=== PATIENT | female | born 1990 | race Caucasian/White ===

== ENCOUNTER 2017-10-30 14:04 | Emergency (ER) | payer OTHER ==
--- OUTSIDE RECORDS SUMMARY | 2017-10-30 15:26 | XMS REPORT ---
:1990 External Reference #:[id number] Author Organization [employer] Address [address] [address] Phone [phone] Care Team Providers Name Role Phone Luh Bee MD Primary Care Physician Unavailable Payers Type Date Identification Numbers Payment Provider Subscriber Commercial Effective: Policy Number: [id number] [employer] Kindra Shaw 2017 Medicaid PayID: [id number] [place] [id number] Problems Description No Information Family History Date Family Member(s) Problem(s) Comments General Heart Disease Social History Type Date Description Comments Lives With Roommate Allergies, Adverse Reactions, Alerts Date Description Reaction Status Severity Comments 10/10/2017 Penicillins active Medications Medication Date Status Form Strength Qnty SIG Indications Ordering Provider No Active 10/10/2017 Active Unknown Medications Results Description No Information Procedures Date CPT Code Description Status 10/30/2008 26902 Holter Monitor Interpretation Completed Plan of Care Future Appointment(s):10/31/2017 2:00 pm - Walter Perez MD at [facility]10/10/2017 - Walter Perez, [id number] Strain of musc/tend the rotator cuff of left shoulder, initNew Therapy:Physical TherapyFollow up:Follow up: 3 weeks
--- OUTSIDE RECORDS SUMMARY | 2017-10-30 15:26 | XMS REPORT ---
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 0-6 Basophil % 1.2 % 0-2 Nucleated Red Blood Cells % 0.1 Urinalysis Profile 03/04/2017 Urine Color Straw Urine Appearance Cloudy Urine Specific Proctor 1.009 Low 1.010-1.030 Urine pH 6.0 5-9 Urine Urobilinogen Negative Negative Urine Ketones Negative Negative Urine Protein Negative Negative Urine Leukocytes Negative Negative Urine Blood Negative Negative Urine Nitrite Negative Negative Urine Bilirubin Negative Negative Urine Glucose Negative Negative Comp Metabolic Panel 03/04/2017 Sodium 138 mmol/L 133-145 Potassium 3.8 mmol/L 3.5-5.0 Chloride 104 mmol/L 101-111 Co2 Carbon Dioxide 29 mmol/L 22-32 Anion Gap 5 mmol/L 2-11 Glucose 97 mg/dL 70-100 Blood Urea Nitrogen 11 mg/dL 6-24 Creatinine 0.77 mg/dL 0.51-0.95 BUN/Creatinine Ratio 14.3 8-20 Calcium 9.5 mg/dL 8.6-10.3 Total Protein 7.3 g/dL 6.4-8.9 Albumin 4.5 g/dL 3.2-5.2 Globulin 2.8 g/dL 2-4 Albumin/Globulin Ratio 1.6 1-3 Total Bilirubin 0.30 mg/dL 0.2-1.0 Alkaline Phosphatase 48 U/L 34-104 Alt 24 U/L 7-52 Ast 16 U/L 13-39 Egfr Non- 91.3 >60 Egfr 117.5 >60 11 Laboratory test finding 03/04/2017 Magnesium 2.1 mg/dL 1.9-2.7 Creatine Kinase(CK) 40 U/L 10-223 Troponin I 0.00 ng/mL <0.04 TSH (Thyroid Stim Horm) 3.59 mcIU/mL 0.34-5.60 B-Type Natriuretic Peptide BNP 14 pg/mL 12 Lactic Acid 1.0 mmol/L 0.5-2.0 13 Inr/Protime 03/04/2017 Inr 0.92 0.89-1.11 Laboratory test finding 03/04/2017 Partial Thrombo Time 38.5 seconds High 26.0-36.3 PTT D Dimer Quantitative < 200 ng/mL Less Than 230 14 Urine Drug SCR ED 03/04/2017 Amphetamine Ur Screen None Detected None Detect & Pain [facility] Barbiturates Urine Screen None Detected None Detect Benzodiazepine Urine Screen None Detected None Detect Urine Cannabinoids Screen None Detected None Detect Urine Cocaine Screen None Detected None Detect Urine Opiates Screen None Detected None Detect Urine Phencyclidine Screen None Detected None Detect 15 CBC Auto Diff 03/04/2017 White Blood Count 9.0 10^3/uL 3.5-10.8 Red Blood Count 4.27 10^6/uL 4.0-5.4 Hemoglobin 13.0 g/dL 12.0-16.0 Hematocrit 38 % 35-47 Mean Corpuscular Volume 88 fL 80-97 Mean Corpuscular Hemoglobin 31 pg 27-31 Mean Corpuscular HGB Conc 35 g/dL 31-36 Red Cell Distribution Width 13 % 10.5-15 Platelet Count 325 10^3/uL 150-450 Mean Platelet Volume 8 um3 7.4-10.4 Abs Neutrophils 5.5 10^3/uL 1.5-7.7 Abs Lymphocytes 2.7 10^3/uL 1.0-4.8 Abs Monocytes 0.6 10^3/uL 0-0.8 Abs Eosinophils 0.1 10^3/uL 0-0.6 Abs Basophils 0.1 10^3/uL 0-0.2 Abs Nucleated RBC 0 10^3/uL Granulocyte % 61.5 % 38-83 Lymphocyte % 30.5 % 25-47 Monocyte % 6.2 % 1-9 Eosinophil % 0.9 % 0-6 Basophil % 0.9 % 0-2 Nucleated Red Blood Cells % 0 Laboratory test finding 02/26/2017 Troponin I 0.00 ng/mL <0.04 HCG < 0.60 mIU/mL 16 TSH (Thyroid Stim Horm) 0.83 mcIU/mL 0.34-5.60 Comp Metabolic Panel 02/26/2017 Sodium 138 mmol/L 133-145 Potassium 3.4 mmol/L Low 3.5-5.0 Chloride 104 mmol/L 101-111 Co2 Carbon Dioxide 24 mmol/L 22-32 Anion Gap 10 mmol/L 2-11 Glucose 95 mg/dL 70-100 Blood Urea Nitrogen 10 mg/dL 6-24 Creatinine 0.73 mg/dL 0.51-0.95 BUN/Creatinine Ratio 13.7 8-20 Calcium 9.8 mg/dL 8.6-10.3 Total Protein 8.0 g/dL 6.4-8.9 Albumin 4.6 g/dL 3.2-5.2 Globulin 3.4 g/dL 2-4 Albumin/Globulin Ratio 1.4 1-3 Total Bilirubin 0.40 mg/dL 0.2-1.0 Alkaline Phosphatase 51 U/L 34-104 Alt 24 U/L 7-52 Ast 16 U/L 13-39 Egfr Non- 97.1 >60 Egfr 124.9 >60 17 Laboratory test finding 02/26/2017 B-Type Natriuretic Peptide BNP 31 pg/mL 18 Urinalysis Profile 02/26/2017 Urine Color Yellow Urine Appearance Cloudy Urine Specific Proctor 1.015 1.010-1.030 Urine pH 5.0 5-9 Urine Urobilinogen Negative Negative Urine Ketones Negative Negative Urine Protein Negative Negative Urine Leukocytes Negative Negative Urine Blood Negative Negative Urine Nitrite Negative Negative Urine Bilirubin Negative Negative Urine Glucose Negative Negative CBC Auto Diff 02/26/2017 White Blood Count 9.3 10^3/uL 3.5-10.8 Red Blood Count 4.43 10^6/uL 4.0-5.4 Hemoglobin 13.5 g/dL 12.0-16.0 Hematocrit 39 % 35-47 Mean Corpuscular Volume 89 fL 80-97 Mean Corpuscular Hemoglobin 31 pg 27-31 Mean Corpuscular HGB Conc 34 g/dL 31-36 Red Cell Distribution Width 13 % 10.5-15 Platelet Count 345 10^3/uL 150-450 Mean Platelet Volume 8 um3 7.4-10.4 Abs Neutrophils 6.4 10^3/uL 1.5-7.7 Abs Lymphocytes 2.3 10^3/uL 1.0-4.8 Abs Monocytes 0.5 10^3/uL 0-0.8 Abs Eosinophils 0.1 10^3/uL 0-0.6 Abs Basophils 0 10^3/uL 0-0.2 Abs Nucleated RBC 0.01 10^3/uL Granulocyte % 69.0 % 38-83 Lymphocyte % 24.5 % Low 25-47 Monocyte % 5.4 % 1-9 Eosinophil % 0.6 % 0-6 Basophil % 0.5 % 0-2 Nucleated Red Blood Cells % 0.1 Laboratory test finding 02/26/2017 Partial Thrombo Time 38.8 seconds High 26.0-36.3 PTT D Dimer Quantitative < 200 ng/mL Less Than 230 19 Laboratory test finding 10/24/2016 Potassium Redraw 3.6 mmol/L 3.5-5.0 Ast Redraw 17 U/L 13-39 CBC Auto Diff 10/24/2016 White Blood Count 10.7 10^3/uL 3.5-10.8 Red Blood Count 4.07 10^6/uL 4.0-5.4 Hemoglobin 12.6 g/dL 12.0-16.0 Hematocrit 36 % 35-47 Mean Corpuscular Volume 89 fL 80-97 Mean Corpuscular Hemoglobin 31 pg 27-31 Mean Corpuscular HGB Conc 35 g/dL 31-36 Red Cell Distribution Width 12 % 10.5-15 Platelet Count 336 10^3/uL 150-450 Mean Platelet Volume 8 um3 7.4-10.4 Abs Neutrophils 6.4 10^3/uL 1.5-7.7 Abs Lymphocytes 3.3 10^3/uL 1.0-4.8 Abs Monocytes 0.8 10^3/uL 0-0.8 Abs Eosinophils 0.1 10^3/uL 0-0.6 Abs Basophils 0.1 10^3/uL 0-0.2 Abs Nucleated RBC 0.02 10^3/uL Granulocyte % 59.9 % 38-83 Lymphocyte % 30.5 % 25-47 Monocyte % 7.2 % 1-9 Eosinophil % 1.0 % 0-6 Basophil % 1.4 % 0-2 Nucleated Red Blood Cells % 0.1 Laboratory test 10/24/2016 D Dimer Quantitative < 200 ng/mL Less Than 230 20 finding Lactic Acid 1.4 mmol/L 0.5-2.0 21 B-Type Natriuretic Peptide BNP 91 pg/mL 22 Comp Metabolic Panel 10/24/2016 Sodium 140 mmol/L 133-145 Chloride 108 mmol/L 101-111 Co2 Carbon Dioxide 26 mmol/L 22-32 Glucose 79 mg/dL 70-100 Blood Urea Nitrogen 8 mg/dL 6-24 Creatinine 0.71 mg/dL 0.51-0.95 BUN/Creatinine Ratio 11.3 8-20 Calcium 8.4 mg/dL Low 8.6-10.3 23 Total Protein 6.6 g/dL 6.4-8.9 Albumin 3.6 g/dL 3.2-5.2 Globulin 3.0 g/dL 2-4 Albumin/Globulin Ratio 1.2 1-3 Total Bilirubin 0.20 mg/dL 0.2-1.0 Alkaline Phosphatase 50 U/L 34-104 Alt 24 U/L 7-52 Egfr Non- 100.3 >60 Egfr 129.0 >60 24 Potassium TNP mmol/L 3.5-5.0 Anion Gap TNP mmol/L 2-11 Ast TNP U/L 13-39 Laboratory test finding 10/24/2016 Troponin I 0.01 ng/mL <0.04 25 Rapid Influenza A & B 10/16/2016 Influenza A Molecular NEGATIVE Negative 26 Molecular Influenza B Molecular NEGATIVE Negative Laboratory test 10/16/2016 Rapid Influenza A SEE RESULT BELOW 27 finding & B Antigen CBC Auto Diff 10/16/2016 White Blood Count 15.7 10^3/uL High 3.5-10.8 Red Blood Count 5.01 10^6/uL 4.0-5.4 Hemoglobin 15.0 g/dL 12.0-16.0 Hematocrit 45 % 35-47 Mean Corpuscular Volume 89 fL 80-97 Mean Corpuscular Hemoglobin 30 pg 27-31 Mean Corpuscular HGB Conc 34 g/dL 31-36 Red Cell Distribution Width 13 % 10.5-15 Platelet Count 342 10^3/uL 150-450 Mean Platelet Volume 9 um3 7.4-10.4 Abs Neutrophils 14.8 10^3/uL High 1.5-7.7 Abs Lymphocytes 0.3 10^3/uL Low 1.0-4.8 Abs Monocytes 0.5 10^3/uL 0-0.8 Abs Eosinophils 0 10^3/uL 0-0.6 Abs Basophils 0 10^3/uL 0-0.2 Abs Nucleated RBC 0 10^3/uL Granulocyte % 94.5 % High 38-83 Lymphocyte % 1.9 % Low 25-47 Monocyte % 3.3 % 1-9 Eosinophil % 0.1 % 0-6 Basophil % 0.2 % 0-2 Nucleated Red Blood Cells % 0 Laboratory test finding 10/16/2016 Lactic Acid 1.8 mmol/L 0.5-2.0 28 Comp Metabolic Panel 10/16/2016 Sodium 134 mmol/L 133-145 Potassium 3.8 mmol/L 3.5-5.0 Chloride 99 mmol/L Low 101-111 Co2 Carbon Dioxide 26 mmol/L 22-32 Anion Gap 9 mmol/L 2-11 Glucose 131 mg/dL High 70-100 Blood Urea Nitrogen 17 mg/dL 6-24 Creatinine 0.77 mg/dL 0.51-0.95 BUN/Creatinine Ratio 22.1 High 8-20 Calcium 9.9 mg/dL 8.6-10.3 Total Protein 8.9 g/dL 6.4-8.9 Albumin 4.9 g/dL 3.2-5.2 Globulin 4.0 g/dL 2-4 Albumin/Globulin Ratio 1.2 1-3 Total Bilirubin 0.60 mg/dL 0.2-1.0 Alkaline Phosphatase 62 U/L 34-104 Alt 27 U/L 7-52 Ast 19 U/L 13-39 Egfr Non- 91.3 >60 Egfr 117.5 >60 29 Laboratory test finding 10/16/2016 Lipase 13 U/L 11.0-82.0 C Reactive Protein 19.28 mg/L High < 5.00 30 HCG 1.34 mIU/mL 31 Laboratory test finding 07/14/2016 Acetaminophen < 15 g/mL 32 Alcohol < 10 mg/dL <10 Salicylate < 2.50 mg/dL <30 Laboratory test 07/14/2016 Urine Culture And SEE RESULT BELOW 33 finding Sensitivities Comp Metabolic Panel 07/14/2016 Sodium 136 mmol/L 133-145 Potassium 4.0 mmol/L 3.5-5.0 Chloride 104 mmol/L 101-111 Co2 Carbon Dioxide 25 mmol/L 22-32 Anion Gap 7 mmol/L 2-11 Glucose 99 mg/dL 70-100 Blood Urea Nitrogen 11 mg/dL 6-24 Creatinine 0.85 mg/dL 0.51-0.95 BUN/Creatinine Ratio 12.9 8-20 Calcium 9.6 mg/dL 8.6-10.3 Total Protein 7.4 g/dL 6.4-8.9 Albumin 4.2 g/dL 3.2-5.2 Globulin 3.2 g/dL 2-4 Albumin/Globulin Ratio 1.3 1-3 Total Bilirubin 0.20 mg/dL 0.2-1.0 Alkaline Phosphatase 54 U/L 34-104 Alt 26 U/L 7-52 Ast 13 U/L 13-39 Egfr Non- 82.2 >60 Egfr 105.7 >60 34 Laboratory test finding 07/14/2016 HCG < 0.60 mIU/mL 35 TSH (Thyroid Stim Horm) 1.69 mcIU/mL 0.34-5.60 CBC Auto Diff 07/14/2016 White Blood Count 10.6 10^3/uL 3.5-10.8 Red Blood Count 4.63 10^6/uL 4.0-5.4 Hemoglobin 14.0 g/dL 12.0-16.0 Hematocrit 42 % 35-47 Mean Corpuscular Volume 90 fL 80-97 Mean Corpuscular Hemoglobin 30 pg 27-31 Mean Corpuscular HGB Conc 34 g/dL 31-36 Red Cell Distribution Width 13 % 10.5-15 Platelet Count 328 10^3/uL 150-450 Mean Platelet Volume 8 um3 7.4-10.4 Abs Neutrophils 7.4 10^3/uL 1.5-7.7 Abs Lymphocytes 2.3 10^3/uL 1.0-4.8 Abs Monocytes 0.7 10^3/uL 0-0.8 Abs Eosinophils 0.1 10^3/uL 0-0.6 Abs Basophils 0.1 10^3/uL 0-0.2 Abs Nucleated RBC 0.01 10^3/uL Granulocyte % 70.5 % 38-83 Lymphocyte % 21.5 % Low 25-47 Monocyte % 6.7 % 1-9 Eosinophil % 0.7 % 0-6 Basophil % 0.6 % 0-2 Nucleated Red Blood Cells % 0.1 Urinalysis Profile 07/14/2016 Urine Color Yellow Urine Appearance Cloudy Urine Specific Proctor 1.016 1.010-1.030 Urine pH 7.0 5-9 Urine Urobilinogen Negative Negative Urine Ketones Negative Negative Urine Protein Negative Negative Urine Leukocytes 2+ Negative Urine Blood Negative Negative * * Negative 36 Urine Nitrite Negative Negative Urine Bilirubin Negative Negative Urine Glucose Negative Negative Urine White Blood Cell 2+(11-20/hpf) Absent Urine Red Blood Cell Trace(0-2/hpf) Absent Urine Bacteria 1+ Absent Urine Squamous Epithelial Cell Present Absent Urine Drug SCR ED 07/14/2016 Amphetamine Ur Screen None Detected None Detect & Pain Clinic Barbiturates Urine Screen None Detected None Detect Benzodiazepine Urine Screen None Detected None Detect Urine Cannabinoids Screen None Detected None Detect Urine Cocaine Screen None Detected None Detect Urine Opiates Screen None Detected None Detect Urine Phencyclidine Screen None Detected None Detect 37 Laboratory test finding 06/28/2016 Potassium Redraw 3.9 mmol/L 3.5-5.0 Ast Redraw 14 U/L 13-39 CBC Auto Diff 06/28/2016 White Blood Count 8.4 10^3/uL 3.5-10.8 Red Blood Count 4.70 10^6/uL 4.0-5.4 Hemoglobin 14.3 g/dL 12.0-16.0 Hematocrit 42 % 35-47 Mean Corpuscular Volume 90 fL 80-97 Mean Corpuscular Hemoglobin 31 pg 27-31 Mean Corpuscular HGB Conc 34 g/dL 31-36 Red Cell Distribution Width 13 % 10.5-15 Platelet Count 340 10^3/uL 150-450 Mean Platelet Volume 9 um3 7.4-10.4 Abs Neutrophils 5.9 10^3/uL 1.5-7.7 Abs Lymphocytes 2.0 10^3/uL 1.0-4.8 Abs Monocytes 0.4 10^3/uL 0-0.8 Abs Eosinophils 0.1 10^3/uL 0-0.6 Abs Basophils 0.1 10^3/uL 0-0.2 Abs Nucleated RBC 0 10^3/uL Granulocyte % 70.4 % 38-83 Lymphocyte % 23.3 % Low 25-47 Monocyte % 4.9 % 1-9 Eosinophil % 0.8 % 0-6 Basophil % 0.6 % 0-2 Nucleated Red Blood Cells % 0 Urinalysis Profile 06/28/2016 Urine Color Straw Urine Appearance Clear Urine Specific Proctor 1.003 Low 1.010-1.030 Urine pH 6.0 5-9 Urine Urobilinogen Negative Negative Urine Ketones Negative Negative Urine Protein Negative Negative Urine Leukocytes 1+ Negative Urine Blood Negative Negative Urine Nitrite Negative Negative Urine Bilirubin Negative Negative Urine Glucose Negative Negative Urine White Blood Cell Trace(0-5/hpf) Absent Urine Red Blood Cell Absent Absent Urine Bacteria Absent Absent Urine Squamous Epithelial Cell Present Absent Laboratory test finding 06/28/2016 HCG < 0.60 mIU/mL 38 Comp Metabolic Panel 06/28/2016 Sodium 135 mmol/L 133-145 Chloride 102 mmol/L 101-111 Co2 Carbon Dioxide 26 mmol/L 22-32 Glucose 96 mg/dL 70-100 Blood Urea Nitrogen 9 mg/dL 6-24 Creatinine 0.80 mg/dL 0.51-0.95 BUN/Creatinine Ratio 11.3 8-20 Calcium 9.7 mg/dL 8.6-10.3 Total Protein 8.1 g/dL 6.4-8.9 Albumin 4.7 g/dL 3.2-5.2 Globulin 3.4 g/dL 2-4 Albumin/Globulin Ratio 1.4 1-3 Total Bilirubin 0.50 mg/dL 0.2-1.0 Alkaline Phosphatase 50 U/L 34-104 Alt 21 U/L 7-52 Egfr Non- 88.1 >60 Egfr 113.3 >60 39 Potassium TNP mmol/L 3.5-5.0 40 Anion Gap TNP mmol/L 2-11 Ast TNP U/L 13-39 41 Laboratory test finding 06/28/2016 Lipase 15 U/L 11.0-82.0 Urine Culture And Sensitivities SEE RESULT BELOW 42 Lipid Profile 04/21/2016 Cholesterol 214 mg/dL High 120-200 Triglycerides 211 mg/dL High 30-200 HDL Cholesterol 28 mg/dL Low 30-85 43 LDL (Calculated) 144 CALC High 0-129 VLDL Cholesterol 42 mg/dL 0-50 HDL Risk Factor 7.6 CALC High 0.0-4.4 CBC Electronic (Fma) 04/21/2016 WBC 7.1 3.6-9.6 RBC 4.56 3.90-5.70 Hemoglobin (Fma/CMC/CTX) 14.1 g/dL 12.1 - 17.2 Hematocrit (Fma/CMC/CTX) 41.0 % 36.1 - 50.3 Platelets 337 10^3/ul 150-400 Lymph% 30.3 % 17.0-48.0 Mixed% 3.2 Neutrophils % 66.5 Mean Corpuscular Vol 90 82.2-97.4 Mean Corpuscular Hemoglobin 31.0 27.6-33.3 Mean Corpuscular Hemo Concen 34.4 32.0-36.0 RDW 12.5 11.6-13.7 Mean Platelet Volume 7.5 5.5-11.0 Laboratory test finding 04/21/2016 Vitamin D25 21 Low 30-100 TSH 1.39 mIU/L 0.50-6.00 Comprehensive Metabolic Prof 04/21/2016 Sodium 137 mEq/L 134-149 Potassium 4.7 mEq/L 3.6-5.5 Chloride 100 mEq/L 94-112 Carbon Dioxide 26 mEq/L 21-32 Glucose 94 mg/dL 70-105 BUN 10 mg/dL 6-26 Creatinine 0.7 mg/dL 0.6-1.4 BUN/Creat Ratio 14.3 CALC 8.0-36.0 Calcium 9.3 mg/dL 8.6-10.2 Total Protein 7.5 g/dL 6.4-8.3 Albumin 4.4 g/dL 3.8-5.5 Globulin 3.1 g/dL 2.0-4.8 A/G Ratio 1.4 CALC 0.6-2.3 Alk. Phosphatase 53 U/L 30-110 Alt (SGPT) 38 U/L High 7-35 44 Ast (Sgot) 22 U/L 5-34 Total Bilirubin 0.4 mg/dL 0.2-1.3 GFR Non- >60 ml/min/1.73m^ >=60 GFR >60 ml/min/1.73m^ >=60 Laboratory test finding 04/07/2016 PDF [id number] SEE IMAGE Age 1004/07/2016 Age 21-25 Diagn See Comment: 45 Adeq See Comment: 46 [email or web address] See Comment: 47 Perfor See Comment: 48 Comm . Note See Comment: 49 Iglbp See Comment: 50 Reflex See Comment: 51 Chlamydia, Nuc. Acid Amp Negative Negative Gonococcus, Nuc. Acid Amp Negative Negative HCG Beta Subunit QN Serial 06/03/2013 HCG, Beta Chain, Quant, S <1 mIU/ mL 52 Urine (Fma) 06/03/2013 SP Grav 1.020 Urine, (Fma/CMC/CTX) NEG Laboratory test finding 04/02/2013 Prolactin 37.27 ng/mL High 1.0-25.0 Brigitte Panel--LD (Ctx) 03/26/2013 Antinuclear Abs, Ifa Negative 53 Rheumatoid Arth Factor 10.2 IU/mL 0.0-13.9 Anti Dsdna Antibodies <1 IU/mL 0-9 54 Hla B27 Disease Assoc. Negative 55 Antiextractable Nuclear Ag 03/26/2013 [employer] Antibodies <0.2 AI 0.0-0.9 Nunez Antibodies <0.2 AI 0.0-0.9 Sjogren's AB Anti Ssa/SSB 03/26/2013 Sjogren's Anti-SS-A <0.2 AI 0.0- 0.9 Sjogren's Anti-SS-B <0.2 AI 0.0-0.9 Laboratory test 03/26/2013 Sed Rate (Fma/CMC/Centrex) 14 mm finding Laboratory test 03/26/2013 TSH 1.43 mIU/L 0.50-6.00 56 finding CCP Antibodies 03/26/2013 CCP Antibodies IgG/IgA 10 units 0-19 57 Iga,Igg Basic Metabolic Panel 01/08/2013 Sodium 137 mmol/L 133-145 Potassium 4.2 mmol/L 3.5-5.0 Chloride 105 mmol/L 101-111 Co2 Carbon Dioxide 24.0 mmol/L 22-32 Anion Gap 8.0 mmol/L 2-11 Glucose 85 mg/dL 70-100 Blood Urea Nitrogen 7 mg/dL 6-24 Creatinine 0.60 mg/dL 0.50-1.40 BUN/Creatinine Ratio 11.7 8-20 Calcium 9.4 mg/dL 8.1-9.9 Egfr Non- 126.2 >60 Egfr 162.3 >60 58 Laboratory test finding 01/08/2013 Prolactin 86.99 ng/mL High 1.0-25.0 Progesterone 0.28 ng/mL 59 Laboratory test finding 10/30/2012 TSH 1.32 mIU/L 0.50-6.00 LDL (Direct) 102 mg/dL 0-130 CBC Electronic (Fma) 10/30/2012 WBC 9.2 3.6-9.6 RBC 4.46 3.90-5.70 Hemoglobin (Fma/CMC/CTX) 13.0 g/dL 12.1 - 17.2 Hematocrit (Fma/CMC/CTX) 39.5 % 36.1 - 50.3 Platelets 330 10^3/ul 150-400 Lymph% 28.0 20.5-51.1 Mixed% 3.7 Neutrophils % 68.3 Mean Corpuscular Vol 89 82.2-97.4 Mean Corpuscular Hemoglobin 29.2 27.6-33.3 Mean Corpuscular Hemo Concen 33.0 32.0-36.0 RDW 12.9 11.6-13.7 Mean Platelet Volume 7.9 6.5-11.0 Ua - Non Micro (a) 10/30/2012 Appearance clear Color yellow Glucose - Bilirubin - Ketones - SP Grav >=1.030 Blood - PH 5.5 Protein - Urobil 0.2 Nitrite - Leukocytes (Fma/CMC/Centrex) - Comprehensive Metabolic Prof 10/30/2012 Albumin 4.7 g/dL 3.8-5.5 Alk. Phos. 59 U/L 30-110 Alt (SGPT) 38 U/L High 7-35 60 Ast (Sgot) 25 U/L 5-34 BUN 11 mg/dL 6-26 Calcium 9.6 mg/dL 8.6-10.2 Chloride 104 mEq/L 94-112 Creatinine 0.8 mg/dL 0.6-1.4 Carbon Dioxide 26 mEq/L 21-32 Glucose 103 mg/dL 70-105 Sodium 143 mEq/L 134-149 Total Bilirubin 0.2 mg/dL 0.2-1.3 Total Protein 7.6 g/dL 6.3-8.1 Potassium 4.5 mEq/L 3.6-5.5 Globulin 2.9 g/dL 2.0-4.8 A/G Ratio 1.6 Calc 0.6-2.3 BUN/Creat Ratio 12.7 Calc 8.0-36.0 Lipid Profile 10/30/2012 Cholesterol 201 mg/dL High 120-200 HDL 27 mg/dL Low 30-85 61 Triglycerides 293 mg/dL High 30-200 HDL Risk Factor 7.6 CALC High 0.0-4.4 LDL (Calculated) 116 CALC 0-129 62 VLDL (Calculated) 59 mg/dL High 0-50 1 TOXASSURE SELECT 13 (MW) Test Result Flag Units Drug Absent but Declared for Prescription Verification Clonazepam Not Detected UNEXPECTED ng/mg creat Hydrocodone Not Detected UNEXPECTED ng/mg creat Test Result Flag Units Ref Range Creatinine 82 mg/dL >=20 Declared Medications: The flagging and interpretation on this report are based on the following declared medications. Unexpected results may arise from inaccuracies in the declared medications. Note: The testing scope of this panel includes these medications: Clonazepam (Klonopin) Hydrocodone (Hydrocodone-Acetaminophen) Note: The testing scope of this panel does not include following reported medications: Acetaminophen (Hydrocodone-Acetaminophen) Aripiprazole Atomoxetine (Strattera) Citalopram (Lexapro) Desogestrel (Mircette) Ethinyl Estradiol (Mircette) Fluticasone (Flovent) Folic acid Levalbuterol (Xopenex) Metformin Montelukast (Singulair) Zolpidem (Ambien) For clinical consultation, please call . 2 Test Performed by: [facility] [place] [address] 3 REFERENCE VALUE <=1.0 (Negative) 4 REFERENCE VALUE <20.0 (Negative) 5 Tests for antibodies to dsDNA and MARY antigens are not performed automatically unless the BRIGITTE result is > or= 3.0 U. Studies performed at [facility] indicate that positive BRIGITTE results <3.0 U are rarely accompanied by positive second order tests. Test Performed by: [place] [id number] 6 Because ethnic data is not always readily available, this report includes an eGFR for both -Americans and non- Americans. The National Kidney Disease Education Program (NKDEP) does not endorse the use of the MDRD equation for patients that are not between the ages of 18 and 70, are , have extremes of body size, muscle mass, or nutritional status, or are non- or non-. According to the National Kidney Foundation, irrespective of diagnosis, the stage of the disease is based on the level of kidney function: Stage Description GFR(mL/min/1.73 m(2)) 1 Kidney damage with normal or decreased GFR 90 2 Kidney damage with mild decrease in GFR 60-89 3 Moderate decrease in GFR 30-59 4 Severe decrease in GFR 15-29 5 Kidney failure <15 (or dialysis) 7 <5.0 Negative 5.0 - 25.0 Indeterminate (Repeat testing recommended after 72 hours) >25.0 Positive Perimenopausal women can display HCG levels of up to 20 mIU/mL 8 The urine specimen was tested at the listed cutoffs: Drug class test level (ng/mL) Amphetamines 500 Barbiturates 200 Benzodiazepine metabolites 200 Cocaine metabolites 150 Cannabinoids 50 Opiates 300 Pcp 25 Specimen was received without chain of custody. Results should be used for medical purposes only. 9 Because ethnic data is not always readily available, this report includes an eGFR for both -Americans and non- Americans. The National Kidney Disease Education Program (NKDEP) does not endorse the use of the MDRD equation for patients that are not between the ages of 18 and 70, are , have extremes of body size, muscle mass, or nutritional status, or are non- or non-. According to the National Kidney Foundation, irrespective of diagnosis, the stage of the disease is based on the level of kidney function: Stage Description GFR(mL/min/1.73 m(2)) 1 Kidney damage with normal or decreased GFR 90 2 Kidney damage with mild decrease in GFR 60-89 3 Moderate decrease in GFR 30-59 4 Severe decrease in GFR 15-29 5 Kidney failure <15 (or dialysis) 10 Therapeutic concentration: <50 ug/mL Toxic concentration: >120 ug/mL 11 Because ethnic data is not always readily available, this report includes an eGFR for both -Americans and non- Americans. The National Kidney Disease Education Program (NKDEP) does not endorse the use of the MDRD equation for patients that are not between the ages of 18 and 70, are , have extremes of body size, muscle mass, or nutritional status, or are non- or non-. According to the National Kidney Foundation, irrespective of diagnosis, the stage of the disease is based on the level of kidney function: Stage Description GFR(mL/min/1.73 m(2)) 1 Kidney damage with normal or decreased GFR 90 2 Kidney damage with mild decrease in GFR 60-89 3 Moderate decrease in GFR 30-59 4 Severe decrease in GFR 15-29 5 Kidney failure <15 (or dialysis) 12 >100 to <200 pg/mL: likely compensated congestive heart failure (CHF) 200 to 400 pg/mL: likely moderate CHF >400 pg/mL: likely moderate to severe CHF 13 [facility] Severe Sepsis and Septic Shock Management Bundle Measure requires all lactic acids initially measuring >2.0 mmol/L be repeated. 14 Please note: The following may produce a false positive D Dimer test: - Rheumatoid factor greater than 60 IU/ml - Plasma hemoglobin greater than 0.05 gm/dl - Bilirubin greater than 50 mg/dl - Lipids greater than 1000 mg/dl - FDP greater than 20 ug/ml 15 The urine specimen was tested at the listed cutoffs: Drug class test level (ng/mL) Amphetamines 500 Barbiturates 200 Benzodiazepine metabolites 200 Cocaine metabolites 150 Cannabinoids 50 Opiates 300 Pcp 25 Specimen was received without chain of custody. Results should be used for medical purposes only. 16 <5.0 Negative 5.0 - 25.0 Indeterminate (Repeat testing recommended after 72 hours) >25.0 Positive Perimenopausal women can display HCG levels of up to 20 mIU/mL 17 Because ethnic data is not always readily available, this report includes an eGFR for both -Americans and non- Americans. The National Kidney Disease Education Program (NKDEP) does not endorse the use of the MDRD equation for patients that are not between the ages of 18 and 70, are , have extremes of body size, muscle mass, or nutritional status, or are non- or non-. According to the National Kidney Foundation, irrespective of diagnosis, the stage of the disease is based on the level of kidney function: Stage Description GFR(mL/min/1.73 m(2)) 1 Kidney damage with normal or decreased GFR 90 2 Kidney damage with mild decrease in GFR 60-89 3 Moderate decrease in GFR 30-59 4 Severe decrease in GFR 15-29 5 Kidney failure <15 (or dialysis) 18 >100 to <200 pg/mL: likely compensated congestive heart failure (CHF) 200 to 400 pg/mL: likely moderate CHF >400 pg/mL: likely moderate to severe CHF 19 Please note: The following may produce a false positive D Dimer test: - Rheumatoid factor greater than 60 IU/ml - Plasma hemoglobin greater than 0.05 gm/dl - Bilirubin greater than 50 mg/dl - Lipids greater than 1000 mg/dl - FDP greater than 20 ug/ml 20 Please note: The following may produce a false positive D Dimer test: - Rheumatoid factor greater than 60 IU/ml - Plasma hemoglobin greater than 0.05 gm/dl - Bilirubin greater than 50 mg/dl - Lipids greater than 1000 mg/dl - FDP greater than 20 ug/ml 21 [facility] Severe Sepsis and Septic Shock Management Bundle Measure requires all lactic acids initially measuring >2.0 mmol/L be repeated. 22 >100 to <200 pg/mL: likely compensated congestive heart failure (CHF) 200 to 400 pg/mL: likely moderate CHF >400 pg/mL: likely moderate to severe CHF 23 Specimen Lipemic. Result may not be valid. 24 Because ethnic data is not always readily available, this report includes an eGFR for both -Americans and non- Americans. The National Kidney Disease Education Program (NKDEP) does not endorse the use of the MDRD equation for patients that are not between the ages of 18 and 70, are , have extremes of body size, muscle mass, or nutritional status, or are non- or non-. According to the National Kidney Foundation, irrespective of diagnosis, the stage of the disease is based on the level of kidney function: Stage Description GFR(mL/min/1.73 m(2)) 1 Kidney damage with normal or decreased GFR 90 2 Kidney damage with mild decrease in GFR 60-89 3 Moderate decrease in GFR 30-59 4 Severe decrease in GFR 15-29 5 Kidney failure <15 (or dialysis) 25 99th percentile=0.04 ng/mL Troponin results at [facility] and [facility] are not interchangeable. 26 Shoe Cutter: [id number] 27 SEE RESULT BELOW Name: KINDRA MEDRANO : [address]: Tonny Romero MD Acct: [id number] Unit: [id number] AGE: 26 Location: ED Re10/16/16 SEX: F Status: REG ER SPEC: [id number] VANCE: 10/16/16-[address] [facility] [address]: Tonny Romero MD REQ: [id number] RECD: 10/16/161743 STATUS: LINETTE GAMINO DR: Luh Bee MD _ SOURCE: [facility]: ORDERED: Flu A B Request Procedure Result Reported Site Rapid Influenza A B Request Final 10/16/16- 1411 ML Specimen received for Influenza A/B Molecular testing * ML - MAIN LAB ([facility]) . END OF REPORT * ML=Testing performed at Main Lab DEPARTMENT OF PATHOLOGY, [address] [place] [address] Dylan Laurent M.D. Director [facility] # [id number] 28 [facility] Severe Sepsis and Septic Shock Management Bundle Measure requires all lactic acids initially measuring >2.0 mmol/L be repeated. 29 Because ethnic data is not always readily available, this report includes an eGFR for both -Americans and non- Americans. The National Kidney Disease Education Program (NKDEP) does not endorse the use of the MDRD equation for patients that are not between the ages of 18 and 70, are , have extremes of body size, muscle mass, or nutritional status, or are non- or non-. According to the National Kidney Foundation, irrespective of diagnosis, the stage of the disease is based on the level of kidney function: Stage Description GFR(mL/min/1.73 m(2)) 1 Kidney damage with normal or decreased GFR 90 2 Kidney damage with mild decrease in GFR 60-89 3 Moderate decrease in GFR 30-59 4 Severe decrease in GFR 15-29 5 Kidney failure <15 (or dialysis) 30 Acute inflammation: >10.00 31 <5.0 Negative 5.0 - 25.0 Indeterminate (Repeat testing recommended after 72 hours) >25.0 Positive Perimenopausal women can display HCG levels of up to 20 mIU/mL 32 Therapeutic concentration: <50 ug/mL Toxic concentration: >120 ug/mL 33 SEE RESULT BELOW Name: KINDRA MEDRANO : [address]: Denys Caba MD Acct: [id number] Unit: [id number] AGE: 25 Location: ED Re07/14/16 SEX: F Status: DEP ER SPEC: [id number] VANCE: 07/14/[address] [facility] [address]: Denys Caba MD REQ: [id number] RECD: 07/14/16 STATUS: LINETTE GAMINO DR: [facility] Luh Bee MD _ SOURCE: URINE SPDESC: ORDERED: Urine Culture Procedure Result Reported Site Urine Culture Final 07/15/16- 1528 ML Organism 1 STREP GROUP B [place] Count 75-100,000 (Many) CFU/ML Susceptibility testing of penicillins and other B-lactams approved by FDA for treatment of Streptococcus pyogenes (Group A Strep) and Streptococcus agalactiae (Group B Strep) is not necessary for clinical purposes and need not be done routinely, since as with vancomycin, resistant strains have not been recognized. (CLSI C551-H60;p.66) Positive isolates will be saved for one week. Please call the Microbiology Laboratory if further susceptibility testing is needed. * ML - MAIN LAB ([facility]) . END OF REPORT * ML=Testing performed at Main Lab DEPARTMENT OF PATHOLOGY, [address] [place] [address] Dylan Laurent M.D. Director [facility] # [id number] 34 Because ethnic data is not always readily available, this report includes an eGFR for both -Americans and non- Americans. The National Kidney Disease Education Program (NKDEP) does not endorse the use of the MDRD equation for patients that are not between the ages of 18 and 70, are , have extremes of body size, muscle mass, or nutritional status, or are non- or non-. According to the National Kidney Foundation, irrespective of diagnosis, the stage of the disease is based on the level of kidney function: Stage Description GFR(mL/min/1.73 m(2)) 1 Kidney damage with normal or decreased GFR 90 2 Kidney damage with mild decrease in GFR 60-89 3 Moderate decrease in GFR 30-59 4 Severe decrease in GFR 15-29 5 Kidney failure <15 (or dialysis) 35 <5.0 Negative 5.0 - 25.0 Indeterminate (Repeat testing recommended after 72 hours) >25.0 Positive Perimenopausal women can display HCG levels of up to 20 mIU/mL 36 *Ascorbic acid is present which may interfere with detection of blood. 37 The urine specimen was tested at the listed cutoffs: Drug class test level (ng/mL) Amphetamines 500 Barbiturates 200 Benzodiazepine metabolites 200 Cocaine metabolites 150 Cannabinoids 50 Opiates 300 Pcp 25 Specimen was received without chain of custody. Results should be used for medical purposes only. 38 <5.0 Negative 5.0 - 25.0 Indeterminate (Repeat testing recommended after 72 hours) >25.0 Positive Perimenopausal women can display HCG levels of up to 20 mIU/mL 39 Because ethnic data is not always readily available, this report includes an eGFR for both -Americans and non- Americans. The National Kidney Disease Education Program (NKDEP) does not endorse the use of the MDRD equation for patients that are not between the ages of 18 and 70, are , have extremes of body size, muscle mass, or nutritional status, or are non- or non-. According to the National Kidney Foundation, irrespective of diagnosis, the stage of the disease is based on the level of kidney function: Stage Description GFR(mL/min/1.73 m(2)) 1 Kidney damage with normal or decreased GFR 90 2 Kidney damage with mild decrease in GFR 60-89 3 Moderate decrease in GFR 30-59 4 Severe decrease in GFR 15-29 5 Kidney failure <15 (or dialysis) 40 Unable to report test result due to hemolysis. 41 Unable to report test result due to hemolysis. 42 SEE RESULT BELOW Name: KINDRA MEDRANO : [address]: Babak Molina MD Acct: [id number] Unit: [id number] AGE: 25 Location: ED Re06/28/16 SEX: F Status: DEP ER SPEC: [id number] VANCE: 06/28/16-[address] [facility] [address]: Babak Molina MD REQ: [id number] RECD: 06/28/16 STATUS: LINETTE GAMINO DR: Luh Bee MD _ SOURCE: URINE SPDESC: ORDERED: Urine Culture Procedure Result Reported Site Urine Culture Final 06/29/16- 1612 ML Organism 1 STREP GROUP B [place] Count 75-100,000 (Many) CFU/ML Organism 2 NORMAL MIL [place] Count 10-25,000 (Moderate) CFU/ML Susceptibility testing of penicillins and other B-lactams approved by FDA for treatment of Streptococcus pyogenes (Group A Strep) and Streptococcus agalactiae (Group B Strep) is not necessary for clinical purposes and need not be done routinely, since as with vancomycin, resistant strains have not been recognized. (CLSI B333-M24;p.66) Positive isolates will be saved for one week. Please call the Microbiology Laboratory if further susceptibility testing is needed. * ML - MAIN LAB ([facility]) . END OF REPORT * ML=Testing performed at Main Lab DEPARTMENT OF PATHOLOGY, [address] [place] [address] Dylan Laurent M.D. Director [facility] # [id number] 43 consistent w/ previous results 44 consistent w/ previous results 45 NEGATIVE FOR INTRAEPITHELIAL LESION AND MALIGNANCY. 46 Satisfactory for evaluation. Endocervical and/or squamous metaplastic cells (endocervical component) are present. Areas of partially obscuring inflammatory exudate are present. 47 Z12.4 48 Triston Velasco, Senior Mobile Solutions Architect (ASCP) 49 The Pap smear is a screening test designed to aid in the detection of premalignant and malignant conditions of the uterine cervix. It is not a diagnostic procedure and should not be used as the sole means of detecting cervical cancer. Both false-positive and false-negative reports do occur. 50 This liquid based ThinPrep(R) pap test was screened with the use of an image guided system. 51 The HPV DNA reflex criteria were not met with this specimen result therefore, no HPV testing was performed. 52 Female (Non-) 0 - 5 (Postmenopausal) 0 - 8 Female () Weeks of Gestation 3 6 - 71 4 10 - 750 5 252 - 5692 6 105 - 26584 7 1563 -108549 8 47818 -538709 9 24422 -020734 10 07664 -624188 12 38675 -005969 14 13813 - 22881 15 24275 - 76531 16 0722 - 31709 17 8877 - 43759 18 3334 - 84874 Kris ECLIA methodology 53 Negative <1:80 Borderline 1:80 Positive >1:80 54 Negative <5 Equivocal 5 - 9 Positive >9 55 HLA-B*27 Negative This test was performed using PCR (Polymerase Chain Reaction)/SSOP (Sequence Specific Oligonucleotide Probes) technique. SBT (Sequence Based Typing) and/or SSP (Sequence Specific Primers) may be used as supplemental methods when necessary. Please contact [facility] Customer Service at if you have any questions. Director of [facility] Dr Mark Ray, PhD 56 I need the citric citrillunated peptide. not sure if i ordered it scott ectly or not. thanks. w 57 Negative <20 Weak positive 20 - 39 Moderate positive 40 - 59 Strong positive >59 58 Because ethnic data is not always readily available, this report includes an eGFR for both -Americans and non- Americans. The National Kidney Disease Education Program (NKDEP) does not endorse the use of the MDRD equation for patients that are not between the ages of 18 and 70, are , have extremes of body size, muscle mass, or nutritional status, or are non- or non-. According to the National Kidney Foundation, irrespective of diagnosis, the stage of the disease is based on the level of kidney function: Stage Description GFR(mL/min/1.73 m(2)) 1 Kidney damage with normal or decreased GFR 90 2 Kidney damage with mild decrease in GFR 60-89 3 Moderate decrease in GFR 30-59 4 Severe decrease in GFR 15-29 5 Kidney failure <15 (or dialysis) 59 R Female reference ranges for Progesterone: Follicular phase.......0.3 - 1.5 ng/ml Mid-luteal phase.......5.2 - 18.5 ng/ml Postmenopausal.........< 0.8 ng/ml 1st trimester.........4.7 - 50.0 ng/ml 2nd trimester.........19.4 - 45.3 ng/ml 60 RESULT JASON'D 61 RESULT JASON'D 62 INVALID Procedures Date CPT Code Description Status 07/12/2017 65446 Finger Or Heel Stick Completed 02/09/2017 81110 Electrocardiogram Complete Completed Encounters Type Date Location Provider CPT E/M Dx Office Visit 09/20/2017 9:40a Main Office Luh Bee M.D. 77851 G43.109 M16.2 Office Visit 09/06/2017 10:40a Main Office Luh Bee M.D. 00921 M24.851 M24.852 M16.2 R41.840 F31.89 Office Visit 08/22/2017 4:15p Main Office Marilu Caraballobhart, [facility] 30480 M54.5 M25.551 M25.552 Office Visit 08/18/2017 3:45p Main Office Rain Walker, [facility] 46810 R41.840 Office Visit 08/02/2017 11:00a Main Office Rain Walker, [facility] 21505 J30.89 J45.998 M25.559 Office Visit 07/19/2017 9:00a Main Office Rain Walker, [facility] 24918 M25.559 Office Visit 07/12/2017 11:15a Main Office Rain Walker [facility] 72064 R73.01 M25.559 Office Visit 06/30/2017 10:30a Main Office Rain Walker, [facility] 41663 M25.559 Office Visit 06/14/2017 2:30p Main Office Rain Sidhur, [facility] 49055 M25.551 M25.552 Office Visit 05/29/2017 4:00p Main Office Rain Walker, [facility] 51462 M25.551 M25.552 Office Visit 05/17/2017 2:45p Main Office Rain Walker, [facility] 26647 M25.551 M25.559 M25.552 Office Visit 05/10/2017 2:15p Main Office Rain Walker [facility] 76486 M25.559 Office Visit 05/03/2017 9:30a Main Office Rain Walker, [facility] 65818 M25.559 Office Visit 04/11/2017 2:00p Main Office Marilu White, [facility] 49442 R55 E28.2 F31.89 J45.998 E66.3 Z00.01 Office Visit 03/28/2017 10:20a Main Office Garth Gomez M.D. 39541 R55 Office Visit 03/22/2017 10:00a Main Office Larissa Baires, DASIA 22496 R55 E28.2 Office Visit 03/09/2017 10:20a Main Office Garth Gomez M.D. 91553 Z23 R55 Office Visit 02/09/2017 10:30a Main Office Larissa Baires, DASIA 61578 F31.89 F41.1 E28.2 J45.998 R07.9 Office Visit 01/05/2017 10:00a Main Office Marilu White, [facility] 53835 K08.89 R68.84 Office Visit 12/01/2016 2:00p Main Office Marilu White, [facility] 30733 M54.89 E66.3 Office Visit 11/10/2016 10:30a Main Office Marilu White, [facility] 13657 J45.998 F31.89 F41.1 L68.0 E28.2 Office Visit 10/01/2016 9:00a Main Office Casie Lashonda Decker 26346 F41.1 F31.89 Office Visit 04/16/2016 10:40a Main Office Luh Bee M.D. 13332 F41.1 E28.2 F31.89 J45.998 E55.9 Office Visit 04/07/2016 10:15a Main Office Marilu White, [facility] 45506 F32.9 F41.1 E28.2 L68.0 E66.3 F17.210 Z01.419 Office Visit 06/03/2013 5:45p [place] [address] 626.4 Office Visit 05/27/2013 7:40p Main Office Luh Bee M.D. 93157 305.1 493.90 Office Visit 05/03/2013 3:20p Northeast Office Luh Bee M.D. 33664 726.5 V04.81 Office Visit 01/14/2013 2:15p Main Office Nesha DASIA Lutz 11229 305.1 780.52 493.90 Office Visit 12/10/2012 1:30p Main Office Nesha DASIA Lutz 39056 493.90 780.52 305.1 Office Visit 12/03/2012 7:00p Main Office Luh Bee M.D. 26678 300.09 785.2 719.46 305.1 Office Visit 10/30/2012 10:00a Main Office Luh Bee M.D. 13062 V70.0 296.80 300.09 628.8 719.46 785.2 780.52 272.1 Plan of Care Future Appointment(s):10/26/2017 2:00 pm - Wiley Alvarado M.D. at Main [facility]3810/19/2017 - Larissa Baires, NPR11.2 Nausea with vomiting, unspecifiedNew Medication:Ondansetron HCL 4 mgNew Labs:Urine (Fma)Ua - Non Micro (Fma)Beta HCG QuantitativeComments:Eat a bland diet, lots of liquids.R53.83 Other fatigueComments:Keep some notes on your symptoms for the upcoming week to discuss with Dr. Alvarado. If you become unconscious or have any prolonged problems, please go to the emergency department.
--- OUTSIDE RECORDS SUMMARY | 2017-10-30 15:28 | XMS REPORT ---
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 25 Location: ED Re06/28/16 SEX: F Status: DEP ER SPEC: [id number] VANCE: 06/28/[address]: Babak Molina MD REQ: [id number] RECD: 06/28/16 STATUS: LINETTE GAMINO DR: Luh Bee MD _ SOURCE: URINE [facility]: ORDERED: Urine Culture Procedure Result Reported Site Urine Culture Final 06/29/16- 1612 ML Organism 1 STREP GROUP B [place] Count 75-100,000 (Many) CFU/ML Organism 2 NORMAL MIL [place] Count 10-25,000 (Moderate) CFU/ML Susceptibility testing of penicillins and other B-lactams approved by FDA for treatment of Streptococcus pyogenes (Group A Strep) and Streptococcus agalactiae (Group B Strep) is not necessary for clinical purposes and need not be done routinely, since as with vancomycin, resistant strains have not been recognized. (CLSI R543-M88;p.66) Positive isolates will be saved for one week. Please call the Microbiology Laboratory if further susceptibility testing is needed. * ML - MAIN LAB ([facility]) . END OF REPORT * ML=Testing performed at Main Lab DEPARTMENT OF PATHOLOGY, [address] [place] [address] Dylan Laurent M.D. Director [facility] # [id number] 43 consistent w/ previous results 44 consistent w/ previous results 45 NEGATIVE FOR INTRAEPITHELIAL LESION AND MALIGNANCY. 46 Satisfactory for evaluation. Endocervical and/or squamous metaplastic cells (endocervical component) are present. Areas of partially obscuring inflammatory exudate are present. 47 Z12.4 48 Triston Velasco, Sql Report Analyst (ASCP) 49 The Pap smear is a [...] - 71 4 10 - 750 5 019 - 4834 6 653 - 64704 7 5596 -554764 8 54964 -194177 9 13128 -238082 10 73944 -402190 12 13014 -663363 14 25525 - 93759 15 21722 - 90403 16 4034 - 79067 17 7616 - 20393 18 4837 - 06222 Kris ECLIA methodology 53 I need the citric citrillunated peptide. not sure if i ordered it scott ectly or not. thanks. w 54 Negative <20 Weak positive 20 - 39 Moderate positive 40 - 59 Strong positive >59 55 Negative <1:80 Borderline 1:80 Positive >1:80 56 Negative <5 Equivocal 5 - 9 Positive >9 57 HLA-B*27 Negative This test was performed using PCR (Polymerase Chain Reaction)/SSOP (Sequence Specific Oligonucleotide Probes) technique. SBT (Sequence Based Typing) and/or SSP (Sequence Specific Primers) may be used as supplemental methods when necessary. Please contact [facility] Customer Service at if you have any questions. Director of [facility] Dr Mark Ray, PhD 58 Because ethnic data is not always [...] Procedures Date CPT Code Description Status 07/12/2017 97277 Finger Or Heel Stick Completed 02/09/2017 32690 Electrocardiogram Complete Completed Encounters Type Date Location Provider CPT E/M Dx Office Visit 09/20/2017 9:40a Main Office Luh Bee M.D. 11174 G43.109 M16.2 Office Visit 09/06/2017 10:40a Main Office Luh Bee M.D. 56273 M24.851 M24.852 M16.2 R41.840 F31.89 Office Visit 08/22/2017 4:15p Main Office Marilu White, [facility] [address]26[address] M54.5 M25.551 M25.552 Office Visit 08/18/2017 3:45p Main Office Rainalek MijaresDenise, [facility] [address] R41.840 Office Visit 08/02/2017 11:00a Main Office Rainalek MijaresDenise, [facility] 42848 J30.89 J45.998 M25.559 Office Visit 07/19/2017 9:00a Main Office Rain Denise, [facility] 28433 M25.559 Office Visit 07/12/2017 11:15a Main Office Rain Denise, [facility] 33859 R73.01 M25.559 Office Visit 06/30/2017 10:30a Main Office Rain Denise, [facility] 07892 M25.559 Office Visit 06/14/2017 2:30p Main Office Rain Denise, [facility] 46901 M25.551 M25.552 Office Visit 05/29/2017 4:00p Main Office Rain Denise, [facility] 62103 M25.551 M25.552 Office Visit 05/17/2017 2:45p Main Office Rain Denise, [facility] 41551 M25.551 M25.559 M25.552 Office Visit 05/10/2017 2:15p Main Office Rain Denise, [facility] 53595 M25.559 Office Visit 05/03/2017 9:30a Main Office Rain Denise, [facility] [address]381 M25.559 Office Visit 04/11/2017 2:00p Main Office Marilu White, [facility] 24[address] R55 E28.2 F31.89 J45.998 E66.3 Z00.01 Office Visit 03/28/2017 10:20a Main Office Garth Gomez M.D. 56586 R55 Office Visit 03/22/2017 10:00a Main Office Larissa Puentes Dequan, [place] [address]671 R55 E28.2 Office Visit 03/09/2017 10:20a Main Office Garth Gomez M.D. 33980 Z23 R55 Office Visit 02/09/2017 10:30a Main Office Larissa Baires, [employer] 632[address] F31.89 F41.1 E28.2 J45.998 R07.9 Office Visit 01/05/2017 10:00a Main Office Marilu White, [facility] 30935 K08.89 R68.84 Office Visit 12/01/2016 2:00p Main Office Marilu White, [facility] 32825 M54.89 E66.3 Office Visit 11/10/2016 10:30a Main Office Marilu White, [facility] 14191 J45.998 F31.89 F41.1 L68.0 E28.2 Office Visit 10/01/2016 9:00a Main Office Casie DeckerLashondaAmy 91084 F41.1 F31.89 Office Visit 04/16/2016 10:40a Main Office Luh Bee M.D. 60179 F41.1 E28.2 F31.89 J45.998 E55.9 Office Visit 04/07/2016 10:15a Main Office Marilu White, [facility] 54790 F32.9 F41.1 E28.2 L68.0 E66.3 F17.210 Z01.419 Office Visit 06/03/2013 5:45p [place] [address] 626.4 Office Visit 05/27/2013 7:40p Main Office Luh Bee M.D. 72004 305.1 493.90 Office Visit 05/03/2013 3:20p Northeast Office Luh Bee M.D. 89450 726.5 V04.81 Office Visit 01/14/2013 2:15p [place] [address] 305.1 780.52 493.90 Office Visit 12/10/2012 1:30p [place] [address] 493.90 780.52 305.1 Office Visit 12/03/2012 7:00p Main Office Luh Bee M.D. 56788 300.09 785.2 719.46 305.1 Office Visit 10/30/2012 10:00a Main Office Luh Bee M.D. 31539 V70.0 296.80 300.09 628.8 719.46 785.2 780.52 272.1 Plan of Care Future Appointment(s):10/18/2017 10:40 am - Luh Bee M.D. at Main [facility]1110/04/2017 - Luh Bee M.D.S46.012A Strain of musc/tend the rotator cuff of left shoulder, initNew Medication:Work RestrictionComments: light duty at work for 1 week. If no light duty available, will take you off work for 2 more days.AllComments:~B_~U_Medication Management~b_~u_ Patient Understands medications she's taking? Yes No Are there Barriers to Adherence? Yes No Has the patient been asked about herbal supplements and therapies, and OTC meds? Yes No
[2017-10-30] MEDS ORDERED: HYDROcodone/ACETAMIN 5-325 MG* 1 TAB PO ONE (15:50)
--- NOTE | 2017-10-30 16:08 | ED ---
Lower Extremity - HPI Summary HPI Summary: Pt. is a 27y.o female who presents to the ER for exacerbation of chronic hip pain, left. Pt. states she has a hx of hip dysplasia. She states she use to be on hydrocodone rx by PCP but pt. states she missed one apt. and she was d/c from their practice. Pt. states she has been off lortab for about one month. Pt. denies any recent injuries or falls. Pain is the same as her typical pain. Symptoms are mild in severity. Walking makes symptoms worse. Rest makes symptoms better. Denies associated sxs of fever, back pain, numbness, tingling or weakness, and abd. pain. - History of Current Complaint Chief Complaint: EDExtremityLower Stated Complaint: HIP PAIN Time Seen by Provider: 10/30/17 15:36 Hx Obtained From: Patient Pain Intensity: 8 - Allergies/Home Medications Allergies/Adverse Reactions: Allergies Allergy/AdvReac Type Severity Reaction Status Date / Time Penicillins Allergy Itching Verified 10/01/17 17:05 PMH/Surg Hx/FS Hx/Imm Hx Previously Healthy: Yes Endocrine/Hematology History: Denies: Hx Anticoagulant Therapy Cardiovascular History: Denies: Hx Myocardial Infarction Infectious Disease History: No Infectious Disease History: Denies: Traveled Outside the [place] in Last 30 Days - Family History Known Family History: Positive: Hypertension - Social History Occupation: Unemployed Lives: With Family Alcohol Use: Rare Substance Use Type: Reports: None Smoking Status (MU): Never Smoked Tobacco Review of Systems Constitutional: Negative Negative: Fever, Chills Negative: Abdominal Pain Genitourinary: Negative Positive: Other - Left hip pain Negative: Weakness, Paresthesia, Numbness All Other Systems Reviewed And Are Negative: Yes Physical Exam Triage Information Reviewed: Yes Vital Signs On Initial Exam: Initial Vitals Temp Pulse Resp BP Pulse Ox 98.3 F 78 16 125/77 99 10/30/17 14:05 10/30/17 14:05 10/30/17 14:05 10/30/17 14:05 10/30/17 14:05 Vital Signs Reviewed: Yes Appearance: Positive: Well-Appearing - Pt. lying on bed in NAD. Skin: Positive: Warm, Dry Head/Face: Positive: Normal Head/Face Inspection Eyes: Positive: Normal, DONTRELL Neck: Positive: Supple Abdomen Description: Positive: Nontender, Soft Musculoskeletal: Positive: Other - 5/5 strength in bilateral LEs. Pain with rotation of left hip. Neurological: Positive: Normal, CN Intact II-III Psychiatric: Positive: Normal Diagnostics - Vital Signs Vital Signs Temp Pulse Resp BP Pulse Ox 10/30/17 14:05 98.3 F 78 16 125/77 99 - Laboratory Lab Statement: Any lab studies that have been ordered have been reviewed, and results considered in the medical decision making process. Lower Extremity Course/Dx - Course Course Of Treatment: Pt. presenting for pain control secondary to chronic hip pain. She is afebrile. Will give pt. a dose of lortab. Explained to her we do not refill chronic narcotics in the ER. She does have an apt. with a new PCP next month. Tylenol or Motrin for pain as directed. To f.u with her ortho. doctor if pain persist. - Diagnoses Differential Diagnosis/HQI/PQRI: Positive: Arthritis, Sprain, Strain, Tendonitis Provider Diagnoses: Hip pain Discharge - Sign-Out/Discharge Documenting (check all that apply): Discharge/Admit/Transfer - Discharge Plan Condition: Good Disposition: HOME Patient Education Materials: Hip Pain (ED) Referrals: No Primary Care Phys,NOPCP [Primary Care Provider] - Additional Instructions: Follow up with your new PCP as scheduled Follow up with your orthopedic doctor if hip pain continues Tylenol or Motrin for pain as directed Return to ER if symptoms change or worsen - Billing Disposition and Condition Condition: GOOD Disposition: HOME
[2017-10-30 21:13] VITALS: BP 135/77
== END 2017-10-30 16:55 | disposition home or self-care (01) ==
LOC: ED 14:04
DX: M25.552 Pain in left hip (principal); G89.29 Other chronic pain
CPT/HCPCS: 99282

== ENCOUNTER → 2017-11-07 19:29 | Emergency (ER) | payer OTHER ==
[~2017-11-07 19:29] MED LIST: hydrOXYzine HCL TAB* 50 MG PO ONE
[2017-11-07 20:08] LABS: ABS Basophils 0 10^3/ul (0-0.2); ABS Eosinophils 0.1 10^3/ul (0-0.6); ABS Lymphocytes 2.5 10^3/ul (1.0-4.8); ABS Monocytes 0.4 10^3/ul (0-0.8); ABS Neutrophils 3.6 10^3/ul (1.5-7.7); ABS Nucleated RBC 0 10^3/ul; Eosinophil % 0.9 % (0-6); Hematocrit 37 % (35-47); Hemoglobin 12.7 g/dl (12.0-16.0); Lymphocyte % 37.8 % (25-47); Mean Corpuscular HGB Conc 34 g/dl (31-36); Mean Corpuscular Hemoglobin 30 pg (27-31); Mean Corpuscular Volume 88 fL (80-97); Mean Platelet Volume 7.6 um3 (7.4-10.4); Nucleated Red Blood Cells % 0; Platelet Count 317 10^3/ul (150-450); Red Cell Distribution Width 13 % (10.5-15); White Blood Count 6.6 10^3/ul (3.5-10.8)
[2017-11-07 20:26] LABS: EGFR Non-African American 130.9 (>60)
--- NOTE | 2017-11-07 21:47 | ED ---
Mark Carrion Natalie, scribed for Tonny Romero MD on 11/07/17 at 1937 . Psychiatric Complaint - HPI Summary HPI Summary: The patient is a 27 y/o F presenting to the ED by [employer] c/o possibly cutting herself and hurting others because she ran out of bipolar medication today because her ed case manager cannot refill her prescription due to an insurance issue. Per police, the pt called 911 on herself and asked to be put in handcuffs because she was afraid of hurting people. Pt denies alcohol and drug use, but has smoked cigarettes today. - History Of Current Complaint Chief Complaint: EDMentalHealth Time Seen by Provider: 11/07/17 19:30 Hx Obtained From: Patient Onset/Duration: Sudden Onset, Lasting Hours, Still Present Timing: Constant Severity Initially: Moderate Severity Currently: Moderate Character: Fearful Aggravating Factor(s): Other - doesn't have medications Related History: Positive For: Prior Psychiatric Issues Has Suicidal: Reports: Thoughts - Allergies/Home Medications Allergies/Adverse Reactions: Allergies Allergy/AdvReac Type Severity Reaction Status Date / Time Penicillins Allergy Itching Verified 10/01/17 17:05 Home Medications: Home Medications ARIPiprazole TAB* [Abilify 15 MG TAB*] 10 mg PO QPM 11/07/17 [History Confirmed 11/07/17] Cyclobenzaprine TAB* [Flexeril 10 MG TAB*] 10 mg PO QID PRN 11/07/17 [History Confirmed 11/07/17] Escitalopram (NF) [Lexapro 10 mg (NF)] 10 mg PO QAM 11/07/17 [History Confirmed 11/07/17] Folic Acid TAB* [Folvite TAB*] 1 mg PO DAILY 11/07/17 [History Confirmed ] Montelukast Sodium TAB* [Singulair TAB*] 10 mg PO DAILY 11/07/17 [History Confirmed 11/07/17] metFORMIN* [Glucophage 500 MG TAB *] 500 mg PO BID 11/07/17 [History Confirmed 11/07/17] PMH/Surg Hx/FS Hx/Imm Hx Endocrine/Hematology History: Denies: Hx Anticoagulant Therapy Cardiovascular History: Denies: Hx Myocardial Infarction Psychiatric History: Reports: Hx Bipolar Disorder - Family History Known Family History: Positive: Hypertension - Social History Alcohol Use: Rare Substance Use Type: Reports: None Smoking Status (MU): Never Smoked Tobacco Review of Systems Negative: Fever Positive: Other - no drug or alcohol use Positive: Other - thoughts of cutting herself and hurting others All Other Systems Reviewed And Are Negative: Yes Physical Exam - Summary Physical Exam Summary: General: well-appearing, no pain distress Skin: warm, color reflects adequate perfusion, dry Head: normal Eyes: EOMI, DONTRELL ENT: normal Neck: supple, nontender Respiratory: CTA, breath sounds present Cardiovascular: RRR Abdomen: soft, nontender Bowel: present Musculoskeletal: normal, strength/ROM intact Neurological: normal, sensory/motor intact, A&O x3 Psychological: affect/mood appropriate Triage Information Reviewed: Yes Vital Signs On Initial Exam: Initial Vitals Temp Pulse Resp BP Pulse Ox 98 F 73 16 123/77 100 11/07/17 19:40 11/07/17 19:40 11/07/17 19:40 11/07/17 19:40 11/07/17 19:40 Vital Signs Reviewed: Yes Diagnostics - Vital Signs Vital Signs Temp Pulse Resp BP Pulse Ox 11/07/17 19:40 98 F 73 16 123/77 100 - Laboratory Lab Results: Lab Results 11/07/17 11/07/17 Range/Units 20:01 20:01 WBC 6.6 (3.5-10.8) 10^3/ul RBC 4.20 (4.0-5.4) 10^6/ul Hgb 12.7 (12.0-16.0) g/dl Hct 37 (35-47) % MCV 88 (80-97) fL MCH 30 (27-31) pg MCHC 34 (31-36) g/dl RDW 13 (10.5-15) % Plt Count 317 (150-450) 10^3/ul MPV 7.6 (7.4-10.4) um3 Neut % (Auto) 54.2 (38-83) % Lymph % (Auto) 37.8 (25-47) % Catron % (Auto) 6.6 (0-7) % Eos % (Auto) 0.9 (0-6) % Baso % (Auto) 0.5 (0-2) % Absolute Neuts (auto) 3.6 (1.5-7.7) 10^3/ul Absolute Lymphs (auto) 2.5 (1.0-4.8) 10^3/ul Absolute Monos (auto) 0.4 (0-0.8) 10^3/ul Absolute Eos (auto) 0.1 (0-0.6) 10^3/ul Absolute Basos (auto) 0 (0-0.2) 10^3/ul Absolute Nucleated RBC 0 10^3/ul Nucleated RBC % 0 Sodium 142 (139-145) mmol/L Potassium 3.9 (3.5-5.0) mmol/L Chloride 107 (101-111) mmol/L Carbon Dioxide 28 (22-32) mmol/L Anion Gap 7 (2-11) mmol/L BUN 11 (6-24) mg/dL Creatinine 0.56 (0.51-0.95) mg/dL Est GFR ( Amer) 168.3 (>60) Est GFR (Non-Af Amer) 130.9 (>60) BUN/Creatinine Ratio 19.6 (8-20) Glucose 106 H (70-100) mg/dL Calcium 8.8 (8.6-10.3) mg/dL Total Bilirubin 0.20 (0.2-1.0) mg/dL AST 19 (13-39) U/L ALT 34 (7-52) U/L Alkaline Phosphatase 53 (34-104) U/L Total Protein 7.0 (6.4-8.9) g/dL Albumin 4.0 (3.2-5.2) g/dL Globulin 3.0 (2-4) g/dL Albumin/Globulin Ratio 1.3 (1-3) TSH 1.61 (0.34-5.60) mcIU/mL Beta HCG, Quant < 0.60 mIU/mL Salicylates < 2.50 (<30) mg/dL Acetaminophen < 15 mcg/mL Serum Alcohol < 10 (<10) mg/dL Result Diagrams: 11/07/17 20:01 11/07/17 20:01 Lab Statement: Any lab studies that have been ordered have been reviewed, and results considered in the medical decision making process. Course/Dx - Course Course Of Treatment: Pts medications reviewed this visit. Allergies noted. MHE AND DISPOSITION PENDING AT SHIFT CHANGE. - Differential Dx/Clinical Impression Provider Diagnosis: Mental health problem Discharge - Sign-Out/Discharge Documenting (check all that apply): Sign-Out Patient Signing out patient TO: Jared Palomino - The pt will be a sign-out from Dr. Romero to Dr. Palomino at shift change awaiting MHE. - Discharge Plan Referrals: No Primary Care Phys,NOPCP [Primary Care Provider] - The documentation as recorded by the Mark duong Natalie accurately reflects the service I personally performed and the decisions made by me, Tonny Romero MD.
[2017-11-07 23:02] LABS: Urine Appearance Clear; Urine Blood Negative (Negative); Urine Color Yellow; Urine Ketones Negative (Negative); Urine Protein Negative (Negative); Urine Specific Gravity 1.024 (1.010-1.030); Urine Urobilinogen Negative (Negative)
--- NOTE | 2017-11-08 02:53 | ED ---
Pete Carrion Sixian, scribed for Jared Palomino MD on 11/07/17 at 2230 . Progress - Progress Note Progress Note: This patient was signed out from Dr. Romero, pending disposition, awaiting MHE. Course/Dx - Course Course Of Treatment: Pts medications reviewed this visit. Allergies noted. MHE AND DISPOSITION PENDING AT SHIFT CHANGE. - Diagnoses Provider Diagnoses: Mental health problem Discharge - Sign-Out/Discharge Documenting (check all that apply): Receiving Sign-Out Receiving patient FROM: Tonny Romero - Discharge Plan Referrals: No Primary Care Phys,NOPCP [Primary Care Provider] - The documentation as recorded by the Pete duong Sixian accurately reflects the service I personally performed and the decisions made by , Jared Palomino MD.
[2017-11-08 06:33] VITALS: BP 128/60
--- NOTE | 2017-11-08 08:51 | PN ---
ED Flex Patient Progress Note Subjective: This is a 27 year-old F who is pending discharge to home once outpt services are coordinated through . Was observed secondary to reported self-harm, threats of HI and out of meds w/ bipolar dx . Pt offers no complaints at this time other than she would like to step out briefly to smoke a cigarette - explained she may have nicotine replacement in the form of an inhaler, a patch were a piece of gum however she is not permitted to leave the premises especially not to smoke. Objective: Vitals: Most recent vital signs documented below. General NAD, Alert and oriented x3. Heart: rrr S1-S2 Lungs: CTA breathing easily Abdomen: Soft, nontender, positive bowel sounds ANURAG: Ambulates well Laboratory: Current laboratory results documented below. Assessment: Self-harm, threats of HI, out of meds Plan: Pending discharge . Will follow up daily while in ED . Vital Signs Temp Pulse Resp BP Pulse Ox 98 F 68 15 128/60 100 11/08/17 06:33 11/08/17 06:33 11/08/17 06:33 11/08/17 06:33 11/08/17 06:33 Lab Results - Entire Visit 11/07/17 11/07/17 11/07/17 22:51 22:51 20:01 WBC RBC Hgb Hct MCV MCH MCHC RDW Plt Count MPV Neut % (Auto) Lymph % (Auto) Hanson % (Auto) Eos % (Auto) Baso % (Auto) Absolute Neuts (auto) Absolute Lymphs (auto) Absolute Monos (auto) Absolute Eos (auto) Absolute Basos (auto) Absolute Nucleated RBC Nucleated RBC % Sodium 142 Potassium 3.9 Chloride 107 Carbon Dioxide 28 Anion Gap 7 BUN 11 Creatinine 0.56 Est GFR ( Amer) 168.3 Est GFR (Non-Af Amer) 130.9 BUN/Creatinine Ratio 19.6 Glucose 106 H Calcium 8.8 Total Bilirubin 0.20 AST 19 ALT 34 Alkaline Phosphatase 53 Total Protein 7.0 Albumin 4.0 Globulin 3.0 Albumin/Globulin Ratio 1.3 TSH 1.61 Beta HCG, Quant < 0.60 Urine Color Yellow Urine Appearance Clear Urine pH 6.0 Ur Specific Otis 1.024 Urine Protein Negative Urine Ketones Negative Urine Blood Negative Urine Nitrate Negative Urine Bilirubin Negative Urine Urobilinogen Negative Ur Leukocyte Esterase Negative Urine Glucose Negative Salicylates < 2.50 Urine Opiates Screen None detected Acetaminophen < 15 Ur Barbiturates Screen None detected Ur Phencyclidine Scrn None detected Ur Amphetamines Screen None detected U Benzodiazepines Scrn None detected Urine Cocaine Screen None detected U Cannabinoids Screen None detected Serum Alcohol < 10 11/07/17 20:01 WBC 6.6 RBC 4.20 Hgb 12.7 Hct 37 MCV 88 MCH 30 MCHC 34 RDW 13 Plt Count 317 MPV 7.6 Neut % (Auto) 54.2 Lymph % (Auto) 37.8 Hanson % (Auto) 6.6 Eos % (Auto) 0.9 Baso % (Auto) 0.5 Absolute Neuts (auto) 3.6 Absolute Lymphs (auto) 2.5 Absolute Monos (auto) 0.4 Absolute Eos (auto) 0.1 Absolute Basos (auto) 0 Absolute Nucleated RBC 0 Nucleated RBC % 0 Sodium Potassium Chloride Carbon Dioxide Anion Gap BUN Creatinine Est GFR ( Amer) Est GFR (Non-Af Amer) BUN/Creatinine Ratio Glucose Calcium Total Bilirubin AST ALT Alkaline Phosphatase Total Protein Albumin Globulin Albumin/Globulin Ratio TSH Beta HCG, Quant Urine Color Urine Appearance Urine pH Ur Specific Otis Urine Protein Urine Ketones Urine Blood Urine Nitrate Urine Bilirubin Urine Urobilinogen Ur Leukocyte Esterase Urine Glucose Salicylates Urine Opiates Screen Acetaminophen Ur Barbiturates Screen Ur Phencyclidine Scrn Ur Amphetamines Screen U Benzodiazepines Scrn Urine Cocaine Screen U Cannabinoids Screen Serum Alcohol
== END | disposition home or self-care (01) ==
LOC: ED 19:29
DX: F31.9 Bipolar disorder, unspecified (principal); R45.850 Homicidal ideations; Z91.5 Personal history of self-harm; F17.200 Nicotine dependence, unspecified, uncomplicated; Z88.0 Allergy status to penicillin
CPT/HCPCS: 36415; 80053; 80307; 80320; 80329; 81003; 84443; 84702; 85025; 99284; A9270-GY; G0480

== ENCOUNTER 2017-11-08 22:44 | Inpatient (IN) | payer OTHER ==
[2017-11-08] MEDS ORDERED: LORazepam INJ* 2 MG/ML 1 ML VIAL IM ONE (23:21)
[2017-11-08 23:46] LABS: ABS Basophils 0 10^3/ul (0-0.2); ABS Eosinophils 0 10^3/ul (0-0.6); ABS Monocytes 0.4 10^3/ul (0-0.8); ABS Nucleated RBC 0 10^3/ul; Eosinophil % 0.5 % (0-6); Hematocrit 38 % (35-47); Hemoglobin 12.8 g/dl (12.0-16.0); Lymphocyte % 26.9 % (25-47); Mean Corpuscular HGB Conc 34 g/dl (31-36); Mean Corpuscular Hemoglobin 30 pg (27-31); Mean Corpuscular Volume 88 fL (80-97); Mean Platelet Volume 7.8 um3 (7.4-10.4); Nucleated Red Blood Cells % 0; Platelet Count 310 10^3/ul (150-450); Red Blood Count 4.31 10^6/ul (4.0-5.4); Red Cell Distribution Width 12 % (10.5-15); White Blood Count 7.5 10^3/ul (3.5-10.8)
[2017-11-09 00:10] LABS: EGFR Non-African American 102.8 (>60)
[2017-11-09 01:03] LABS: Urine Appearance Clear; Urine Blood Negative (Negative); Urine Color Straw; Urine Ketones Negative (Negative); Urine Protein Negative (Negative); Urine Specific Gravity 1.005 (1.010-1.030); Urine Urobilinogen Negative (Negative)
--- NOTE | 2017-11-09 01:44 | ED ---
Raji Carrion Nilda, scribed for Slim Palmer MD on 11/08/17 at 2334 . Psychiatric Complaint - HPI Summary HPI Summary: This patient is a 27 year old F brought in by police with a chief complaint of constant anxiety, SI with plan to overdose, and feeling violent towards others. The patient rates the pain 8/10 in severity. Symptoms aggravated by recent stress with boyfriend. Symptoms alleviated by nothing including prescribed medications. PMHx includes bipolar and self-cutting on right arm (none today). Pt states she was here yesterday for similar symptoms but that they pumped me with Hydroxizine and sent me home. Pt states previous hospitalizations for mental health with last admission 2.5 years ago. Medications include Lexapro, Abilify, Klonopin. Pt states she normally follows up with [facility]. - History Of Current Complaint Chief Complaint: EDMentalHealth Time Seen by Provider: 11/08/17 23:02 Hx Obtained From: Patient Onset/Duration: Sudden Onset, Still Present Timing: Constant Severity Currently: Severe Character: Anxious, Frustrated Aggravating Factor(s): Recent Stress Alleviating Factor(s): Nothing Associated Signs And Symptoms: Positive: Hostile Related History: Positive For: Prior Psychiatric Issues Has Suicidal: Reports: With A Plan Recent Stressor(s): boyfriend - Allergies/Home Medications Allergies/Adverse Reactions: Allergies Allergy/AdvReac Type Severity Reaction Status Date / Time Penicillins Allergy Itching Verified 10/01/17 17:05 PMH/Surg Hx/FS Hx/Imm Hx Endocrine/Hematology History: Denies: Hx Anticoagulant Therapy Cardiovascular History: Denies: Hx Myocardial Infarction Psychiatric History: Reports: Hx Bipolar Disorder Infectious Disease History: No Infectious Disease History: Denies: Traveled Outside the [place] in Last 30 Days - Family History Known Family History: Positive: Hypertension - Social History Alcohol Use: Rare Substance Use Type: Reports: None Smoking Status (MU): Heavy Every Day Tobacco Smoker Review of Systems Negative: Shortness Of Breath Positive: Anxious - SI with plan to overdose, and feeling violent towards others , Other All Other Systems Reviewed And Are Negative: Yes Physical Exam - Summary Physical Exam Summary: Appearance: Well appearing, no pain distress Skin: warm, dry, reflects adequate perfusion, Multiple horizontal abrasions to right forearm. Nothing on left arm. Head/face: normal Eyes: EOMI, DONTRELL ENT: normal Neck: supple, non-tender Respiratory: CTA, breath sounds present Cardiovascular: RRR, pulses symmetrical Abdomen: non-tender, soft Bowel Sounds: present Musculoskeletal: normal, strength/ROM intact Neuro: normal, sensory motor intact, A&Ox3 Triage Information Reviewed: Yes Vital Signs On Initial Exam: Initial Vitals Temp Pulse Resp BP Pulse Ox 98.1 F 96 20 126/78 99 11/08/17 22:50 11/08/17 22:50 11/08/17 22:50 11/08/17 22:50 11/08/17 22:50 Vital Signs Reviewed: Yes Diagnostics - Vital Signs Vital Signs Temp Pulse Resp BP Pulse Ox 11/08/17 22:50 98.1 F 96 20 126/78 99 - Laboratory Lab Results: Lab Results 11/08/17 11/08/17 11/09/17 Range/Units 23:33 23:33 00:35 WBC 7.5 (3.5-10.8) 10^3/ul RBC 4.31 (4.0-5.4) 10^6/ul Hgb 12.8 (12.0-16.0) g/dl Hct 38 (35-47) % MCV 88 (80-97) fL MCH 30 (27-31) pg MCHC 34 (31-36) g/dl RDW 12 (10.5-15) % Plt Count 310 (150-450) 10^3/ul MPV 7.8 (7.4-10.4) um3 Neut % (Auto) 66.4 (38-83) % Lymph % (Auto) 26.9 (25-47) % [place] % (Auto) 5.6 (0-7) % Eos % (Auto) 0.5 (0-6) % Baso % (Auto) 0.6 (0-2) % Absolute Neuts (auto) 5.0 (1.5-7.7) 10^3/ul Absolute Lymphs (auto) 2.0 (1.0-4.8) 10^3/ul Absolute Monos (auto) 0.4 (0-0.8) 10^3/ul Absolute Eos (auto) 0 (0-0.6) 10^3/ul Absolute Basos (auto) 0 (0-0.2) 10^3/ul Absolute Nucleated RBC 0 10^3/ul Nucleated RBC % 0 Sodium 139 (139-145) mmol/L Potassium 3.7 (3.5-5.0) mmol/L Chloride 103 (101-111) mmol/L Carbon Dioxide 26 (22-32) mmol/L Anion Gap 10 (2-11) mmol/L BUN 9 (6-24) mg/dL Creatinine 0.69 (0.51-0.95) mg/dL Est GFR ( Amer) 132.3 (>60) Est GFR (Non-Af Amer) 102.8 (>60) BUN/Creatinine Ratio 13.0 (8-20) Glucose 131 H (70-100) mg/dL Calcium 9.1 (8.6-10.3) mg/dL Total Bilirubin 0.20 (0.2-1.0) mg/dL AST 18 (13-39) U/L ALT 32 (7-52) U/L Alkaline Phosphatase 48 (34-104) U/L Total Protein 7.3 (6.4-8.9) g/dL Albumin 4.1 (3.2-5.2) g/dL Globulin 3.2 (2-4) g/dL Albumin/Globulin Ratio 1.3 (1-3) TSH 1.70 (0.34-5.60) mcIU/mL Beta HCG, Quant < 0.60 mIU/mL Urine Color Straw Urine Appearance Clear Urine pH 6.0 (5-9) Ur Specific [place] 1.005 L (1.010-1.030) Urine Protein Negative (Negative) Urine Ketones Negative (Negative) Urine Blood Negative (Negative) Urine Nitrate Negative (Negative) Urine Bilirubin Negative (Negative) Urine Urobilinogen Negative (Negative) Ur Leukocyte Esterase Negative (Negative) Urine Glucose Negative (Negative) Salicylates < 2.50 (<30) mg/dL Urine Opiates Screen (None Detect) Acetaminophen < 15 mcg/mL Ur Barbiturates Screen (None Detect) Ur Phencyclidine Scrn (None Detect) Ur Amphetamines Screen (None Detect) U Benzodiazepines Scrn (None Detect) Urine Cocaine Screen (None Detect) U Cannabinoids Screen (None Detect) Serum Alcohol < 10 (<10) mg/dL 11/09/17 Range/Units 00:35 WBC (3.5-10.8) 10^3/ul RBC (4.0-5.4) 10^6/ul Hgb (12.0-16.0) g/dl Hct (35-47) % MCV (80-97) fL MCH (27-31) pg MCHC (31-36) g/dl RDW (10.5-15) % Plt Count (150-450) 10^3/ul MPV (7.4-10.4) um3 Neut % (Auto) (38-83) % Lymph % (Auto) (25-47) % [place] % (Auto) (0-7) % Eos % (Auto) (0-6) % Baso % (Auto) (0-2) % Absolute Neuts (auto) (1.5-7.7) 10^3/ul Absolute Lymphs (auto) (1.0-4.8) 10^3/ul Absolute Monos (auto) (0-0.8) 10^3/ul Absolute Eos (auto) (0-0.6) 10^3/ul Absolute Basos (auto) (0-0.2) 10^3/ul Absolute Nucleated RBC 10^3/ul Nucleated RBC % Sodium (139-145) mmol/L Potassium (3.5-5.0) mmol/L Chloride (101-111) mmol/L Carbon Dioxide (22-32) mmol/L Anion Gap (2-11) mmol/L BUN (6-24) mg/dL Creatinine (0.51-0.95) mg/dL Est GFR ( Amer) (>60) Est GFR (Non-Af Amer) (>60) BUN/Creatinine Ratio (8-20) Glucose (70-100) mg/dL Calcium (8.6-10.3) mg/dL Total Bilirubin (0.2-1.0) mg/dL AST (13-39) U/L ALT (7-52) U/L Alkaline Phosphatase (34-104) U/L Total Protein (6.4-8.9) g/dL Albumin (3.2-5.2) g/dL Globulin (2-4) g/dL Albumin/Globulin Ratio (1-3) TSH (0.34-5.60) mcIU/mL Beta HCG, Quant mIU/mL Urine Color Urine Appearance Urine pH (5-9) Ur Specific [place] (1.010-1.030) Urine Protein (Negative) Urine Ketones (Negative) Urine Blood (Negative) Urine Nitrate (Negative) Urine Bilirubin (Negative) Urine Urobilinogen (Negative) Ur Leukocyte Esterase (Negative) Urine Glucose (Negative) Salicylates (<30) mg/dL Urine Opiates Screen None detected (None Detect) Acetaminophen mcg/mL Ur Barbiturates Screen None detected (None Detect) Ur Phencyclidine Scrn None detected (None Detect) Ur Amphetamines Screen None detected (None Detect) U Benzodiazepines Scrn None detected (None Detect) Urine Cocaine Screen None detected (None Detect) U Cannabinoids Screen None detected (None Detect) Serum Alcohol (<10) mg/dL Result Diagrams: 11/08/17 23:33 11/08/17 23:33 Lab Statement: Any lab studies that have been ordered have been reviewed, and results considered in the medical decision making process. Course/Dx - Course Course Of Treatment: Pt is medically cleared for MHE at 00:35 with all laboratories within normal limits. Stable through the night. Held in mental [facility] for observation. - Differential Dx/Clinical Impression Differential Diagnosis/HQI/PQRI: Positive: Bipolar Disorder, Suicidal Ideation Provider Diagnosis: Bipolar disorder, Suicidal thoughts Discharge - Sign-Out/Discharge Documenting (check all that apply): Sign-Out Patient Signing out patient TO: Babak Molian - pending dispo, awaiting MHE. - Discharge Plan Condition: Stable Discharge Disposition Comment: signed out at 7am Referrals: No Primary Care Phys,NOPCP [Primary Care Provider] - - Billing Disposition and Condition Condition: STABLE The documentation as recorded by the Raji duong Nilda accurately reflects the service I personally performed and the decisions made by me, Slim Palmer MD.
--- NOTE | 2017-11-09 08:06 | PN ---
ED Flex Patient Progress Note Date of Service: 11/07/17 Subjective: This is a 27 year-old F who is pending admission to [facility] / transfer to another psychiatric facility / discharge to home / or being observed secondary to threats of self arm. Pt. examined at 0755. She is resting comfortably. Her only complaint is increased anxiety. Waiting for MHE. Objective: Vitals: Most recent vital signs documented below. General NAD, Alert and oriented x3. Laboratory: Current laboratory results documented below. Assessment: Waiting for MHE. Plan: Pending psychiatric or medical consultation to observe / transfer / admit / discharge will follow up daily . Vital Signs Temp Pulse Resp BP Pulse Ox 98.2 F 83 16 111/70 98 11/09/17 01:04 11/09/17 01:04 11/09/17 01:04 11/09/17 01:04 11/09/17 01:04 Lab Results - Entire Visit 11/09/17 11/09/17 11/08/17 00:35 00:35 23:33 WBC RBC Hgb Hct MCV MCH MCHC RDW Plt Count MPV Neut % (Auto) Lymph % (Auto) [place] % (Auto) Eos % (Auto) Baso % (Auto) Absolute Neuts (auto) Absolute Lymphs (auto) Absolute Monos (auto) Absolute Eos (auto) Absolute Basos (auto) Absolute Nucleated RBC Nucleated RBC % Sodium 139 Potassium 3.7 Chloride 103 Carbon Dioxide 26 Anion Gap 10 BUN 9 Creatinine 0.69 Est GFR ( Amer) 132.3 Est GFR (Non-Af Amer) 102.8 BUN/Creatinine Ratio 13.0 Glucose 131 H Calcium 9.1 Total Bilirubin 0.20 AST 18 ALT 32 Alkaline Phosphatase 48 Total Protein 7.3 Albumin 4.1 Globulin 3.2 Albumin/Globulin Ratio 1.3 TSH 1.70 Beta HCG, Quant < 0.60 Urine Color Straw Urine Appearance Clear Urine pH 6.0 Ur Specific [place] 1.005 L Urine Protein Negative Urine Ketones Negative Urine Blood Negative Urine Nitrate Negative Urine Bilirubin Negative Urine Urobilinogen Negative Ur Leukocyte Esterase Negative Urine Glucose Negative Salicylates < 2.50 Urine Opiates Screen None detected Acetaminophen < 15 Ur Barbiturates Screen None detected Ur Phencyclidine Scrn None detected Ur Amphetamines Screen None detected U Benzodiazepines Scrn None detected Urine Cocaine Screen None detected U Cannabinoids Screen None detected Serum Alcohol < 10 11/08/17 23:33 WBC 7.5 RBC 4.31 Hgb 12.8 Hct 38 MCV 88 MCH 30 MCHC 34 RDW 12 Plt Count 310 MPV 7.8 Neut % (Auto) 66.4 Lymph % (Auto) 26.9 [place] % (Auto) 5.6 Eos % (Auto) 0.5 Baso % (Auto) 0.6 Absolute Neuts (auto) 5.0 Absolute Lymphs (auto) 2.0 Absolute Monos (auto) 0.4 Absolute Eos (auto) 0 Absolute Basos (auto) 0 Absolute Nucleated RBC 0 Nucleated RBC % 0 Sodium Potassium Chloride Carbon Dioxide Anion Gap BUN Creatinine Est GFR ( Amer) Est GFR (Non-Af Amer) BUN/Creatinine Ratio Glucose Calcium Total Bilirubin AST ALT Alkaline Phosphatase Total Protein Albumin Globulin Albumin/Globulin Ratio TSH Beta HCG, Quant Urine Color Urine Appearance Urine pH Ur Specific [place] Urine Protein Urine Ketones Urine Blood Urine Nitrate Urine Bilirubin Urine Urobilinogen Ur Leukocyte Esterase Urine Glucose Salicylates Urine Opiates Screen Acetaminophen Ur Barbiturates Screen Ur Phencyclidine Scrn Ur Amphetamines Screen U Benzodiazepines Scrn Urine Cocaine Screen U Cannabinoids Screen Serum Alcohol
[2017-11-09] MEDS ORDERED: Acetaminophen TAB* 325 MG PO PRN (12:43)
[2017-11-09] MEDS ORDERED: Al Hydrox/Mg Hydrox/Simet LIQ* 30 ML UDC PO PRN (12:43)
[2017-11-09] MEDS ORDERED: Cyclobenzaprine TAB* 10 MG PO PRN (12:44)
[2017-11-09 13:09] VITALS: BP 121/67
[2017-11-09] MEDS ORDERED: ARIPiprazole TAB* 5 MG PO SCH (18:00)
[2017-11-09] MEDS ORDERED: metFORMIN* 500 MG TAB PO SCH (21:00)
--- NOTE | 2017-11-10 05:29 | DS ---
HISTORY AND PHYSICAL/DISCHARGE SUMMARY: DATE OF ADMISSION: 11/09/17 DATE OF DISCHARGE: 11/09/17 DISCHARGE DIAGNOSES: Hunter I: Unspecified mood disorder. Hunter II: Borderline intellectual functioning. CONDITION AT THE TIME OF DISCHARGE: Stable. The patient is denying suicidal ideations and she is agreeable with following up tomorrow [facility]. Initially she was admitted for suicidal ideations; however, it has become clear to the treatment team that she is here to see her boyfriend who is currently also admitted to the unit. Shortly after arriving on our unit, she retracted her suicidality. She has been notified that this is not a reasonable utilization of inpatient psychiatric services and she has been notified that we will be discharging her today for followup treatment in the outpatient setting. MENTAL STATUS EXAM AT THE TIME OF DISCHARGE: The patient is a young white female with dark skin, dark brown hair. She is overweight. Somewhat limited grooming, wearing paper scrubs. She is calm, cooperative, makes good eye contact. Speech is simplistic but otherwise fluent. Mood appears to be euthymic with a full affect. Thought process is linear, goal directed. Thought content is significant for her desire to be with her boyfriend here on the unit. She denies suicidal or homicidal ideation. She denies auditory or visual hallucinations. Insight and judgement is poor given her attempt to misuse inpatient psychiatric hospitalization. Cognitively she is awake and alert with what is clearly a limited intellect. DISCHARGE INSTRUCTIONS TO THE PATIENT: A. Medications: She is takin. Glucophage 500 mg p.o. b.i.d. 2. Singulair 10 mg daily. 3. Folic acid 1 mg daily. 4. Lexapro 10 mg daily. 5. Flexeril 10 mg as needed for back pain. 6. Abilify 10 mg p.o. q.p.m. B. Diet: Regular. C. Activities: As tolerated. The patient is a nonsmoker. There are no laboratory or diagnostic studies pending. D. Followup care: The patient will be seen tomorrow, 11/10/17 at the [facility]. E. Substance abuse followup: Not applicable. HOSPITAL COURSE: A. Reason for admission: The patient arrives on a voluntary status requesting hospitalization for putative bipolar disorder stating "that she is angry, anxious, and depressed." She is requesting medication changes. She was complaining of thoughts of jumping off a bridge. She had been in the emergency room 1 day prior and had been referred to see Dr. Womack and Mila Castellon at the [facility] whom she is already enrolled with; however, she arrived back here on the date of admission complaining of further suicidal ideations. B. Psychiatric treatment rendered: The patient entered the unit and then asked where she could find her boyfriend. We were not aware that she dates a young male with the initials TT, who is currently admitted here. She then retracted her suicidality making it clear that she was just here to visit him and be with him on the unit while he is undergoing treatment. The patient demonstrates clear cognitive deficits and appears to be quite simplistic. It is explained to her that that is not an appropriate justification for being admitted to the unit. We immediately made the determination that discharged outpatient treatment was in her best interest. The patient did not complain about this, wondering only if she could return the next day during visiting hours to again attempt to see her boyfriend. Under the circumstances, we do not feel comfortable allowing this. The patient is continuing to deny suicidal ideations at this time and she is referred to the [facility] where she already has followups with Dr. Womack and Mila Castellon. [id number]/[facility] #: [id number] [facility]IT[facility]aylor
[2017-11-10] MEDS ORDERED: Folic Acid TAB* 1 MG PO SCH (09:00)
[2017-11-10] MEDS ORDERED: Citalopram TAB* 20 MG PO SCH (09:00)
[2017-11-10] MEDS ORDERED: Montelukast Sodium TAB* 10 MG PO SCH (09:00)
--- NOTE | 2017-11-28 07:59 | ED ---
Seth Carrion Gabriel, scribed for Babak Molina MD on 11/09/17 at 0920 . Progress - Progress Note Progress Note: This patient was signed out from Dr. Palmer, pending disposition, awaiting MHE. After a MHE was performed by Dr. Stewart he decided the patient should be admitted. The patient will be an voluntary admit. The patients condition is stable and will be admitted to [facility] with Dx of unspecified anxiety disorder. - Consult/PCP Time Called: 22:45 Course/Dx - Course Course Of Treatment: This patient was signed out from Dr. Palmer, pending disposition, awaiting MHE. After a MHE was performed by Dr. Stewart he decided the patient should be admitted. The patient will be an voluntary admit. The patients condition is stable and will be admitted to [facility] with Dx of unspecified anxiety disorder. - Diagnoses Provider Diagnoses: Anxiety disorder, unspecified Discharge - Sign-Out/Discharge Documenting (check all that apply): Discharge/Admit/Transfer - admitted , Receiving Sign-Out Receiving patient FROM: Slim Palmer - Discharge Plan Condition: Stable Disposition: [facility]CHIATRIC FAC[facility] [place] Referrals: No Primary Care Phys,NOPCP [Primary Care Provider] - The documentation as recorded by the Seth duong Gabriel accurately reflects the service I personally performed and the decisions made by Tracy huffman Jerry, MD.
== END 2017-11-09 15:45 | disposition home or self-care (01) | DRG 753 ==
LOC: ED 22:44 → BSU 11-09 12:43
PROVIDERS: ADMIT Psychiatry & Neurology Psychiatry; ATTEND Psychiatry & Neurology Psychiatry
DX: F31.9 Bipolar disorder, unspecified (principal); R45.851 Suicidal ideations; R41.83 Borderline intellectual functioning; E66.3 Overweight; F41.9 Anxiety disorder, unspecified; F17.200 Nicotine dependence, unspecified, uncomplicated; S50.811A Abrasion of right forearm, initial encounter; Z88.0 Allergy status to penicillin; Z82.49 Family history of ischemic heart disease and other diseases of the circulatory system; Z72.89 Other problems related to lifestyle; X83.8XXA Intentional self-harm by other specified means, initial encounter; Z91.5 Personal history of self-harm; Y92.9 Unspecified place or not applicable; Z68.36 Body mass index [BMI] 36.0-36.9, adult
CPT/HCPCS: 36415; 80053; 80307; 80320; 80329; 81003; 84443; 84702; 85025; 99284; G0480; J2060

== ENCOUNTER 2017-11-10 18:39 | Emergency (ER) | payer OTHER ==
[2017-11-10 23:20] VITALS: BP 124/75
--- NOTE | 2017-11-12 19:42 | ED ---
Pari Carrion Emily, scribed for Jared Paloimno MD on 11/10/17 at 2001 . Psychiatric Complaint - HPI Summary HPI Summary: This patient is a 27 year old F BIBA to [facility] with a chief complaint of SI with plan that is chronic. The patient rates the pain 0/10 in severity. Symptoms aggravated by nothing. Symptoms alleviated by nothing. Patient reports HI. Pt reports being admitted to the hospital for a psychiatric complaint, but was being made to leave because her boyfriend is in the mental health unit. Pt reports a history of bipolar disorder. - History Of Current Complaint Chief Complaint: EDSeizure Time Seen by Provider: 11/10/17 19:45 Hx Obtained From: Patient Hx Last Menstrual Period: 11/03/2017 ?: No - Allergies/Home Medications Allergies/Adverse Reactions: Allergies Allergy/AdvReac Type Severity Reaction Status Date / Time Penicillins Allergy Itching Verified 11/12/17 19:25 oxycodone AdvReac Intermediate Itching Verified 11/12/17 19:25 tramadol AdvReac Intermediate Nausea Verified 11/12/17 19:25 PMH/Surg Hx/FS Hx/Imm Hx Previously Healthy: No Endocrine/Hematology History: Denies: Hx Anticoagulant Therapy, Hx Diabetes Cardiovascular History: Reports: Hx Angina, Hx Syncope, Hx Valvular Heart Disease - [place], Other Cardiovascular Problems/Disorders - aortic regurgitation Denies: Hx Hypertension, Hx Myocardial Infarction, Hx Pacemaker/ICD Respiratory History: Reports: Hx Asthma, Hx Seasonal Allergies History: Denies: Hx Renal Disease Musculoskeletal History: Reports: Hx Back Problems - lower back pain, Other Musculoskeletal History - labrum tears b/l hips Sensory History: Reports: Hx Contacts or Glasses Denies: Hx Hearing Aid Opthamlomology History: Reports: Hx Contacts or Glasses Neurological History: Reports: Hx Migraine Psychiatric History: Reports: Hx Anxiety, Hx Eating Disorder - BULEMIA, Hx Bipolar Disorder Denies: Hx Panic Disorder, Hx of Violent Episodes Against Others - Surgical History Surgery Procedure, Year, and Place: None - Immunization History Date of Tetanus Vaccine: up to date Date of Influenza Vaccine: up to date. - Family History Known Family History: Positive: Hypertension, Diabetes, Other - seizures (mother ); no history of SI from family members - Social History Occupation: Employed Full-time Lives: Alone Alcohol Use: None Hx Substance Use: No Substance Use Type: Reports: None Hx Tobacco Use: Yes Smoking Status (MU): Current Every Day Smoker Type: Cigarettes Amount Used/How Often: 1 ppd Length of Time of Smoking/Using Tobacco: since age 18 Have You Smoked in the Last Year: Yes Review of Systems Negative: Chest Pain Psychological: Other - Positive HI and SI All Other Systems Reviewed And Are Negative: Yes Physical Exam - Summary Physical Exam Summary: Appearance: Well-appearing, Well-nourished, lying in bed comfortably Skin: Warm, dry, no obvious rash Eyes: sclera anicteric, no conjunctiva pallor ENT: mucous membranes moist, pharynx appears normal Neck: Supple, nontender Respiratory: Clear to auscultation, no signs of respiratory distress Cardiovascular: Normal S1, S2. No murmurs. Normal distal pulses in tibial and radial bilaterally. Abdomen: Soft, nontender, normal active bowel sounds present Musculoskeletal: Normal, Strength/ROM Intact Neurological: A&Ox3, awake and alert, mentation is normal, speech is fluent and appropriate Psychiatric: affect is normal, does not appear anxious or depressed Triage Information Reviewed: Yes Vital Signs On Initial Exam: Initial Vitals Temp Pulse Resp BP Pulse Ox 36.4 C 87 20 117/52 98 11/10/17 21:04 11/10/17 21:04 11/10/17 21:04 11/10/17 21:04 11/10/17 21:04 Vital Signs Reviewed: Yes Diagnostics - Vital Signs Vital Signs Temp Pulse Resp BP Pulse Ox 11/10/17 21:04 36.4 C 87 20 117/52 98 - Laboratory Lab Statement: Any lab studies that have been ordered have been reviewed, and results considered in the medical decision making process. Re-Evaluation - Re-Evaluation First Eval Re-Evaluation Time: 21:53 Course/Dx - Differential Dx/Clinical Impression Differential Diagnosis/HQI/PQRI: Positive: Anxiety Provider Diagnosis: Anxiety Discharge - Sign-Out/Discharge Documenting (check all that apply): Discharge/Admit/Transfer - Discharge Plan Condition: Good Disposition: HOME Patient Education Materials: Mood Disorders (ED) Referrals: Luh Bee MD [Primary Care Provider] - - Billing Disposition and Condition Condition: GOOD Disposition: HOME The documentation as recorded by the Pari duong Emily accurately reflects the service I personally performed and the decisions made by , Jared Palomino MD.
== END 2017-11-10 23:25 | disposition home or self-care (01) ==
LOC: ED 18:39
DX: F41.9 Anxiety disorder, unspecified (principal); F31.9 Bipolar disorder, unspecified; F50.2 Bulimia nervosa
CPT/HCPCS: 99285

== ENCOUNTER 2017-11-12 19:20 | Emergency (ER) | payer OTHER ==
--- NOTE | 2017-11-12 20:36 | ED ---
Skin Complaint - HPI Summary HPI Summary: Complains of 2 episodes of numbness and tingling in bilateral hands and bilateral feet over the past 2 days. First episode was yesterday lasting 2 hours. Second episode today, already resolving here in the ED. Patient started lithium and Seroquel on Monday, and has taken those medications up through and including today. Denies shortness of breath, rash, hives, itching, altered mental status, N/V, abdominal pain, any other symptoms. Medical history is OA, hip dysplasia, depression. Patient also c/o of chronic hip and back pain, has asked for food, soda and pain medication. - History of Current Complaint Chief Complaint: EDRashSkinAbscess Time Seen by Provider: 11/12/17 19:42 Stated Complaint: ITCHING Hx Obtained From: Patient Hx Last Menstrual Period: Starts today Onset/Duration: Started Days Ago Timing: Intermittent, Lasting Hours Onset Severity: Mild Current Severity: None Pain Intensity: 5 Pain Scale Used: 0-10 Numeric - Additional Pertinent History Primary Care Physician: OWEN - Allergy/Home Medications Allergies/Adverse Reactions: Allergies Allergy/AdvReac Type Severity Reaction Status Date / Time Penicillins Allergy Itching Verified 11/12/17 19:25 oxycodone AdvReac Intermediate Itching Verified 11/12/17 19:25 tramadol AdvReac Intermediate Nausea Verified 11/12/17 19:25 Home Medications: Home Medications Hydrocodone/Acetaminophen [Hydrocodone Bitartrate/AC] 2 tab PO BID 11/12/17 [ History Confirmed 11/12/17] [place] Carbonate TAB* 600 mg PO BEDTIME 11/12/17 [History Confirmed 11/12/17] QUEtiapine TAB* [Seroquel 100 MG *] 200 mg PO BEDTIME 11/12/17 [History Confirmed 11/12/17] PMH/Surg Hx/FS Hx/Imm Hx Endocrine/Hematology History: Denies: Hx Anticoagulant Therapy, Hx Diabetes Cardiovascular History: Reports: Hx Angina, Hx Syncope, Hx Valvular Heart Disease - AR, Other Cardiovascular Problems/Disorders - aortic regurgitation Denies: Hx Hypertension, Hx Myocardial Infarction, Hx Pacemaker/ICD Respiratory History: Reports: Hx Asthma, Hx Seasonal Allergies History: Denies: Hx Renal Disease Musculoskeletal History: Reports: Hx Back Problems - lower back pain, Other Musculoskeletal History - labrum tears b/l hips Sensory History: Reports: Hx Contacts or Glasses Denies: Hx Hearing Aid Opthamlomology History: Reports: Hx Contacts or Glasses Neurological History: Reports: Hx Migraine Psychiatric History: Reports: Hx Anxiety, Hx Bipolar Disorder Denies: Hx Eating Disorder, Hx Panic Disorder, Hx of Violent Episodes Against Others - Surgical History Surgery Procedure, Year, and Place: None - Immunization History Date of Tetanus Vaccine: up to date Date of Influenza Vaccine: up to date. Infectious Disease History: No Infectious Disease History: Denies: Traveled Outside the [place] in Last 30 Days - Family History Known Family History: Positive: Hypertension, Diabetes, Other - seizures (mother ); no history of SI from family members - Social History Alcohol Use: None Hx Substance Use: No Substance Use Type: Reports: Marijuana Substance Use Comment - Amount & Last Used: occassional Hx Tobacco Use: No - FORMER- QUIT TODAY 10/24/2016 Smoking Status (MU): Heavy Every Day Tobacco Smoker Type: Cigarettes Amount Used/How Often: 1 ppd Length of Time of Smoking/Using Tobacco: since age 18 Have You Smoked in the Last Year: Yes Review of Systems Constitutional: Negative Eyes: Negative ENT: Negative Cardiovascular: Negative Respiratory: Negative Gastrointestinal: Negative Genitourinary: Negative Skin: Other Neurological: Negative Psychological: Normal All Other Systems Reviewed And Are Negative: Yes Physical Exam - Summary Physical Exam Summary: No facial, perioral swelling. Lung sounds clear to auscultation bilaterally. No evidence of rash on bilateral upper extremities or bilateral lower extremities, face, neck, back, chest or abdomen. Several healing lacerations on the inside of right forearm. Abdomen soft nontender. Triage Information Reviewed: Yes Vital Signs On Initial Exam: Initial Vitals Temp Pulse Resp BP Pulse Ox 98.7 F 99 16 110/80 96 11/12/17 19:22 11/12/17 19:22 11/12/17 19:22 11/12/17 19:22 11/12/17 19:22 Vital Signs Reviewed: Yes Appearance: Positive: Well-Appearing Skin: Positive: Warm Head/Face: Positive: Normal Head/Face Inspection Eyes: Positive: Normal ENT: Positive: Normal ENT inspection Neck: Positive: Supple Respiratory/Lung Sounds: Positive: Clear to Auscultation Cardiovascular: Positive: Normal Abdomen Description: Positive: Nontender Musculoskeletal: Positive: Normal Neurological: Positive: Normal Psychiatric: Positive: Normal AVPU Assessment: Alert - [place] Coma Scale Best Eye Response: 4 - Spontaneous Best Motor Response: 6 - Obeys Commands Best Verbal Response: 5 - Oriented Coma Scale Total: 15 Diagnostics - Vital Signs Vital Signs Temp Pulse Resp BP Pulse Ox 11/12/17 19:22 98.7 F 99 16 110/80 96 - Laboratory Lab Statement: Any lab studies that have been ordered have been reviewed, and results considered in the medical decision making process. Course/Dx - Course Course Of Treatment: Complains of 2 episodes of numbness and tingling in bilateral hands and bilateral feet. First episode was yesterday lasting 2 hours. Second episode today, already resolving here in the ED. Patient started lithium and Seroquel on Monday, and has taken those medications up through and including today. Denies shortness of breath, rash, hives, itching, altered mental status, any other symptoms. [place] level within normal limits - Diagnoses Provider Diagnoses: Numbness and tingling in both hands, Numbness and tingling of both feet Discharge - Sign-Out/Discharge Documenting (check all that apply): Discharge/Admit/Transfer - Discharge Plan Condition: Stable Disposition: HOME Patient Education Materials: Paresthesia (ED) Referrals: Luh Bee MD [Primary Care Provider] - Additional Instructions: Follow-up tomorrow morning with the provider who is prescribing your lithium and Seroquel. Return to the ED for any new or worsening symptoms - Billing Disposition and Condition Condition: STABLE Disposition: HOME
[2017-11-12 21:43] VITALS: BP 124/78
== END 2017-11-12 21:42 | disposition home or self-care (01) ==
LOC: ED 19:20
DX: R20.0 Anesthesia of skin (principal); R20.2 Paresthesia of skin; F17.210 Nicotine dependence, cigarettes, uncomplicated; Z88.0 Allergy status to penicillin; Z88.5 Allergy status to narcotic agent
CPT/HCPCS: 36415; 80178; 99282

== ENCOUNTER 2017-11-19 13:31 | Emergency (ER) | payer OTHER ==
[2017-11-19] MEDS ORDERED: Ketorolac INJ* 60 MG/2 ML VIAL IM ONE (14:03)
--- NOTE | 2017-11-19 14:21 | RAD ---
INDICATION: Bilateral hip pain COMPARISON: None TECHNIQUE: An AP view of the pelvis and AP views of the hip in neutral and abducted position were obtained FINDINGS: Bones: There are no acute bony findings. Joint spaces: The hips articulate normally. The joint spaces are preserved. SI joints/symphysis: The SI joints and symphysis are intact. Other: None IMPRESSION: NEGATIVE EXAMINATION.
--- NOTE | 2017-11-19 14:33 | ED ---
Hugh Carrion Stephanie, scribed for Alex Vaughan MD on 11/19/17 at 1400 . Lower Extremity - HPI Summary HPI Summary: The pt is a 27 y/o F BIBA to the ED with c/o bilateral hip pain that began on at 13:00. Symptoms include nausea and vomiting 2x yesterday. She denies diarrhea. She denies recent trauma or recent heavy lifting. Her pain is rated as a 10 in severity. LK 11/12/17. - History of Current Complaint Chief Complaint: EDHipPelvisInjury Stated Complaint: HIP PAIN Time Seen by Provider: 11/19/17 13:39 Hx Obtained From: Patient Mechanism Of Injury: Unknown Onset of Pain: Days - 1 Onset/Duration: Days - 1 Severity Currently: Severe Pain Intensity: 10 Pain Scale Used: 0-10 Numeric Timing: Constant Location: Is Discrete @ - bilateral hips Associated Signs And Symptoms: Positive: Other - N/V Aggravating Factor(s): Nothing Alleviating Factor(s): Nothing Able to Bear Weight: Yes - Allergies/Home Medications Allergies/Adverse Reactions: Allergies Allergy/AdvReac Type Severity Reaction Status Date / Time Penicillins Allergy Itching Verified 11/19/17 14:15 oxycodone AdvReac Intermediate Itching Verified 11/19/17 14:15 tramadol AdvReac Intermediate Nausea Verified 11/19/17 14:15 Home Medications: Home Medications Hydrocodone/Acetaminophen [[place] 7.5-325 Tablet] 1 tab PO QID PRN 11/19/17 [ History Confirmed 11/19/17] PMH/Surg Hx/FS Hx/Imm Hx Endocrine/Hematology History: Denies: Hx Anticoagulant Therapy, Hx Diabetes Cardiovascular History: Reports: Hx Angina, Hx Syncope, Hx Valvular Heart Disease - AR, Other Cardiovascular Problems/Disorders - aortic regurgitation Denies: Hx Hypertension, Hx Myocardial Infarction, Hx Pacemaker/ICD Respiratory History: Reports: Hx Asthma, Hx Seasonal Allergies History: Denies: Hx Renal Disease Musculoskeletal History: Reports: Hx Back Problems - lower back pain, Other Musculoskeletal History - labrum tears b/l hips Sensory History: Reports: Hx Contacts or Glasses Denies: Hx Hearing Aid Opthamlomology History: Reports: Hx Contacts or Glasses Neurological History: Reports: Hx Migraine Psychiatric History: Reports: Hx Anxiety, Hx Bipolar Disorder Denies: Hx Eating Disorder, Hx Panic Disorder, Hx of Violent Episodes Against Others - Surgical History Surgery Procedure, Year, and Place: None - Immunization History Date of Tetanus Vaccine: up to date Date of Influenza Vaccine: up to date. Infectious Disease History: No Infectious Disease History: Denies: Traveled Outside the [place] in Last 30 Days - Family History Known Family History: Positive: Hypertension, Diabetes, Other - seizures (mother ); no history of SI from family members - Social History Occupation: Employed Full-time Lives: Alone Alcohol Use: None Hx Substance Use: Yes Substance Use Type: Reports: Marijuana Substance Use Comment - Amount & Last Used: occassional Hx Tobacco Use: Yes - FORMER- QUIT TODAY 10/24/2016 Smoking Status (MU): Heavy Every Day Tobacco Smoker Type: Cigarettes Amount Used/How Often: 1 ppd Length of Time of Smoking/Using Tobacco: since age 18 Have You Smoked in the Last Year: Yes Review of Systems Negative: Fever Positive: Vomiting, Nausea. Negative: Diarrhea Positive: Other - bilateral hip pain Negative: Slurred Speech All Other Systems Reviewed And Are Negative: Yes Physical Exam - Summary Physical Exam Summary: VITAL SIGNS: Reviewed. GENERAL: Patient is a well-developed and nourished FEMALE who is lying comfortable in the stretcher. Patient is not in any acute respiratory distress. HEAD AND FACE: No signs of trauma. No ecchymosis, hematomas or skull depressions. No sinus tenderness. EYES: PERRLA, EOMI x 2, No injected conjunctiva, no nystagmus. EARS: Hearing grossly intact. Ear canals and tympanic membranes are within normal limits. MOUTH: Oropharynx within normal limits. NECK: Supple, trachea is midline, no adenopathy, no JVD, no carotid bruit, no c- spine tenderness, neck with full ROM. CHEST: Symmetric, no tenderness at palpation LUNGS: Clear to auscultation bilaterally. No wheezing or crackles. CVS: Regular rate and rhythm, S1 and S2 present, no murmurs or gallops appreciated. ABDOMEN: Soft, non-tender. No signs of distention. No rebound no guarding, and no masses palpated. Bowel sounds are normal. EXTREMITIES: FROM in all major joints, no edema, no cyanosis or clubbing. NEURO: Alert and oriented x 3. No acute neurological deficits. Speech is normal and follows commands. SKIN: Dry and warm Triage Information Reviewed: Yes Vital Signs On Initial Exam: Initial Vitals Temp Pulse Resp BP Pulse Ox 99.2 F 81 18 134/91 100 11/19/17 13:40 11/19/17 13:40 11/19/17 13:40 11/19/17 13:40 11/19/17 13:40 Vital Signs Reviewed: Yes Diagnostics - Vital Signs Vital Signs Temp Pulse Resp BP Pulse Ox 11/19/17 13:40 99.2 F 81 18 134/91 100 - Laboratory Lab Statement: Any lab studies that have been ordered have been reviewed, and results considered in the medical decision making process. - Radiology Hip XRay Xray Interpretation: No Acute Changes Radiology Interpretation Completed By: Radiologist - NEGATIVE EXAM. ED physician has reviewed this report. Re-Evaluation - Re-Evaluation First Eval Re-Evaluation Time: 14:27 Change: Unchanged - ED physician discussed normal results of hip xray with the pt. ED physician discussed plan of discharge with the pt and the pt understands and agrees. Lower Extremity Course/Dx - Course Assessment/Plan: This patient is a 27-year-old female who presents to the emergency department via ambulance with a chief complaint of left hip pain. She reports that there is no history of trauma or heavy lifting. She also reports that she has chronic hip pain and pelvic pain. She is unable to give her pain medications from the family medicine doctor since she was discharged from the practice due to multiple missing appointments. X-ray of bilateral hips and pelvis impression: Negative examination. In the ED course the patient was given Toradol for pain and then she will be discharged home with follow-up with PCP. I discussed all the findings and test results with the patient. Patient was instructed to return to the emergency room immediately if any of the symptoms return or worsens. Plan of care was discussed with the patient and understands and agrees. All questions were answered at patient satisfaction. There were no further complaints or concerns. Lung exam before discharge: CTA B /L. Good air exchange. No wheezing or crackles heard. CVS: S1 and S2 present. No murmurs appreciated. Patient is alert and oriented x 3. Patient is hemodynamically stable. Patient will be discharged home with follow up PCP in the next 2-3 days - Diagnoses Differential Diagnosis/HQI/PQRI: Positive: Bursitis, Fracture (Closed), Sprain, Strain Provider Diagnoses: Hip pain, chronic Discharge - Sign-Out/Discharge Documenting (check all that apply): Discharge/Admit/Transfer - Discharge - Discharge Plan Condition: Stable Disposition: HOME Patient Education Materials: Hip Pain (ED) Referrals: Luh Bee MD [Medical Doctor] - 3 Days Additional Instructions: Return to the ED with new or worsening symptoms. The documentation as recorded by the Hugh duong Stephanie accurately reflects the service I personally performed and the decisions made by Clement huffman Walter, MD.
[2017-11-19 14:43] VITALS: BP 129/69
== END 2017-11-19 14:42 | disposition home or self-care (01) ==
LOC: ED 13:31
DX: M25.552 Pain in left hip (principal); M25.551 Pain in right hip; G89.29 Other chronic pain; J45.909 Unspecified asthma, uncomplicated; F31.9 Bipolar disorder, unspecified; F41.9 Anxiety disorder, unspecified; F17.210 Nicotine dependence, cigarettes, uncomplicated
CPT/HCPCS: 73523; 96372; 99282; J1885

== ENCOUNTER 2017-12-13 15:09 | Inpatient (IN) | payer OTHER ==
[2017-12-13] MEDS ORDERED: LORazepam TAB(*) 1 MG PO ONE (16:13)
--- NOTE | 2017-12-13 16:26 | ED ---
Bossman Carrion Simon, scribed for Paty Feliciano MD on 12/13/17 at 1617 . Psychiatric Complaint - HPI Summary HPI Summary: This patient is a 27 year old F presenting to [facility] with a chief complaint of SI since awakening this AM. Pt states she woke this morning feeling overwhelmed. Patient states her thoughts of hurting herself. Patient denies taking any action of self-harm to me. At triage, patient reported plan to cut herself (triage). Patient states she has a history of borderline PD, bipolar II , and had a psychiatric admission 1 month ago. Patient denies plan to injure others. Patient without any other complaints other than feeling anxious. Patient denies chest pain shortness of breath. No abdominal pain. No recent illness. Patient does smoke cigarettes. Pt denies drug and alcohol use. Pt LMP started a few days ago. Patients medication reviewed this visit.Pt on paperwork. Pts medications reviewed this visit - History Of Current Complaint Chief Complaint: EDMentalHealth Time Seen by Provider: 12/13/17 15:58 Hx Obtained From: Patient Hx Last Menstrual Period: Starts today ?: No - menses yesterday Onset/Duration: Sudden Onset - upon waking today, Lasting Hours Timing: Constant Severity Initially: Severe Severity Currently: Moderate Character: Depressed Aggravating Factor(s): Nothing Alleviating Factor(s): Nothing Related History: Positive For: Prior Psychiatric Issues - admit last month Has Suicidal: Reports: With A Plan - Cutting Has Homicidal: Denies: Thoughts - Allergies/Home Medications Allergies/Adverse Reactions: Allergies Allergy/AdvReac Type Severity Reaction Status Date / Time Penicillins Allergy Itching Verified 11/19/17 14:15 tramadol AdvReac Intermediate Nausea Verified 11/19/17 14:15 PMH/Surg Hx/FS Hx/Imm Hx Previously Healthy: No Endocrine/Hematology History: Denies: Hx Anticoagulant Therapy, Hx Diabetes Cardiovascular History: Reports: Hx Angina, Hx Syncope, Hx Valvular Heart Disease - [place], Other Cardiovascular Problems/Disorders - aortic regurgitation Denies: Hx Hypertension, Hx Myocardial Infarction, Hx Pacemaker/ICD Respiratory History: Reports: Hx Asthma, Hx Seasonal Allergies History: Denies: Hx Renal Disease Musculoskeletal History: Reports: Hx Back Problems - lower back pain, Other Musculoskeletal History - labrum tears b/l hips Sensory History: Reports: Hx Contacts or Glasses Denies: Hx Hearing Aid Opthamlomology History: Reports: Hx Contacts or Glasses Neurological History: Reports: Hx Migraine Psychiatric History: Reports: Hx Anxiety, Hx Inpatient Treatment - 10/2017, Hx Bipolar Disorder Denies: Hx Eating Disorder, Hx Panic Disorder, Hx of Violent Episodes Against Others - Surgical History Surgery Procedure, Year, and Place: None - Immunization History Date of Tetanus Vaccine: up to date Date of Influenza Vaccine: up to date. Infectious Disease History: No Infectious Disease History: Denies: Traveled Outside the [place] in Last 30 Days - Family History Known Family History: Positive: Hypertension, Diabetes, Other - seizures (mother ); no history of SI from family members - Social History Occupation: Unemployed Lives: With Family Alcohol Use: None Hx Substance Use: Yes Substance Use Type: Reports: Marijuana Substance Use Comment - Amount & Last Used: occassional Hx Tobacco Use: Yes - FORMER- QUIT TODAY 10/24/2016 Smoking Status (MU): Heavy Every Day Tobacco Smoker Type: Cigarettes Amount Used/How Often: 1 ppd Length of Time of Smoking/Using Tobacco: since age 18 Have You Smoked in the Last Year: Yes Review of Systems Negative: Fever Positive: Depressed, Other - SI All Other Systems Reviewed And Are Negative: Yes Physical Exam - Summary Physical Exam Summary: Vital Signs Reviewed: Yes A+Ox3, no distress Eyes: Conjunctiva Clear, no injected ENT: Hearing grossly normal, MMM neck: supple Respiratory: Positive: No respiratory distress, No accessory muscle use Cardiovascular: skin color reflect adequate perfusion Musculoskeletal Exam: M[place] x 4 without difficulty . Neurological: Positive: Alert, ambulatory without difficulty Psychological: Positive: Normal Response To Family Skin: Positive: no rash, no ecchymosis pt with healed scars to b/l forearms from previous cutting Triage Information Reviewed: Yes Vital Signs On Initial Exam: Initial Vitals Temp Pulse Resp BP Pulse Ox 97.7 F 79 18 118/72 100 12/13/17 15:15 12/13/17 15:15 12/13/17 15:15 12/13/17 15:15 12/13/17 15:15 Vital Signs Reviewed: Yes Diagnostics - Vital Signs Vital Signs Temp Pulse Resp BP Pulse Ox 12/13/17 15:15 97.7 F 79 18 118/72 100 - Laboratory Result Diagrams: 12/13/17 16:30 12/13/17 16:30 Lab Statement: Any lab studies that have been ordered have been reviewed, and results considered in the medical decision making process. Course/Dx - Course Course Of Treatment: Patient presents on 941 paperwork for evaluation of increased depression and thoughts of self-harm. Patient states she woke this morning feeling overwhelmed. Patient denies doing anything discrete self-harm. Patient's vital signs are stable. Patient appropriate. We will check lab work including a lithium level. Will check a urine and urine drug screen. Patient whether may be a prolonged wait to be evaluated answers a few evaluations pending ahead of her. Patient requesting something for her anxiety. Will give a dose of Ativan while waiting. Patient comfortable and agreeable with plan. Patient declines nicotine patch at this time. We'll continue to monitor. Flex contacted with consultation request. - Differential Dx/Clinical Impression Provider Diagnosis: Depression Discharge - Sign-Out/Discharge Documenting (check all that apply): Sign-Out Patient Signing out patient TO: Jared Palomino - Discharge Plan Condition: Guarded Disposition: [place]IATRIC FAC[place] [place] - Billing Disposition and Condition Condition: GUARDED Disposition: Psychiatric Facility [facility] [place] The documentation as recorded by the Bossman duong Simon accurately reflects the service I personally performed and the decisions made by , Paty Feliciano MD.
[2017-12-13 16:37] LABS: ABS Basophils 0.1 10^3/ul (0-0.2); ABS Eosinophils 0.2 10^3/ul (0-0.6); ABS Lymphocytes 2.5 10^3/ul (1.0-4.8); ABS Monocytes 0.5 10^3/ul (0-0.8); ABS Neutrophils 7.5 10^3/ul (1.5-7.7); ABS Nucleated RBC 0 10^3/ul; Eosinophil % 1.6 % (0-6); Hematocrit 38 % (35-47); Hemoglobin 12.8 g/dl (12.0-16.0); Lymphocyte % 23.6 % (25-47); Mean Corpuscular HGB Conc 34 g/dl (31-36); Mean Corpuscular Hemoglobin 30 pg (27-31); Mean Corpuscular Volume 88 fL (80-97); Mean Platelet Volume 7.8 um3 (7.4-10.4); Nucleated Red Blood Cells % 0; Platelet Count 354 10^3/ul (150-450); Red Blood Count 4.28 10^6/ul (4.00-5.40); Red Cell Distribution Width 13 % (10.5-15); White Blood Count 10.8 10^3/ul (3.5-10.8)
--- OUTSIDE RECORDS SUMMARY | 2017-12-13 16:56 | XMS REPORT ---
:1990 External Reference #:[id number] Author Organization [employer] Address [address] [place] [address] [place] [address] Phone [phone] Care Team Providers Name Role Phone Mando Benítez MD Primary Care Physician Unavailable Payers Type Date Identification Numbers Payment Provider Subscriber Commercial Effective: Policy Number: [id number] [employer] Kindra Shaw 2017 Medicaid PayID: [id number] [address] [address] [place] [address] Problems Date Description Provider Status Onset: 03/03/2017 Syncope and collapse Shona Heredia M.D. Active Onset: 04/06/2017 Transient altered mental status Lisa Fitzgerald MD Active Onset: 04/26/2017 Dissociative convulsions Lisa Fitzgerald MD Active Onset: 05/24/2017 Localized, secondary osteoarthritis Loly Ashley M.D. Active of the pelvic region and thigh Onset: 07/04/2017 Oth specific joint derangements of Camryn Jolley MD Active right hip, NEC Onset: 07/04/2017 Oth specific joint derangements of Camryn Jolley MD Active left hip, NEC Onset: 11/28/2017 Polycystic ovaries Mando Benítez M.D. Active Onset: 11/28/2017 Bipolar disorder Mando Benítez M.D. Active Onset: 11/28/2017 Asthma without status asthmaticus Mando Benítez M.D. Active Onset: 11/28/2017 Allergic rhinitis Mando Benítez M.D. 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 No Do you have problems with snoring, day time fatigue? Snoring-No. Daytime fatigue-yes Allergies, Adverse Reactions, Alerts Date Description Reaction Status Severity Comments 03/03/2017 Tramadol Nausea and Vomiting active Moderate 10/10/2017 Penicillins active 04/06/2017 Penicillin ichiness active Medications Medication Date Status Form Strength Qnty SIG Indications Ordering Provider Oxycodone HCL 11/28 Active Tablets 5mg 30tab 1 by mouth M16.2 s every 12 [place] hours Debi rezaDLuna needed Ibuprofen 07/04 Active Tablets 600mg 60tab take 1 by s mouth every [place] 8 hours Mercedez reza needed for pain Singulair Active Tablets 10mg 30tab 1 by mouth s every day Mercedez Benítez Folic Acid Active Tablets 400mcg take one tablet by mouth every day (supplement) Metformin HCL Active Tablets 500mg 60tab 1 by mouth s twice a day Mercedez Benítez Flovent HFA Active Aerosol 220mcg/Ac 12gm inhale two t puffs by [place] mouth twice , M.D. a day Ondansetron HCL Active Tablets 4mg 14tab one by mouth s every 6 [place] hours Mercedez reza needed for nausea Levalbuterol HCL Active Nebulizer 0.63mg/3M 72ml 1 amp 8h as Mando L needed Mercedez Benítez Day Time/Nite Active Misc (Liquid) as needed Unknown Time Cold /0000 & Flu Relief Cyclobenzaprine Active Tablets 10mg 45tab 1 tab 8h as [place] s needed Mercedez Benítez Latuda 00/ Active Tablets 20mg 1 by mouth Unknown /0000 every day [place] 0000 Active Capsules 600mg 1 by mouth Unknown Carbonate /0000 at bedtime No Active 10/10 Hx Unknown Medications /2017 - 10/10 Percocet 00/ Hx Tablets 5-325mg 1-2 by mouth Unknown /0000 every 4-6 - hours as 03/02 needed pain /2016 Xopenex / Hx Nebulizer 0.63mg/3M 8hourly as Unknown /0000 L needed - 04/05 Tizanidine HCL Hx Capsules 4mg 3 times a Unknown /0000 day as - needed 11/28 Lexapro Hx Tablets 5mg 1 by mouth Unknown /0000 every day - 03/03 Strattera Hx Capsules 80mg 1 by mouth Unknown /0000 every day - 11/28 Spironolactone Hx Tablets 25mg 1 by mouth Unknown /0000 every day - 04/05 Lorazepam Hx Tablets 0.5mg 1 by mouth Unknown /0000 three times - per day as 04/05 needed for /2017 anxiety Aripiprazole Hx Tablets 10mg take 1 Unknown /0000 tablet by - mouth at 11/28 bedtime /2017 Lexapro 00 Hx Tablets 10mg 1 by mouth Unknown /0000 every day - 11/27 Naproxen Hx Tablets 250mg 1 tablet by Unknown /0000 mouth prn - 03/28 Clindamycin HCL 00 Hx Capsules 150mg one capsule Unknown /0000 by mouth - three times 03/28 /2016 Klonopin Hx Tablets 1mg take one Unknown /0000 tablettwice - a day 11/28 Desogestrel-Ethi Hx Tablets 0.15-0.02 daily Unknown nyl Estradiol- /0000 /0.01 mg Control - (13/11) 11/28 Vital Signs Date Vital Result Comment 11/28/2017 Weight 204.00 lb Heart Rate 66 /min BP Systolic Sitting 116 mmHg BP Diastolic Sitting 76 mmHg Respiratory Rate 16 /min Body Temperature 98.9 F Pain Level 8 10/10/2017 Weight 200.00 lb Heart Rate 72 /min BP Systolic 136 mmHg BP Diastolic 80 mmHg Respiratory Rate 14 /min Body Temperature 98.5 F Pain Level 8 09/05/2017 Height 62 inches 5'2" Weight 202.00 lb BP Systolic 120 mmHg BP Diastolic 64 mmHg Respiratory Rate 18 /min Pain Level 0 BMI (Body Mass Index) 36.9 kg/m2 07/18/2017 Height 62 inches 5'2" Weight 193.00 lb per pt Heart Rate 82 /min reg BP Systolic Sitting 126 mmHg Rue BP Diastolic Sitting 84 mmHg Rue Respiratory Rate 16 /min Pain Level 4 B/L hips BMI (Body Mass Index) 35.3 kg/m2 07/04/2017 Height 62 inches 5'2" Weight 193.00 lb per pt Heart Rate 90 /min reg BP Systolic Sitting 116 mmHg Rue, lg cuff BP Diastolic Sitting 66 mmHg Rue, lg cuff Respiratory Rate 16 /min Pain Level 9 b/ hips BMI (Body Mass Index) 35.3 kg/m2 06/16/2017 Height 62 inches 5'2" Weight 190.00 lb BP Systolic 90 mmHg BP Diastolic 50 mmHg Body Temperature 98.3 F BMI (Body Mass Index) 34.7 kg/m2 05/24/2017 Height 62 inches 5'2" Weight 189.00 lb BP Systolic 116 mmHg BP Diastolic 80 mmHg Body Temperature 97.9 F BMI (Body Mass Index) 34.6 kg/m2 04/26/2017 Height 62.5 inches 5'2.50" Weight 189.38 lb Heart Rate 64 /min BP Systolic 122 mmHg BP Diastolic 68 mmHg BMI (Body Mass Index) 34.1 kg/m2 04/20/2017 Height 62.5 inches 5'2.50" Weight 190.00 lb Heart Rate 68 /min BP Systolic Sitting 126 mmHg Lue reg cuff BP Diastolic Sitting 84 mmHg Lue reg cuff BP Systolic Standing 122 mmHg Lue BP Diastolic Standing 82 mmHg Lue Respiratory Rate 16 /min BMI (Body Mass Index) 34.2 kg/m2 Ejection Fraction 60-65% 03/05/17 04/06/2017 Height 62.25 inches 5'2.25" Weight 189.38 lb Heart Rate 70 /min BP Systolic 126 mmHg BP Diastolic 80 mmHg BMI (Body Mass Index) 34.4 kg/m2 03/03/2017 Height 62.25 inches 5'2.25" Weight 189.00 lb Heart Rate 86 /min BP Systolic 126 mmHg Rue sit BP Diastolic 72 mmHg Rue sit BP Systolic Sitting 120 mmHg Lue BP Diastolic Sitting 70 mmHg Lue BP Systolic Standing 118 mmHg Lue BP Diastolic Standing 70 mmHg Lue Respiratory Rate 17 /min BMI (Body Mass Index) 34.3 kg/m2 Results Test Date Test Result H/L Range Note CBC Auto Diff 05/25/2017 White Blood Count [...] High 0-14 Rheumatoid Factor <15 IU/mL <15 1 Anti-Nuclear Antibody 0.2 U 2 Cyclic Citrullinated Peptide <15.6 U 3 Interpretation See Comment 4 1 Test Performed by: [facility] - [address] [address] 2 REFERENCE VALUE <=1.0 (Negative) 3 REFERENCE VALUE <20.0 (Negative) 4 Tests for antibodies to dsDNA and MARY antigens are not performed automatically unless the BRIGITTE result is > or= 3.0 U. Studies performed at [facility] indicate that positive BRIGITTE results <3.0 U are rarely accompanied by positive second order tests. Test Performed by: [facility] - [address] [address] Procedures Date CPT Code Description Status 04/20/2017 98366 EKG Tracing & Interpretation Completed 04/13/2017 85120 EEG Monitoring Computer Completed 03/21/2017 84538 ECHO Stress Test Incl Perf Contiuous ekg Monitoring Completed W/Phys Superv 03/16/2017 73550 EEG Recording Awake & Drowsy Completed 03/05/2017 96551 ECHO Transthorasic Realtime 2D W Doppler & Color Completed [facility] 03/03/2017 00547 EKG Tracing & Interpretation Completed 11/06/2012 46648 Color Flow Doppler/Interp & Reprt Completed 11/06/2012 14050 Pulse Wave/Continuous-Interp.RPT Completed 11/06/2012 93746 ECHO Transthorasic Realtime 2D W Doppler & Color Completed Flow [facility]osp 10/30/2008 76170 Holter Monitor Interpretation Completed Encounters Type Date Location Provider CPT E/M Dx Office Visit 11/28/2017 3:20p [facility] Mando Jeyson, [address] M16.2 - [place] Newsome E28.2 F31.9 J45.909 Office Visit 10/10/2017 10:15a [facility] Walter Hector [address] S46.012A Of [facility] Perez MD Office Visit 09/05/2017 10:15a [place] [address] M24.851 Of Mana M24.852 Office Visit 07/18/2017 10:15a [facility] [place] [address] M24.851 Mana M24.852 Office Visit 07/04/2017 10:30a [facility] [place] [address] M24.851 C.M.A. M24.852 M16.2 Office Visit 06/16/2017 1:00p [facility] Of Loly Ashley M.D. 31107 M25.552 C.M.A. M25.551 M16.2 Office Visit 05/24/2017 9:15a [facility] Of Loly Ashley M.D. 28513 M25.552 C.M.A. M25.551 M16.2 Office Visit 04/26/2017 9:00a [facility] [address] F44.5 Office Visit 04/20/2017 2:45p [facility] Shona Heredia [address] R55 [place] R07.9 R42 Office Visit 04/06/2017 9:30a [facility] [address] R40.4 Office Visit 03/05/2017 1:24p [facility], Liam Millan [address] R55 Tessy CUTLER M.D. F41.9 F31.9 E28.2 Office Visit 03/03/2017 9:40a [facility] Shona Heredia M.D. 86883 R07.9 [facility] R42 R55 E28.2 Plan of Care Future Appointment(s):12/28/2017 1:00 pm - Mando Benítez M.D. at [facility] - [address]/28/2017 - Mando Benítez M.D.M16.2 Bilateral osteoarthritis resulting from hip dysplasiaNew Medication:Oxycodone HCL 5 mgNew Labs:Drug Abuse 20 UrineComments:Start oxycodone PRN Side effects are sedation and addiction potential. Not to drive after taking the pain medication All medications prescribed are adequate and appropriate for your complaints .Goalof treatment is to increase and maintain your quality of life and functionality while maintaining less side effect .Follow up:1 egiyuS59.2 Polycystic ovarian syndromeComments:Continue wipvipssfD57.9 Bipolar disorder, unspecifiedComments: Follow wit Dr WomackJ45.909 Unspecified asthma, uncomplicatedComments:Your asthma symptoms are stable. Continue both the Flovent twice a day and ventolin as needed.
[2017-12-13 16:57] LABS: EGFR Non-African American 85.5 (>60)
[2017-12-13 16:59] LABS: Urine Appearance Cloudy; Urine Blood Negative (Negative); Urine Color Yellow; Urine Ketones Negative (Negative); Urine Protein Negative (Negative); Urine Specific Gravity 1.013 (1.010-1.030); Urine Urobilinogen Negative (Negative)
--- NOTE | 2017-12-13 23:46 | ED ---
Chu Carrion Rebecca, scribed for Jared Palomino MD on 12/13/17 at 2332 . Progress - Progress Note Progress Note: Pt was signed out by Dr. Feliciano, pending dispo, awaiting MHE. Course/Dx - Course Course Of Treatment: Pt was signed out by Dr. Feliciano, pending dispo, awaiting MHE. Upon completion of MHE and consultation with Dr. Saini, it has been determined that the pt will be voluntarily admitted with Dx of unspecified depression. - Diagnoses Provider Diagnoses: Depression Discharge - Sign-Out/Discharge Documenting (check all that apply): Discharge/Admit/Transfer - Admit, Receiving Sign-Out Receiving patient FROM: Paty Feliciano - Discharge Plan Condition: Guarded [place] [place] [place] Mando Benítez MD [Primary Care Provider] - - Billing Disposition and Condition Condition: GUARDED Disposition: Psychiatric Facility [facility] [place] The documentation as recorded by the Chu duong Rebecca accurately reflects the service I personally performed and the decisions made by Candelario huffman Richard, MD.
[2017-12-14] MEDS ORDERED: Mouth Piece, Nicotine* 1 EACH CARTRIDGE INH ONE (02:00)
[2017-12-14] MEDS ORDERED: Nicotine GUM* 2 MG PO PRN (02:04)
[2017-12-14] MEDS ORDERED: Al Hydrox/Mg Hydrox/Simet LIQ* 30 ML UDC PO PRN (02:04)
[2017-12-14] MEDS ORDERED: Nicotine Inhaler* 10 MG AMP INH PRN ×2 (02:04→11:03)
[2017-12-14] MEDS: metFORMIN* 500 MG TAB PO SCH ×2 (09:48→21:03)
[2017-12-14] MEDS: Vitamin THERAPEUTIC TAB PO SCH (09:48)
[2017-12-14] MEDS: Montelukast Sodium TAB* 10 MG PO SCH (09:48)
[2017-12-14] MEDS: Gabapentin CAP(*) 100 MG PO PRN ×2 (11:43→15:32)
[2017-12-14] MEDS: Cyclobenzaprine TAB* 10 MG PO PRN ×3 (12:00→21:03)
[2017-12-14] MEDS ORDERED: Lurasidone(*) 20 MG TAB PO SCH (17:00)
[2017-12-14] MEDS: Acetaminophen TAB* 325 MG PO PRN (17:39)
[2017-12-14] MEDS ORDERED: Lithium Carbonate TAB* 300 MG PO SCH (21:00)
[2017-12-14] MEDS: Nicotine Patch Removal NOTE PATCH OFF SCH (21:06)
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
[2017-12-15] MEDS: Montelukast Sodium TAB* 10 MG PO SCH (08:17)
[2017-12-15] MEDS: Nicotine PATCH 14 MG/24 HR* PATCH TRANSDERM SCH ×2 (08:17→10:50)
[2017-12-15] MEDS: metFORMIN* 500 MG TAB PO SCH ×2 (08:17→20:28)
[2017-12-15] MEDS: Vitamin THERAPEUTIC TAB PO SCH (08:17)
[2017-12-15] MEDS: Acetaminophen TAB* 325 MG PO PRN (08:18)
[2017-12-15] MEDS: Gabapentin CAP(*) 100 MG PO PRN ×2 (08:59→13:31)
[2017-12-15] MEDS: Cyclobenzaprine TAB* 10 MG PO PRN (08:59)
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
[2017-12-15] MEDS: oxyCODONE TAB* 5 MG TAB PO PRN (15:19)
[2017-12-15] MEDS: Gabapentin CAP(*) 300 MG PO PRN (17:38)
[2017-12-15] MEDS: Lurasidone(*) 40 MG TAB PO SCH (17:43)
[2017-12-15] MEDS: Lithium Carbonate ER* 450 MG TAB.ER PO SCH (20:28)
[2017-12-15] MEDS: Nicotine Patch Removal NOTE PATCH OFF SCH (21:48)
[2017-12-16] MEDS: Nicotine PATCH 14 MG/24 HR* PATCH TRANSDERM SCH ×2 (08:37→09:32)
[2017-12-16] MEDS: oxyCODONE TAB* 5 MG TAB PO PRN ×2 (08:40→20:43)
[2017-12-16] MEDS: Vitamin THERAPEUTIC TAB PO SCH (08:40)
[2017-12-16] MEDS: Cyclobenzaprine TAB* 10 MG PO PRN ×3 (08:40→20:45)
[2017-12-16] MEDS: Montelukast Sodium TAB* 10 MG PO SCH (08:41)
[2017-12-16] MEDS: metFORMIN* 500 MG TAB PO SCH ×2 (08:41→20:12)
[2017-12-16] MEDS: Gabapentin CAP(*) 300 MG PO PRN ×2 (09:31→13:15)
[2017-12-16] MEDS: Nicotine Patch Removal NOTE PATCH OFF SCH ×2 (10:24→20:12)
--- NOTE | 2017-12-16 14:23 | PN ---
Subjective - Subjective Date of Service: 12/16/17 Service Type: 51760 Hosp care 15 min low complexity Subjective: Kindra is seen in weekend coverage for NPP, Zohreh Feliz. The patient is attention seeking and somewhat dramatic, complaining of continued SI without plan and insisting that she is not safe for discharge. Kindra is reminded that only her attending provider can determine her discharge date. Kindra complains about her medications, wanting to be placed on an antidepressant and to have the dose and frequency increased on her gabapentin. "Just make sure they don't discharge me." she states as I leave her room. Objective - Appearance Appearance: Obese Dysmorphic Features: No Hygiene: Normal Grooming: Well Kept - Behavior Psychomotor Activities: Normal Exhibits Abnormal Movement: No - Attitude and Relatedness Attitude and Relatedness: Cooperative Eye Contact: Good - Speech Quality: Unpressured Latencies: Normal Quantity: Appropriate - Mood Patient's Decription of Mood: "Sad" - Affect Observed Affect: Constricted Affect Consistent with: Dysphoria - Thought Process Patient's Thought Process: Coherent Thought Content: Yes Passive Wish, No Suicidal Planning, No Homicidal Ideation, No Paranoid Ideation - Sensorium Experiencing Hallucinations: No, Sensorium is Clear Type of Hallucinations: Visual: No, Auditory: No, Command: No - Level of Consciousness Level of Consciousness: Alert Orientation: Yes Intact, Yes Orientated to Time, Yes Orientated to Place, Yes Orientated to Person - Impulse Control Impulse Control: Poor - Insight and Judgement Insight and Judgement: Impaired - Group Participation Particating in Group Activities: Yes - Medication Management Medication Management Adherence: Yes Assessment - Assessment Merits Inpatient Hospitalization: For Immediate Safety, For Stabilization Inpatient DSM-V Dx: F31.81 Clinical Impression: 27 y.o. single, white, intellectually impaired, disabled female with a history of episodic mood instability admitted on a voluntary status due to depressed mood, interpersonal/relational problems and suicidal ideation. Plan - Plan Treatment Plan: Name: KINDRA LEÓN Birthdate: 1990 [id number] The patient is on a regimen of lurasidone, lithium and gabapentin. Per her insistence, I will increase the gabapentin dose to 400mg PO TID. She is referred to her attending provider for any further scheduled med changes. The patient requires continued inpatient care on a locked and securely supervised unit for her safety. Continued Medication Management: Different Medication Medications: Current Medications Acetaminophen (Tylenol Tab*) 650 mg PO Q4H PRN PRN Reason: PAIN or TEMP > 101 F Last Admin: 12/15/17 08:18 Dose: 650 mg Al Hydrox/Mg Hydrox/Simethicone (Maalox Plus*) 30 ml PO Q4H PRN PRN Reason: INDIGESTION Cyclobenzaprine HCl (Flexeril Tab*) 10 mg PO QID PRN PRN Reason: SPASMS Last Admin: 12/16/17 08:40 Dose: 10 mg Gabapentin (Neurontin Cap(*)) 300 mg PO TID PRN PRN Reason: ANXIETY Last Admin: 12/16/17 13:15 Dose: 300 mg Jet Carbonate (Jet Carbonate Er Tab*) 900 mg PO BEDTIME [facility] Last Admin: 12/15/17 20:28 Dose: 900 mg Lurasidone HCl (Latuda) 40 mg PO 1700 [facility] Last Admin: 12/15/17 17:43 Dose: 40 mg Metformin HCl (Glucophage*) 500 mg PO BID [facility] Last Admin: 12/16/17 08:41 Dose: 500 mg Montelukast Sodium (Singulair Tab*) 10 mg PO DAILY [facility] Last Admin: 12/16/17 08:41 Dose: 10 mg Multivitamins (Theragran Tab*) 1 tab PO DAILY [facility] Last Admin: 12/16/17 08:40 Dose: 1 tab Nicotine (Nicotine Inhaler*) 10 mg INH Q2H PRN PRN Reason: CRAVING Last Admin: 12/15/17 12:11 Dose: 10 mg Nicotine (Nicotine Patch 14 Mg/24 Hr*) 1 patch TRANSDERM DAILY@0800 [facility] Last Admin: 12/16/17 09:32 Dose: 1 patch Nicotine Polacrilex (Nicotine Gum*) 2 mg PO Q2H PRN PRN Reason: CRAVING Oxycodone HCl (Roxycodone Tab*) 5 mg PO Q12HR PRN PRN Reason: PAIN Last Admin: 12/16/17 08:40 Dose: 5 mg Pharmacy Profile Note (Nicotine Patch Removal Note*) 1 note PATCH OFF 2100 [facility] Last Admin: 12/16/17 10:24 Dose: Not Given - Discharge Plan Discharge Plan: Inpatient Hospitalization Lab Results - Lab Results Lab Results: 12/13/17 12/13/17 12/13/17 16:25 16:25 16:27 WBC RBC Hgb Hct MCV MCH MCHC RDW Plt Count MPV Neut % (Auto) Lymph % (Auto) Crisp % (Auto) Eos % (Auto) Baso % (Auto) Absolute Neuts (auto) Absolute Lymphs (auto) Absolute Monos (auto) Absolute Eos (auto) Absolute Basos (auto) Absolute Nucleated RBC Nucleated RBC % Sodium Potassium Chloride Carbon Dioxide Anion Gap BUN Creatinine Est GFR ( Amer) Est GFR (Non-Af Amer) BUN/Creatinine Ratio Glucose Hemoglobin A1c 5.9 H Calcium Total Bilirubin AST ALT Alkaline Phosphatase Total Protein Albumin Globulin Albumin/Globulin Ratio Triglycerides Cholesterol LDL Cholesterol HDL Cholesterol TSH Urine Color Yellow Urine Appearance Cloudy Urine pH 5.0 Ur Specific [place] 1.013 Urine Protein Negative Urine Ketones Negative Urine Blood Negative Urine Nitrate Negative Urine Bilirubin Negative Urine Urobilinogen Negative Ur Leukocyte Esterase 1+ A Urine WBC (Auto) 1+(6-10/hpf) A Urine RBC (Auto) 1+(3-5/hpf) A Ur Squamous Epith Cells Present A Urine Bacteria 2+ A Urine Glucose Negative Salicylates Urine Opiates Screen None detected Acetaminophen Ur Barbiturates Screen None detected Ur Phencyclidine Scrn None detected Ur Amphetamines Screen None detected U Benzodiazepines Scrn None detected Jet Urine Cocaine Screen None detected U Cannabinoids Screen None detected Serum Alcohol 12/13/17 12/13/17 16:30 16:30 WBC 10.8 RBC 4.28 Hgb 12.8 Hct 38 MCV 88 MCH 30 MCHC 34 RDW 13 Plt Count 354 MPV 7.8 Neut % (Auto) 69.5 Lymph % (Auto) 23.6 L Crisp % (Auto) 4.6 Eos % (Auto) 1.6 Baso % (Auto) 0.7 Absolute Neuts (auto) 7.5 Absolute Lymphs (auto) 2.5 Absolute Monos (auto) 0.5 Absolute Eos (auto) 0.2 Absolute Basos (auto) 0.1 Absolute Nucleated RBC 0 Nucleated RBC % 0 Sodium 138 Potassium 4.1 Chloride 102 Carbon Dioxide 26 Anion Gap 10 BUN 10 Creatinine 0.81 Est GFR ( Amer) 103.4 Est GFR (Non-Af Amer) 85.5 BUN/Creatinine Ratio 12.3 Glucose 130 H Hemoglobin A1c Calcium 10.1 Total Bilirubin 0.30 AST 19 ALT 30 Alkaline Phosphatase 53 Total Protein 7.8 Albumin 4.3 Globulin 3.5 Albumin/Globulin Ratio 1.2 Triglycerides 331 Cholesterol 251 LDL Cholesterol 153 HDL Cholesterol 31.9 TSH 1.88 Urine Color Urine Appearance Urine pH Ur Specific [place] Urine Protein Urine Ketones Urine Blood Urine Nitrate Urine Bilirubin Urine Urobilinogen Ur Leukocyte Esterase Urine WBC (Auto) Urine RBC (Auto) Ur Squamous Epith Cells Urine Bacteria Urine Glucose Salicylates < 2.50 Urine Opiates Screen Acetaminophen < 15 Ur Barbiturates Screen Ur Phencyclidine Scrn Ur Amphetamines Screen U Benzodiazepines Scrn Jet 0.48 L Urine Cocaine Screen U Cannabinoids Screen Serum Alcohol < 10
[2017-12-16] MEDS: Gabapentin CAP(*) 400 MG PO PRN ×2 (15:24→20:14)
[2017-12-16] MEDS: Lurasidone(*) 40 MG TAB PO SCH (17:16)
[2017-12-16] MEDS: Lithium Carbonate ER* 450 MG TAB.ER PO SCH (20:12)
[2017-12-17] MEDS: Nicotine PATCH 14 MG/24 HR* PATCH TRANSDERM SCH (08:27)
[2017-12-17] MEDS: metFORMIN* 500 MG TAB PO SCH ×2 (08:27→20:35)
[2017-12-17] MEDS: Montelukast Sodium TAB* 10 MG PO SCH (08:27)
[2017-12-17] MEDS: Vitamin THERAPEUTIC TAB PO SCH (08:27)
[2017-12-17] MEDS: Gabapentin CAP(*) 400 MG PO PRN ×2 (08:31→15:49)
[2017-12-17] MEDS: oxyCODONE TAB* 5 MG TAB PO PRN ×2 (08:31→20:35)
[2017-12-17] MEDS ORDERED: chlorproMAZINE TAB* 100 MG PO ONE (16:00)
[2017-12-17] MEDS: Cyclobenzaprine TAB* 10 MG PO PRN (16:14)
[2017-12-17] MEDS: Acetaminophen TAB* 325 MG PO PRN (16:15)
[2017-12-17] MEDS: Lurasidone(*) 40 MG TAB PO SCH (17:10)
[2017-12-17] MEDS ORDERED: LORazepam TAB(*) 1 MG PO ONE (20:00)
[2017-12-17] MEDS: Lithium Carbonate ER* 450 MG TAB.ER PO SCH (20:34)
[2017-12-17] MEDS: Nicotine Patch Removal NOTE PATCH OFF SCH (21:34)
[2017-12-18] MEDS: Cyclobenzaprine TAB* 10 MG PO PRN (07:44)
[2017-12-18] MEDS: Montelukast Sodium TAB* 10 MG PO SCH (08:54)
[2017-12-18] MEDS: Vitamin THERAPEUTIC TAB PO SCH (08:54)
[2017-12-18] MEDS: oxyCODONE TAB* 5 MG TAB PO PRN (08:54)
[2017-12-18] MEDS: metFORMIN* 500 MG TAB PO SCH (08:55)
[2017-12-18] MEDS: Nicotine PATCH 14 MG/24 HR* PATCH TRANSDERM SCH (08:58)
[2017-12-18 09:01] VITALS: BP 122/73
[2017-12-18] MEDS: Gabapentin CAP(*) 400 MG PO PRN (09:25)
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
== END 2017-12-18 12:50 | disposition home or self-care (01) | DRG 753 ==
LOC: ED 15:09 → BSU 23:10
PROVIDERS: ADMIT Psychiatry & Neurology Psychiatry; ATTEND Psychiatry & Neurology Psychiatry
DX: F31.81 Bipolar II disorder (principal); R45.851 Suicidal ideations; F60.3 Borderline personality disorder; J45.909 Unspecified asthma, uncomplicated; I35.1 Nonrheumatic aortic (valve) insufficiency; G43.909 Migraine, unspecified, not intractable, without status migrainosus; F17.210 Nicotine dependence, cigarettes, uncomplicated; M25.559 Pain in unspecified hip; F79 Unspecified intellectual disabilities; F41.9 Anxiety disorder, unspecified; Z82.49 Family history of ischemic heart disease and other diseases of the circulatory system; Z88.6 Allergy status to analgesic agent; Z88.0 Allergy status to penicillin; Z83.3 Family history of diabetes mellitus; Z56.0 Unemployment, unspecified
CPT/HCPCS: 36415; 80053; 80061; 80178; 80307; 80320; 80329; 81003; 81015; 83036; 84443; 85025; 87086; 99222; 99231; 99232; 99238; 99284; A9270-GY; G0480

== ENCOUNTER → 2017-12-18 20:53 | Emergency (ER) | payer OTHER ==
[~2017-12-18 20:53] MED LIST changes: +Acetaminophen TAB* 325 MG PO ONE; +LORazepam TAB(*) 1 MG PO ONE; +Ondansetron ODT TAB* 4 MG SL ONE
[2017-12-18 21:33] LABS: ABS Basophils 0.1 10^3/ul (0-0.2); ABS Eosinophils 0.1 10^3/ul (0-0.6); ABS Lymphocytes 2.6 10^3/ul (1.0-4.8); ABS Monocytes 0.8 10^3/ul (0-0.8); ABS Neutrophils 9.6 10^3/ul (1.5-7.7); ABS Nucleated RBC 0 10^3/ul; Eosinophil % 0.9 % (0-6); Hematocrit 37 % (35-47); Hemoglobin 12.7 g/dl (12.0-16.0); Lymphocyte % 19.7 % (25-47); Mean Corpuscular HGB Conc 35 g/dl (31-36); Mean Corpuscular Hemoglobin 30 pg (27-31); Mean Corpuscular Volume 87 fL (80-97); Mean Platelet Volume 7.9 um3 (7.4-10.4); Nucleated Red Blood Cells % 0; Platelet Count 410 10^3/ul (150-450); Red Blood Count 4.22 10^6/ul (4.00-5.40); Red Cell Distribution Width 13 % (10.5-15); White Blood Count 13.2 10^3/ul (3.5-10.8)
--- NOTE | 2017-12-18 21:46 | ED ---
Edith Carrion Jade, scribed for Lorri Reynolds MD on 12/18/17 at 2131 . Psychiatric Complaint - HPI Summary HPI Summary: Pt is a 27 y/o female BIBA who c/o SI. She states that she was recently admitted to [facility] for psych and was here for 1 week and given medications. Once she left, she started to have visual and auditory hallucinations and suicidal ideation. She states today she saw Ramana and her brother and mother. Pt also complains of nausea and headache. She denies any homicidal ideation. PMHx suicide attempt via overdosing on pills, HLD, high blood glucose, asthma , right hemisphere disorder, bipolar disorder, anxiety, ADHD, depression, and oxycodone abuse. She denies PMHx DM or HTN. - History Of Current Complaint Chief Complaint: [facility] Time Seen by Provider: 12/18/17 21:05 Hx Obtained From: Patient Hx Last Menstrual Period: Starts today Onset/Duration: Gradual Onset, Still Present Timing: Constant Character: Depressed, Anxious Aggravating Factor(s): Nothing Alleviating Factor(s): Nothing Associated Signs And Symptoms: Positive: Hallucinating - Auditory/Visual Related History: Positive For: Prior Psychiatric Issues Has Suicidal: Reports: Thoughts, Has Prior Attempt(s) Has Homicidal: Denies: Thoughts - Allergies/Home Medications Allergies/Adverse Reactions: Allergies Allergy/AdvReac Type Severity Reaction Status Date / Time Penicillins Allergy Itching Verified 11/19/17 14:15 tramadol AdvReac Intermediate Nausea Verified 11/19/17 14:15 PMH/Surg Hx/FS Hx/Imm Hx Endocrine/Hematology History: Denies: Hx Anticoagulant Therapy, Hx Diabetes Cardiovascular History: Reports: Hx Angina, Hx Hypercholesterolemia - HLD, Hx Syncope, Hx Valvular Heart Disease - AR, Other Cardiovascular Problems/ Disorders - aortic regurgitation Denies: Hx Hypertension, Hx Myocardial Infarction, Hx Pacemaker/ICD Respiratory History: Reports: Hx Asthma, Hx Seasonal Allergies History: Denies: Hx Renal Disease Musculoskeletal History: Reports: Hx Back Problems - lower back pain, Other Musculoskeletal History - labrum tears b/l hips Sensory History: Reports: Hx Contacts or Glasses Denies: Hx Hearing Aid Opthamlomology History: Reports: Hx Contacts or Glasses Neurological History: Reports: Hx Migraine, Other Neuro Impairments/Disorders - Right hemisphere disorder Psychiatric History: Reports: Hx Anxiety, Hx Attention Deficit Hyperactivity Disorder, Hx Depression, Hx Inpatient Treatment - 10/2017, Hx Community Mental Health Tx, Hx Bipolar Disorder, Hx Suicide Attempt, Hx Substance Abuse - oxycodone Denies: Hx Eating Disorder, Hx Panic Disorder, Hx Post Traumatic Stress Disorder, Hx Schizophrenia, Hx of Violent Episodes Against Others - Surgical History Surgery Procedure, Year, and Place: None - Immunization History Date of Tetanus Vaccine: up to date Date of Influenza Vaccine: up to date. Infectious Disease History: No Infectious Disease History: Reports: History Other Infectious Disease - varicella Denies: Traveled Outside the [place] in Last 30 Days - Family History Known Family History: Positive: Hypertension, Diabetes, Other - seizures (mother ); no history of SI from family members - Social History Alcohol Use: None Hx Substance Use: Yes Substance Use Type: Reports: Marijuana Substance Use Comment - Amount & Last Used: occassional Hx Tobacco Use: Yes - FORMER- QUIT TODAY 10/24/2016 Smoking Status (MU): Heavy Every Day Tobacco Smoker Type: Cigarettes Amount Used/How Often: 1 ppd Length of Time of Smoking/Using Tobacco: since age 18 Have You Smoked in the Last Year: Yes Review of Systems Negative: Fever Positive: Nausea Positive: Headache Psychological: Other - NEGATIVE: HI Positive: Other - Suidical ideation, auditory/visual hallucinations All Other Systems Reviewed And Are Negative: Yes Physical Exam - Summary Physical Exam Summary: GENERAL: Patient is a well-developed and nourished F who is lying comfortable in the stretcher. Patient is not in any acute respiratory distress. HEAD AND FACE: Normocephalic. EYES: PERRLA, EOMI x 2. EARS: Hearing grossly intact. MOUTH: Oropharynx within normal limits. NECK: Supple, trachea is midline, no adenopathy, no JVD, no carotid bruit. CHEST: Symmetric, no tenderness at palpation LUNGS: Clear to auscultation bilaterally. No wheezing or crackles. CVS: Regular rate and rhythm, S1 and S2 present, no murmurs or gallops appreciated. ABDOMEN: Soft, non-tender. Bowel sounds are normal. No abdominal abnormal pulsations. EXTREMITIES: Full ROM in all major joints, no edema, no cyanosis or clubbing. NEURO: Alert and oriented x 3. No acute neurological deficits. Speech is normal and follows commands. SKIN: Dry and warm. PSYCH: SI, visible/auditory hallucination, no HI. Triage Information Reviewed: Yes Vital Signs On Initial Exam: Initial Vitals Temp Pulse Resp BP Pulse Ox 98.2 F 96 20 126/79 97 12/18/17 20:57 12/18/17 20:57 12/18/17 20:57 12/18/17 20:57 12/18/17 20:57 Vital Signs Reviewed: Yes Diagnostics - Vital Signs Vital Signs Temp Pulse Resp BP Pulse Ox 12/18/17 20:57 98.2 F 96 20 126/79 97 - Laboratory Lab Results: Lab Results 12/18/17 Range/Units 21:24 WBC 13.2 H (3.5-10.8) 10^3/ul RBC 4.22 (4.00-5.40) 10^6/ul Hgb 12.7 (12.0-16.0) g/dl Hct 37 (35-47) % MCV 87 (80-97) fL MCH 30 (27-31) pg MCHC 35 (31-36) g/dl RDW 13 (10.5-15) % Plt Count 410 (150-450) 10^3/ul MPV 7.9 (7.4-10.4) um3 Neut % (Auto) 72.4 (38-83) % Lymph % (Auto) 19.7 L (25-47) % [place] % (Auto) 6.3 (0-7) % Eos % (Auto) 0.9 (0-6) % Baso % (Auto) 0.7 (0-2) % Absolute Neuts (auto) 9.6 H (1.5-7.7) 10^3/ul Absolute Lymphs (auto) 2.6 (1.0-4.8) 10^3/ul Absolute Monos (auto) 0.8 (0-0.8) 10^3/ul Absolute Eos (auto) 0.1 (0-0.6) 10^3/ul Absolute Basos (auto) 0.1 (0-0.2) 10^3/ul Absolute Nucleated RBC 0 10^3/ul Nucleated RBC % 0 Result Diagrams: 12/18/17 21:24 Lab Statement: Any lab studies that have been ordered have been reviewed, and results considered in the medical decision making process. Course/Dx - Course Course Of Treatment: Pt is a 27 y/o female BIBA who c/o SI. She states that she was recently admitted to [facility] for psych and was here for 1 week and given medications. Once she left, she started to have visual and auditory hallucinations and suicidal ideation. She states today she saw Ramana and her brother and mother. Pt also complains of nausea and headache. She denies any homicidal ideation. PMHx suicide attempt via overdosing on pills, HLD, high blood glucose, asthma, right hemisphere disorder, bipolar disorder, anxiety, ADHD, depression, and oxycodone abuse. She denies PMHx DM or HTN. Pt is moved to [facility] for a MHE. - Differential Dx/Clinical Impression Provider Diagnosis: Suicidal ideation Discharge - Sign-Out/Discharge Documenting (check all that apply): Sign-Out Patient Signing out patient TO: Laureen Sharma - Discharge Plan Condition: Stable Referrals: Mando Benítez MD [Primary Care Provider] - - Billing Disposition and Condition Condition: STABLE The documentation as recorded by the Edith duong Jade accurately reflects the service I personally performed and the decisions made by me, Lorri Reynolds MD.
[2017-12-18 21:48] LABS: Urine Appearance Clear; Urine Blood Negative (Negative); Urine Color Yellow; Urine Ketones Negative (Negative); Urine Protein Negative (Negative); Urine Specific Gravity 1.013 (1.010-1.030); Urine Urobilinogen Negative (Negative)
[2017-12-18 21:52] LABS: EGFR Non-African American 106.4 (>60)
--- NOTE | 2017-12-19 07:01 | ED ---
Pari Carrion Emily, shardaibed for Laureen Sharma MD on 12/18/17 at 2224 . Progress - Progress Note Progress Note: Pt was signed out from Dr. Reynolds upon shift change pending MHE. The pt was put on a mental health unit hold during MHE. - Consult/PCP Time Called: 20:57 Course/Dx - Course Course Of Treatment: Pt is a 27 y/o female BIBA who c/o SI. She states that she was recently admitted to [facility] for psych and was here for 1 week and given medications. Once she left, she started to have visual and auditory hallucinations and suicidal ideation. She states today she saw Ramana and her brother and mother. Pt also complains of nausea and headache. She denies any homicidal ideation. PMHx suicide attempt via overdosing on pills, HLD, high blood glucose, asthma, right hemisphere disorder, bipolar disorder, anxiety, ADHD, depression, and oxycodone abuse. She denies PMHx DM or HTN. Pt is moved to [facility] for a MHE. Pt will be signed out to Dr. Molina upon shift change pending disposition and re-evaluation. - Diagnoses Provider Diagnoses: Suicidal ideation Discharge - Sign-Out/Discharge Documenting (check all that apply): Sign-Out Patient, Receiving Sign-Out Signing out patient TO: Babak Molina - Upon shift change pending disposition Receiving patient FROM: Lorri Reynolds - Upon shift change pending MHE - Discharge Plan Condition: Stable Discharge Disposition Comment: sign out to Dr. Molina upon shift change pending disposition Referrals: Mando Benítez MD [Primary Care Provider] - The documentation as recorded by the Pari duong Emily accurately reflects the service I personally performed and the decisions made by , Laureen Sharma MD.
[2017-12-19 10:24] VITALS: BP 127/90
== END | disposition home or self-care (01) ==
LOC: ED 20:53
DX: R45.851 Suicidal ideations (principal); F17.210 Nicotine dependence, cigarettes, uncomplicated; Z86.79 Personal history of other diseases of the circulatory system; E11.9 Type 2 diabetes mellitus without complications; I10 Essential (primary) hypertension; R44.0 Auditory hallucinations; R44.1 Visual hallucinations
CPT/HCPCS: 36415; 80053; 80307; 80320; 80329; 81003; 84443; 84702; 85025; 99284; A9270-GY; G0480

== ENCOUNTER 2017-12-19 15:19 | Emergency (ER) | payer OTHER ==
[2017-12-19] MEDS ORDERED: Charcoal ACTIVATED* 25 GM/120 ML BTL PO ONE (15:26)
[2017-12-19 16:52] LABS: ABS Basophils 0.1 10^3/ul (0-0.2); ABS Eosinophils 0.1 10^3/ul (0-0.6); ABS Monocytes 0.5 10^3/ul (0-0.8); ABS Neutrophils 8.2 10^3/ul (1.5-7.7); ABS Nucleated RBC 0 10^3/ul; Eosinophil % 1.3 % (0-6); Hematocrit 37 % (35-47); Hemoglobin 12.6 g/dl (12.0-16.0); Lymphocyte % 18.8 % (25-47); Mean Corpuscular HGB Conc 34 g/dl (31-36); Mean Corpuscular Hemoglobin 30 pg (27-31); Mean Corpuscular Volume 88 fL (80-97); Mean Platelet Volume 8.2 um3 (7.4-10.4); Nucleated Red Blood Cells % 0; Platelet Count 405 10^3/ul (150-450); Red Blood Count 4.17 10^6/ul (4.00-5.40); Red Cell Distribution Width 13 % (10.5-15); White Blood Count 10.9 10^3/ul (3.5-10.8)
[2017-12-19 17:12] LABS: EGFR Non-African American 97.9 (>60)
[2017-12-19] MEDS ORDERED: NS 0.9% 1000 ML* 2,000 ML IV ONE (17:32)
[2017-12-19 20:49] LABS: Urine Appearance Cloudy; Urine Blood Negative (Negative); Urine Color Yellow; Urine Ketones Negative (Negative); Urine Protein Negative (Negative); Urine Urobilinogen Negative (Negative)
[2017-12-19] MEDS ORDERED: Cyclobenzaprine TAB* 10 MG PO PRN (22:53)
[2017-12-19] MEDS ORDERED: Gabapentin CAP(*) 400 MG PO PRN (22:54)
[2017-12-19] MEDS ORDERED: oxyCODONE TAB* 5 MG TAB PO PRN (22:55)
--- NOTE | 2017-12-20 07:06 | ED ---
Chu Carrion Rebecca, scribed for Laureen Sharma MD on 12/19/17 at 2111 . Progress - Progress Note Progress Note: Pt was signed out by Dr. Molina, pending dispo, awaiting medical clearance and MHE. Re-Evaluation - Re-Evaluation First Eval Re-Evaluation Time: 21:08 Comment: Pt is medically cleared for MHE. Course/Dx - Course Course Of Treatment: Pt was signed out by Dr. Molina, pending dispo, awaiting medical clearance and MHE. At 2107 pt is medically cleared for MHE. Upon completion of MHE and consultation with Dr. Tripathi, it has been determined that the pt will be transferred with Dx of depression and suicide attempt. Pt will be signed out to Dr. Abreu, awaiting transfer. - Diagnoses Provider Diagnoses: Gabapentin overdose, Suicide attempt, Depression Discharge - Sign-Out/Discharge Documenting (check all that apply): Discharge/Admit/Transfer - Transfer, Sign- Out Patient, Receiving Sign-Out Signing out patient TO: Peter Abreu Receiving patient FROM: Babak Molina - Discharge Plan Condition: Stable Disposition: PSYCHIATRIC FACILITY-OTHER Referrals: Mando Benítez MD [Primary Care Provider] - The documentation as recorded by the Chu duong Rebecca accurately reflects the service I personally performed and the decisions made by , Laureen Sharma MD.
[2017-12-20] MEDS ORDERED: metFORMIN* 500 MG TAB PO SCH (08:00)
[2017-12-20] MEDS ORDERED: Nicotine PATCH 14 MG/24 HR* PATCH TRANSDERM SCH (08:00)
--- NOTE | 2017-12-20 08:01 | PN ---
ED Flex Patient Progress Note Date of Service: 12/20/17 Subjective: This is a 27 year-old F who is pending transfer to another psychiatric facility secondary to suicide attempt. Pt offers no complaints at this time expect that wants to leave this place. no uti symptoms. Objective: Vitals: Most recent vital signs documented below. General NAD, Alert and oriented x3. Heart: rrr at 70 bpm Lungs: CTA or with rales, rhonchi, wheezing abd: soft nontender Laboratory: Current laboratory results documented below. Assessment: suicide attempt gabapentin overdose Plan: Pending psychiatric to transfer will follow up daily until accepted at facility condition:stable disposition: transfer Vital Signs Temp Pulse Resp BP Pulse Ox 99.4 F 116 24 115/68 96 12/19/17 15:38 12/19/17 21:08 12/19/17 21:08 12/19/17 21:08 12/19/17 21:08 Lab Results - Entire Visit 12/19/17 12/19/17 12/19/17 20:33 20:33 19:25 WBC RBC Hgb Hct MCV MCH MCHC RDW Plt Count MPV Neut % (Auto) Lymph % (Auto) Butts % (Auto) Eos % (Auto) Baso % (Auto) Absolute Neuts (auto) Absolute Lymphs (auto) Absolute Monos (auto) Absolute Eos (auto) Absolute Basos (auto) Absolute Nucleated RBC Nucleated RBC % Sodium Potassium Chloride Carbon Dioxide Anion Gap BUN Creatinine Est GFR ( Amer) Est GFR (Non-Af Amer) BUN/Creatinine Ratio Glucose Lactic Acid 2.3 H* Calcium Total Bilirubin AST ALT Alkaline Phosphatase Total Protein Albumin Globulin Albumin/Globulin Ratio TSH Urine Color Yellow Urine Appearance Cloudy Urine pH 5.0 Ur Specific [place] 1.020 Urine Protein Negative Urine Ketones Negative Urine Blood Negative Urine Nitrate Negative Urine Bilirubin Negative Urine Urobilinogen Negative Ur Leukocyte Esterase Trace A Urine WBC (Auto) 1+(6-10/hpf) A Urine RBC (Auto) 1+(3-5/hpf) A Ur Squamous Epith Cells Present A Urine Bacteria 2+ A Urine Glucose 2+(150 mg/dl) A Urine Ascorbic Acid * A Salicylates Urine Opiates Screen None detected Acetaminophen Ur Barbiturates Screen None detected Ur Phencyclidine Scrn None detected Ur Amphetamines Screen None detected U Benzodiazepines Scrn None detected [place] Urine Cocaine Screen None detected U Cannabinoids Screen None detected Serum Alcohol 06/26/18 06/26/18 06/26/18 16:38 16:38 16:38 WBC 10.9 H RBC 4.17 Hgb 12.6 Hct 37 MCV 88 MCH 30 MCHC 34 RDW 13 Plt Count 405 MPV 8.2 Neut % (Auto) 75.0 Lymph % (Auto) 18.8 L Butts % (Auto) 4.2 Eos % (Auto) 1.3 Baso % (Auto) 0.7 Absolute Neuts (auto) 8.2 H Absolute Lymphs (auto) 2.0 Absolute Monos (auto) 0.5 Absolute Eos (auto) 0.1 Absolute Basos (auto) 0.1 Absolute Nucleated RBC 0 Nucleated RBC % 0 Sodium 138 Potassium 3.8 Chloride 102 Carbon Dioxide 24 Anion Gap 12 H BUN 13 Creatinine 0.72 Est GFR ( Amer) 118.5 Est GFR (Non-Af Amer) 97.9 BUN/Creatinine Ratio 18.1 Glucose 166 H Lactic Acid 5.2 H* Calcium 9.6 Total Bilirubin 0.30 AST 18 ALT 32 Alkaline Phosphatase 47 Total Protein 7.6 Albumin 4.1 Globulin 3.5 Albumin/Globulin Ratio 1.2 TSH 1.33 Urine Color Urine Appearance Urine pH Ur Specific [place] Urine Protein Urine Ketones Urine Blood Urine Nitrate Urine Bilirubin Urine Urobilinogen Ur Leukocyte Esterase Urine WBC (Auto) Urine RBC (Auto) Ur Squamous Epith Cells Urine Bacteria Urine Glucose Urine Ascorbic Acid Salicylates < 2.50 Urine Opiates Screen Acetaminophen < 15 Ur Barbiturates Screen Ur Phencyclidine Scrn Ur Amphetamines Screen U Benzodiazepines Scrn [place] 0.18 L Urine Cocaine Screen U Cannabinoids Screen Serum Alcohol < 10
[2017-12-20] MEDS ORDERED: Montelukast Sodium TAB* 10 MG PO SCH (09:00)
[2017-12-20 11:00] VITALS: BP 109/73
--- NOTE | 2017-12-20 11:04 | ED ---
Luis Carrion Tiffany, scribed for Peter Abreu on 12/20/17 at 1047 . Progress - Progress Note Progress Note: Pateint signed out from Dr. Sharma, pending dispo. Course/Dx - Course Course Of Treatment: 27 y/o F BIBA to [facility] complains of suicide attempt s/p intentional overdose. Patient signed out from Dr. Sharma, pending transfer. Originial disposition plan was to transfer patient. Dr. Ibanez's nurse practitioner came to see patient in the AM. Pt will be discharged home instead. - Diagnoses Provider Diagnoses: Suicide attempt, Depression, Gabapentin overdose Discharge - Sign-Out/Discharge Documenting (check all that apply): Discharge/Admit/Transfer - Discharge, Receiving Sign-Out Receiving patient FROM: Laureen Sharma - Discharge Plan Condition: Stable Disposition: HOME Referrals: Mando Benítez MD [Primary Care Provider] - The documentation as recorded by the Luis duong Tiffany accurately reflects the service I personally performed and the decisions made by , Peter Abreu.
--- NOTE | 2017-12-20 11:09 | PN ---
Subjective - Subjective Date of Service: 12/20/17 Service Type: 60717 Hosp care 25 min moderate complexity Subjective: Patient reports she returned to hospital in order to have "my meds adjusted." She states she does not want to be at [facility] because she wants her boyfriend to be able to visit. She blames magnetic tape typewriter operator for not listening to her in regards to desire for more anxiety medication. Special Agent reiterates risk in utilizing benzodiazepines due to potential for addiction, as well as danger with use of opiate pain medication. Special Agent left message with her mother for collateral and safety planning. Patient states she is in [place] and does not have cell service. When asked how B would contact her, she states she has a [employer] phone but her number is on B' s phone. B's boyfriend has her phone as he does not have one. Special Agent phoned patient's boyfriend Sammy and spoke with him. Conversation continued in presence of patient. He states "Nurse practitioners aren't helping her." Special Agent instructed Sammy and Kindra on recommendations for patient to discuss rental agreement with her landlord, to utilize outpatient providers and [facility] clinic for potential day treatment options and to utilize medications as prescribed. Patient did not have scheduled medications last evening and potentially evening prior. Special Agent instructed patient that she will benefit from taking lithium and lurasidone regularly. Patient states "I just want to go home and be with my boyfriend." She denies SI , or /VH. Plan - Plan Treatment Plan: Name: KINDRA LEÓN Birthdate: 1990 [id number] discharge from [facility]. follow up with case management and outpatient providers at [facility] as already scheduled. Medications: Current Medications Cyclobenzaprine HCl (Flexeril Tab*) 10 mg PO QID PRN PRN Reason: SPASMS Gabapentin (Neurontin Cap(*)) 400 mg PO TID PRN PRN Reason: ANXIETY [place] Carbonate ([place] Carbonate Er Tab*) 900 mg PO BEDTIME JOSE MIGUEL Lurasidone HCl (Latuda) 40 mg PO 1700 JOSE MIGUEL Metformin HCl (Glucophage*) 500 mg PO 0800,1700 [facility] Last Admin: 12/20/17 08:43 Dose: 500 mg Montelukast Sodium (Singulair Tab*) 10 mg PO DAILY JOSE MIGUEL Last Admin: 12/20/17 08:43 Dose: 10 mg Nicotine (Nicotine Patch 14 Mg/24 Hr*) 1 patch TRANSDERM 0800 [facility] Last Admin: 12/20/17 08:40 Dose: Not Given Oxycodone HCl (Roxycodone Tab*) 5 mg PO Q12H PRN PRN Reason: PAIN Pharmacy Profile Note (Nicotine Patch Removal Note*) 1 note PATCH OFF 2100 JOSE MIGUEL - Discharge Plan Discharge Plan: Outpatient Follow Up Outpatient Program: [facility]
--- NOTE | 2017-12-20 12:09 | ED ---
Romeo Carrion Angela, scribed for Babak Molina MD on 12/19/17 at 1547 . Substance Abuse/Use - HPI Summary HPI Summary: This pt is a 27 y/o female presenting to [facility] via EMS for suicide attempt s/p intentional overdose today. 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 She states "they said I took 17 of them, but I don't know how many I took." Pt notes "I should have not done this, I just wanted the voices in my head to stop." She reports the voices were telling her to kill herself and other voices were telling her not to do it. When asked why she tried to commit suicide, she states "because I just want to be with my mom, my brother, and my aunt." Pt notes her brother after getting hit by a drunk transit driver 1.5 years ago and her mother had a fatal heart attack at age 52. Additionally she states the only time she spoke with her mother she had to tell her mom she was a friend of her sister's, pt's mother had Alzheimer's. She was recently admitted to [facility] and was discharged home. She states prior to discharge her Latuda dose was increased. Pt has had prior suicide attempts. - History Of Current Complaint Stated Complaint: 941 Time Seen by Provider: 12/19/17 15:24 Hx Obtained From: Patient Hx Last Menstrual Period: Starts today Onset/Duration of Drug/ETOH Abuse: Hours Ingestion History: Type/Name Of Drug - Gabapentin, Amount Ingested - 17 pills of 400 mg, Approximate Time Of Ingestion - at approx 14:00 Overdose Characteristics: Oral Timing Of Abuse: Binge Use Severity Currently: Severe Character: Depressed Aggravating Factor(s): Nothing Alleviating Factor(s): Nothing Associated Signs And Symptoms: Intentional Ingestion Related Hx: Suicidal, Suicidal: Prior Attempt(s) - Allergies/Home Medications Allergies/Adverse Reactions: Allergies Allergy/AdvReac Type Severity Reaction Status Date / Time Penicillins Allergy Itching Verified 12/19/17 15:40 tramadol AdvReac Intermediate Nausea Verified 12/19/17 15:40 PMH/Surg Hx/FS Hx/Imm Hx Endocrine/Hematology History: Denies: Hx Anticoagulant Therapy, Hx Diabetes Cardiovascular History: Reports: Hx Angina, Hx Hypercholesterolemia - HLD, Hx Syncope, Hx Valvular Heart Disease - AR, Other Cardiovascular Problems/ Disorders - aortic regurgitation Denies: Hx Hypertension, Hx Myocardial Infarction, Hx Pacemaker/ICD Respiratory History: Reports: Hx Asthma, Hx Seasonal Allergies History: Denies: Hx Renal Disease Musculoskeletal History: Reports: Hx Back Problems - lower back pain, Other Musculoskeletal History - labrum tears b/l hips Sensory History: Reports: Hx Contacts or Glasses Denies: Hx Hearing Aid Opthamlomology History: Reports: Hx Contacts or Glasses Neurological History: Reports: Hx Migraine, Other Neuro Impairments/Disorders - Right hemisphere disorder Psychiatric History: Reports: Hx Anxiety, Hx Attention Deficit Hyperactivity Disorder, Hx Depression, Hx Inpatient Treatment - 10/2017, Hx Community Mental Health Tx, Hx Bipolar Disorder, Hx Suicide Attempt, Hx Substance Abuse - oxycodone Denies: Hx Eating Disorder, Hx Panic Disorder, Hx Post Traumatic Stress Disorder, Hx Schizophrenia, Hx of Violent Episodes Against Others - Surgical History Surgery Procedure, Year, and Place: None - Immunization History Date of Tetanus Vaccine: up to date Date of Influenza Vaccine: up to date. Infectious Disease History: No Infectious Disease History: Reports: History Other Infectious Disease - varicella Denies: Traveled Outside the [place] in Last 30 Days - Family History Known Family History: Positive: Cardiac Disease - Mother: fatal DC at age 52, Hypertension, Diabetes, Other - seizures (mother); no history of SI from family members - Social History Alcohol Use: None Hx Substance Use: Yes Substance Use Type: Reports: Marijuana Substance Use Comment - Amount & Last Used: occassional Hx Tobacco Use: Yes - FORMER- QUIT TODAY 10/24/2016 Smoking Status (MU): Heavy Every Day Tobacco Smoker Type: Cigarettes Amount Used/How Often: 1 ppd Length of Time of Smoking/Using Tobacco: since age 18 Have You Smoked in the Last Year: Yes Review of Systems Negative: Fever, Chills Negative: Erythema Negative: Sore Throat Negative: Chest Pain Negative: Shortness Of Breath, Cough Negative: Abdominal Pain, Vomiting, Nausea Negative: dysuria, hematuria Negative: Myalgia, Edema Negative: Rash Neurological: Other - NEG: dizziness Psychological: Other - SI, auditory hallucinations Positive: Depressed All Other Systems Reviewed And Are Negative: Yes Physical Exam - Summary Physical Exam Summary: Constitutional: Well-developed, Well-nourished, Alert. (-) Distressed Skin: Warm, Dry HENT: Normocephalic; Atraumatic Eyes: Conjunctiva normal Neck: Musculoskeletal ROM normal neck. (-) JVD, (-) Stridor, (-) Tracheal deviation Cardio: Rhythm regular, rate normal, Heart sounds normal; Intact distal pulses; The pedal pulses are 2+ and symmetric. Radial pulses are 2+ and symmetric. (-) Murmur Pulmonary/Chest wall: Effort normal. (-) Respiratory distress, (-) Wheezes, (-) Rales Abd: Soft, (-) Tenderness, (-) Distension, (-) Guarding, (-) Rebound Musculoskeletal: (-) Edema Lymph: (-) Cervical adenopathy Neuro: Alert, Oriented x3 Psych: Mood and affect Normal Triage Information Reviewed: Yes Vital Signs On Initial Exam: Initial Vitals Temp Pulse Resp BP Pulse Ox 99.4 F 102 21 125/84 98 12/19/17 15:38 12/19/17 15:38 12/19/17 15:38 12/19/17 15:38 12/19/17 15:38 Vital Signs Reviewed: Yes Diagnostics - Vital Signs Vital Signs Temp Pulse Resp BP Pulse Ox 12/19/17 15:38 99.4 F 102 21 125/84 98 - Laboratory Result Diagrams: 12/19/17 16:38 12/19/17 16:38 Lab Statement: Any lab studies that have been ordered have been reviewed, and results considered in the medical decision making process. - EKG 15:30 Cardiac Rate: NL - at 96 bpm EKG Rhythm: Sinus Rhythm EKG Interpretation: QTc of 450. Course/Dx - Course Assessment/Plan: Pt is a 27 y/o female who presents with suicide attempt s/p intentional overdose today. 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 She states "they said I took 17 of them, but I don't know how many I took." Pt notes "I should have not done this, I just wanted the voices in my head to stop." Pt took about 17p pills of 400 mg Gabapentin. Lab results show lactic acid of 5.1, lithium level of 0.18. In the ED course the pt was given charcoal. Poision control was contacted and advice 6 hours of monitoring. Pt will be signed out to Dr. Sharma, pending disposition, awaiting medical clearance and a mental health evaluation. - Diagnoses Provider Diagnoses: Gabapentin overdose, Suicidal ideation Discharge - Sign-Out/Discharge Documenting (check all that apply): Sign-Out Patient Signing out patient TO: Laureen Sharma - pending dipo, awaiting medical clearance and MHE. - Discharge Plan Condition: Stable Referrals: Mando Benítez MD [Primary Care Provider] - The documentation as recorded by the Romeo duong Angela accurately reflects the service I personally performed and the decisions made by , Babak Molina MD.
[2017-12-20] MEDS ORDERED: Lurasidone(*) 40 MG TAB PO SCH (17:00)
[2017-12-20] MEDS ORDERED: Nicotine Patch Removal NOTE PATCH OFF SCH (21:00)
[2017-12-20] MEDS ORDERED: Lithium Carbonate ER* 450 MG TAB.ER PO SCH (21:00)
--- NOTE | 2017-12-21 06:36 | PN ---
Progress Note - Progress Note Date of Service: 12/21/17 Note: patient urine culture grew E coli 75-100,000. discussed with patient yesterday that was not having any uti symptoms so will not treat at this time.
== END 2017-12-20 11:26 | disposition home or self-care (01) ==
LOC: ED 15:19
DX: T42.6X2A Poisoning by other antiepileptic and sedative-hypnotic drugs, intentional self-harm, initial encounter (principal); Y92.9 Unspecified place or not applicable; R45.851 Suicidal ideations; F31.9 Bipolar disorder, unspecified; F41.9 Anxiety disorder, unspecified; F17.210 Nicotine dependence, cigarettes, uncomplicated; Z88.0 Allergy status to penicillin; Z88.5 Allergy status to narcotic agent
CPT/HCPCS: 36415; 80053; 80178; 80307; 80320; 80329; 81003; 81015; 83605; 84443; 85025; 87077; 87086; 87186; 93005; 96360; 99285; A9270-GY; G0480

== ENCOUNTER 2017-12-22 15:19 | Emergency (ER) | payer OTHER ==
[2017-12-22 15:46] LABS: ABS Basophils 0.1 10^3/ul (0-0.2); ABS Eosinophils 0.2 10^3/ul (0-0.6); ABS Lymphocytes 2.6 10^3/ul (1.0-4.8); ABS Monocytes 0.7 10^3/ul (0-0.8); ABS Neutrophils 9.6 10^3/ul (1.5-7.7); ABS Nucleated RBC 0 10^3/ul; Eosinophil % 1.6 % (0-6); Hematocrit 36 % (35-47); Hemoglobin 12.3 g/dl (12.0-16.0); Lymphocyte % 19.9 % (25-47); Mean Corpuscular HGB Conc 34 g/dl (31-36); Mean Corpuscular Hemoglobin 30 pg (27-31); Mean Corpuscular Volume 88 fL (80-97); Mean Platelet Volume 7.8 um3 (7.4-10.4); Nucleated Red Blood Cells % 0; Platelet Count 411 10^3/ul (150-450); Red Blood Count 4.14 10^6/ul (4.00-5.40); Red Cell Distribution Width 13 % (10.5-15); White Blood Count 13.2 10^3/ul (3.5-10.8)
[2017-12-22 15:56] LABS: Urine Appearance Cloudy; Urine Blood Negative (Negative); Urine Color Yellow; Urine Ketones Negative (Negative); Urine Protein Negative (Negative); Urine Urobilinogen Negative (Negative)
[2017-12-22 16:03] LABS: EGFR Non-African American 101.1 (>60)
[2017-12-22] MEDS ORDERED: Ibuprofen TAB* 600 MG PO ONE (20:31)
[2017-12-22] MEDS ORDERED: metFORMIN* 500 MG TAB PO ONE (21:40)
[2017-12-22] MEDS ORDERED: Lithium Carbonate CAP 150 MG ** CAPSULE PO ONE (21:40)
[2017-12-22] MEDS ORDERED: Gabapentin CAP(*) 400 MG PO ONE (21:41)
[2017-12-22] MEDS ORDERED: Cyclobenzaprine TAB* 10 MG PO ONE (21:41)
--- NOTE | 2017-12-22 22:54 | ED ---
Edith Carrion Jade, scribed for Peter Abreu on 12/22/17 at 2252 . Progress - Progress Note Progress Note: Pt had a MHE and will be admitted to [facility] with a dx of borderline personality disorder. - Consult/PCP Time Called: 17:00 Course/Dx - Course Course Of Treatment: Pt will be admitted to [facility]. - Diagnoses Provider Diagnoses: Borderline personality disorder Discharge - Sign-Out/Discharge Documenting (check all that apply): Discharge/Admit/Transfer - Admit, Receiving Sign-Out Receiving patient FROM: Babak Molina - Discharge Plan Condition: Stable Disposition: ADMITTED TO [facility] Referrals: Mando Benítez MD [Primary Care Provider] - The documentation as recorded by the Edith duong Jade accurately reflects the service I personally performed and the decisions made by Lois huffman Emmanuel.
[2017-12-22] MEDS ORDERED: Lithium Carbonate ER* 450 MG TAB.ER PO ONE (23:00)
[2017-12-22] MEDS ORDERED: Lurasidone(*) 40 MG TAB PO SCH (23:00)
[2017-12-23] MEDS ORDERED: LORazepam TAB(*) 1 MG PO ONE (12:17)
[2017-12-23] MEDS ORDERED: LORazepam TAB(*) 1 MG ONE (12:20)
[2017-12-23 17:38] VITALS: BP 124/70
--- NOTE | 2017-12-23 18:58 | ED ---
Anderson Carrion Tariq, scribed for Tonny Romero MD on 12/23/17 at 1858 . Progress - Progress Note Progress Note: Consult at 1702 with physician at [facility]. Accepts for transfer. - Consult/PCP Time Called: 17:00 Course/Dx - Provider Notifications Time Discussed With Above Provider: 17:02 Discharge - Sign-Out/Discharge Documenting (check all that apply): Discharge/Admit/Transfer - Transfer - Discharge Plan Condition: Stable Disposition: TRANS HIGHER LVL OF CARE FAC Referrals: Mando Benítez MD [Primary Care Provider] - - Billing Disposition and Condition Condition: STABLE Disposition: Trans Higher Lvl of Care Fac The documentation as recorded by the Anderson duong Tariq accurately reflects the service I personally performed and the decisions made by , Tonny Romero MD.
--- NOTE | 2017-12-26 14:51 | ED ---
Yuniel Carrion Jacob, scribed for Babak Molina MD on 12/22/17 at 1907 . Psychiatric Complaint - HPI Summary HPI Summary: Pt is a 27 y/o F whose therapist sent to the ED due to concerns of pt self- harm. She claims that her therapist did not want to treat her and that her therapist said she was being manipulative. Pt attempted to overdose on medication. - History Of Current Complaint Chief Complaint: EDMentalHealth Time Seen by Provider: 12/22/17 15:23 Hx Obtained From: Patient Hx Last Menstrual Period: Starts today Aggravating Factor(s): Nothing Alleviating Factor(s): Nothing Has Suicidal: Reports: With A Plan - Allergies/Home Medications Allergies/Adverse Reactions: Allergies Allergy/AdvReac Type Severity Reaction Status Date / Time Penicillins Allergy Itching Verified 12/22/17 15:50 tramadol AdvReac Intermediate Nausea Verified 12/22/17 15:50 PMH/Surg Hx/FS Hx/Imm Hx Endocrine/Hematology History: Denies: Hx Anticoagulant Therapy, Hx Diabetes Cardiovascular History: Reports: Hx Angina, Hx Hypercholesterolemia - HLD, Hx Syncope, Hx Valvular Heart Disease - AR, Other Cardiovascular Problems/ Disorders - aortic regurgitation Denies: Hx Hypertension, Hx Myocardial Infarction, Hx Pacemaker/ICD Respiratory History: Reports: Hx Asthma, Hx Seasonal Allergies History: Denies: Hx Renal Disease Musculoskeletal History: Reports: Hx Back Problems - lower back pain, Other Musculoskeletal History - labrum tears b/l hips Sensory History: Reports: Hx Contacts or Glasses Denies: Hx Hearing Aid Opthamlomology History: Reports: Hx Contacts or Glasses Neurological History: Reports: Hx Migraine, Other Neuro Impairments/Disorders - Right hemisphere disorder Psychiatric History: Reports: Hx Anxiety, Hx Attention Deficit Hyperactivity Disorder, Hx Depression, Hx Inpatient Treatment - 10/2017, Hx Community Mental Health Tx, Hx Bipolar Disorder, Hx Suicide Attempt, Hx Substance Abuse - oxycodone Denies: Hx Eating Disorder, Hx Panic Disorder, Hx Post Traumatic Stress Disorder, Hx Schizophrenia, Hx of Violent Episodes Against Others - Surgical History Surgery Procedure, Year, and Place: None - Immunization History Date of Tetanus Vaccine: up to date Date of Influenza Vaccine: up to date. Infectious Disease History: No Infectious Disease History: Reports: History Other Infectious Disease - varicella Denies: Traveled Outside the [place] in Last 30 Days - Family History Known Family History: Positive: Cardiac Disease - Mother: fatal [place] at age 52, Hypertension, Diabetes, Other - seizures (mother); no history of SI from family members - Social History Alcohol Use: None Hx Substance Use: Yes Substance Use Type: Reports: Marijuana Substance Use Comment - Amount & Last Used: occassional Hx Tobacco Use: Yes - FORMER- QUIT TODAY 10/24/2016 Smoking Status (MU): Heavy Every Day Tobacco Smoker Type: Cigarettes Amount Used/How Often: 1 ppd Length of Time of Smoking/Using Tobacco: since age 18 Have You Smoked in the Last Year: Yes Review of Systems Negative: Fever, Chills Negative: Erythema Negative: Sore Throat Negative: Chest Pain Negative: Shortness Of Breath, Cough Negative: Abdominal Pain, Vomiting, Nausea Negative: dysuria, hematuria Negative: Myalgia, Edema Negative: Rash Neurological: Other - NEGATIVE: dizziness Physical Exam - Summary Physical Exam Summary: Constitutional: Well-developed, Well-nourished, Alert. (-) Distressed Skin: Warm, Dry HENT: Normocephalic; Atraumatic Eyes: Conjunctiva normal Neck: Musculoskeletal ROM normal neck. (-) JVD, (-) Stridor, (-) Tracheal deviation Cardio: Rhythm regular, rate normal, Heart sounds normal; Intact distal pulses; The pedal pulses are 2+ and symmetric. Radial pulses are 2+ and symmetric. (-) Murmur Pulmonary/Chest wall: Effort normal. (-) Respiratory distress, (-) Wheezes, (-) Rales Abd: Soft, (-), epigastric tenderness, (-) Distension, (-) Guarding, (-) Rebound Musculoskeletal: (-) Edema Lymph: (-) Cervical adenopathy Neuro: Alert, Oriented x3 Psych: Mood and affect Normal Triage Information Reviewed: Yes Vital Signs On Initial Exam: Initial Vitals Temp Pulse Resp BP Pulse Ox 99.2 F 93 18 131/79 98 12/22/17 15:20 12/22/17 15:20 12/22/17 15:20 12/22/17 15:20 12/22/17 15:20 Vital Signs Reviewed: Yes Diagnostics - Vital Signs Vital Signs Temp Pulse Resp BP Pulse Ox 12/22/17 15:20 99.2 F 93 18 131/79 98 - Laboratory Lab Results: Lab Results 12/22/17 12/22/17 12/22/17 Range/Units 15:36 15:37 15:37 WBC 13.2 H (3.5-10.8) 10^3/ul RBC 4.14 (4.00-5.40) 10^6/ul Hgb 12.3 (12.0-16.0) g/dl Hct 36 (35-47) % MCV 88 (80-97) fL MCH 30 (27-31) pg MCHC 34 (31-36) g/dl RDW 13 (10.5-15) % Plt Count 411 (150-450) 10^3/ul MPV 7.8 (7.4-10.4) um3 Neut % (Auto) 72.4 (38-83) % Lymph % (Auto) 19.9 L (25-47) % [place] % (Auto) 5.3 (0-7) % Eos % (Auto) 1.6 (0-6) % Baso % (Auto) 0.8 (0-2) % Absolute Neuts (auto) 9.6 H (1.5-7.7) 10^3/ul Absolute Lymphs (auto) 2.6 (1.0-4.8) 10^3/ul Absolute Monos (auto) 0.7 (0-0.8) 10^3/ul Absolute Eos (auto) 0.2 (0-0.6) 10^3/ul Absolute Basos (auto) 0.1 (0-0.2) 10^3/ul Absolute Nucleated RBC 0 10^3/ul Nucleated RBC % 0 Sodium 137 (135-145) mmol/L Potassium 4.0 (3.5-5.0) mmol/L Chloride 102 (101-111) mmol/L Carbon Dioxide 26 (22-32) mmol/L Anion Gap 9 (2-11) mmol/L BUN 9 (6-24) mg/dL Creatinine 0.70 (0.51-0.95) mg/dL Est GFR ( Amer) 122.4 (>60) Est GFR (Non-Af Amer) 101.1 (>60) BUN/Creatinine Ratio 12.9 (8-20) Glucose 89 (70-100) mg/dL Calcium 9.8 (8.6-10.3) mg/dL Total Bilirubin 0.30 (0.2-1.0) mg/dL AST 33 (13-39) U/L ALT 50 (7-52) U/L Alkaline Phosphatase 51 (34-104) U/L Total Protein 7.6 (6.4-8.9) g/dL Albumin 4.2 (3.2-5.2) g/dL Globulin 3.4 (2-4) g/dL Albumin/Globulin Ratio 1.2 (1-3) TSH 3.84 (0.34-5.60) mcIU/mL Urine Color Yellow Urine Appearance Cloudy Urine pH 6.0 (5-9) Ur Specific [place] 1.010 (1.010-1.030) Urine Protein Negative (Negative) Urine Ketones Negative (Negative) Urine Blood Negative (Negative) Urine Nitrate Negative (Negative) Urine Bilirubin Negative (Negative) Urine Urobilinogen Negative (Negative) Ur Leukocyte Esterase Negative (Negative) Urine Glucose Negative (Negative) Salicylates < 2.50 (<30) mg/dL Urine Opiates Screen (None Detect) Acetaminophen < 15 mcg/mL Ur Barbiturates Screen (None Detect) Ur Phencyclidine Scrn (None Detect) Ur Amphetamines Screen (None Detect) U Benzodiazepines Scrn (None Detect) [place] Pending Urine Cocaine Screen (None Detect) U Cannabinoids Screen (None Detect) Serum Alcohol < 10 (<10) mg/dL 12/22/17 Range/Units 15:37 WBC (3.5-10.8) 10^3/ul RBC (4.00-5.40) 10^6/ul Hgb (12.0-16.0) g/dl Hct (35-47) % MCV (80-97) fL MCH (27-31) pg MCHC (31-36) g/dl RDW (10.5-15) % Plt Count (150-450) 10^3/ul MPV (7.4-10.4) um3 Neut % (Auto) (38-83) % Lymph % (Auto) (25-47) % [place] % (Auto) (0-7) % Eos % (Auto) (0-6) % Baso % (Auto) (0-2) % Absolute Neuts (auto) (1.5-7.7) 10^3/ul Absolute Lymphs (auto) (1.0-4.8) 10^3/ul Absolute Monos (auto) (0-0.8) 10^3/ul Absolute Eos (auto) (0-0.6) 10^3/ul Absolute Basos (auto) (0-0.2) 10^3/ul Absolute Nucleated RBC 10^3/ul Nucleated RBC % Sodium (135-145) mmol/L Potassium (3.5-5.0) mmol/L Chloride (101-111) mmol/L Carbon Dioxide (22-32) mmol/L Anion Gap (2-11) mmol/L BUN (6-24) mg/dL Creatinine (0.51-0.95) mg/dL Est GFR ( Amer) (>60) Est GFR (Non-Af Amer) (>60) BUN/Creatinine Ratio (8-20) Glucose (70-100) mg/dL Calcium (8.6-10.3) mg/dL Total Bilirubin (0.2-1.0) mg/dL AST (13-39) U/L ALT (7-52) U/L Alkaline Phosphatase (34-104) U/L Total Protein (6.4-8.9) g/dL Albumin (3.2-5.2) g/dL Globulin (2-4) g/dL Albumin/Globulin Ratio (1-3) TSH (0.34-5.60) mcIU/mL Urine Color Urine Appearance Urine pH (5-9) Ur Specific [place] (1.010-1.030) Urine Protein (Negative) Urine Ketones (Negative) Urine Blood (Negative) Urine Nitrate (Negative) Urine Bilirubin (Negative) Urine Urobilinogen (Negative) Ur Leukocyte Esterase (Negative) Urine Glucose (Negative) Salicylates (<30) mg/dL Urine Opiates Screen None detected (None Detect) Acetaminophen mcg/mL Ur Barbiturates Screen None detected (None Detect) Ur Phencyclidine Scrn None detected (None Detect) Ur Amphetamines Screen None detected (None Detect) U Benzodiazepines Scrn None detected (None Detect) [place] Urine Cocaine Screen None detected (None Detect) U Cannabinoids Screen None detected (None Detect) Serum Alcohol (<10) mg/dL Result Diagrams: 12/22/17 15:37 12/22/17 15:37 Lab Statement: Any lab studies that have been ordered have been reviewed, and results considered in the medical decision making process. Discharge - Sign-Out/Discharge Documenting (check all that apply): Sign-Out Patient Signing out patient TO: Peter Abreu - Discharge Plan Referrals: Mando Benítez MD [Primary Care Provider] - The documentation as recorded by the Yuniel duong Jacob accurately reflects the service I personally performed and the decisions made by me, Babak Molina MD.
== END 2017-12-23 19:20 | disposition short-term general hospital (02) ==
LOC: ED 15:19
DX: F60.3 Borderline personality disorder (principal)
CPT/HCPCS: 36415; 80053; 80178; 80307; 80320; 80329; 81003; 84443; 84702; 85025; 93005; 99285; A9270-GY; G0480

== ENCOUNTER 2018-01-05 19:07 | Emergency (ER) | payer OTHER ==
[2018-01-05] MEDS ORDERED: Prochlorperazine TAB* 10 MG PO ONE (23:51)
[2018-01-05] MEDS ORDERED: diPHENhydraMINE PO* 50 MG PO ONE (23:52)
--- NOTE | 2018-01-05 23:53 | ED ---
Headache - HPI Summary HPI Summary: This patient is a 27 year old F presenting to [facility] with a chief complaint of occipital migraine that began at 1200 today. The patient rates the pain 8/10 in severity. Symptoms aggravated by light. Symptoms alleviated by nothing. Patient reports nausea and dizziness. Patient denies vomiting. Pt reports a history of migraines, and has recently run out of her medication. - History Of Current Complaint Chief Complaint: EDHeadache Stated Complaint: MIGRAINE Time Seen by Provider: 01/05/18 23:44 Hx Obtained From: Patient Hx Last Menstrual Period: Starts today Onset/Duration: Sudden Onset, Started hours ago, Still Present Initially Headache Was: Moderate Currently Pain Is: Moderate Timing: Constant Character: Migraine Aggravating Factor: Bright Lights Allevating Factors: Nothing Associated Signs And Symptoms: Dizziness, Nausea - Allergies/Home Medications Allergies/Adverse Reactions: Allergies Allergy/AdvReac Type Severity Reaction Status Date / Time Penicillins Allergy Itching Verified 12/22/17 15:50 tramadol AdvReac Intermediate Nausea Verified 12/22/17 15:50 PMH/Surg Hx/FS Hx/Imm Hx Previously Healthy: No Endocrine/Hematology History: Denies: Hx Anticoagulant Therapy, Hx Diabetes Cardiovascular History: Reports: Hx Angina, Hx Hypercholesterolemia - HLD, Hx Syncope, Hx Valvular Heart Disease - [place], Other Cardiovascular Problems/ Disorders - aortic regurgitation Denies: Hx Hypertension, Hx Myocardial Infarction, Hx Pacemaker/ICD Respiratory History: Reports: Hx Asthma, Hx Seasonal Allergies History: Denies: Hx Renal Disease Musculoskeletal History: Reports: Hx Back Problems - lower back pain, Other Musculoskeletal History - labrum tears b/l hips Sensory History: Reports: Hx Contacts or Glasses Denies: Hx Hearing Aid Opthamlomology History: Reports: Hx Contacts or Glasses Neurological History: Reports: Hx Migraine, Other Neuro Impairments/Disorders - Right hemisphere disorder Psychiatric History: Reports: Hx Anxiety, Hx Attention Deficit Hyperactivity Disorder, Hx Depression, Hx Inpatient Treatment - 10/2017, Hx Community Mental Health Tx, Hx Bipolar Disorder, Hx Suicide Attempt, Hx Substance Abuse - oxycodone Denies: Hx Eating Disorder, Hx Panic Disorder, Hx Post Traumatic Stress Disorder, Hx Schizophrenia, Hx of Violent Episodes Against Others - Surgical History Surgery Procedure, Year, and Place: None - Immunization History Date of Tetanus Vaccine: up to date Date of Influenza Vaccine: up to date. Infectious Disease History: No Infectious Disease History: Reports: History Other Infectious Disease - varicella Denies: Traveled Outside the [place] in Last 30 Days - Family History Known Family History: Positive: Cardiac Disease - Mother: fatal [place] at age 52, Hypertension, Diabetes, Other - seizures (mother); no history of SI from family members - Social History Occupation: Employed Full-time Lives: With Family Alcohol Use: None Hx Substance Use: Yes Substance Use Type: Reports: Marijuana Substance Use Comment - Amount & Last Used: occassional Hx Tobacco Use: Yes - FORMER- QUIT TODAY 10/24/2016 Smoking Status (MU): Heavy Every Day Tobacco Smoker Type: Cigarettes Amount Used/How Often: 1 ppd Length of Time of Smoking/Using Tobacco: since age 18 Have You Smoked in the Last Year: Yes Review of Systems Positive: Nausea. Negative: Vomiting Neurological: Other - Positive dizziness Positive: Headache All Other Systems Reviewed And Are Negative: Yes Physical Exam - Summary Physical Exam Summary: Appearance: Well-appearing, Well-nourished, lying in bed comfortably Skin: Warm, dry, no obvious rash Eyes: sclera anicteric, no conjunctival pallor ENT: mucous membranes moist, pharynx appears normal Neck: Supple, nontender Respiratory: Clear to auscultation, no signs of respiratory distress Cardiovascular: Normal S1, S2. No murmurs. Normal distal pulses in tibial and radial bilaterally. Abdomen: Soft, nontender, normal active bowel sounds present Musculoskeletal: Normal, Strength/ROM Intact Neurological: A&Ox3, awake and alert, mentation is normal, speech is fluent and appropriate Psychiatric: affect is normal, does not appear anxious or depressed Triage Information Reviewed: Yes Vital Signs On Initial Exam: Initial Vitals Temp Pulse Resp BP Pulse Ox 98.9 F 72 16 136/78 98 01/05/18 19:10 01/05/18 19:10 01/05/18 19:10 01/05/18 19:10 01/05/18 19:10 Vital Signs Reviewed: Yes Diagnostics - Vital Signs Vital Signs Temp Pulse Resp BP Pulse Ox 01/05/18 21:16 97.9 F 62 16 124/84 100 01/05/18 19:10 98.9 F 72 16 136/78 98 - Laboratory Lab Statement: Any lab studies that have been ordered have been reviewed, and results considered in the medical decision making process. Headache Course/Dx - Diagnoses Provider Diagnoses: Migraine Discharge - Sign-Out/Discharge Documenting (check all that apply): Patient Departure - Discharge Plan Condition: Good Disposition: HOME Prescriptions: Prochlorperazine TAB* [Compazine Tab*] 10 mg PO Q6H PRN #12 tab PRN Reason: Nausea SUMAtriptan TAB* [Imitrex TAB*] 50 mg PO SEE INSTRUCTIONS PRN #12 tab PRN Reason: Headache Patient Education Materials: Sumatriptan (By mouth), Migraine Headache (ED) Referrals: Mando Benítez MD [Primary Care Provider] - - Billing Disposition and Condition Condition: GOOD Disposition: Home
[2018-01-06 00:15] VITALS: BP 133/79
== END 2018-01-06 00:13 | disposition home or self-care (01) ==
LOC: ED 19:07
DX: G43.909 Migraine, unspecified, not intractable, without status migrainosus (principal); E78.00 Pure hypercholesterolemia, unspecified; E78.5 Hyperlipidemia, unspecified; I35.1 Nonrheumatic aortic (valve) insufficiency; F31.9 Bipolar disorder, unspecified; F17.210 Nicotine dependence, cigarettes, uncomplicated
CPT/HCPCS: 99282; A9270-GY; Q0164

== ENCOUNTER 2018-03-14 15:04 | Emergency (ER) | payer OTHER ==
--- OUTSIDE RECORDS SUMMARY | 2018-03-14 15:10 | XMS REPORT ---
:1990 External Reference #:[id number] Author Organization [employer] Address [address] [facility] [place] [address] [place] [address] Phone [phone] Care Team Providers Name Role Phone Mando Benítez MD Primary Care Physician Unavailable Payers Type Date Identification Numbers Payment Provider Subscriber Commercial Effective: Policy Number: [id number] [employer] Kindra León 2017 Medicaid PayID: [id number] [address] [address] [place] [address] Problems Date Description Provider Status Onset: 03/03/2017 [...] 11/28/2017 Allergic rhinitis Mando Benítez M.D. Active Onset: 01/10/2018 Arthralgia of the pelvic region and Mando Benítez M.D. Active thigh Family History Date Family Member(s) Problem(s) Comments General Heart Disease Mother MS bilogical mother Mother Epilepsy Social History Type [...] Qnty SIG Indications Ordering Provider Oxycodone HCL 02/14 Active Tablets 5mg 14tab 1 by mouth M16.2 s every 12 Pachikara hours Mercedez reza needed Acetaminophen 02/14 Active Tablets 500mg 180ta 2 tab 3 M16.2 bs times daily Pachikara as needed [facility] with M25.559 s seat, use Pachikara for , M.D. ambulation. dx code M25.559 Qvar 12/12 Active Aerosol 80mcg/Act 8.700 2 puffs gm inhalation Jeyson twice a day Mercedez Singulair Active Tablets 10mg 30tab 1 by mouth s every day Mercedez Benítez Folic Acid Active Tablets 400mcg take one tablet by mouth every day (supplement) Metformin HCL Active Tablets 500mg 60tab 1 by mouth s twice a day Mercedez Benítez Ondansetron HCL Active Tablets 4mg 14tab one by mouth s every 6 Pachikara hours Mercedez reza needed for nausea Levalbuterol HCL Active Nebulizer 0.63mg/3M 72ml 1 amp 8h as L needed Mercedez Benítez Day Time/Nite Active Misc (Liquid) as needed Unknown Time Cold & /0000 Flu Relief Latuda Active Tablets 20mg 1 by mouth Unknown / every day Sparkill Active Capsules 600mg 1 by mouth Unknown Carbonate at bedtime Cyclobenzaprine Active Tablets 10mg 45tab 1 tab 8h as [place]es s needed Mercedez Benítez Naproxen 02/14 Hx Tablets 375mg 30tab twice a day M16.2 Mando s with food Jeyson Orourke M.D. 02/14 Oxycodone HCL 11/28 Hx Tablets 5mg 30tab 1 by mouth M16.2 s every 12 Pachikara - hours Mercedez reza 01/11 needed No Active 10/10 Hx Unknown Medications - 10/10 Ibuprofen 07/04 Hx Tablets 600mg 60tab take 1 by s mouth every Pachikara - 8 hours Mercedez reza 01/10 needed for pain Percocet Hx Tablets 5-325mg 1-2 by mouth Unknown / every 4-6 - hours as 03/02 needed pain /2016 Xopenex Hx Nebulizer 0.63mg/3M 8hourly as Unknown L needed - 04/05 Tizanidine HCL Hx Capsules 4mg 3 times a Unknown / day as - needed 11/28 Lexapro Hx Tablets 5mg 1 by mouth Unknown / every day - 03/03 Strattera Hx Capsules 80mg 1 by mouth Unknown / every day - 11/28 Spironolactone Hx Tablets 25mg 1 by mouth Unknown /0000 every day - 04/05 Lorazepam Hx Tablets 0.5mg 1 by mouth Unknown / three times - per day as 04/05 needed for anxiety Aripiprazole Hx Tablets 10mg take 1 Unknown / tablet by - mouth at 11/28 bedtime Flovent HFA Hx Aerosol 220mcg/Ac 12gm inhale two J45.909 t puffs by Pachikara - mouth twice , M.D. 12/12 Lexapro Hx Tablets 10mg 1 by mouth Unknown every day - 11/27 Naproxen Hx Tablets 250mg 1 tablet by Unknown /0000 mouth prn - 03/28 Clindamycin HCL Hx Capsules 150mg one capsule Unknown by mouth - three times 03/28 Klonopin Hx Tablets 1mg take one tablettwice - a day 11/28 Desogestrel-Ethi Hx Tablets 0.15-0.02 daily Unknown nyl Estradiol- / /0.01 mg Control - (13/11) 11/28 Vital Signs Date Vital Result Comment 02/14/2018 Height 62 inches 5'2" Weight 207.00 lb Heart Rate 73 /min BP Systolic Sitting 103 mmHg BP Diastolic Sitting 69 mmHg O2 % BldC Oximetry 99 % BMI (Body Mass Index) 37.9 kg/m2 01/10/2018 Height 62 inches 5'2" Weight 204.00 lb Heart Rate 60 /min BP Systolic Sitting 105 mmHg BP Diastolic Sitting 73 mmHg O2 % BldC Oximetry 99 % BMI (Body Mass Index) 37.3 kg/m2 11/28/2017 Weight 204.00 lb Heart Rate 66 [...] Result H/L Range Note CBC Auto Diff 12/22/2017 White Blood Count 13.2 10^3/uL High 3.5-10.8 Red Blood Count 4.14 10^6/uL 4.00-5.40 Hemoglobin 12.3 g/dL 12.0-16.0 Hematocrit 36 % 35-47 Mean Corpuscular Volume 88 fL 80-97 Mean Corpuscular Hemoglobin 30 pg 27-31 Mean Corpuscular HGB Conc 34 g/dL 31-36 Red Cell Distribution Width 13 % 10.5-15 Platelet Count 411 10^3/uL 150-450 Mean Platelet Volume 7.8 um3 7.4-10.4 Abs Neutrophils 9.6 10^3/uL High 1.5-7.7 Abs Lymphocytes 2.6 10^3/uL 1.0-4.8 Abs Monocytes 0.7 10^3/uL 0-0.8 Abs Eosinophils 0.2 10^3/uL 0-0.6 Abs Basophils 0.1 10^3/uL 0-0.2 Abs Nucleated RBC 0 10^3/uL Granulocyte % 72.4 % 38-83 Lymphocyte % 19.9 % Low 25-47 Monocyte % 5.3 % 0-7 Eosinophil % 1.6 % 0-6 Basophil % 0.8 % 0-2 Nucleated Red Blood Cells % 0 Urine Drug SCR ED & 12/22/2017 Amphetamine Ur Screen None Detected None Detect Pain Clinic Barbiturates Urine Screen None Detected None Detect Benzodiazepine Urine Screen None Detected None Detect Urine Cannabinoids Screen None Detected None Detect Urine Cocaine Screen None Detected None Detect Urine Opiates Screen None Detected None Detect Urine Phencyclidine Screen None Detected None Detect 1 Urinalysis Profile 12/22/2017 Urine Color Yellow Urine Appearance Cloudy Urine Specific Buckner 1.010 1.010-1.030 Urine pH 6.0 5-9 Urine Urobilinogen Negative Negative Urine Ketones Negative Negative Urine Protein Negative Negative Urine Leukocytes Negative Negative Urine Blood Negative Negative Urine Nitrite Negative Negative Urine Bilirubin Negative Negative Urine Glucose Negative Negative Comp Metabolic Panel 12/22/2017 Sodium 137 mmol/L 135-145 Potassium 4.0 mmol/L 3.5-5.0 Chloride 102 mmol/L 101-111 Co2 Carbon Dioxide 26 mmol/L 22-32 Anion Gap 9 mmol/L 2-11 Glucose 89 mg/dL 70-100 Blood Urea Nitrogen 9 mg/dL 6-24 Creatinine 0.70 mg/dL 0.51-0.95 BUN/Creatinine Ratio 12.9 8-20 Calcium 9.8 mg/dL 8.6-10.3 Total Protein 7.6 g/dL 6.4-8.9 Albumin 4.2 g/dL 3.2-5.2 Globulin 3.4 g/dL 2-4 Albumin/Globulin Ratio 1.2 1-3 Total Bilirubin 0.30 mg/dL 0.2-1.0 Alkaline Phosphatase 51 U/L 34-104 Alt 50 U/L 7-52 Ast 33 U/L 13-39 Egfr Non- 101.1 >60 Egfr 122.4 >60 2 Laboratory test finding 12/22/2017 Acetaminophen < 15 g/mL 3 Alcohol < 10 mg/dL <10 Salicylate < 2.50 mg/dL <30 TSH (Thyroid Stim Horm) 3.84 mcIU/mL 0.34-5.60 Sparkill 0.51 mmol/L Low 0.6-1.2 HCG < 0.60 mIU/mL 4 Laboratory test finding 12/19/2017 Lactic Acid 2.3 mmol/L High 0.5-2.0 5 CBC Auto Diff 12/19/2017 White Blood Count 10.9 10^3/uL High 3.5-10.8 Red Blood Count 4.17 10^6/uL 4.00-5.40 Hemoglobin 12.6 g/dL 12.0-16.0 Hematocrit 37 % 35-47 Mean Corpuscular Volume 88 fL 80-97 Mean Corpuscular Hemoglobin 30 pg 27-31 Mean Corpuscular HGB Conc 34 g/dL 31-36 Red Cell Distribution Width 13 % 10.5-15 Platelet Count 405 10^3/uL 150-450 Mean Platelet Volume 8.2 um3 7.4-10.4 Abs Neutrophils 8.2 10^3/uL High 1.5-7.7 Abs Lymphocytes 2.0 10^3/uL 1.0-4.8 Abs Monocytes 0.5 10^3/uL 0-0.8 Abs Eosinophils 0.1 10^3/uL 0-0.6 Abs Basophils 0.1 10^3/uL 0-0.2 Abs Nucleated RBC 0 10^3/uL Granulocyte % 75.0 % 38-83 Lymphocyte % 18.8 % Low 25-47 Monocyte % 4.2 % 0-7 Eosinophil % 1.3 % 0-6 Basophil % 0.7 % 0-2 Nucleated Red Blood Cells % 0 Comp Metabolic Panel 12/19/2017 Sodium 138 mmol/L 135-145 Potassium 3.8 mmol/L 3.5-5.0 Chloride 102 mmol/L 101-111 Co2 Carbon Dioxide 24 mmol/L 22-32 Anion Gap 12 mmol/L High 2-11 Glucose 166 mg/dL High 70-100 Blood Urea Nitrogen 13 mg/dL 6-24 Creatinine 0.72 mg/dL 0.51-0.95 BUN/Creatinine Ratio 18.1 8-20 Calcium 9.6 mg/dL 8.6-10.3 Total Protein 7.6 g/dL 6.4-8.9 Albumin 4.1 g/dL 3.2-5.2 Globulin 3.5 g/dL 2-4 Albumin/Globulin Ratio 1.2 1-3 Total Bilirubin 0.30 mg/dL 0.2-1.0 Alkaline Phosphatase 47 U/L 34-104 Alt 32 U/L 7-52 Ast 18 U/L 13-39 Egfr Non- 97.9 >60 Egfr 118.5 >60 6 Laboratory test finding 12/19/2017 Sparkill 0.18 mmol/L Low 0.6-1.2 Acetaminophen < 15 g/mL 7 Alcohol < 10 mg/dL <10 Salicylate < 2.50 mg/dL <30 TSH (Thyroid Stim Horm) 1.33 mcIU/mL 0.34-5.60 Lactic Acid 5.2 mmol/L High 0.5-2.0 8 Urinalysis Profile 12/19/2017 Urine Color Yellow Urine Appearance Cloudy Urine Specific Buckner 1.020 1.010-1.030 Urine pH 5.0 5-9 Urine Urobilinogen Negative Negative Urine Ketones Negative Negative Urine Protein Negative Negative Urine Leukocytes Trace Negative Urine Blood Negative Negative * * Negative 9 Urine Nitrite Negative Negative Urine Bilirubin Negative Negative Urine Glucose 2+(150 mg/dL) Negative Urine White Blood Cell 1+(6-10/hpf) Absent Urine Red Blood Cell 1+(3-5/hpf) Absent Urine Bacteria 2+ Absent Urine Squamous Epithelial Cell Present Absent Urine Drug SCR ED & 12/19/2017 Amphetamine Ur Screen None Detected None Detect Pain Clinic Barbiturates Urine Screen None Detected None Detect Benzodiazepine Urine Screen None Detected None Detect Urine Cannabinoids Screen None Detected None Detect Urine Cocaine Screen None Detected None Detect Urine Opiates Screen None Detected None Detect Urine Phencyclidine Screen None Detected None Detect 10 Urine Culture And Sensitivities 12/19/2017 Urine Culture SEE RESULT BELOW 11 Laboratory test finding 12/18/2017 HCG < 0.60 mIU/mL 12 Acetaminophen < 15 g/mL 13 Alcohol < 10 mg/dL <10 Salicylate < 2.50 mg/dL <30 TSH (Thyroid Stim Horm) 4.07 mcIU/mL 0.34-5.60 Comp Metabolic Panel 12/18/2017 Sodium 136 mmol/L 135-145 Potassium 3.9 mmol/L 3.5-5.0 Chloride 100 mmol/L Low 101-111 Co2 Carbon Dioxide 27 mmol/L 22-32 Anion Gap 9 mmol/L 2-11 Glucose 89 mg/dL 70-100 Blood Urea Nitrogen 12 mg/dL 6-24 Creatinine 0.67 mg/dL 0.51-0.95 BUN/Creatinine Ratio 17.9 8-20 Calcium 10.0 mg/dL 8.6-10.3 Total Protein 8.0 g/dL 6.4-8.9 Albumin 4.3 g/dL 3.2-5.2 Globulin 3.7 g/dL 2-4 Albumin/Globulin Ratio 1.2 1-3 Total Bilirubin 0.20 mg/dL 0.2-1.0 Alkaline Phosphatase 50 U/L 34-104 Alt 33 U/L 7-52 Ast 21 U/L 13-39 Egfr Non- 106.4 >60 Egfr 128.7 >60 14 Urine Drug SCR ED & 12/18/2017 Amphetamine Ur Screen None Detected None Detect Pain Clinic Barbiturates Urine Screen None Detected None Detect Benzodiazepine Urine Screen None Detected None Detect Urine Cannabinoids Screen None Detected None Detect Urine Cocaine Screen None Detected None Detect Urine Opiates Screen None Detected None Detect Urine Phencyclidine Screen None Detected None Detect 15 Urinalysis Profile 12/18/2017 Urine Color Yellow Urine Appearance Clear Urine Specific Buckner 1.013 1.010-1.030 Urine pH 7.0 5-9 Urine Urobilinogen Negative Negative Urine Ketones Negative Negative Urine Protein Negative Negative Urine Leukocytes Negative Negative Urine Blood Negative Negative Urine Nitrite Negative Negative Urine Bilirubin Negative Negative Urine Glucose Negative Negative CBC Auto Diff 12/18/2017 White Blood Count 13.2 10^3/uL High 3.5-10.8 Red Blood Count 4.22 10^6/uL 4.00-5.40 Hemoglobin 12.7 g/dL 12.0-16.0 Hematocrit 37 % 35-47 Mean Corpuscular Volume 87 fL 80-97 Mean Corpuscular Hemoglobin 30 pg 27-31 Mean Corpuscular HGB Conc 35 g/dL 31-36 Red Cell Distribution Width 13 % 10.5-15 Platelet Count 410 10^3/uL 150-450 Mean Platelet Volume 7.9 um3 7.4-10.4 Abs Neutrophils 9.6 10^3/uL High 1.5-7.7 Abs Lymphocytes 2.6 10^3/uL 1.0-4.8 Abs Monocytes 0.8 10^3/uL 0-0.8 Abs Eosinophils 0.1 10^3/uL 0-0.6 Abs Basophils 0.1 10^3/uL 0-0.2 Abs Nucleated RBC 0 10^3/uL Granulocyte % 72.4 % 38-83 Lymphocyte % 19.7 % Low 25-47 Monocyte % 6.3 % 0-7 Eosinophil % 0.9 % 0-6 Basophil % 0.7 % 0-2 Nucleated Red Blood Cells % 0 Drug Abuse 20 Urine 11/28/2017 Urine Amphetamine Negative ng/mL 16, 17 Urine Barbiturates Negative ng/mL 16, 18 Urine Benzodiazepines Negative ng/mL 16, 19 Urine Cocaine Negative ng/mL 16, 20 Urine Phencyclidine Negative ng/mL Cutoff: 25 16 Urine Tetrahydrocannabinol Negative ng/mL Cutoff: 50 16, 21 Creatinine, Urine 32.5 mg/dL 16 Specific Buckner 1.005 16 pH 6.8 16 Oxidants Negative 16, 22 Adulterants Comment Normal 16 Codeine, Ur Not Detected ng/mL Cutoff: 25 16, 23 Ftsbamd-2-apqp-glucuronide, Ur Not Detected ng/mL 16, 24 Morphine, Ur Not Detected ng/mL Cutoff: 25 16, 25 Wjtsxkil-8-dxwv-glucuronide, U Not Detected ng/mL 16, 26 6-monoacetylmorphine, Ur Not Detected ng/mL Cutoff: 25 16, 27 Hydrocodone, Ur Not Detected ng/mL Cutoff: 25 16, 28 Norhydrocodone, Ur Not Detected ng/mL Cutoff: 25 16, 29 Dihydrocodeine, Ur Not Detected ng/mL Cutoff: 25 16, 30 Hydromorphone, Ur Not Detected ng/mL Cutoff: 25 16, 31 Bhoaruzuhkxbi3xrrufgbxmcreviy Not Detected ng/mL 16, 32 Oxycodone, Ur Not Detected ng/mL Cutoff: 25 16, 33 Noroxycodone, Ur Not Detected ng/mL Cutoff: 25 16, 34 Oxymorphone, Ur Not Detected ng/mL Cutoff: 25 16, 35 Saykofvgdwp-8-ivkk-glucuronide Not Detected ng/mL 16, 36 Noroxymorphone, Ur Not Detected ng/mL Cutoff: 25 16, 37 Fentanyl, Ur Not Detected ng/mL Cutoff: 2 16, 38 Norfentanyl, Ur Not Detected ng/mL Cutoff: 2 16, 39 Meperidine, Ur Not Detected ng/mL Cutoff: 25 16, 40 Normeperidine, Ur Not Detected ng/mL Cutoff: 25 16, 41 Naloxone, Ur Not Detected ng/mL Cutoff: 25 16, 42 Glohqiyj-9-ydzv-glucuronide, U Not Detected ng/mL 16, 43 Methadone, Ur Not Detected ng/mL Cutoff: 25 16, 44 Eddp, Ur Not Detected ng/mL Cutoff: 25 16, 45 Propoxyphene, Ur Not Detected ng/mL Cutoff: 25 16, 46 Norpropoxyphene, Ur Not Detected ng/mL Cutoff: 25 16, 47 Tramadol, Ur Not Detected ng/mL Cutoff: 25 16, 48 O-desmethyltramadol, Ur Not Detected ng/mL Cutoff: 25 16, 49 Tapentadol, Ur Not Detected ng/mL Cutoff: 25 16, 50 N-desmethyltapentadol, Ur Not Detected ng/mL Cutoff: 50 16, 51 Vneltuuunx-wcwp-vhiwncvqigr, U Not Detected ng/mL 16, 52 Buprenorphine, Ur Not Detected ng/mL Cutoff: 5 16, 53 Norbuprenorphine, Ur Not Detected ng/mL Cutoff: 5 16, 54 Norbuprenorphine glucuronide Not Detected ng/mL Cutoff: 20 16, 55 Opioid Interpretation See Comment 16, 56 CBC Auto Diff 05/25/2017 White Blood Count [...] High 0-14 Rheumatoid Factor <15 IU/mL <15 57 Anti-Nuclear Antibody 0.2 U 58 Cyclic Citrullinated Peptide <15.6 U 59 Interpretation See Comment 60 1 The urine specimen was tested at the listed cutoffs: Drug class test level (ng/mL) Amphetamines 500 Barbiturates 200 Benzodiazepine metabolites 200 Cocaine metabolites 150 Cannabinoids 50 Opiates 300 Pcp 25 Specimen was received without chain of custody. Results should be used for medical purposes only. 2 Because ethnic data is not always readily [...] 15-29 5 Kidney failure <15 (or dialysis) 3 Therapeutic concentration: <50 ug/mL Toxic concentration: >120 ug/mL 4 <5.0 Negative 5.0 - 25.0 Indeterminate (Repeat testing recommended after 72 hours) >25.0 Positive Perimenopausal women can display HCG levels of up to 20 mIU/mL 5 Critical Result LACT:2.3 Called to [id number] at: 19:54:15 by:[id number] Read back by:[id number] [facility] Severe Sepsis and Septic Shock Management Bundle Measure requires all lactic acids initially measuring >2.0 mmol/L be repeated. 6 Because ethnic data is not always [...] 5 Kidney failure <15 (or dialysis) 7 Therapeutic concentration: <50 ug/mL Toxic concentration: >120 ug/mL 8 [facility] Severe Sepsis and Septic Shock Management Bundle Measure requires all lactic acids initially measuring >2.0 mmol/L be repeated. 9 *Ascorbic acid is present which may interfere with detection of blood. 10 The urine specimen was tested at the listed cutoffs: Drug class test level (ng/mL) Amphetamines 500 Barbiturates 200 Benzodiazepine metabolites 200 Cocaine metabolites 150 Cannabinoids 50 Opiates 300 Pcp 25 Specimen was received without chain of custody. Results should be used for medical purposes only. 11 SEE RESULT BELOW Name: KINDRA LEÓN : [address]: Babak Molina MD Acct: [id number] Unit: [id number] AGE: 27 Location: ED Re12/19/17 SEX: F Status: DEP ER SPEC: [id number] VANCE: 12/19/[address]: Babak Molina MD REQ: [id number] RECD: 12/19/17 STATUS: LINETTE GAMINO DR: Mando Benítez MD _ SOURCE: URINE [facility]: ORDERED: Urine Culture Procedure Result Reported Site Urine Culture Final 12/21/17- 826 ML Organism 1 ESCHERICHIA COLI [place] Count 75-100,000 (Many) CFU/ML Organism 2 NORMAL MIL [place] Count 75-100,000 (Many) CFU/ML 1. ESCHERICHIA COLI [facility].I.C. RX --------- ------ Ampicillin 16 S Cefazolin <=4 S Cefepime <=1 S Ceftriaxone <=1 S Ciprofloxacin <=0.25 S Gentamicin <=1 S Levofloxacin <=0.12 S Meropenem <=0.25 S Nitrofurantoin <=16 S Tetracycline <=1 S Pipercillin/Tazobactam <=4 S Trimethoprim/Sulfamethoxazole <=20 S Amoxicillin/Clavulanic Acid <=2 S Aztreonam <=1 S Contact the Microbiology Department for any additional antibiotic reporting. * [facility] - Main Lab . END OF REPORT DEPARTMENT OF PATHOLOGY, [address] [place] [address] Dylan Laurent M.D. Director [facility] # [id number] 12 <5.0 Negative 5.0 - 25.0 Indeterminate (Repeat testing recommended after 72 hours) >25.0 Positive Perimenopausal women can display HCG levels of up to 20 mIU/mL 13 Therapeutic concentration: <50 ug/mL Toxic concentration: >120 ug/mL 14 Because ethnic data is not always readily [...] 15-29 5 Kidney failure <15 (or dialysis) 15 The urine specimen was tested at the listed cutoffs: Drug class test level (ng/mL) Amphetamines 500 Barbiturates 200 Benzodiazepine metabolites 200 Cocaine metabolites 150 Cannabinoids 50 Opiates 300 Pcp 25 Specimen was received without chain of custody. Results should be used for medical purposes only. 16 [id number] 17 REFERENCE VALUE Cutoff: 500 18 REFERENCE VALUE Cutoff: 200 19 REFERENCE VALUE Cutoff: 100 20 REFERENCE VALUE Cutoff: 150 21 ADDITIONAL INFORMATION This report is intended for use in clinical monitoring or management of patients. It is not intended for use in employment-related testing. 22 REFERENCE VALUE Cutoff: 200 mg/L 23 Tylenol 3 24 Metabolite of codeine REFERENCE VALUE Cutoff: 100 25 Echo Levy, MS Contin; Also a minor metabolite (10%) of codeine and can be seen in low concentrations (<2,000 ng/mL) with poppy seed ingestion. 26 Metabolite of morphine REFERENCE VALUE Cutoff: 100 27 Metabolite of heroin 28 Lortab, [place], Vicodin; Also a very minor metabolite of codeine and impurity (<1%) of oxycodone. 29 Metabolite of hydrocodone 30 Metabolite of hydrocodone 31 Dilaudid, Exalgo; Also a metabolite of hydrocodone and a minor (<5%) metabolite of morphine. 32 Metabolite of hydromorphone REFERENCE VALUE Cutoff: 100 33 Endocet, Percocet, Oxycontin 34 Metabolite of oxycodone 35 Numorphan, Opana; Also a metabolite of oxycodone. 36 Metabolite of oxymorphone REFERENCE VALUE Cutoff: 100 37 Metabolite of oxymorphone 38 Actiq, Duragesic, Fentora 39 Metabolite of fentanyl 40 Demerol 41 Metabolite of meperidine 42 Narcan 43 Metabolite of naloxone REFERENCE VALUE Cutoff: 100 44 Dolophine 45 Metabolite of methadone 46 Darvon, Darvocet 47 Metabolite of propoxyphene 48 Tradol, Ultram, Ultracet 49 Metabolite of tramadol 50 Nucynta 51 Metabolite of tapentadol 52 Metabolite of tapentadol REFERENCE VALUE Cutoff: 100 53 Buprenex, Suboxone 54 Metabolite of buprenorphine 55 Metabolite of buprenorphine 56 No opioids were detected. The absence of expected drug(s) and/or drug metabolite(s) may indicate non-compliance, altered pharmacokinetics, inappropriate timing of specimen collection relative to drug administration, diluted/adulterated urine, or limitations of testing. ADDITIONAL INFORMATION This test was developed and its performance characteristics determined by [facility] in a manner consistent with CLIA requirements. This test has not been cleared or approved by the U.S. Food and Drug Administration. Test Performed by: [facility] - [facility] [address] [place] [address] 57 Test Performed by: [facility] - [address] [address] 58 REFERENCE VALUE <=1.0 (Negative) 59 REFERENCE VALUE <20.0 (Negative) 60 Tests for antibodies to dsDNA and MARY antigens are not performed automatically unless the BRIGITTE result is > or= 3.0 U. Studies performed at [facility] indicate that positive BRIGITTE results <3.0 U are rarely accompanied by positive second order tests. Test Performed by: [facility] - [address] [address] Procedures Date CPT Code Description Status 04/20/2017 26414 EKG Tracing & Interpretation Completed 04/13/2017 78114 EEG Monitoring Computer Completed 03/21/2017 88707 ECHO Stress Test Incl Perf Contiuous ekg Monitoring Completed W/Phys Superv 03/16/2017 12731 EEG Recording Awake & Drowsy Completed 03/05/2017 16330 ECHO Transthorasic Realtime 2D W Doppler & Color Flow Completed Hosp 03/03/2017 43614 EKG Tracing & Interpretation Completed 11/06/2012 74715 Color Flow Doppler/Interp & Reprt Completed 11/06/2012 94825 Pulse Wave/Continuous-Interp.RPT Completed 11/06/2012 77235 ECHO Transthorasic Realtime 2D W Doppler & Color Flow Completed Hosp 10/30/2008 70859 Holter Monitor Interpretation Completed Encounters Type Date Location Provider CPT E/M Dx Office Visit 01/10/2018 4:00p [facility] Internal Medicine Mando Benítez, [address] F31.9 - Joe Newsome M25.559 E66.01 Office Visit 11/28/2017 3:20p [facility] Internal Mando Benítez M.D. 70553 M16.2 Medicine - [address] E28.2 F31.9 J45.909 Office Visit 10/10/2017 10:15a [facility] Walter Hector [address] S46.012A Of Mana Perez MD Office Visit 09/05/2017 10:15a [place] [address] M24.851 Of C.MLunaALuna M24.852 Office Visit 07/18/2017 10:15a [facility] [place] [address] M24.851 C.M.A. M24.852 Office Visit 07/04/2017 10:30a [facility] [place] [address] M24.851 C.M.A. M24.852 M16.2 Office Visit 06/16/2017 1:00p [facility] Of Loly Ashley M.D. 25794 M25.552 C.M.A. M25.551 M16.2 Office Visit 05/24/2017 9:15a [facility] L[facility] Ashley M.D. 28692 M25.552 C.M.A. M25.551 M16.2 Office Visit 04/26/2017 9:00a [facility] [address] F44.5 Office Visit 04/20/2017 2:45p [facility] Shona Heredia [address] Jeff Newsome R07.9 R42 Office Visit 04/06/2017 9:30a [facility] [place] [address] R40.4 Office Visit 03/05/2017 1:24p [facility], Liam Millan [address] R5Evan Still II, M.D. F41.9 F31.9 E28.2 Office Visit 03/03/2017 9:40a [facility] Shona Heredia M.D. 48126 R07.9 [facility] R42 R55 E28.2 Plan of Care Future Appointment(s):05/16/2018 11:20 am - Mando Benítez M.D. at [facility] Internal [facility] [place]02/14/2018 - Mando Benítez M.D.M16.2 Bilateral osteoarthritis resulting from hip dysplasiaNew Medication:Oxycodone HCL 5 mgAcetaminophen 500 mgNaproxen 375 mgComments:Call pain clinic and orto for F/u
--- NOTE | 2018-03-14 15:15 | UC ---
Complaint Female HPI - History Of Current Complaint Stated Complaint: TEST Time Seen by Provider: 03/14/18 15:15 Hx Last Menstrual Period: Starts today - Allergies/Home Medications Allergies/Adverse Reactions: Allergies Allergy/AdvReac Type Severity Reaction Status Date / Time Penicillins Allergy Itching Verified 12/22/17 15:50 tramadol AdvReac Intermediate Nausea Verified 12/22/17 15:50 PMH/Surg Hx/FS Hx/Imm Hx Other History Of: Negative For: Anticoagulant Therapy - Surgical History Surgical History: None Surgery Procedure, Year, and Place: None - Family History Known Family History: Positive: Cardiac Disease - Mother: fatal [place] at age 52, Hypertension, Diabetes, Other - seizures (mother); no history of SI from family members - Social History Alcohol Use: None Substance Use Type: Marijuana Substance Use Comment - Amount & Last Used: occassional Smoking Status (MU): Heavy Every Day Tobacco Smoker Type: Cigarettes Amount Used/How Often: 1 ppd Length of Time of Smoking/Using Tobacco: since age 18 Have You Smoked in the Last Year: Yes Household Exposure Type: Cigarettes - Immunization History Most Recent Influenza Vaccination: this season Most Recent Tetanus Shot: UTD Most Recent Pneumonia Vaccination: never Discharge - Discharge Plan Referrals: Mando Benítez MD [Primary Care Provider] -
[2018-03-14 15:22] VITALS: BP 131/77
--- NOTE | 2018-03-14 16:12 | UC ---
Complaint Female HPI - HPI Summary HPI Summary: The patient is a 27 year old female presenting to the for a test. She has been tired and her last menstrual period was supposed to be about a week ago. The patient has a hx of PCOS, she smokes, rarely drinks and rarely uses drugs. The patient does not know her family hx because she is adopted. The pt has been once before which resulted in a miscarriage. - History Of Current Complaint Chief Complaint: UCGeneralIllness Stated Complaint: TEST Time Seen by Provider: 03/14/18 15:15 Hx Obtained From: Patient Hx Last Menstrual Period: 02/05/18 Onset/Duration: Gradual Onset, Lasting Days Timing: Constant Severity Initially: Mild Severity Currently: Mild Pain Intensity: 6 Pain Scale Used: 0-10 Numeric - Allergies/Home Medications Allergies/Adverse Reactions: Allergies Allergy/AdvReac Type Severity Reaction Status Date / Time Penicillins Allergy Itching Verified 03/14/18 15:21 tramadol AdvReac Intermediate Nausea Verified 03/14/18 15:21 Home Medications: Home Medications clonazePAM TAB(*) [Klonopin TAB(*)] 0.33 mg PO TID 03/14/18 [History Confirmed 03/14/18] PMH/Surg Hx/FS Hx/Imm Hx Previously Healthy: Yes Endocrine History: Diabetes - negative Other History Of: Negative For: Anticoagulant Therapy - Surgical History Surgical History: None Surgery Procedure, Year, and Place: None - Family History Known Family History: Positive: Cardiac Disease - Mother: fatal [place] at age 52, Hypertension, Diabetes, Other - seizures (mother); no history of SI from family members - Social History Alcohol Use: Rare Substance Use Type: Marijuana Substance Use Comment - Amount & Last Used: rarely Smoking Status (MU): Heavy Every Day Tobacco Smoker Type: Cigarettes Amount Used/How Often: 1 ppd Length of Time of Smoking/Using Tobacco: since age 18 Have You Smoked in the Last Year: Yes Household Exposure Type: Cigarettes - Immunization History Most Recent Influenza Vaccination: this season Most Recent Tetanus Shot: UTD Most Recent Pneumonia Vaccination: never Review of Systems Constitutional: Negative - fever Neurological: Other - fatigued All Other Systems Reviewed And Are Negative: Yes Physical Exam - Summary Physical Exam Summary: VITAL SIGNS: Reviewed. GENERAL: Patient is a well-developed and nourished (MALE OR FEMALE) who is lying comfortable in the stretcher. Patient is not in any acute respiratory distress. HEAD AND FACE: Normocephalic EYES: PERRLA, EOMI x 2. EARS: Hearing grossly intact. MOUTH: Oropharynx within normal limits. NECK: Supple, trachea is midline, no adenopathy, no JVD, no carotid bruit. CHEST: Symmetric, no tenderness at palpation LUNGS: Clear to auscultation bilaterally. No wheezing or crackles. CVS: Regular rate and rhythm, S1 and S2 present, no murmurs or gallops appreciated. ABDOMEN: Soft, non-tender. Bowel sounds are normal. No abdominal abnormal pulsations. EXTREMITIES: Full ROM in all major joints, no edema, no cyanosis or clubbing. NEURO: Alert and oriented x 3. No acute neurological deficits. Speech is normal and follows commands. SKIN: Dry and warm Triage Information Reviewed: Yes Vital Signs: Initial Vital Signs Temp 98.5 F 03/14/18 15:14 Pulse 90 03/14/18 15:14 Resp 16 03/14/18 15:14 BP 131/77 03/14/18 15:14 Pulse Ox 100 03/14/18 15:14 Vital Signs Reviewed: Yes Complaint Female Dx - Course Course Of Treatment: Patient is a 27-year-old female who presents to the urgent care requesting a test. test is negative. Patient doesn't remember what was clasped cycle patient and she is late. Patient was discharged home with follow-up with PCP. He denies any vaginal discharge or bleeding. - Differential Dx/Diagnosis Provider Diagnoses: Amenorrhagia Discharge - Sign-Out/Discharge Documenting (check all that apply): Patient Departure All imaging exams completed and their final reports reviewed: No Studies - Discharge Plan Condition: Stable Disposition: HOME Patient Education Materials: Dysmenorrhea (ED) Referrals: Mando Benítez MD [Primary Care Provider] - Additional Instructions: If symptoms persist placed return to the urgent care or follow with the primary care physician. - Billing Disposition and Condition Condition: STABLE Disposition: Home - Attestation Statements Document Initiated by Scribe: Yes Documenting Scribe: Libby Parson Provider For Whom Babs is Documenting (Include Credential): Alex Vaughan MD. Scribe Attestation: Libby Carrion scribed for Alex Vaughan MD. on 03/14/18 at 2117. Scribe Documentation Reviewed: Yes Provider Attestation: The documentation as recorded by the scribe, Libby Parson accurately reflects the service I personally performed and the decisions made by me, Alex Vaughan MD.
== END 2018-03-14 16:40 | disposition home or self-care (01) ==
LOC: UCEAST 15:04
DX: N91.2 Amenorrhea, unspecified (principal); R53.83 Other fatigue; Z32.02 Encounter for pregnancy test, result negative; Z88.5 Allergy status to narcotic agent; Z88.0 Allergy status to penicillin; F17.210 Nicotine dependence, cigarettes, uncomplicated
CPT/HCPCS: 84702; 99211; G0463

== ENCOUNTER 2018-03-18 12:24 | Emergency (ER) | payer OTHER ==
[2018-03-18] MEDS ORDERED: Ketorolac INJ* 60 MG/2 ML VIAL IM ONE (12:40)
--- NOTE | 2018-03-18 12:41 | ED ---
HPI Chest Pain - HPI Summary HPI Summary: A 27 y/o female RAFFI presents to ED s/p fall and hurting her ribs. As per triage , "pt states fell in room at hotel, landing on left side ribs on the floor. chronic hip issues as well per pt. denies other injuries". According to the patient, she has a history with her hips as sometimes they get so painful that they actually "go numb". She stated that when she was getting out of bed, she was on her feet for no more than 1 second in which she landed straight down on her left side. Upon hitting the floor, she hurt her left ribs. Initially in EMS her pain was a 3-4/10, but now as gradually increased to 5-6/10. She denies any nausea, vomiting, SOB or head/neck injury/pain. - History of Current Complaint Time Seen by Provider: 03/18/18 12:27 Hx Obtained From: Patient Hx Last Menstrual Period: 02/05/18 Onset/Duration: Started Hours Ago, Still Present, Worse Since Timing: Constant Initial Severity: Moderate Current Severity: Moderate Pain Intensity: 5 Pain Scale Used: 0-10 Numeric Chest Pain Location: Discrete at: - LEFT RIBS Chest Pain Radiates: No Character: Other: - PAIN Aggravating Factor(s): Nothing Alleviating Factor(s): Nothing Associated Signs and Symptoms: Positive: Chest Pain - LEFT RIB PAIN. Negative: Shortness of Breath, Nausea, Vomiting - Additional Pertinent History Primary Care Physician: [id number] - Allergy/Home Medications Allergies/Adverse Reactions: Allergies Allergy/AdvReac Type Severity Reaction Status Date / Time Penicillins Allergy Itching Verified 03/18/18 12:34 tramadol AdvReac Intermediate Nausea Verified 03/18/18 12:34 PMH/Surg Hx/FS Hx/Imm Hx Endocrine/Hematology History: Denies: Hx Anticoagulant Therapy, Hx Diabetes Cardiovascular History: Reports: Hx Angina, Hx Hypercholesterolemia - HLD, Hx Syncope, Hx Valvular Heart Disease - AR, Other Cardiovascular Problems/ Disorders - aortic regurgitation Denies: Hx Hypertension, Hx Myocardial Infarction, Hx Pacemaker/ICD Respiratory History: Reports: Hx Asthma, Hx Seasonal Allergies History: Denies: Hx Renal Disease Musculoskeletal History: Reports: Hx Back Problems - lower back pain, Other Musculoskeletal History - labrum tears b/l hips Sensory History: Reports: Hx Contacts or Glasses Denies: Hx Hearing Aid Opthamlomology History: Reports: Hx Contacts or Glasses Neurological History: Reports: Hx Migraine, Other Neuro Impairments/Disorders - Right hemisphere disorder Psychiatric History: Reports: Hx Anxiety, Hx Attention Deficit Hyperactivity Disorder, Hx Depression, Hx Inpatient Treatment - 10/2017, Hx Community Mental Health Tx, Hx Bipolar Disorder, Hx Suicide Attempt, Hx Substance Abuse - oxycodone Denies: Hx Eating Disorder, Hx Panic Disorder, Hx Post Traumatic Stress Disorder, Hx Schizophrenia, Hx of Violent Episodes Against Others - Surgical History Surgery Procedure, Year, and Place: NO PRIOR SURGERIES - Immunization History Date of Tetanus Vaccine: up to date Date of Influenza Vaccine: up to date. Infectious Disease History: No Infectious Disease History: Reports: History Other Infectious Disease - varicella Denies: Traveled Outside the [place] in Last 30 Days - Family History Known Family History: Positive: Cardiac Disease - Mother: fatal [place] at age 52, Hypertension, Diabetes, Other - seizures (mother); no history of SI from family members - Social History Alcohol Use: Rare Hx Substance Use: Yes Substance Use Type: Reports: Marijuana Substance Use Comment - Amount & Last Used: rarely Hx Tobacco Use: Yes - FORMER- QUIT TODAY 10/24/2016 Smoking Status (MU): Heavy Every Day Tobacco Smoker Type: Cigarettes Amount Used/How Often: 1 ppd Length of Time of Smoking/Using Tobacco: since age 18 Have You Smoked in the Last Year: Yes Review of Systems Negative: Fever Positive: Chest Pain - LEFT RIB PAIN Negative: Shortness Of Breath Negative: Vomiting, Nausea All Other Systems Reviewed And Are Negative: Yes Physical Exam - Summary Physical Exam Summary: VITAL SIGNS: Reviewed. GENERAL: Patient is a well-developed and nourished female who is lying comfortable in the stretcher. Patient is not in any acute respiratory distress. HEAD AND FACE: No signs of trauma. No ecchymosis, hematomas or skull depressions. No sinus tenderness. EYES: PERRLA, EOMI x 2, No injected conjunctiva, no nystagmus. EARS: Hearing grossly intact. Ear canals and tympanic membranes are within normal limits. MOUTH: Oropharynx within normal limits. NECK: Supple, trachea is midline, no adenopathy, no JVD, no carotid bruit, no c- spine tenderness, neck with full ROM. CHEST: Symmetric, left rib cage and axillary line tenderness LUNGS: Clear to auscultation bilaterally. No wheezing or crackles. CVS: Regular rate and rhythm, S1 and S2 present, no murmurs or gallops appreciated. ABDOMEN: Soft, non-tender. No signs of distention. No rebound no guarding, and no masses palpated. Bowel sounds are normal. EXTREMITIES: FROM in all major joints, no edema, no cyanosis or clubbing. NEURO: Alert and oriented x 3. No acute neurological deficits. Speech is normal and follows commands. SKIN: Dry and warm Triage Information Reviewed: Yes Vital Signs On Initial Exam: Initial Vitals Temp Pulse Resp BP Pulse Ox 97.3 F 86 19 116/66 99 03/18/18 12:28 03/18/18 12:28 03/18/18 12:28 03/18/18 12:28 03/18/18 12:28 Vital Signs Reviewed: Yes Diagnostics - Vital Signs Vital Signs Temp Pulse Resp BP Pulse Ox 03/18/18 12:28 97.3 F 86 19 116/66 99 - Laboratory Lab Statement: Any lab studies that have been ordered have been reviewed, and results considered in the medical decision making process. - Radiology RIBS WITH CHEST XR Radiology Interpretation Completed By: Radiologist - No radiographically apparent displaced rib fracture or pneumothorax. If the patient's symptoms persist, follow-up imaging is recommended. ED PHYSICIAN REVIEWED THIS RADIOLOGY REPORT. Re-Evaluation - Re-Evaluation First Eval Re-Evaluation Time: 14:31 Comment: DISCUSSED PLAN AND DISCHARGE WITH PATIENT. Chest Pain Course/Dx - Course Assessment/Plan: This patient is a 27-year-old female who presents to the emergency department with a chief complaint of left rib cage pain. The patient had an accidental fall today and since then the patient is having pain. Pain is 5 out of 10. She denies any headache or neck pain. X-ray of the ribs impression: No fracture dislocation. Patient was offered Toradol and Decadron and the patient declined. I gave the patient Tylenol. Since there is no fracture dislocation the patient will be discharged home with follow-up with primary care physician. Patient is hemodynamically stable alert and oriented 3. - Diagnoses Provider Diagnoses: Rib contusion Discharge - Sign-Out/Discharge Documenting (check all that apply): Patient Departure - DISCHARGE - Discharge Plan Condition: Stable Disposition: HOME Patient Education Materials: Rib Contusion (ED) Referrals: Mando Benítez MD [Primary Care Provider] - 3 Days Additional Instructions: FOLLOW UP WITH PRIMARY CARE PHYSICIAN IN 2-3 DAYS. RETURN TO ED FOR ANY NEW FOR ANY NEW OR WORSENING SYMPTOMS. - Billing Disposition and Condition Condition: STABLE Disposition: Home - Attestation Statements Document Initiated by Patriciae: Yes Documenting Scribe: Shayan Barron Provider For Whom Patriziaibe is Documenting (Include Credential): Alex Vaughan MD Scribe Attestation: Shayan Carrion, scribed for Alex Vaughan MD on 03/19/18 at 1134. Scribe Documentation Reviewed: Yes Provider Attestation: The documentation as recorded by the Shayan duong accurately reflects the service I personally performed and the decisions made by , Alex Vaughan MD
[2018-03-18] MEDS ORDERED: Dexamethasone IV* 4 MG/ML 1 ML (4 MG) IM ONE (12:44)
[2018-03-18] MEDS ORDERED: Acetaminophen TAB* 325 MG PO ONE (14:28)
--- NOTE | 2018-03-18 14:28 | RAD ---
INDICATION: Left lateral rib pain after a fall COMPARISON: None. TECHNIQUE: 6 views of the left ribs were obtained. FINDINGS: No fracture or significant focal osseous abnormality is seen. No pneumothorax is apparent. Limited views demonstrate grossly clear lungs. IMPRESSION: No radiographically apparent displaced rib fracture or pneumothorax. If the patient's symptoms persist, follow-up imaging is recommended.
[2018-03-18 14:50] VITALS: BP 111/75
== END 2018-03-18 14:48 | disposition home or self-care (01) ==
LOC: ED 12:24
DX: R07.9 Chest pain, unspecified (principal); R07.81 Pleurodynia; F17.210 Nicotine dependence, cigarettes, uncomplicated; S20.212A Contusion of left front wall of thorax, initial encounter; W19.XXXA Unspecified fall, initial encounter; Y92.59 Other trade areas as the place of occurrence of the external cause
CPT/HCPCS: 96372; 99282; J1885

== ENCOUNTER 2018-05-14 16:42 | Emergency (ER) | payer OTHER ==
--- OUTSIDE RECORDS SUMMARY | 2018-05-14 17:00 | XMS REPORT ---
:1990 External Reference #:[id number] Author Organization [employer] Address [address] [place] [address] Phone [phone] Care Team Providers Name Role Phone Patient's Choice Primary Care Physician Unavailable Payers Type Date Identification Numbers Payment Provider Subscriber Commercial Effective: Policy Number: [id number] [employer] Kindra León 2017 Medicaid PayID: [id number] [place] [id number] Problems Date Description Provider Status Onset: 03/03/2017 [...] Member(s) Problem(s) Comments General Heart Disease Mother VA bilogical mother Mother Epilepsy Social History Type [...] Provider Oxycodone HCL 02/14 Active Tablets 5mg 30tab 1 by mouth M16.2 s every 12 Pachikara hours Mercedez reza needed Acetaminophen 02/14 Active Tablets 500mg 180ta 2 tab 3 M16.2 bs times daily Pachikara as needed [facility] M25.559 s seat, use [...] Active Tablets 20mg 1 by mouth Unknown every day [place] Active Capsules 600mg 1 by mouth Unknown at bedtime Cyclobenzaprine Active Tablets 10mg 14tab 1 tab 8h as s needed Mercedez Benítez Naproxen 02/14 Hx Tablets 375mg 30tab twice a day M16.2 Mando s with food Jeyson - Mercedez 02/14 Oxycodone HCL 11/28 Hx Tablets 5mg [...] / tablet by - mouth at 11/28 bed Flovent HFA Hx Aerosol 220mcg/Ac 12gm inhale two J45.909 Mando /0000 t puffs by Pachikara - mouth twice , M.D. 12/12 Lexapro Hx Tablets 10mg 1 by mouth Unknown /0000 every day - 11/27 Naproxen Hx Tablets 250mg 1 tablet by Unknown /0000 mouth prn - 03/28 Clindamycin HCL Hx Capsules 150mg one capsule Unknown /0000 by mouth - three times 03/28 Klonopin Hx Tablets 1mg take one Unknown /0000 tablettwice - a day 11/28 Desogestrel-Ethi Hx Tablets 0.15-0.02 daily Unknown nyl Estradiol- /0000 /0.01 mg Control - (13/11) 11/28 Vital Signs Date Vital Result Comment 05/03/2018 Height 62 inches 5'2" Heart Rate 96 /min BP Systolic 126 mmHg BP Diastolic 78 mmHg Respiratory Rate 18 /min Pain Level 9 02/14/2018 Height 62 inches 5'2" Weight 207.00 [...] Result H/L Range Note Laboratory test finding 03/14/2018 Poc , Negative Negative 1 Urine CBC Auto Diff 12/22/2017 White Blood Count [...] Urine Phencyclidine Screen None Detected None Detect 2 Urinalysis Profile 12/22/2017 Urine Color Yellow Urine Appearance Cloudy Urine Specific [place] 1.010 1.010-1.030 Urine pH 6.0 5-9 Urine [...] Egfr Non- 101.1 >60 Egfr 122.4 >60 3 Laboratory test finding 12/22/2017 Acetaminophen < 15 g/mL 4 Alcohol < 10 mg/dL <10 Salicylate < 2.50 mg/dL <30 TSH (Thyroid Stim Horm) 3.84 mcIU/mL 0.34-5.60 [place] 0.51 mmol/L Low 0.6-1.2 HCG < 0.60 mIU/mL 5 Laboratory test finding 12/19/2017 Lactic Acid 2.3 mmol/L High 0.5-2.0 6 CBC Auto Diff 12/19/2017 White Blood Count [...] Egfr Non- 97.9 >60 Egfr 118.5 >60 7 Laboratory test finding 12/19/2017 [place] 0.18 mmol/L Low 0.6-1.2 Acetaminophen < 15 g/mL 8 Alcohol < 10 mg/dL <10 Salicylate < 2.50 mg/dL <30 TSH (Thyroid Stim Horm) 1.33 mcIU/mL 0.34-5.60 Lactic Acid 5.2 mmol/L High 0.5-2.0 9 Urinalysis Profile 12/19/2017 Urine Color Yellow Urine Appearance Cloudy Urine Specific [place] 1.020 1.010-1.030 Urine pH 5.0 5-9 Urine Urobilinogen Negative Negative Urine Ketones Negative Negative Urine Protein Negative Negative Urine Leukocytes Trace Negative Urine Blood Negative Negative * * Negative 10 Urine Nitrite Negative Negative Urine Bilirubin Negative [...] Urine Phencyclidine Screen None Detected None Detect 11 Urine Culture And Sensitivities 12/19/2017 Urine Culture SEE RESULT BELOW 12 Laboratory test finding 12/18/2017 HCG < 0.60 mIU/mL 13 Acetaminophen < 15 g/mL 14 Alcohol < 10 mg/dL <10 Salicylate < [...] Egfr Non- 106.4 >60 Egfr 128.7 >60 15 Urine Drug SCR ED & 12/18/2017 Amphetamine Ur Screen None Detected None Detect Pain Clinic Barbiturates Urine Screen None Detected None Detect Benzodiazepine Urine Screen None Detected None Detect Urine Cannabinoids Screen None Detected None Detect Urine Cocaine Screen None Detected None Detect Urine Opiates Screen None Detected None Detect Urine Phencyclidine Screen None Detected None Detect 16 Urinalysis Profile 12/18/2017 Urine Color Yellow Urine Appearance Clear Urine Specific [place] 1.013 1.010-1.030 Urine pH 7.0 5-9 Urine [...] 20 Urine 11/28/2017 Urine Amphetamine Negative ng/mL 17, 18 Urine Barbiturates Negative ng/mL 17, 19 Urine Benzodiazepines Negative ng/mL 17, 20 Urine Cocaine Negative ng/mL 17, 21 Urine Phencyclidine Negative ng/mL Cutoff: 25 17 Urine Tetrahydrocannabinol Negative ng/mL Cutoff: 50 17, 22 Creatinine, Urine 32.5 mg/dL [address] 1.005 17 pH 6.8 17 Oxidants Negative 17, 23 Adulterants Comment Normal 17 Codeine, Ur Not Detected ng/mL Cutoff: 25 17, 24 Jqkqfow-6-tjcw-glucuronide, Ur Not Detected ng/mL 17, 25 Morphine, Ur Not Detected ng/mL Cutoff: 25 17, 26 Flcrtodo-9-qsuf-glucuronide, U Not Detected ng/mL 17, 27 6-monoacetylmorphine, Ur Not Detected ng/mL Cutoff: 25 17, 28 Hydrocodone, Ur Not Detected ng/mL Cutoff: 25 17, 29 Norhydrocodone, Ur Not Detected ng/mL Cutoff: 25 17, 30 Dihydrocodeine, Ur Not Detected ng/mL Cutoff: 25 17, 31 Hydromorphone, Ur Not Detected ng/mL Cutoff: 25 17, 32 Ifmdksncopnoj4fzxspyhkrppclue Not Detected ng/mL 17, 33 Oxycodone, Ur Not Detected ng/mL Cutoff: 25 17, 34 Noroxycodone, Ur Not Detected ng/mL Cutoff: 25 17, 35 Oxymorphone, Ur Not Detected ng/mL Cutoff: 25 17, 36 Uejlqydcsqp-5-ylhq-glucuronide Not Detected ng/mL 17, 37 Noroxymorphone, Ur Not Detected ng/mL Cutoff: 25 17, 38 Fentanyl, Ur Not Detected ng/mL Cutoff: 2 17, 39 Norfentanyl, Ur Not Detected ng/mL Cutoff: 2 17, 40 Meperidine, Ur Not Detected ng/mL Cutoff: 25 17, 41 Normeperidine, Ur Not Detected ng/mL Cutoff: 25 17, 42 Naloxone, Ur Not Detected ng/mL Cutoff: 25 17, 43 Lvbwpkwi-8-rike-glucuronide, U Not Detected ng/mL 17, 44 Methadone, Ur Not Detected ng/mL Cutoff: 25 17, 45 Eddp, Ur Not Detected ng/mL Cutoff: 25 17, 46 Propoxyphene, Ur Not Detected ng/mL Cutoff: 25 17, 47 Norpropoxyphene, Ur Not Detected ng/mL Cutoff: 25 17, 48 Tramadol, Ur Not Detected ng/mL Cutoff: 25 17, 49 O-desmethyltramadol, Ur Not Detected ng/mL Cutoff: 25 17, 50 Tapentadol, Ur Not Detected ng/mL Cutoff: 25 17, 51 N-desmethyltapentadol, Ur Not Detected ng/mL Cutoff: 50 17, 52 Ypfydqymcm-zzgt-zmpslgyykqw, U Not Detected ng/mL 17, 53 Buprenorphine, Ur Not Detected ng/mL Cutoff: 5 17, 54 Norbuprenorphine, Ur Not Detected ng/mL Cutoff: 5 17, 55 Norbuprenorphine glucuronide Not Detected ng/mL Cutoff: 20 17, 56 Opioid Interpretation See Comment 17, 57 CBC Auto Diff 05/25/2017 White Blood Count [...] High 0-14 Rheumatoid Factor <15 IU/mL <15 58 Anti-Nuclear Antibody 0.2 U 59 Cyclic Citrullinated Peptide <15.6 U 60 Interpretation See Comment 61 1 Wine Fermenter: [id number] If is still suspected, please repeat test after 48 to 72 hours. 2 The urine specimen was tested at the listed cutoffs: Drug class test level (ng/mL) Amphetamines 500 Barbiturates 200 Benzodiazepine metabolites 200 Cocaine metabolites 150 Cannabinoids 50 Opiates 300 Pcp 25 Specimen was received without chain of custody. Results should be used for medical purposes only. 3 Because ethnic data is not always readily [...] 15-29 5 Kidney failure <15 (or dialysis) 4 Therapeutic concentration: <50 ug/mL Toxic concentration: >120 ug/mL 5 <5.0 Negative 5.0 - 25.0 Indeterminate (Repeat testing recommended after 72 hours) >25.0 Positive Perimenopausal women can display HCG levels of up to 20 mIU/mL 6 Critical Result LACT:2.3 Called to [id number] at: 19:54:15 by:[id number] Read back by:[id number] [facility] Severe Sepsis and Septic Shock Management Bundle Measure requires all lactic acids initially measuring >2.0 mmol/L be repeated. 7 Because ethnic data is not always readily [...] 15-29 5 Kidney failure <15 (or dialysis) 8 Therapeutic concentration: <50 ug/mL Toxic concentration: >120 ug/mL 9 [facility] Severe Sepsis and Septic Shock Management Bundle Measure requires all lactic acids initially measuring >2.0 mmol/L be repeated. 10 *Ascorbic acid is present which may interfere with detection of blood. 11 The urine specimen was tested at the listed cutoffs: Drug class test level (ng/mL) Amphetamines 500 Barbiturates 200 Benzodiazepine metabolites 200 Cocaine metabolites 150 Cannabinoids 50 Opiates 300 Pcp 25 Specimen was received without chain of custody. Results should be used for medical purposes only. 12 SEE RESULT BELOW Name: KINDRA LEÓN : [address]: Babak Molina MD Acct: [id number] Unit: [id number] AGE: 27 Location: ED Re12/19/17 SEX: F Status: DEP ER SPEC: [id number] VANCE: 12/19/[address]: Babak Molina MD REQ: [id number] RECD: 12/19/17 STATUS: LINETTE GAMINO DR: Mando Benítez MD _ SOURCE: URINE SPDESC: ORDERED: Urine Culture Procedure Result Reported Site Urine Culture Final 12/21/17- 826 ML Organism 1 ESCHERICHIA COLI [place] Count 75-100,000 (Many) CFU/ML Organism 2 NORMAL MIL [place] Count 75-100,000 (Many) CFU/ML 1. ESCHERICHIA COLI [...] . END OF REPORT DEPARTMENT OF PATHOLOGY, [address] [place] [address] Dylan Laurent M.D. Director [facility] # [id number] 13 <5.0 Negative 5.0 - 25.0 Indeterminate (Repeat testing recommended after 72 hours) >25.0 Positive Perimenopausal women can display HCG levels of up to 20 mIU/mL 14 Therapeutic concentration: <50 ug/mL Toxic concentration: >120 ug/mL 15 Because ethnic data is not always readily [...] 15-29 5 Kidney failure <15 (or dialysis) 16 The urine specimen was tested at the listed cutoffs: Drug class test level (ng/mL) Amphetamines 500 Barbiturates 200 Benzodiazepine metabolites 200 Cocaine metabolites 150 Cannabinoids 50 Opiates 300 Pcp 25 Specimen was received without chain of custody. Results should be used for medical purposes only. 17 [id number] 18 REFERENCE VALUE Cutoff: 500 19 REFERENCE VALUE Cutoff: 200 20 REFERENCE VALUE Cutoff: 100 21 REFERENCE VALUE Cutoff: 150 22 ADDITIONAL INFORMATION This report is intended for use in clinical monitoring or management of patients. It is not intended for use in employment-related testing. 23 REFERENCE VALUE Cutoff: 200 mg/L 24 Tylenol 3 25 Metabolite of codeine REFERENCE VALUE Cutoff: 100 26 Echo Levy, MS Contin; Also a minor metabolite (10%) of codeine and can be seen in low concentrations (<2,000 ng/mL) with poppy seed ingestion. 27 Metabolite of morphine REFERENCE VALUE Cutoff: 100 28 Metabolite of heroin 29 Lortab, [place], Vicodin; Also a very minor metabolite of codeine and impurity (<1%) of oxycodone. 30 Metabolite of hydrocodone 31 Metabolite of hydrocodone 32 Dilaudid, Exalgo; Also a metabolite of hydrocodone and a minor (<5%) metabolite of morphine. 33 Metabolite of hydromorphone REFERENCE VALUE Cutoff: 100 34 Endocet, Percocet, Oxycontin 35 Metabolite of oxycodone 36 Numorphan, Opana; Also a metabolite of oxycodone. 37 Metabolite of oxymorphone REFERENCE VALUE Cutoff: 100 38 Metabolite of oxymorphone 39 Actiq, Duragesic, Fentora 40 Metabolite of fentanyl 41 Demerol 42 Metabolite of meperidine 43 Narcan 44 Metabolite of naloxone REFERENCE VALUE Cutoff: 100 45 Dolophine 46 Metabolite of methadone 47 Darvon, Darvocet 48 Metabolite of propoxyphene 49 Tradol, Ultram, Ultracet 50 Metabolite of tramadol 51 Nucynta 52 Metabolite of tapentadol 53 Metabolite of tapentadol REFERENCE VALUE Cutoff: 100 54 Buprenex, Suboxone 55 Metabolite of buprenorphine 56 Metabolite of buprenorphine 57 No opioids were detected. The absence of expected drug(s) and/or drug metabolite(s) may indicate non-compliance, altered pharmacokinetics, inappropriate timing of specimen collection relative to drug administration, diluted/adulterated urine, or limitations of testing. ADDITIONAL INFORMATION This test was developed and its performance characteristics determined by [facility] in a manner consistent with CLIA requirements. This test has not been cleared or approved by the U.S. Food and Drug Administration. Test Performed by: [facility] [address] [place] [address] 58 Test Performed by: [facility] [address] [place] [address] 59 REFERENCE VALUE <=1.0 (Negative) 60 REFERENCE VALUE <20.0 (Negative) 61 Tests for antibodies to dsDNA and MARY antigens are not performed automatically unless the BRIGITTE result is > or= 3.0 U. Studies performed at [facility] indicate that positive BRIGITTE results <3.0 U are rarely accompanied by positive second order tests. Test Performed by: [facility] [address] [place] [address] Procedures Date CPT Code Description Status 04/20/2017 47239 EKG Tracing & Interpretation Completed 04/13/2017 57082 EEG Monitoring Computer Completed 03/21/2017 23722 ECHO Stress Test Incl Perf Contiuous ekg Monitoring Completed W/Phys Superv 03/16/2017 73791 EEG Recording Awake & Drowsy Completed 03/05/2017 19126 ECHO Transthorasic Realtime 2D W Doppler & Color Flow Completed Hosp 03/03/2017 64080 EKG Tracing & Interpretation Completed 11/06/2012 38167 Color Flow Doppler/Interp & Reprt Completed 11/06/2012 62689 Pulse Wave/Continuous-Interp.RPT Completed 11/06/2012 75583 ECHO Transthorasic Realtime 2D W Doppler & Color Flow Completed Hosp 10/30/2008 78991 Holter Monitor Interpretation Completed Encounters Type Date Location Provider CPT E/M Dx Office Visit 02/14/2018 1:40p [facility] Internal Medicine Mando Benítez, [address] M16.2 - Joe Newsome Office Visit 01/10/2018 4:00p [facility] Internal Medicine Mando Benítez, [address] F31.9 - Joe Newsome M25.559 E66.01 Office Visit 11/28/2017 3:20p [facility] Internal Mando Benítez M.D. 00552 M16.2 Medicine - [address] E28.2 F31.9 J45.909 Office Visit 10/10/2017 10:15a [facility] [place] F [address] S46.012A Of Mana Perez MD Office Visit 09/05/2017 10:15a [place] [address] M24.851 Of Mana M24.852 Office Visit 07/18/2017 10:15a [facility] [place] [address] M24.851 C.MMihir M24.852 Office Visit 07/04/2017 10:30a [facility] [address] M24.851 C.MMihir M24.852 M16.2 Office Visit 06/16/2017 1:00p [facility] Of Loly Ashley M.D. 37084 M25.552 Mana M25.551 M16.2 Office Visit 05/24/2017 9:15a [facility] Of L[facility] Ashley M.D. 05828 M25.552 C.MMihir M25.551 M16.2 Office Visit 04/26/2017 9:00a [facility] [address] F44.5 Office Visit 04/20/2017 2:45p [facility] Shona Heredia [address] R5Evan Newsome R07.9 R42 Office Visit 04/06/2017 9:30a [facility] [address] R40.4 Office Visit 03/05/2017 1:24p [facility] Liam Millan [address] R55 Tessy CUTLER M.D. F41.9 F31.9 E28.2 Office Visit 03/03/2017 9:40a [facility] Shona Heredia M.D. 70873 R07.9 [facility] R42 R55 E28.2 Plan of Care Future Appointment(s):05/16/2018 11:20 am - Mando Benítez M.D. at [facility] Internal Medicine [facility]05/03/2018 - Camryn Jolley, MDM16.2 Bilateral osteoarthritis resulting from hip dysplasiaReferral:Gigi Dinh DO, Interventional Pain MedicFollow up:Follow up: As wbekdgB75.852 Oth specific joint derangements of left hip, NECReferral:Michelet Padilla MD, Studnt In [facility] TRNGM24.851 Oth specific joint derangements of right hip, NEC
[2018-05-14] MEDS ORDERED: HYDROcodone/ACETAMIN 5-325 MG* 1 TAB PO ONE (17:32)
[2018-05-14 17:54] VITALS: BP 128/86
--- NOTE | 2018-05-14 18:30 | ED ---
Lower Extremity - HPI Summary HPI Summary: Patient is a 27-year-old female who presents emergency department for exacerbation of chronic hip pain. Patient's seizures a history of hip dysplasia and referred to an orthopedic surgeon in [place] from [facility]. Denies any recent injuries or falls. Patient is in the ER numerous times for pain related complaints and she is currently taking Tylenol which she states is not helping. Patient states that her doctors prescribe her any pain medication. Patient denies numbness, tingling or weakness. She denies abdominal pain, urinary symptoms, fever, vomiting. Symptoms are mild in severity. Walking makes symptoms worse. Rest makes symptoms better. - History of Current Complaint Chief Complaint: EDHipPelvisInjury Stated Complaint: HIP PAIN Time Seen by Provider: 05/14/18 17:18 Hx Obtained From: Patient Hx Last Menstrual Period: 02/05/18 Pain Intensity: 10 Pain Scale Used: 0-10 Numeric - Allergies/Home Medications Allergies/Adverse Reactions: Allergies Allergy/AdvReac Type Severity Reaction Status Date / Time Penicillins Allergy Itching Verified 03/18/18 12:34 tramadol AdvReac Intermediate Nausea Verified 03/18/18 12:34 PMH/Surg Hx/FS Hx/Imm Hx Previously Healthy: Yes Endocrine/Hematology History: Denies: Hx Anticoagulant Therapy, Hx Diabetes Cardiovascular History: Reports: Hx Angina, Hx Hypercholesterolemia - HLD, Hx Syncope, Hx Valvular Heart Disease - AR, Other Cardiovascular Problems/ Disorders - aortic regurgitation Denies: Hx Hypertension, Hx Myocardial Infarction, Hx Pacemaker/ICD Respiratory History: Reports: Hx Asthma, Hx Seasonal Allergies History: Denies: Hx Renal Disease Musculoskeletal History: Reports: Hx Back Problems - lower back pain, Other Musculoskeletal History - labrum tears b/l hips Sensory History: Reports: Hx Contacts or Glasses Denies: Hx Hearing Aid Opthamlomology History: Reports: Hx Contacts or Glasses Neurological History: Reports: Hx Migraine, Other Neuro Impairments/Disorders - Right hemisphere disorder Psychiatric History: Reports: Hx Anxiety, Hx Attention Deficit Hyperactivity Disorder, Hx Depression, Hx Inpatient Treatment - 10/2017, Hx Community Mental Health Tx, Hx Bipolar Disorder, Hx Suicide Attempt, Hx Substance Abuse - oxycodone Denies: Hx Eating Disorder, Hx Panic Disorder, Hx Post Traumatic Stress Disorder, Hx Schizophrenia, Hx of Violent Episodes Against Others - Surgical History Surgery Procedure, Year, and Place: NO PRIOR SURGERIES - Immunization History Date of Tetanus Vaccine: up to date Date of Influenza Vaccine: up to date. Infectious Disease History: No Infectious Disease History: Reports: History Other Infectious Disease - varicella Denies: Traveled Outside the [place] in Last 30 Days - Family History Known Family History: Positive: Cardiac Disease - Mother: fatal [place] at age 52, Hypertension, Diabetes, Other - seizures (mother); no history of SI from family members - Social History Occupation: Unemployed Lives: Dormitory/Roommates Alcohol Use: Rare Hx Substance Use: Yes Substance Use Type: Reports: Marijuana Substance Use Comment - Amount & Last Used: rarely Hx Tobacco Use: Yes - FORMER- QUIT TODAY 10/24/2016 Smoking Status (MU): Heavy Every Day Tobacco Smoker Type: Cigarettes Amount Used/How Often: 1 ppd Length of Time of Smoking/Using Tobacco: since age 18 Have You Smoked in the Last Year: Yes Review of Systems Constitutional: Negative Negative: Fever, Chills Gastrointestinal: Negative Genitourinary: Negative Positive: Other - Hip pain. L>R Negative: Weakness, Paresthesia, Numbness All Other Systems Reviewed And Are Negative: Yes Physical Exam Triage Information Reviewed: Yes Vital Signs On Initial Exam: Initial Vitals Temp Pulse Resp BP Pulse Ox 98.4 F 85 16 125/82 100 05/14/18 16:49 05/14/18 16:49 05/14/18 16:49 05/14/18 16:49 05/14/18 16:49 Vital Signs Reviewed: Yes Appearance: Positive: Well-Appearing - Pt. sitting up in bed in NAD. Talkative. Skin: Positive: Warm, Dry Head/Face: Positive: Normal Head/Face Inspection Eyes: Positive: Normal, EOMI Neck: Positive: Supple Abdomen Description: Positive: Nontender, Soft Musculoskeletal: Positive: Normal, Strength/ROM Intact, Other - 5/5 stregth in bilateral LEs. Good pedal pulses bilaterally. Pain with palpation of left hip. No calf pain or edema. Neurological: Positive: Normal, CN Intact II-III Psychiatric: Positive: Affect/Mood Appropriate Diagnostics - Vital Signs Vital Signs Temp Pulse Resp BP Pulse Ox 05/14/18 17:52 98.7 F 81 17 128/86 99 05/14/18 16:49 98.4 F 85 16 125/82 100 - Laboratory Lab Statement: Any lab studies that have been ordered have been reviewed, and results considered in the medical decision making process. Lower Extremity Course/Dx - Course Course Of Treatment: Pt. presenting for chronic hip pain. No recent injury of falls. Pt. given a dose of lortab and dc home. To call PCP tomorrow for a close f.u apt. To f.u with orthopedics as scheduled. Return to ER if sxs change or worsen. - Diagnoses Differential Diagnosis/HQI/PQRI: Positive: Arthritis, Sprain, Strain Provider Diagnoses: Chronic pain Discharge - Sign-Out/Discharge Documenting (check all that apply): Patient Departure - Discharge Plan Condition: Good Disposition: HOME Patient Education Materials: Chronic Pain (ED) Referrals: Mando Benítez MD [Primary Care Provider] - Additional Instructions: Schedule a follow up appointment with your PCP Follow up with orthopedics as scheduled Continue tylenol as directed for pain Return to ER if symptoms change or worsen - Billing Disposition and Condition Condition: GOOD Disposition: Home
== END 2018-05-14 17:52 | disposition home or self-care (01) ==
LOC: ED 16:42
DX: M25.552 Pain in left hip (principal); G89.29 Other chronic pain
CPT/HCPCS: 99281

== ENCOUNTER 2018-05-22 16:04 | Emergency (ER) | payer OTHER ==
--- OUTSIDE RECORDS SUMMARY | 2018-05-22 16:23 | XMS REPORT | Continuity of Care Document ---
:1990 External Reference #:[id number] Author Name Christiane Dudley Care Team Providers Name Role Phone Mando Benítez MD Primary Care Physician Unavailable Payers Type Date Identification Numbers Payment Provider Subscriber Effective: Policy Number: [id number] [employer] Kindra León 2017 Medicaid PayID: [id number] [place] [id number] Advance Directives Description No Information Available Problems Date Description Provider Status Onset: 03/03/2017 Syncope and collapse Shona Heredia M.D. Active Onset: 04/06/2017 Transient altered mental status Lisa Fitzgerald MD Active Onset: 04/26/2017 Dissociative convulsions Lisa Fitzgerald MD Active Onset: 05/24/2017 Localized, secondary osteoarthritis Loly Ashley M.D. Active of the pelvic region and thigh Onset: 07/04/2017 Other specific joint derangements of Camryn Jolley MD Active right hip, not elsewhere classified Onset: 07/04/2017 Other specific joint derangements of Camryn Jolley MD Active left hip, not elsewhere classified Onset: 11/28/2017 Polycystic ovaries Mando Benítez M.D. Active Onset: 11/28/2017 Bipolar disorder Mando Benítez M.D. Active Onset: 11/28/2017 Asthma without status asthmaticus Mando Benítez M.D. Active Onset: 11/28/2017 Allergic rhinitis Mando Benítez M.D. Active Onset: 01/10/2018 Arthralgia of the pelvic region and Mando Benítez M.D. 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 ETOH Use Denies alcohol use ETOH Use Denies alcohol use Recreational Drug Use Sporadically uses Marijuana Tobacco Use Start: Unknown Heavy tobacco smoker (more than 10 cigarettes/day) Smoking Status Reviewed: 05/16/18 Heavy tobacco smoker (more than 10 cigarettes/day) Exercise Type/Frequency Exercises sporadically Exercise Type/Frequency Exercises sporadically Allergies, Adverse Reactions, Alerts Date Description Reaction Status Severity Comments 03/03/2017 Tramadol Nausea and Vomiting Active Moderate 10/10/2017 Penicillins Active 04/06/2017 Penicillin ichiness Active Medications Medication Date Status Form Strength Qnty SIG Indications Ordering Provider Clindamycin HCL 05/16 Hx Capsules 300mg 14cap one po bid x R68.84 s 7 days Varn, - N.P. 05/23 Tramadol HCL 05/16 Active Tablets 50mg 30tab 1 tablet M25.559 s three to Varn, four times N.P. daily as needed Lidoderm 05/15 Active Patches 5% 30uni 1 patch on ts for 12 hrs Pachikara and then off , M.D. 12 hrs Acetaminophen 02/14 Active Tablets 500mg 180ta 2 tab 3 M16.2 bs times daily Pachikara as needed , [place] Walker 01/10 Active Misc 1unit walker with M25.559 s seat, use Pachikara for , M.D. ambulation. dx code M25.559 Qvar 12/12 Active Aerosol 80mcg/Act 8.700 2 puffs gm inhalation Pachikara twice a day , MLunaDLuna Singulair Active Tablets 10mg 30tab 1 by mouth s every day [place] Benítez Folic Acid Active Tablets 400mcg take one tablet by mouth every day (supplement) Metformin HCL Active Tablets 500mg 60tab 1 by mouth s twice a day Merced[place] Benítez Ondansetron HCL Active Tablets 4mg 14tab one by mouth s every 6 Pachikara hours as , M.D. needed for nausea Levalbuterol HCL Active Nebulizer 0.63mg/3M 72ml 1 amp 8h as Mando L needed [place] Benítez Day Time/Nite Active Misc (Liquid) as needed Unknown Time Cold & /0000 Flu Relief Latuda Active Tablets 20mg 1 by mouth Unknown / every day [place] Active Capsules 600mg 1 by mouth Unknown Carbonate at bedtime Cyclobenzaprine Active Tablets 10mg 14tab 1 tab 8h as [place] s needed Mercedez Benítez Oxycodone HCL 02/14 Hx Tablets 5mg 30tab 1 by mouth M16.2 s every 12 Pachikara - hours [place] reza 05/15 needed Naproxen 02/14 Hx Tablets 375mg 30tab twice a day Geronimo6.2 s with food Jeyson - [place] 02/14 [...] /0000 tablet by - mouth at 11/28 bed [...] /0000 /0.01 mg Control - (13/11) 11/28 Immunizations Description No Information Available Vital Signs Date Vital Result Comment 05/16/2018 2:50pm Height 62 inches 5'2" Weight 213.00 lb Heart Rate 89 /min BP Systolic 121 mmHg BP Diastolic 73 mmHg Body Temperature 97.4 F O2 % BldC Oximetry 99 % BMI (Body Mass Index) 39.0 kg/m2 05/03/2018 1:28pm Height 62 inches 5'2" Heart Rate 96 /min BP Systolic 126 mmHg BP Diastolic 78 mmHg Respiratory Rate 18 /min Pain Level 9 02/14/2018 1:24pm Height 62 inches 5'2" Weight 207.00 lb Heart Rate 73 /min BP Systolic Sitting 103 mmHg BP Diastolic Sitting 69 mmHg O2 % BldC Oximetry 99 % BMI (Body Mass Index) 37.9 kg/m2 01/10/2018 3:42pm Height 62 inches 5'2" Weight 204.00 lb Heart Rate 60 /min BP Systolic Sitting 105 mmHg BP Diastolic Sitting 73 mmHg O2 % BldC Oximetry 99 % BMI (Body Mass Index) 37.3 kg/m2 11/28/2017 3:21pm Weight 204.00 lb Heart Rate 66 /min BP Systolic Sitting 116 mmHg BP Diastolic Sitting 76 mmHg Respiratory Rate 16 /min Body Temperature 98.9 F Pain Level 8 10/10/2017 10:56am Weight 200.00 lb Heart Rate 72 /min BP Systolic 136 mmHg BP Diastolic 80 mmHg Respiratory Rate 14 /min Body Temperature 98.5 F Pain Level 8 09/05/2017 10:10am Height 62 inches 5'2" Weight 202.00 lb BP Systolic 120 mmHg BP Diastolic 64 mmHg Respiratory Rate 18 /min Pain Level 0 BMI (Body Mass Index) 36.9 kg/m2 07/18/2017 10:12am Height 62 inches 5'2" Weight 193.00 lb per pt Heart Rate 82 /min reg BP Systolic Sitting 126 mmHg Rue BP Diastolic Sitting 84 mmHg Rue Respiratory Rate 16 /min Pain Level 4 B/L hips BMI (Body Mass Index) 35.3 kg/m2 07/04/2017 10:30am Height 62 inches 5'2" Weight 193.00 lb per pt Heart Rate 90 /min reg BP Systolic Sitting 116 mmHg Rue, lg cuff BP Diastolic Sitting 66 mmHg Rue, lg cuff Respiratory Rate 16 /min Pain Level 9 b/ hips BMI (Body Mass Index) 35.3 kg/m2 06/16/2017 1:02pm Height 62 inches 5'2" Weight 190.00 lb BP Systolic 90 mmHg BP Diastolic 50 mmHg Body Temperature 98.3 F BMI (Body Mass Index) 34.7 kg/m2 05/24/2017 9:23am Height 62 inches 5'2" Weight 189.00 lb BP Systolic 116 mmHg BP Diastolic 80 mmHg Body Temperature 97.9 F BMI (Body Mass Index) 34.6 kg/m2 04/26/2017 8:47am Height 62.5 inches 5'2.50" Weight 189.38 lb Heart Rate 64 /min BP Systolic 122 mmHg BP Diastolic 68 mmHg BMI (Body Mass Index) 34.1 kg/m2 04/20/2017 2:49pm Height 62.5 inches 5'2.50" Weight 190.00 lb Heart Rate 68 /min BP Systolic Sitting 126 mmHg Lue reg cuff BP Diastolic Sitting 84 mmHg Lue reg cuff BP Systolic Standing 122 mmHg Lue BP Diastolic Standing 82 mmHg Lue Respiratory Rate 16 /min BMI (Body Mass Index) 34.2 kg/m2 Ejection Fraction 60-65% 03/05/17 04/06/2017 9:40am Height 62.25 inches 5'2.25" Weight 189.38 lb Heart Rate 70 /min BP Systolic 126 mmHg BP Diastolic 80 mmHg BMI (Body Mass Index) 34.4 kg/m2 03/03/2017 9:40am Height 62.25 inches 5'2.25" Weight 189.00 lb Heart Rate 86 /min BP Systolic 126 mmHg Rue sit BP Diastolic 72 mmHg Rue sit BP Systolic Sitting 120 mmHg Lue BP Diastolic Sitting 70 mmHg Lue BP Systolic Standing 118 mmHg Lue BP Diastolic Standing 70 mmHg Lue Respiratory Rate 17 /min BMI (Body Mass Index) 34.3 kg/m2 Results Test Date Facility Test Result H/L Range Note Laboratory test 03/14/2018 [facility] Poc Negative Negative [address] , [place] [address] Urine [phone] CBC Auto Diff 12/22/2017 [facility] White Blood 13.2 10^3/uL High 3.5-10.[address] [place] [address] [phone] Red Blood Count 4.14 10^6/uL N 4.00-5.40 Hemoglobin 12.3 g/dL N 12.0-16.0 Hematocrit 36 % N 35-47 Mean Corpuscular Volume 88 fL N 80-97 Mean Corpuscular Hemoglobin 30 pg N 27-31 Mean Corpuscular HGB Conc 34 g/dL N 31-36 Red Cell Distribution Width 13 % N 10.5-15 Platelet Count 411 10^3/uL N 150-450 Mean Platelet Volume 7.8 um3 N 7.4-10.4 Abs Neutrophils 9.6 10^3/uL High 1.5-7.7 Abs Lymphocytes 2.6 10^3/uL N 1.0-4.8 Abs Monocytes 0.7 10^3/uL N 0-0.8 Abs Eosinophils 0.2 10^3/uL N 0-0.6 Abs Basophils 0.1 10^3/uL N 0-0.2 Abs Nucleated RBC 0 10^3/uL Granulocyte % 72.4 % N 38-83 Lymphocyte % 19.9 % Low 25-47 Monocyte % 5.3 % N 0-7 Eosinophil % 1.6 % N 0-6 Basophil % 0.8 % N 0-2 Nucleated Red Blood Cells % 0 Urine Drug 12/22/2017 [facility] Amphetamine Ur None Detected None Detect SCR ED & [address] [place] [address] [phone] Barbiturates Urine Screen None Detected None Detect Benzodiazepine Urine Screen None Detected None Detect Urine Cannabinoids Screen None Detected None Detect Urine Cocaine Screen None Detected None Detect Urine Opiates Screen None Detected None Detect Urine Phencyclidine Screen None Detected None Detect 2 Urinalysis Profile 12/22/2017 [facility] Urine Color Yellow [address] [place] [address] [phone] Urine Appearance Cloudy Urine Specific [place] 1.010 N 1.010-1.030 Urine pH 6.0 N 5-9 Urine Urobilinogen Negative Negative Urine Ketones Negative Negative Urine Protein Negative Negative Urine Leukocytes Negative Negative Urine Blood Negative Negative Urine Nitrite Negative Negative Urine Bilirubin Negative Negative Urine Glucose Negative Negative Comp Metabolic Panel 12/22/2017 [facility] Sodium 137 mmol/L N 135-145 [address] [place] [address] [phone] Potassium 4.0 mmol/L N 3.5-5.0 Chloride 102 mmol/L N 101-111 Co2 Carbon Dioxide 26 mmol/L N 22-32 Anion Gap 9 mmol/L N 2-11 Glucose 89 mg/dL N 70-100 Blood Urea Nitrogen 9 mg/dL N 6-24 Creatinine 0.70 mg/dL N 0.51-0.95 BUN/Creatinine Ratio 12.9 N 8-20 Calcium 9.8 mg/dL N 8.6-10.3 Total Protein 7.6 g/dL N 6.4-8.9 Albumin 4.2 g/dL N 3.2-5.2 Globulin 3.4 g/dL N 2-4 Albumin/Globulin Ratio 1.2 N 1-3 Total Bilirubin 0.30 mg/dL N 0.2-1.0 Alkaline Phosphatase 51 U/L N 34-104 Alt 50 U/L N 7-52 Ast 33 U/L N 13-39 Egfr Non- 101.1 >60 Egfr 122.4 >60 3 Laboratory test 12/22/2017 [facility] Acetaminophen < 15 g/mL 4 finding [address] [place] [address] [phone] Alcohol < 10 mg/dL N <10 Salicylate < 2.50 mg/dL <30 TSH (Thyroid Stim Horm) 3.84 mcIU/mL N 0.34-5.60 [place] 0.51 mmol/L Low 0.6-1.2 HCG < 0.60 mIU/mL 5 Laboratory test 12/19/2017 [facility] Lactic Acid 2.3 mmol/L High 0.5-2.0 [address] [place] [address] [phone] CBC Auto Diff 12/19/2017 [facility] White Blood 10.9 High 3.5- 10.[address] Count 10^3/[place] [address] [phone] Red Blood Count 4.17 10^6/uL N 4.00-5.40 Hemoglobin 12.6 g/dL N 12.0-16.0 Hematocrit 37 % N 35-47 Mean Corpuscular Volume 88 fL N 80-97 Mean Corpuscular Hemoglobin 30 pg N 27-31 Mean Corpuscular HGB Conc 34 g/dL N 31-36 Red Cell Distribution Width 13 % N 10.5-15 Platelet Count 405 10^3/uL N 150-450 Mean Platelet Volume 8.2 um3 N 7.4-10.4 Abs Neutrophils 8.2 10^3/uL High 1.5-7.7 Abs Lymphocytes 2.0 10^3/uL N 1.0-4.8 Abs Monocytes 0.5 10^3/uL N 0-0.8 Abs Eosinophils 0.1 10^3/uL N 0-0.6 Abs Basophils 0.1 10^3/uL N 0-0.2 Abs Nucleated RBC 0 10^3/uL Granulocyte % 75.0 % N 38-83 Lymphocyte % 18.8 % Low 25-47 Monocyte % 4.2 % N 0-7 Eosinophil % 1.3 % N 0-6 Basophil % 0.7 % N 0-2 Nucleated Red Blood Cells % 0 Comp Metabolic Panel 12/19/2017 [facility] Sodium 138 mmol/L N 135-[address] [place] [address] [phone] Potassium 3.8 mmol/L N 3.5-5.0 Chloride 102 mmol/L N 101-111 Co2 Carbon Dioxide 24 mmol/L N 22-32 Anion Gap 12 mmol/L High 2-11 Glucose 166 mg/dL High 70-100 Blood Urea Nitrogen 13 mg/dL N 6-24 Creatinine 0.72 mg/dL N 0.51-0.95 BUN/Creatinine Ratio 18.1 N 8-20 Calcium 9.6 mg/dL N 8.6-10.3 Total Protein 7.6 g/dL N 6.4-8.9 Albumin 4.1 g/dL N 3.2-5.2 Globulin 3.5 g/dL N 2-4 Albumin/Globulin Ratio 1.2 N 1-3 Total Bilirubin 0.30 mg/dL N 0.2-1.0 Alkaline Phosphatase 47 U/L N 34-104 Alt 32 U/L N 7-52 Ast 18 U/L N 13-39 Egfr Non- 97.9 >60 Egfr 118.5 >60 7 Laboratory test 12/19/2017 [facility] [place] 0.18 mmol/L Low 0.6-1.[address] [place] [address] [phone] Acetaminophen < 15 g/mL 8 Alcohol < 10 mg/dL N <10 Salicylate < 2.50 mg/dL <30 TSH (Thyroid Stim Horm) 1.33 mcIU/mL N 0.34-5.60 Lactic Acid 5.2 mmol/L High 0.5-2.0 9 Urinalysis Profile 12/19/2017 [facility] Urine Color Yellow [address] [place] [address] [phone] Urine Appearance Cloudy Urine Specific [place] 1.020 N 1.010-1.030 Urine pH 5.0 N 5-9 Urine Urobilinogen Negative Negative Urine Ketones Negative Negative Urine Protein Negative Negative Urine Leukocytes Trace Abnormal Negative Urine Blood Negative Negative * * Abnormal Negative 10 Urine Nitrite Negative Negative Urine Bilirubin Negative Negative Urine Glucose 2+(150 mg/dL) Abnormal Negative Urine White Blood Cell 1+(6-10/hpf) Abnormal Absent Urine Red Blood Cell 1+(3-5/hpf) Abnormal Absent Urine Bacteria 2+ Abnormal Absent Urine Squamous Epithelial Cell Present Abnormal Absent Urine Drug 12/19/2017 [facility] Amphetamine Ur None Detected None Detect SCR ED & [address] [place] [address] [phone] Barbiturates Urine Screen None Detected None Detect Benzodiazepine Urine Screen None Detected None Detect Urine Cannabinoids Screen None Detected None Detect Urine Cocaine Screen None Detected None Detect Urine Opiates Screen None Detected None Detect Urine Phencyclidine Screen None Detected None Detect 11 Urine Culture And 12/19/2017 [facility] Urine Culture SEE RESULT [address] [place] [address] [phone] Laboratory test 12/18/2017 [facility] HCG < 0.60 [address] mIU/[place] [address] [phone] Acetaminophen < 15 g/mL 14 Alcohol < 10 mg/dL N <10 Salicylate < 2.50 mg/dL <30 TSH (Thyroid Stim Horm) 4.07 mcIU/mL N 0.34-5.60 Comp Metabolic Panel 12/18/2017 [facility] Sodium 136 mmol/L N 135-[address] [place] [address] [phone] Potassium 3.9 mmol/L N 3.5-5.0 Chloride 100 mmol/L Low 101-111 Co2 Carbon Dioxide 27 mmol/L N 22-32 Anion Gap 9 mmol/L N 2-11 Glucose 89 mg/dL N 70-100 Blood Urea Nitrogen 12 mg/dL N 6-24 Creatinine 0.67 mg/dL N 0.51-0.95 BUN/Creatinine Ratio 17.9 N 8-20 Calcium 10.0 mg/dL N 8.6-10.3 Total Protein 8.0 g/dL N 6.4-8.9 Albumin 4.3 g/dL N 3.2-5.2 Globulin 3.7 g/dL N 2-4 Albumin/Globulin Ratio 1.2 N 1-3 Total Bilirubin 0.20 mg/dL N 0.2-1.0 Alkaline Phosphatase 50 U/L N 34-104 Alt 33 U/L N 7-52 Ast 21 U/L N 13-39 Egfr Non- 106.4 >60 Egfr 128.7 >60 15 Urine Drug 12/18/2017 [facility] Amphetamine Ur None Detected None Detect SCR ED & [address] [place] [address] [phone] Barbiturates Urine Screen None Detected None Detect Benzodiazepine Urine Screen None Detected None Detect Urine Cannabinoids Screen None Detected None Detect Urine Cocaine Screen None Detected None Detect Urine Opiates Screen None Detected None Detect Urine Phencyclidine Screen None Detected None Detect 16 Urinalysis Profile 12/18/2017 [facility] Urine Color Yellow [address] [place] [address] [phone] Urine Appearance Clear Urine Specific [place] 1.013 N 1.010-1.030 Urine pH 7.0 N 5-9 Urine Urobilinogen Negative Negative Urine Ketones Negative Negative Urine Protein Negative Negative Urine Leukocytes Negative Negative Urine Blood Negative Negative Urine Nitrite Negative Negative Urine Bilirubin Negative Negative Urine Glucose Negative Negative CBC Auto 12/18/2017 [facility] White Blood 13.2 10^3/uL High 3.5-10.[address] [place] [address] [phone] Red Blood Count 4.22 10^6/uL N 4.00-5.40 Hemoglobin 12.7 g/dL N 12.0-16.0 Hematocrit 37 % N 35-47 Mean Corpuscular Volume 87 fL N 80-97 Mean Corpuscular Hemoglobin 30 pg N 27-31 Mean Corpuscular HGB Conc 35 g/dL N 31-36 Red Cell Distribution Width 13 % N 10.5-15 Platelet Count 410 10^3/uL N 150-450 Mean Platelet Volume 7.9 um3 N 7.4-10.4 Abs Neutrophils 9.6 10^3/uL High 1.5-7.7 Abs Lymphocytes 2.6 10^3/uL N 1.0-4.8 Abs Monocytes 0.8 10^3/uL N 0-0.8 Abs Eosinophils 0.1 10^3/uL N 0-0.6 Abs Basophils 0.1 10^3/uL N 0-0.2 Abs Nucleated RBC 0 10^3/uL Granulocyte % 72.4 % N 38-83 Lymphocyte % 19.7 % Low 25-47 Monocyte % 6.3 % N 0-7 Eosinophil % 0.9 % N 0-6 Basophil % 0.7 % N 0-2 Nucleated Red Blood Cells % 0 Drug Abuse 11/28/2017 [facility] Urine Amphetamine Negative ng/ mL 17, 18 [address] [place] [address] [phone] Urine Barbiturates Negative ng/mL 19 Urine Benzodiazepines Negative ng/mL 20 Urine Cocaine Negative ng/mL 21 Urine Phencyclidine Negative ng/mL Cutoff: 25 Urine Tetrahydrocannabinol Negative ng/mL Cutoff: 50 22 Creatinine, Urine 32.5 mg/dL Specific [place] 1.005 pH 6.8 Oxidants Negative 23 Adulterants Comment Normal Codeine, Ur Not Detected ng/mL Cutoff: 25 24 Igtkrwn-2-epiv-glucuronide, Ur Not Detected ng/mL 25 Morphine, Ur Not Detected ng/mL Cutoff: 25 26 Ircgnqvo-1-qxny-glucuronide, U Not Detected ng/mL 27 6-monoacetylmorphine, Ur Not Detected ng/mL Cutoff: 25 28 Hydrocodone, Ur Not Detected ng/mL Cutoff: 25 29 Norhydrocodone, Ur Not Detected ng/mL Cutoff: 25 30 Dihydrocodeine, Ur Not Detected ng/mL Cutoff: 25 31 Hydromorphone, Ur Not Detected ng/mL Cutoff: 25 32 Krfrdrbsuwbun5qdrlfvlvurrtfza Not Detected ng/mL 33 Oxycodone, Ur Not Detected ng/mL Cutoff: 25 34 Noroxycodone, Ur Not Detected ng/mL Cutoff: 25 35 Oxymorphone, Ur Not Detected ng/mL Cutoff: 25 36 Tceligtqext-2-pzux-glucuronide Not Detected ng/mL 37 Noroxymorphone, Ur Not Detected ng/mL Cutoff: 25 38 Fentanyl, Ur Not Detected ng/mL Cutoff: 2 39 Norfentanyl, Ur Not Detected ng/mL Cutoff: 2 40 Meperidine, Ur Not Detected ng/mL Cutoff: 25 41 Normeperidine, Ur Not Detected ng/mL Cutoff: 25 42 Naloxone, Ur Not Detected ng/mL Cutoff: 25 43 Dqwfniqo-3-lsce-glucuronide, U Not Detected ng/mL 44 Methadone, Ur Not Detected ng/mL Cutoff: 25 45 Eddp, Ur Not Detected ng/mL Cutoff: 25 46 Propoxyphene, Ur Not Detected ng/mL Cutoff: 25 47 Norpropoxyphene, Ur Not Detected ng/mL Cutoff: 25 48 Tramadol, Ur Not Detected ng/mL Cutoff: 25 49 O-desmethyltramadol, Ur Not Detected ng/mL Cutoff: 25 50 Tapentadol, Ur Not Detected ng/mL Cutoff: 25 51 N-desmethyltapentadol, Ur Not Detected ng/mL Cutoff: 50 52 Sztgmcmfet-bzsb-kdfpjxojpbi, U Not Detected ng/mL 53 Buprenorphine, Ur Not Detected ng/mL Cutoff: 5 54 Norbuprenorphine, Ur Not Detected ng/mL Cutoff: 5 55 Norbuprenorphine glucuronide Not Detected ng/mL Cutoff: 20 56 Opioid Interpretation See Comment 57 CBC Auto Diff 05/25/2017 [facility] White Blood 4.9 10^3/uL N 3.5-10.[address] [place] [address] [phone] Red Blood Count 4.30 10^6/uL N 4.0-5.4 Hemoglobin 12.7 g/dL N 12.0-16.0 Hematocrit 38 % N 35-47 Mean Corpuscular Volume 88 fL N 80-97 Mean Corpuscular Hemoglobin 30 pg N 27-31 Mean Corpuscular HGB Conc 34 g/dL N 31-36 Red Cell Distribution Width 13 % N 10.5-15 Platelet Count 305 10^3/uL N 150-450 Mean Platelet Volume 9 um3 N 7.4-10.4 Abs Neutrophils 2.9 10^3/uL N 1.5-7.7 Abs Lymphocytes 1.6 10^3/uL N 1.0-4.8 Abs Monocytes 0.3 10^3/uL N 0-0.8 Abs Eosinophils 0.1 10^3/uL N 0-0.6 Abs Basophils 0 10^3/uL N 0-0.2 Abs Nucleated RBC 0 10^3/uL Granulocyte % 58.9 % N 38-83 Lymphocyte % 33.3 % N 25-47 Monocyte % 6.0 % N 1-9 Eosinophil % 1.1 % N 0-6 Basophil % 0.7 % N 0-2 Nucleated Red Blood Cells % 0.1 Arthritis Panel 05/25/2017 [facility] Uric Acid 5.3 mg/dL N 2.3-6.[address] [place] [address] [phone] Erythrocyte Sed Rate 22 mm/Hr High 0-14 Rheumatoid Factor <15 IU/mL <15 58 Anti-Nuclear Antibody 0.2 U 59 Cyclic Citrullinated Peptide <15.6 U 60 Interpretation See Comment 61 1 Mononitrotoluene Operator: [id number] If is still suspected, please repeat test [...] mIU/mL 6 Critical Result LACT:2.3 Called to [id number] at: 19:54:15 by:[id number] Read back by:[id number] [facility] Severe Sepsis and Septic Shock Management Bundle [...] <50 ug/mL Toxic concentration: >120 ug/mL 9 NMS Severe Sepsis and Septic Shock Management Bundle [...] purposes only. 12 SEE RESULT BELOW Name: KINDAR LEÓN : [address]: Babak Molina MD Acct: [id number] Unit: [id number] AGE: 27 Location: ED Re12/19/17 SEX: F Status: DEP ER SPEC: [id number] VANCE: 12/19/[address] [facility] [address]: Babak Molina MD REQ: [id number] RECD: 12/19/17 STATUS: LINETTE GAMINO DR: Mando Benítez MD _ SOURCE: URINE SPDESC: ORDERED: Urine Culture Procedure Result Reported Site Urine Culture Final 12/21/17- 826 ML Organism 1 ESCHERICHIA COLI [place] Count 75-100,000 (Many) CFU/ML Organism 2 NORMAL MIL [place] Count 75-100,000 (Many) CFU/ML 1. ESCHERICHIA COLI [...] . END OF REPORT DEPARTMENT OF PATHOLOGY, [address] [place] [address] Dylan Laurent M.D. Director [facility] # [id number] 13 <5.0 Negative 5.0 - 25.0 Indeterminate [...] be used for medical purposes only. 17 [id number] REFERENCE VALUE Cutoff: 500 19 REFERENCE [...] 100 28 Metabolite of heroin 29 Lortab, [place], Vicodin; Also a very minor metabolite of [...] developed and its performance characteristics determined by [facility] in a manner consistent with CLIA requirements. This test has not been cleared or approved by the U.S. Food and Drug Administration. Test Performed by: [facility] [employer] [facility] [address] [place] [address] 58 Test Performed by: [facility] [address] [place] [address] 59 REFERENCE VALUE <=1.0 (Negative) 60 REFERENCE VALUE <20.0 (Negative) 61 Tests for antibodies to dsDNA and MARY antigens are not performed automatically unless the BRIGITTE result is > or= 3.0 U. Studies performed at [facility] indicate that positive BRIGITTE results <3.0 U are rarely accompanied by positive second order tests. Test Performed by: [address] [address] Procedures Date Code Description Status 04/20/2017 72505 EKG Tracing & Interpretation Completed 04/13/2017 46740 EEG Monitoring Computer Completed 03/21/2017 72801 ECHO Stress Test Incl Perf Contiuous ekg Monitoring W/Phys Completed Superv 03/16/2017 61166 EEG Recording Awake & Drowsy Completed 03/05/2017 24738 ECHO Transthorasic Realtime 2D W Doppler & Color Flow Hosp Completed 03/03/2017 65029 EKG Tracing & Interpretation Completed 11/06/2012 66035 Color Flow Doppler/Interp & Reprt Completed 11/06/2012 01339 Pulse Wave/Continuous-Interp.RPT Completed 11/06/2012 92014 ECHO Transthorasic Realtime 2D W Doppler & Color Flow Hosp Completed 10/30/2008 54847 Holter Monitor Interpretation Completed Encounters Type Date Location Provider Dx Diagnosis Office Visit 02/14/2018 Raf Gilmore M16.2 Bilateral 1:40p Dakota Benítez M.D. osteoarthritis [place] resulting from hip dysplasia Office Visit 01/10/2018 Raf Gilmore F31.9 Bipolar disorder, 4:00p Dakota Benítez M.D. unspecified [place] M25.559 Pain in unspecified hip E66.01 Morbid (severe) obesity due to excess calories Office Visit 11/28/2017 Raf Gilmore M16.2 Bilateral 3:20p Dakota Benítez M.D. osteoarthritis [address] resulting from hip dysplasia E28.2 Polycystic ovarian syndrome F31.9 Bipolar disorder, unspecified J45.909 Unspecified asthma, uncomplicated Office Visit 10/10/2017 Orthopedic Walter Hector S46.012A Strain of 10:15a Services Of MD Chris musc/tend the C.M.A. rotator cuff of left shoulder, init Office Visit 09/05/2017 Orthopedic Camryn Jolley, M24.851 Oth specific joint 10:15a Services Of [facility] derangements of C.M.A. right hip, NEC M24.852 Oth specific joint derangements of left hip, NEC Office Visit 07/18/2017 10:15a Orthopedic Camryn Jolley, M24.851 Oth specific joint Services Of derangements of C.M.A. right hip, NEC M24.852 Oth specific joint derangements of left hip, NEC Office Visit 07/04/2017 10:30a Orthopedic Camryn Jolley, M24.851 Oth specific joint Services Of derangements of C.M.A. 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 M.D. 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 M.D. 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 R07.9 Chest pain, unspecified R42 Dizziness and giddiness Office Visit 04/06/2017 [facility] Lisa Fitzgerald MD R40.4 Transient 9:30a Clinic alteration of awareness [facility] Syncope and 1:24p [facility] collapse F41.9 Anxiety disorder, unspecified F31.9 Bipolar disorder, unspecified E28.2 Polycystic ovarian syndrome Office Visit 03/03/2017 9:40a [facility] Heredia R07.9 Chest pain, Of Raf Hong.DLuna unspecified R42 Dizziness and giddiness R55 Syncope and collapse E28.2 Polycystic ovarian syndrome Plan of Treatment Future Appointment(s):05/28/2018 4:20 pm - Mando Benítez M.D. at [facility] - [address]05/16/2018 - Suma Rangel N.P.R68.84 Jaw painNew Medication:Clindamycin HCL 300 mg - one po bid x 7 daysComments:For your dental infection I have prescribed Clindamycin 300 mg. Take 1 tablet, twice daily for 7 days. If you start to have any issues with diarrhea, please contact the office.Z25.941 Pain in unspecified hipNew Medication:Tramadol HCL 50 mg - 1 tablet three to four times daily as neededComments:To help you with your hip pain I have prescribed Tramadol 50 mg. You may take 1 - 2 every 6 hours asneeded for pain. Do not take this with Acetaminophen as it is too much for your liver.Referral:Gigi Dinh DO, Interventional Pain [facility]
[2018-05-22] MEDS ORDERED: Ketorolac INJ* 60 MG/2 ML VIAL IM ONE (17:45)
[2018-05-22] MEDS ORDERED: Cyclobenzaprine TAB* 10 MG PO ONE (17:45)
[2018-05-22] MEDS ORDERED: predniSONE TAB* 20 MG PO ONE ×2 (17:48→18:05)
--- NOTE | 2018-05-22 17:50 | ED ---
Lower Extremity - HPI Summary HPI Summary: Patient complains of daily on chronic bilateral hip pain x 2 days. Seen here multiple times for same. Denies trauma, lifting, inciting incident, fever, cough, sore throat, CP, SOB, N/V/V abdominal pain, change in urine, change in BM. Patient ambulatory. Patient has Rx for hydrocodone, which she states is not cut neck. Patient states she has been medically pain clinic has tried multiple treatment modalities all without success. States she has pending appointment for surgical evaluation on June 01. Also complains of chronic dental abscess. Patient states she does not like to go to the dentist and prefers to just get antibiotics. Denies any other medical history. - History of Current Complaint Chief Complaint: EDHipPelvisInjury Stated Complaint: BOTH HIPS HAVE PAIN Time Seen by Provider: 05/22/18 17:12 Hx Obtained From: Patient Hx Last Menstrual Period: 02/05/18 Mechanism Of Injury: Other Onset of Pain: Days Onset/Duration: Days Severity Initially: Moderate Severity Currently: Severe Pain Intensity: 10 Pain Scale Used: 0-10 Numeric Timing: Constant Location: Is Discrete @ Character Of Pain: Sharp, Throbbing Associated Signs And Symptoms: Positive: Negative Aggravating Factor(s): Ambulation, Movement Alleviating Factor(s): Rest Able to Bear Weight: Yes - Allergies/Home Medications Allergies/Adverse Reactions: Allergies Allergy/AdvReac Type Severity Reaction Status Date / Time Penicillins Allergy Itching Verified 03/18/18 12:34 tramadol AdvReac Intermediate Nausea Verified 03/18/18 12:34 PMH/Surg Hx/FS Hx/Imm Hx Endocrine/Hematology History: Denies: Hx Anticoagulant Therapy, Hx Diabetes Cardiovascular History: Reports: Hx Angina, Hx Hypercholesterolemia - HLD, Hx Syncope, Hx Valvular Heart Disease - AR, Other Cardiovascular Problems/ Disorders - aortic regurgitation Denies: Hx Hypertension, Hx Myocardial Infarction, Hx Pacemaker/ICD Respiratory History: Reports: Hx Asthma, Hx Seasonal Allergies History: Denies: Hx Renal Disease Musculoskeletal History: Reports: Hx Back Problems - lower back pain, Other Musculoskeletal History - labrum tears b/l hips Sensory History: Reports: Hx Contacts or Glasses Opthamlomology History: Reports: Hx Contacts or Glasses Neurological History: Reports: Hx Migraine, Other Neuro Impairments/Disorders - Right hemisphere disorder Psychiatric History: Reports: Hx Anxiety, Hx Attention Deficit Hyperactivity Disorder, Hx Depression, Hx Inpatient Treatment - 10/2017, Hx Community Mental Health Tx, Hx Bipolar Disorder, Hx Suicide Attempt, Hx Substance Abuse - oxycodone Denies: Hx Eating Disorder, Hx Panic Disorder, Hx Post Traumatic Stress Disorder, Hx Schizophrenia, Hx of Violent Episodes Against Others - Surgical History Surgery Procedure, Year, and Place: NO PRIOR SURGERIES - Immunization History Date of Tetanus Vaccine: up to date Date of Influenza Vaccine: up to date. Infectious Disease History: No Infectious Disease History: Reports: History Other Infectious Disease - varicella Denies: Traveled Outside the [place] in Last 30 Days - Family History Known Family History: Positive: Cardiac Disease - Mother: fatal [place] at age 52, Hypertension, Diabetes, Other - seizures (mother); no history of SI from family members - Social History Alcohol Use: Rare Hx Substance Use: Yes Substance Use Type: Reports: Marijuana Substance Use Comment - Amount & Last Used: rarely Hx Tobacco Use: Yes - FORMER- QUIT TODAY 10/24/2016 Smoking Status (MU): Heavy Every Day Tobacco Smoker Type: Cigarettes Amount Used/How Often: 1 ppd Length of Time of Smoking/Using Tobacco: since age 18 Have You Smoked in the Last Year: Yes Review of Systems Constitutional: Negative Eyes: Negative ENT: Negative Cardiovascular: Negative Respiratory: Negative Gastrointestinal: Negative Genitourinary: Negative Musculoskeletal: Negative Skin: Negative Neurological: Negative Psychological: Normal All Other Systems Reviewed And Are Negative: Yes Physical Exam - Summary Physical Exam Summary: No tenderness with palpation of bilateral hips. Patient able to flex and extend , but states extremely painful. EMS intact distally bilateral extremity is. Triage Information Reviewed: Yes Vital Signs On Initial Exam: Initial Vitals Temp Pulse Resp BP Pulse Ox 98.1 F 81 18 119/59 100 05/22/18 16:07 05/22/18 16:07 05/22/18 16:07 05/22/18 16:07 05/22/18 16:07 Vital Signs Reviewed: Yes Appearance: Positive: Well-Appearing Skin: Positive: Warm Head/Face: Positive: Normal Head/Face Inspection Eyes: Positive: Normal Neck: Positive: Supple Respiratory/Lung Sounds: Positive: Clear to Auscultation Cardiovascular: Positive: Normal Abdomen Description: Positive: Nontender Musculoskeletal: Positive: Normal Neurological: Positive: Normal Psychiatric: Positive: Normal AVPU Assessment: Alert - Sanchez Coma Scale Best Eye Response: 4 - Spontaneous Best Motor Response: 6 - Obeys Commands Best Verbal Response: 5 - Oriented Coma Scale Total: 15 Diagnostics - Vital Signs Vital Signs Temp Pulse Resp BP Pulse Ox 05/22/18 16:07 98.1 F 81 18 119/59 100 - Laboratory Lab Statement: Any lab studies that have been ordered have been reviewed, and results considered in the medical decision making process. Lower Extremity Course/Dx - Course Course Of Treatment: Patient complains of daily on chronic bilateral hip pain x 2 days. Seen here multiple times for same. Denies trauma, lifting, inciting incident, fever, cough, sore throat, CP, SOB, N/V/V abdominal pain, change in urine, change in BM. Patient ambulatory. Patient has Rx for hydrocodone, which she states is not cut neck. Patient states she has been medically pain clinic has tried multiple treatment modalities all without success. States she has pending appointment for surgical evaluation on June 01. Also complains of chronic dental abscess. Patient states she does not like to go to the dentist and prefers to just get antibiotics. Denies any other medical history. Physical exam:No tenderness with palpation of bilateral hips. Patient able to flex and extend, but states extremely painful. PMS intact distally bilateral extremities. Vital signs within normal limits. Patient ambulatory. Patient repeatedly asking for pain medication. Has existing Rx for hydrocodone. Refused Toradol, prednisone. - Diagnoses Provider Diagnoses: Arthralgia of hip Discharge - Sign-Out/Discharge Documenting (check all that apply): Patient Departure - Discharge Plan Condition: Stable Disposition: HOME Prescriptions: predniSONE TAB* [Deltasone 20 MG TAB*] 40 mg PO DAILY 5 Days #10 tab Patient Education Materials: Arthralgia (ED) Referrals: Mando Benítez MD [Primary Care Provider] - Additional Instructions: Take prednisone as directed. Follow-up with your orthopedic surgical evaluation of pain on June 01. Return to the ED for any new or worsening symptoms. - Billing Disposition and Condition Condition: STABLE Disposition: Home
[2018-05-22 18:40] VITALS: BP 123/74
== END 2018-05-22 18:39 | disposition home or self-care (01) ==
LOC: ED 16:04
DX: M25.552 Pain in left hip (principal); M25.551 Pain in right hip; Z88.5 Allergy status to narcotic agent; Z88.0 Allergy status to penicillin; F17.210 Nicotine dependence, cigarettes, uncomplicated
CPT/HCPCS: 96372; 99282; J1885; J7512

== ENCOUNTER 2018-05-23 15:44 | Emergency (ER) | payer OTHER ==
[2018-05-23 19:26] VITALS: BP 144/82
--- NOTE | 2018-05-23 19:34 | ED ---
Lower Extremity - HPI Summary HPI Summary: This patient is a 27 year old F [facility] [place] chief complaint of worsening severe hip pain since yesterday.The patient rates the pain 10/10 in severity. Patient reports tingling in her legs. Pt denies fever. Pt was here yesterday night and reports that her pain is worse today and she ahs been crying on and off. Pt wants an rx for pain medication. PMHx osteoarthritis. - History of Current Complaint Chief Complaint: EDGeneral Stated Complaint: HIP PAIN , AND TINGLE Time Seen by Provider: 05/23/18 19:13 Hx Obtained From: Patient Hx Last Menstrual Period: 02/05/18 Onset of Pain: Days Onset/Duration: Still Present Severity Initially: Severe Severity Currently: Severe Pain Intensity: 10 Pain Scale Used: 0-10 Numeric Timing: Constant Location: Is Discrete @ - hip - Allergies/Home Medications Allergies/Adverse Reactions: Allergies Allergy/AdvReac Type Severity Reaction Status Date / Time Penicillins Allergy Itching Verified 05/23/18 16:15 tramadol AdvReac Intermediate Nausea Verified 05/23/18 16:15 PMH/Surg Hx/FS Hx/Imm Hx Endocrine/Hematology History: Denies: Hx Anticoagulant Therapy, Hx Diabetes Cardiovascular History: Reports: Hx Angina, Hx Hypercholesterolemia - HLD, Hx Syncope, Hx Valvular Heart Disease - AR, Other Cardiovascular Problems/ Disorders - aortic regurgitation Denies: Hx Hypertension, Hx Myocardial Infarction, Hx Pacemaker/ICD Respiratory History: Reports: Hx Asthma, Hx Seasonal Allergies History: Denies: Hx Renal Disease Musculoskeletal History: Reports: Hx Back Problems - lower back pain, Other Musculoskeletal History - labrum tears b/l hips Sensory History: Reports: Hx Contacts or Glasses Opthamlomology History: Reports: Hx Contacts or Glasses Neurological History: Reports: Hx Migraine, Other Neuro Impairments/Disorders - Right hemisphere disorder Psychiatric History: Reports: Hx Anxiety, Hx Attention Deficit Hyperactivity Disorder, Hx Depression, Hx Inpatient Treatment - 10/2017, Hx Community Mental Health Tx, Hx Bipolar Disorder, Hx Suicide Attempt, Hx Substance Abuse - oxycodone Denies: Hx Eating Disorder, Hx Panic Disorder, Hx Post Traumatic Stress Disorder, Hx Schizophrenia, Hx of Violent Episodes Against Others - Surgical History Surgery Procedure, Year, and Place: NO PRIOR SURGERIES - Immunization History Date of Tetanus Vaccine: up to date Date of Influenza Vaccine: up to date. Infectious Disease History: No Infectious Disease History: Reports: History Other Infectious Disease - varicella Denies: Traveled Outside the [place] in Last 30 Days - Family History Known Family History: Positive: Cardiac Disease - Mother: fatal [place] at age 52, Hypertension, Diabetes, Other - seizures (mother); no history of SI from family members - Social History Alcohol Use: Rare Hx Substance Use: Yes Substance Use Type: Reports: Marijuana Substance Use Comment - Amount & Last Used: rarely Hx Tobacco Use: Yes - FORMER- QUIT TODAY 10/24/2016 Smoking Status (MU): Heavy Every Day Tobacco Smoker Type: Cigarettes Amount Used/How Often: 1 ppd Length of Time of Smoking/Using Tobacco: since age 18 Have You Smoked in the Last Year: Yes Review of Systems Negative: Fever Musculoskeletal: Other - hip pain Positive: Other - tingling in legs All Other Systems Reviewed And Are Negative: Yes Physical Exam - Summary Physical Exam Summary: Appearance: Well-appearing, Well-nourished, lying in bed comfortable Skin: Warm, dry, no obvious rash Eyes: sclera anicteric, no conjunctival pallor ENT: mucous membranes moist Neck: deferred Respiratory: No signs of respiratory distress Cardiovascular: Appears well perfused, pulses are nml Abdomen: deferred Musculoskeletal: Moving all 4 extremities without obvious discomfort Neurological: Awake and alert, mentation is normal, speech is fluent and appropriate Psychiatric: affect is normal, does not appear anxious or depressed Triage Information Reviewed: Yes Vital Signs On Initial Exam: Initial Vitals Temp Pulse Resp BP Pulse Ox 98.6 F 80 18 131/70 100 05/23/18 16:05 05/23/18 16:05 05/23/18 16:05 05/23/18 16:05 05/23/18 16:05 Vital Signs Reviewed: Yes Diagnostics - Vital Signs Vital Signs Temp Pulse Resp BP Pulse Ox 05/23/18 19:24 98.1 F 72 18 144/82 99 05/23/18 17:40 99.0 F 84 16 138/62 100 05/23/18 16:05 98.6 F 80 18 131/70 100 - Laboratory Lab Statement: Any lab studies that have been ordered have been reviewed, and results considered in the medical decision making process. Lower Extremity Course/Dx - Course Course Of Treatment: This patient is a 27 year old F presenting [facility] a chief complaint of worsening severe hip pain since yesterday.The patient rates the pain 10/10 in severity. Patient reports tingling in her legs. Pt has been to the ED regularly this year looking for pain medication. She was told that there is nothing new we can do today. The patient will be discharged home. The patient is agreeable with this plan - Diagnoses Provider Diagnoses: Chronic pain, Borderline intellectual functioning, Borderline personality disorder, Bipolar 2 disorder Discharge - Sign-Out/Discharge Documenting (check all that apply): Patient Departure - discharge - Discharge Plan Condition: Good Disposition: HOME Patient Education Materials: Chronic Pain (ED) Referrals: Mando Benítez MD [Primary Care Provider] - Additional Instructions: You have a chronic pain problem that we cannot help you with here in the ED. We do not prescribe opioid analgesics in the ED for chronic pain conditions. You must see your regular doctor or get into some type of pain management program. - Billing Disposition and Condition Condition: GOOD Disposition: Home - Attestation Statements Document Initiated by Babs: Yes Documenting Scribe: Desmond Kaur Provider For Whom Babs is Documenting (Include Credential): Jared Palomino MD Scribe Attestation: Desmond Carrion, scribed for Jared Palomino MD on 05/23/18 at 2026. Scribe Documentation Reviewed: Yes Provider Attestation: The documentation as recorded by the Desmond duong accurately reflects the service I personally performed and the decisions made by , Jared Palomino MD Status of Scribe Document: Viewed
== END 2018-05-23 19:24 | disposition home or self-care (01) ==
LOC: ED 15:44
DX: M25.552 Pain in left hip (principal); M25.551 Pain in right hip; F60.3 Borderline personality disorder; Z88.0 Allergy status to penicillin; F17.210 Nicotine dependence, cigarettes, uncomplicated; F31.81 Bipolar II disorder
CPT/HCPCS: 99281

== ENCOUNTER 2018-06-17 18:50 | Emergency (ER) | payer OTHER ==
--- NOTE | 2018-06-17 19:54 | ED ---
Lower Extremity - HPI Summary HPI Summary: A 27 y/o F presents to ED with c/o L hip and LLE pain s/p fall today [employer]. Pt uses a wheelchair, and was on [address] when she hit ice and fell out, landing on asphalt. Pert PMHx: hip dysplagia, osteoarthritis. Pt is taking Tramadol, Flexeril which she says she ran out of and cannot get filled due to the holiday. She says Tylenol does not alleviate the pain. - History of Current Complaint Chief Complaint: EDExtremityLower Stated Complaint: FALL/HIP PAIN Time Seen by Provider: 06/17/18 19:00 Hx Obtained From: Patient Hx Last Menstrual Period: 02/05/18 Mechanism Of Injury: Fall From Height Of: Onset of Pain: Immediate, Post Accident, Prior to Arrival Onset/Duration: Still Present Severity Initially: Severe Severity Currently: Severe Pain Intensity: 10 Pain Scale Used: 0-10 Numeric Timing: Constant Location: Is Discrete @ - L hip, LLE Associated Signs And Symptoms: Positive: Negative - Allergies/Home Medications Allergies/Adverse Reactions: Allergies Allergy/AdvReac Type Severity Reaction Status Date / Time Penicillins Allergy Itching Verified 06/17/18 18:57 PMH/Surg Hx/FS Hx/Imm Hx Previously Healthy: No Endocrine/Hematology History: Denies: Hx Anticoagulant Therapy, Hx Diabetes Cardiovascular History: Reports: Hx Angina, Hx Hypercholesterolemia - HLD, Hx Syncope, Hx Valvular Heart Disease - AR, Other Cardiovascular Problems/ Disorders - aortic regurgitation Denies: Hx Hypertension, Hx Myocardial Infarction, Hx Pacemaker/ICD Respiratory History: Reports: Hx Asthma, Hx Seasonal Allergies History: Denies: Hx Renal Disease Musculoskeletal History: Reports: Hx Back Problems - lower back pain, Other Musculoskeletal History - labrum tears b/l hips Sensory History: Reports: Hx Contacts or Glasses Opthamlomology History: Reports: Hx Contacts or Glasses Neurological History: Reports: Hx Migraine, Other Neuro Impairments/Disorders - Right hemisphere disorder Psychiatric History: Reports: Hx Anxiety, Hx Attention Deficit Hyperactivity Disorder, Hx Depression, Hx Inpatient Treatment - 10/2017, Hx Community Mental Health Tx, Hx Bipolar Disorder, Hx Suicide Attempt, Hx Substance Abuse - oxycodone Denies: Hx Eating Disorder, Hx Panic Disorder, Hx Post Traumatic Stress Disorder, Hx Schizophrenia, Hx of Violent Episodes Against Others - Surgical History Surgery Procedure, Year, and Place: NO PRIOR SURGERIES - Immunization History Date of Tetanus Vaccine: up to date Date of Influenza Vaccine: up to date. Infectious Disease History: No Infectious Disease History: Reports: History Other Infectious Disease - varicella Denies: Traveled Outside the [place] in Last 30 Days - Family History Known Family History: Positive: Cardiac Disease - Mother: fatal [place] at age 52, Hypertension, Diabetes, Other - seizures (mother); no history of SI from family members - Social History Occupation: Unemployed, Employed Full-time Lives: Alone Alcohol Use: Rare Hx Substance Use: Yes Substance Use Type: Reports: Marijuana Substance Use Comment - Amount & Last Used: rarely Hx Tobacco Use: Yes - FORMER- QUIT TODAY 10/24/2016 Smoking Status (MU): Heavy Every Day Tobacco Smoker Type: Cigarettes Amount Used/How Often: 1 ppd Length of Time of Smoking/Using Tobacco: since age 18 Have You Smoked in the Last Year: Yes Review of Systems Negative: Fever Musculoskeletal: Other - pos: L hip, LLE pain All Other Systems Reviewed And Are Negative: Yes Physical Exam - Summary Physical Exam Summary: Appearance: Well-appearing, obese, lying in bed comfortable, no acute distress Skin: Warm, dry, no obvious rash Eyes: sclera anicteric, no conjunctival pallor ENT: mucous membranes moist Neck: deferred Respiratory: No signs of respiratory distress Cardiovascular: Appears well perfused, pulses are nml Abdomen: deferred Musculoskeletal: No deformity of L hip or L knee. Neurological: Awake and alert, mentation is normal, speech is fluent and appropriate Psychiatric: affect is normal, does not appear anxious or depressed Triage Information Reviewed: Yes Vital Signs On Initial Exam: Initial Vitals Temp Pulse Resp BP Pulse Ox 98.3 F 82 16 124/85 96 06/17/18 18:54 06/17/18 18:54 06/17/18 18:54 06/17/18 18:54 06/17/18 18:54 Vital Signs Reviewed: Yes Diagnostics - Vital Signs Vital Signs Temp Pulse Resp BP Pulse Ox 06/17/18 18:54 98.3 F 82 16 124/85 96 - Laboratory Lab Statement: Any lab studies that have been ordered have been reviewed, and results considered in the medical decision making process. - Radiology L KNEE Radiology Interpretation Completed By: ED Physician Summary of Radiographic Findings: Negative. HIP/PELVIS Radiology Interpretation Completed By: ED Physician Summary of Radiographic Findings: Negative. Lower Extremity Course/Dx - Course Course Of Treatment: Pt is a 27 y/o F presenting with L hip and LLE pain s/p fall. Pt uses a wheelchair, and hit ice on the sidewalk and fell out, landing on asphalt. Pert PMHx: hip dysplagia, osteoarthritis. Pt is taking Tramadol, Flexeril which she says she ran out of and cannot get filled due to the holiday. L Knee and Hip XR are negative. Will discharge patient home. - Diagnoses Provider Diagnoses: Hip sprain Discharge - Sign-Out/Discharge Documenting (check all that apply): Patient Departure - DC - Discharge Plan Condition: Good Disposition: HOME Patient Education Materials: Hip Sprain (ED) Referrals: Mando Benítez MD [Primary Care Provider] - - Billing Disposition and Condition Condition: GOOD Disposition: Home - Attestation Statements Document Initiated by Babs: Yes Documenting Scribe: Cristopher Medina Provider For Whom Babs is Documenting (Include Credential): Dr. Jared Palomino MD Scribe Attestation: Cristopher Carrion scribed for Dr. Jared Palomino MD on 06/19/18 at 1014. Scribe Documentation Reviewed: Yes Provider Attestation: The documentation as recorded by the Cristopher duong accurately reflects the service I personally performed and the decisions made by , Dr. Jared Palomino MD Status of Scribe Document: Viewed
[2018-06-17] MEDS ORDERED: traMADol TAB* 50 MG PO ONE (20:15)
[2018-06-17] MEDS ORDERED: Cyclobenzaprine TAB* 10 MG PO ONE (20:16)
[2018-06-17 21:51] VITALS: BP 111/77
== END 2018-06-17 21:49 | disposition home or self-care (01) ==
LOC: ED 18:50
DX: S73.102A Unspecified sprain of left hip, initial encounter (principal); M25.552 Pain in left hip; Z88.0 Allergy status to penicillin; Z87.891 Personal history of nicotine dependence; W05.0XXA Fall from non-moving wheelchair, initial encounter; Y92.9 Unspecified place or not applicable
CPT/HCPCS: 99282; A9270-GY

== ENCOUNTER 2018-06-22 13:54 | Emergency (ER) | payer SELFPAY ==
--- OUTSIDE RECORDS SUMMARY | 2018-06-22 14:38 | XMS REPORT | Continuity of Care Document ---
:1990 External Reference #:[id number] Author Name Christiane Dudley Care Team Providers Name Role Phone Mando Benítez MD Primary Care Physician Unavailable Payers Type Date Identification Numbers Payment Provider Subscriber Effective: Policy Number: [id number] [employer] Kindra León 2017 Medicaid PayID: [id number] [address] Advance Directives Description No Information Available Problems [...] region and Mando Benítez M.D. Active thigh Onset: 05/28/2018 Obesity Mando Benítez M.D. 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 ETOH Use Denies alcohol use ETOH Use Denies alcohol use Recreational Drug Use Sporadically uses Marijuana Tobacco Use Start: Unknown Heavy tobacco smoker (more than 10 cigarettes/day) Smoking Status Reviewed: 06/20/18 Heavy tobacco smoker (more than 10 cigarettes/day) Exercise Type/Frequency Exercises sporadically Exercise Type/Frequency Exercises sporadically Allergies, Adverse Reactions, Alerts Date Description Reaction Status Severity Comments 03/03/2017 Tramadol Nausea and Vomiting Active Moderate 10/10/2017 Penicillins Active 04/06/2017 Penicillin ichiness Active Medications Medication Date Status Form Strength Qnty SIG Indications Ordering Provider Tylenol With 06/20 Active Tablets 300-30mg 21tab 1 tablet by M25.559 Suma Codeine # s mouth every Varn, 8 hours as N.P. needed cough Wheelchair 05/29 Active Misc 1unit use as s directed Jeyson pantoja M.D. Fluticasone 05/28 Active Suspension 50mcg/Act 9.900 2 sprays J30.9 ml each Jeyson gee M.D. daily Tramadol HCL 05/16 Active Tablets 50mg 30tab 1 tablet M25.559 s three to MD Romero four times daily as needed Lidoderm 05/15 Active Patches 5% 30uni 1 patch on ts for 12 hrs Jeyson and then [place] off 12 hrs Walker 01/10 Active Misc 1unit walker with M25.559 s seat, use Jeyson for , M.D. ambulation. dx code M25.559 Qvar 12/12 Active Aerosol 80mcg/Act 8.700 2 puffs gm inhalation Jeyson twice a day [place] Singulair Active Tablets 10mg 30tab 1 by mouth / s every day [place] Benítez Metformin HCL Active Tablets 500mg 60tab 1 by mouth s twice a day [place] Benítez Ondansetron HCL Active Tablets 4mg 14tab one by s mouth every [place]achikara 6 hours [place] reza needed for nausea Levalbuterol HCL Active Nebulizer 0.63mg/3M 72ml 1 amp 8h as L needed [place] Benítez Day Time/Nite Active Misc (Liquid) as needed Unknown Time Cold & /0000 Flu Relief Cyclobenzaprine Active Tablets 10mg 14tab take one Dolores HCL / s tablet by MD Romero mouth every 8 hours as needed Chitina Active Tablets ER 450mg 2 tablet by Unknown Carbonate ER / mouth in the evening Clindamycin HCL 05/16 Hx Capsules 300mg 14cap one po bid R68.84 s x 7 days Varn, - N.P. 05/23 Oxycodone HCL 02/14 Hx Tablets 5mg 30tab 1 by mouth Geronimo6.2 s every 12 Pachikara - hours [place]cedez reza 05/15 needed Naproxen 02/14 Hx Tablets 375mg 30tab twice a day Geronimo6.2 s with food Jeyson Orourke M.D. 02/14 Acetaminophen 02/14 Hx Tablets 500mg 180ta 2 tab 3 6. bs times daily Varn, - as needed N.P. 06/20 Oxycodone HCL 11/28 Hx Tablets 5mg 30tab 1 by mouth Geronimo6.2 s every 12 Pachikara - hours Mercedez reza 01/11 needed No Active 10/10 Hx Unknown Medications /2017 - 10/10 Ibuprofen 07/04 Hx Tablets 600mg 60tab take 1 by s mouth every Pachikara - 8 hours Mercedez reza 01/10 needed for pain Percocet Hx Tablets 5-325mg 1-2 by Unknown /0000 mouth every - 4-6 hours 03/02 as needed /2016 pain Xopenex Hx Nebulizer 0.63mg/3M 8hourly as Unknown /0000 L needed - 04/05 Tizanidine HCL Hx Capsules 4mg 3 times a Unknown /0000 day as - needed 11/28 Lexapro 00 Hx Tablets 5mg 1 by mouth Unknown /0000 every day - 03/03 Folic Acid Hx Tablets 400mcg take one Unknown /0000 tablet by - mouth every (supplement ) Strattera Hx Capsules 80mg 1 by mouth Unknown /0000 every day - 11/28 Spironolactone Hx Tablets 25mg 1 by mouth Unknown /0000 every day - 04/05 Lorazepam Hx Tablets 0.5mg 1 by mouth Unknown /0000 three times - per day as 04/05 needed anxiety Aripiprazole Hx Tablets 10mg take 1 Unknown /0000 tablet by - mouth at 11/28 bedtime Flovent HFA Hx Aerosol 220mcg/Ac 12gm inhale two J45.909 Mando /0000 t puffs by Jeyson - mouth twice , M.DLuna 12/12 Lexapro 00 Hx Tablets 10mg 1 by [...] /0000 /0.01 mg Control - (13/11) 11/28 Latuda Hx Tablets 20mg 1 by mouth Unknown /0000 every day - 05/28 Chitina Hx Capsules 600mg 1 by mouth Popejoy Carbonate /0000 at bedtime Jeyson Orourke M.D. 05/28 Immunizations CPT Code Status Date Vaccine Lot # [id number] Given 05/16/2018 Influenza Virus Vaccine, Quadrivalent, Split, Preservative Free Vital Signs Date Vital Result Comment 06/20/2018 2:16pm Height 62 inches 5'2" Weight 209.00 lb Heart Rate 102 /min BP Systolic 123 mmHg BP Diastolic 80 mmHg Body Temperature 99.3 F O2 % BldC Oximetry 97 % BMI (Body Mass Index) 38.2 kg/m2 05/28/2018 4:31pm Height 62 inches 5'2" Weight 209.25 lb Heart Rate 81 /min BP Systolic 98 mmHg BP Diastolic 60 mmHg Body Temperature 98.5 F O2 % BldC Oximetry 99 % BMI (Body Mass Index) 38.3 kg/m2 05/16/2018 2:50pm Height 62 inches 5'2" Weight [...] Result H/L Range Note Laboratory test 03/14/2018 [facility] Poc Negative Negative [address] , [place] [address] Urine [phone] CBC Auto Diff 12/22/2017 [facility] White Blood 13.2 10^3/uL High 3.5-10.[address] [place] [address] [phone] Red Blood Count 4.14 10^6/uL N 4.00-5.40 [...] Blood Cells % 0 Urine Drug 12/22/2017 [facility] Amphetamine Ur None Detected None Detect SCR ED & [address] [place] [address] [phone] Barbiturates Urine Screen None Detected None Detect Benzodiazepine Urine Screen None Detected None Detect Urine Cannabinoids Screen None Detected None Detect Urine Cocaine Screen None Detected None Detect Urine Opiates Screen None Detected None Detect Urine Phencyclidine Screen None Detected None Detect 2 Urinalysis Profile 12/22/2017 [facility] Urine Color Yellow [address] [place] [address] [phone] Urine Appearance Cloudy Urine Specific [place] 1.010 N 1.010-1.030 Urine pH 6.0 N 5-9 Urine Urobilinogen Negative Negative Urine Ketones Negative Negative Urine Protein Negative Negative Urine Leukocytes Negative Negative Urine Blood Negative Negative Urine Nitrite Negative Negative Urine Bilirubin Negative Negative Urine Glucose Negative Negative Comp Metabolic Panel 12/22/2017 [facility] Sodium 137 mmol/L N 135-145 [address] [place] [address] [phone] Potassium 4.0 mmol/L N 3.5-5.0 Chloride 102 [...] Egfr 122.4 >60 3 Laboratory test 12/22/2017 [facility] Acetaminophen < 15 g/mL 4 finding [address] [place] [address] [phone] Alcohol < 10 mg/dL N <10 Salicylate < 2.50 mg/dL <30 TSH (Thyroid Stim Horm) 3.84 mcIU/mL N 0.34-5.60 Chitina 0.51 mmol/L Low 0.6-1.2 HCG < 0.60 mIU/mL 5 Laboratory test 12/19/2017 [facility] Lactic Acid 2.3 mmol/L High 0.5-2.0 6 finding [address] [place] [address] [phone] CBC Auto Diff 12/19/2017 [facility] White Blood 10.9 High 3.5- 10.[address] Count 10^3/[place] [address] [phone] Red Blood Count 4.17 10^6/uL N 4.00-5.40 [...] Cells % 0 Comp Metabolic Panel 12/19/2017 [facility] Sodium 138 mmol/L N 135-145 [address] [place] [address] [phone] Potassium 3.8 mmol/L N 3.5-5.0 Chloride 102 [...] Egfr 118.5 >60 7 Laboratory test 12/19/2017 [facility] Chitina 0.18 mmol/L Low 0.6-1.[address] [place] [address] [phone] Acetaminophen < 15 g/mL 8 Alcohol < 10 mg/dL N <10 Salicylate < 2.50 mg/dL <30 TSH (Thyroid Stim Horm) 1.33 mcIU/mL N 0.34-5.60 Lactic Acid 5.2 mmol/L High 0.5-2.0 9 Urinalysis Profile 12/19/2017 [facility] Urine Color Yellow [address] [place] [address] [phone] Urine Appearance Cloudy Urine Specific [place] 1.020 N 1.010-1.030 Urine pH 5.0 N [...] Cell Present Abnormal Absent Urine Drug 12/19/2017 [facility] Amphetamine Ur None Detected None Detect SCR ED & [address] [place] [address] [phone] Barbiturates Urine Screen None Detected None Detect Benzodiazepine Urine Screen None Detected None Detect Urine Cannabinoids Screen None Detected None Detect Urine Cocaine Screen None Detected None Detect Urine Opiates Screen None Detected None Detect Urine Phencyclidine Screen None Detected None Detect 11 Urine Culture And 12/19/2017 [facility] Urine Culture SEE RESULT [address] [place] [address] [phone] Comp Metabolic 12/18/2017 [facility] Sodium 136 mmol/L N 135- [address] [place] [address] [phone] Potassium 3.9 mmol/L N 3.5-5.0 Chloride 100 [...] Egfr Non- 106.4 >60 Egfr 128.7 >60 13 Laboratory test 12/18/2017 [facility] HCG < 0.60 mIU/ mL [address] [place] [address] [phone] Acetaminophen < 15 g/mL 15 Alcohol < 10 mg/dL N <10 Salicylate < 2.50 mg/dL <30 TSH (Thyroid Stim Horm) 4.07 mcIU/mL N 0.34-5.60 Urine Drug 12/18/2017 [facility] Amphetamine Ur None Detected None Detect SCR ED & [address] [place] [address] [phone] Barbiturates Urine Screen None Detected None Detect Benzodiazepine Urine Screen None Detected None Detect Urine Cannabinoids Screen None Detected None Detect Urine Cocaine Screen None Detected None Detect Urine Opiates Screen None Detected None Detect Urine Phencyclidine Screen None Detected None Detect 16 Urinalysis Profile 12/18/2017 [facility] Urine Color Yellow [address] [place] [address] [phone] Urine Appearance Clear Urine Specific [place] 1.013 N 1.010-1.030 Urine pH 7.0 N 5-9 Urine Urobilinogen Negative Negative Urine Ketones Negative Negative Urine Protein Negative Negative Urine Leukocytes Negative Negative Urine Blood Negative Negative Urine Nitrite Negative Negative Urine Bilirubin Negative Negative Urine Glucose Negative Negative CBC Auto 12/18/2017 [facility] White Blood 13.2 10^3/uL High 3.5-10.[address] [place] [address] [phone] Red Blood Count 4.22 10^6/uL N 4.00-5.40 [...] Blood Cells % 0 Drug Abuse 11/28/2017 [facility] Urine Amphetamine Negative ng/ mL 17, 18 [address] [place] [address] [phone] Urine Barbiturates Negative ng/mL 19 Urine Benzodiazepines Negative ng/mL 20 Urine Cocaine Negative ng/mL 21 Urine Phencyclidine Negative ng/mL Cutoff: 25 Urine Tetrahydrocannabinol Negative ng/mL Cutoff: 50 22 Creatinine, Urine 32.5 mg/dL Specific [place] 1.005 pH 6.8 Oxidants Negative 23 Adulterants Comment Normal Codeine, Ur Not Detected ng/mL Cutoff: 25 24 Trijdxd-7-rzbb-glucuronide, Ur Not Detected ng/mL 25 Morphine, Ur Not Detected ng/mL Cutoff: 25 26 Umthloml-7-zdgv-glucuronide, U Not Detected ng/mL 27 6-monoacetylmorphine, Ur Not Detected ng/mL Cutoff: 25 28 Hydrocodone, Ur Not Detected ng/mL Cutoff: 25 29 Norhydrocodone, Ur Not Detected ng/mL Cutoff: 25 30 Dihydrocodeine, Ur Not Detected ng/mL Cutoff: 25 31 Hydromorphone, Ur Not Detected ng/mL Cutoff: 25 32 Oqyswgidhbdft3duegrrnygbpjruy Not Detected ng/mL 33 Oxycodone, Ur Not Detected ng/mL Cutoff: 25 34 Noroxycodone, Ur Not Detected ng/mL Cutoff: 25 35 Oxymorphone, Ur Not Detected ng/mL Cutoff: 25 36 Nezaeswuqol-7-kcfo-glucuronide Not Detected ng/mL 37 Noroxymorphone, Ur Not Detected ng/mL Cutoff: 25 38 Fentanyl, Ur Not Detected ng/mL Cutoff: 2 39 Norfentanyl, Ur Not Detected ng/mL Cutoff: 2 40 Meperidine, Ur Not Detected ng/mL Cutoff: 25 41 Normeperidine, Ur Not Detected ng/mL Cutoff: 25 42 Naloxone, Ur Not Detected ng/mL Cutoff: 25 43 Ojrdwdqu-6-lrul-glucuronide, U Not Detected ng/mL 44 Methadone, Ur [...] Ur Not Detected ng/mL Cutoff: 50 52 Tamljfwdnc-kezs-bzetptkbcau, U Not Detected ng/mL 53 Buprenorphine, Ur Not Detected ng/mL Cutoff: 5 54 Norbuprenorphine, Ur Not Detected ng/mL Cutoff: 5 55 Norbuprenorphine glucuronide Not Detected ng/mL Cutoff: 20 56 Opioid Interpretation See Comment 57 CBC Auto Diff 05/25/2017 [facility] White Blood 4.9 10^3/uL N 3.5-10.[address] [place] [address] [phone] Red Blood Count 4.30 10^6/uL N 4.0-5.4 [...] Blood Cells % 0.1 Arthritis Panel 05/25/2017 [facility] Uric Acid 5.3 mg/dL N 2.3-6.[address] [place] [address] [phone] Erythrocyte Sed Rate 22 mm/Hr High 0-14 Rheumatoid Factor <15 IU/mL <15 58 Anti-Nuclear Antibody 0.2 U 59 Cyclic Citrullinated Peptide <15.6 U 60 Interpretation See Comment 61 1 Tobacco Classer: [id number] If is still suspected, please repeat test [...] mIU/mL 6 Critical Result LACT:2.3 Called to [id number] at: 19:54:15 by:[id number] Read back by:[id number] [facility] Severe Sepsis and Septic Shock Management [...] <50 ug/mL Toxic concentration: >120 ug/mL 9 [facility] Severe Sepsis and Septic Shock Management [...] [address]: Babak Molina MD Acct: [id number] Unit: [id number] AGE: 27 Location: ED Re12/19/17 SEX: F Status: DEP ER SPEC: [id number] VANCE: 12/19/[address]: Babak Molina MD REQ: [id number] RECD: 12/19/17 STATUS: LINETTE GAMINO DR: Mando Benítez MD _ SOURCE: URINE [facility]: ORDERED: Urine Culture Procedure Result Reported Site Urine Culture Final 12/21/17- 826 ML Organism 1 ESCHERICHIA COLI [place] Count 75-100,000 (Many) CFU/ML Organism 2 NORMAL MIL [place] Count 75-100,000 (Many) CFU/ML 1. ESCHERICHIA COLI [...] . END OF REPORT DEPARTMENT OF PATHOLOGY, [address] [place] [address] Dylan Laurent M.D. Director [facility] # [id number] 13 Because ethnic data is not always readily [...] 15-29 5 Kidney failure <15 (or dialysis) 14 <5.0 Negative 5.0 - 25.0 Indeterminate (Repeat testing recommended after 72 hours) >25.0 Positive Perimenopausal women can display HCG levels of up to 20 mIU/mL 15 Therapeutic concentration: <50 ug/mL Toxic concentration: >120 ug/mL 16 The urine specimen was tested at the listed cutoffs: Drug class test level (ng/mL) Amphetamines 500 Barbiturates 200 Benzodiazepine metabolites 200 Cocaine metabolites 150 Cannabinoids 50 Opiates 300 Pcp 25 Specimen was received without chain of custody. Results should be used for medical purposes only. 17 [id number] 18 REFERENCE VALUE Cutoff: 500 19 REFERENCE [...] 100 28 Metabolite of heroin 29 Lortab, [place], Vicodin; Also a very minor metabolite of [...] developed and its performance characteristics determined by [facility] in a manner consistent with CLIA requirements. This test has not been cleared or approved by the U.S. Food and Drug Administration. Test Performed by: [facility] [address] [place] [address] 58 Test Performed by: [facility] - [address] [address] 59 REFERENCE VALUE <=1.0 (Negative) 60 REFERENCE VALUE <20.0 (Negative) 61 Tests for antibodies to dsDNA and MARY antigens are not performed automatically unless the BRIGITTE result is > or= 3.0 U. Studies performed at [facility] indicate that positive BRIGITTE results <3.0 U are rarely accompanied by positive second order tests. Test Performed by: [facility] - [address] [address] Procedures Date Code Description Status 04/20/2017 50352 EKG Tracing & Interpretation Completed 04/13/2017 00269 EEG Monitoring Computer Completed 03/21/2017 38924 ECHO Stress Test Incl Perf Contiuous ekg Monitoring W/Phys Completed Superv 03/16/2017 68319 EEG Recording Awake & Drowsy Completed 03/05/2017 23815 ECHO Transthorasic Realtime 2D W Doppler & Color Flow Hosp Completed 03/03/2017 32880 EKG Tracing & Interpretation Completed 11/06/2012 87806 Color Flow Doppler/Interp & Reprt Completed 11/06/2012 80912 Pulse Wave/Continuous-Interp.RPT Completed 11/06/2012 40909 ECHO Transthorasic Realtime 2D W Doppler & Color Flow Hosp Completed 10/30/2008 44931 Holter Monitor Interpretation Completed Encounters Type Date Location Provider Dx Diagnosis Office Visit 05/28/2018 [facility] Internal Mando Benítez, Z00.00 Encntr for general 4:20p Dakota Cardenas M.D. adult medical exam Rd w/o abnormal findings E66.9 Obesity, unspecified J45.909 Unspecified asthma, uncomplicated J30.9 Allergic rhinitis, unspecified H61.23 Impacted cerumen, bilateral Office Visit 05/16/2018 2:40p [facility] Internal Suma Rangel, R68.84 Jaw pain Medicine - [place] N.P. M25.559 Pain in unspecified hip Office Visit 05/03/2018 1:45p Orthopedic Camryn Jolley, M16.2 Bilateral Services Of osteoarthritis C.M.A. resulting from hip dysplasia M24.852 Oth specific joint derangements of left hip, NEC M24.851 Oth specific joint derangements of right hip, NEC Office Visit 02/14/2018 [facility] Juancho Gilmore M16.2 Bilateral 1:40p Dakota Benítez M.D. osteoarthritis [place] resulting from hip dysplasia Office Visit 01/10/2018 [facility] Juancho Gilmore F31.9 Bipolar disorder, 4:00p Dakota Benítez M.D. unspecified [place] M25.559 Pain in unspecified hip E66.01 Morbid (severe) obesity due to excess calories Office Visit 11/28/2017 [facility] Juancho Gilmore M16.2 Bilateral 3:20p Dakota Benítez M.D. osteoarthritis [address] resulting from hip dysplasia E28.2 Polycystic ovarian syndrome F31.9 Bipolar disorder, unspecified J45.909 Unspecified asthma, uncomplicated Office Visit 10/10/2017 Orthopedic Walter Hector S46.012A Strain of 10:15a Services Of MD Chris musc/tend the C.M.A. rotator cuff of left shoulder, init Office Visit 09/05/2017 Orthopedic Camryn Jolley, M24.851 Oth specific joint 10:15a Services Of derangements of C.M.A. right hip, NEC M24.852 Oth specific joint derangements of left hip, [facility] [place] Office Visit 07/18/2017 10:15a Orthopedic Camryn Jolley, M24.851 Oth specific joint Services Of derangements of C.M.A. right hip, NEC M24.852 Oth specific joint derangements of left hip, [facility] Office Visit 07/04/2017 10:30a Orthopedic Camryn Jolley, [...] Office Visit 05/24/2017 9:15a Orthopedic Services Loly Ashley, M25.552 Pain in left Of C.M.A. M.D. 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 R07.9 Chest pain, unspecified R42 Dizziness and giddiness Office Visit 04/06/2017 [facility] Lisa Fitzgerald MD R40.4 Transient 9:30a Clinic alteration of awareness [facility] R55 Syncope and 1:24p Assoc,pc Hospitalists HE, [place] collapse F41.9 Anxiety disorder, unspecified F31.9 Bipolar disorder, unspecified E28.2 Polycystic ovarian syndrome Office Visit 03/03/2017 9:40a [facility] [place] Heredia R07.9 Chest pain, Of Raf Newsome unspecified R42 Dizziness and giddiness R55 Syncope and collapse E28.2 Polycystic ovarian syndrome Plan of Treatment Future Appointment(s):07/09/2018 3:00 pm - Mando Benítez M.D. at [facility] Internal Medicine - [address]/20/2018 - Avery Felix.P.M25.559 Pain in unspecified hipNew Medication:Tylenol With Codeine #3 300-30 mg - 1 tablet by mouth every 8 hours as needed coughComments:For your pain I have prescribed Tylenol with Codeine. You may take 1 tablet every 8 hours. You have enough to last a full week. Be sure to avoid taking Acetaminophen in addition to this.You need to keep your appointment with Dr Dinh for your chronic pain management. Keep you appointment with your specialist.
--- OUTSIDE RECORDS SUMMARY | 2018-06-22 14:39 | XMS REPORT | Continuity of Care Document ---
:1990 External Reference #:[id number] Author Name Christiane Dudley Care Team Providers Name Role Phone Mando Benítez MD Primary Care Physician Unavailable Payers Type Date Identification Numbers Payment Provider Subscriber Effective: Policy Number: [id number] [employer] Kindra León 2017 Medicaid PayID: [id number] [address] Advance Directives Description No Information Available Problems [...] Romero mouth every 8 hours as needed Galliano Active Tablets ER 450mg 2 tablet by [...] mouth Unknown /0000 every day - 05/28 Galliano Hx Capsules 600mg 1 by mouth [place] Carbonate /0000 at bedtime Jeyson Orourke M.D. 05/28 Immunizations CPT Code Status Date Vaccine Lot # 12811 Given 05/16/2018 Influenza Virus Vaccine, Quadrivalent, Split, [...] Result H/L Range Note Laboratory test 03/14/2018 [facility] Poc Negative Negative [address] , [place] [address] Urine [phone] CBC Auto Diff 12/22/2017 [facility] White Blood 13.2 10^3/uL High 3.5-10.[address] [place] [address] [phone] Red Blood Count 4.14 10^6/uL N 4.00-5.40 [...] Blood Cells % 0 Urine Drug 12/22/2017 [facility] Amphetamine Ur None Detected None Detect SCR ED & [address] [place] [address] [phone] Barbiturates Urine Screen None Detected None Detect Benzodiazepine Urine Screen None Detected None Detect Urine Cannabinoids Screen None Detected None Detect Urine Cocaine Screen None Detected None Detect Urine Opiates Screen None Detected None Detect Urine Phencyclidine Screen None Detected None Detect 2 Urinalysis Profile 12/22/2017 [facility] Urine Color Yellow [address] [place] [address] [phone] Urine Appearance Cloudy Urine Specific [place] 1.010 N 1.010-1.030 Urine pH 6.0 N 5-9 Urine Urobilinogen Negative Negative Urine Ketones Negative Negative Urine Protein Negative Negative Urine Leukocytes Negative Negative Urine Blood Negative Negative Urine Nitrite Negative Negative Urine Bilirubin Negative Negative Urine Glucose Negative Negative Comp Metabolic Panel 12/22/2017 [facility] Sodium 137 mmol/L N 135-145 [address] [place] [address] [phone] Potassium 4.0 mmol/L N 3.5-5.0 Chloride 102 [...] Egfr 122.4 >60 3 Laboratory test 12/22/2017 [facility] Acetaminophen < 15 g/mL 4 finding [address] [place] [address] [phone] Alcohol < 10 mg/dL N <10 Salicylate < 2.50 mg/dL <30 TSH (Thyroid Stim Horm) 3.84 mcIU/mL N 0.34-5.60 Galliano 0.51 mmol/L Low 0.6-1.2 HCG < 0.60 mIU/mL 5 Laboratory test 12/19/2017 [facility] Lactic Acid 2.3 mmol/L High 0.5-2.0 6 finding [address] [place] [address] [phone] CBC Auto Diff 12/19/2017 [facility] White Blood 10.9 High 3.5- 10.[address] Count 10^3/[place] [address] [phone] Red Blood Count 4.17 10^6/uL N 4.00-5.40 [...] Cells % 0 Comp Metabolic Panel 12/19/2017 [facility] Sodium 138 mmol/L N 135-145 [address] [place] [address] [phone] Potassium 3.8 mmol/L N 3.5-5.0 Chloride 102 [...] Egfr 118.5 >60 7 Laboratory test 12/19/2017 [facility] Galliano 0.18 mmol/L Low 0.6-1.[address] [place] [address] [phone] Acetaminophen < 15 g/mL 8 Alcohol < 10 mg/dL N <10 Salicylate < 2.50 mg/dL <30 TSH (Thyroid Stim Horm) 1.33 mcIU/mL N 0.34-5.60 Lactic Acid 5.2 mmol/L High 0.5-2.0 9 Urinalysis Profile 12/19/2017 [facility] Urine Color Yellow [address] [place] [address] [phone] Urine Appearance Cloudy Urine Specific [place] 1.020 N 1.010-1.030 Urine pH 5.0 N [...] Cell Present Abnormal Absent Urine Drug 12/19/2017 [facility] Amphetamine Ur None Detected None Detect SCR ED & [address] [place] [address] [phone] Barbiturates Urine Screen None Detected None Detect Benzodiazepine Urine Screen None Detected None Detect Urine Cannabinoids Screen None Detected None Detect Urine Cocaine Screen None Detected None Detect Urine Opiates Screen None Detected None Detect Urine Phencyclidine Screen None Detected None Detect 11 Urine Culture And 12/19/2017 [facility] Urine Culture SEE RESULT [address] [place] [address] [phone] Comp Metabolic 12/18/2017 [facility] Sodium 136 mmol/L N 135- [address] [place] [address] [phone] Potassium 3.9 mmol/L N 3.5-5.0 Chloride 100 [...] Egfr 128.7 >60 13 Laboratory test 12/18/2017 [facility] HCG < 0.60 mIU/ mL [address] [place] [address] [phone] Acetaminophen < 15 g/mL 15 Alcohol < 10 mg/dL N <10 Salicylate < 2.50 mg/dL <30 TSH (Thyroid Stim Horm) 4.07 mcIU/mL N 0.34-5.60 Urine Drug 12/18/2017 [facility] Amphetamine Ur None Detected None Detect SCR ED & [address] [place] [address] [phone] Barbiturates Urine Screen None Detected None Detect Benzodiazepine Urine Screen None Detected None Detect Urine Cannabinoids Screen None Detected None Detect Urine Cocaine Screen None Detected None Detect Urine Opiates Screen None Detected None Detect Urine Phencyclidine Screen None Detected None Detect 16 Urinalysis Profile 12/18/2017 [facility] Urine Color Yellow [address] [place] [address] [phone] Urine Appearance Clear Urine Specific [place] 1.013 N 1.010-1.030 Urine pH 7.0 N 5-9 Urine Urobilinogen Negative Negative Urine Ketones Negative Negative Urine Protein Negative Negative Urine Leukocytes Negative Negative Urine Blood Negative Negative Urine Nitrite Negative Negative Urine Bilirubin Negative Negative Urine Glucose Negative Negative CBC Auto 12/18/2017 [facility] White Blood 13.2 10^3/uL High 3.5-10.[address] [place] [address] [phone] Red Blood Count 4.22 10^6/uL N 4.00-5.40 [...] Blood Cells % 0 Drug Abuse 11/28/2017 [facility] Urine Amphetamine Negative ng/ mL 17, 18 [address] [place] [address] [phone] Urine Barbiturates Negative ng/mL 19 Urine Benzodiazepines Negative ng/mL 20 Urine Cocaine Negative ng/mL 21 Urine Phencyclidine Negative ng/mL Cutoff: 25 Urine Tetrahydrocannabinol Negative ng/mL Cutoff: 50 22 Creatinine, Urine 32.5 mg/dL Specific [place] 1.005 pH 6.8 Oxidants Negative 23 Adulterants Comment Normal Codeine, Ur Not Detected ng/mL Cutoff: 25 24 Zqgndzo-9-qlyd-glucuronide, Ur Not Detected ng/mL 25 Morphine, Ur Not Detected ng/mL Cutoff: 25 26 Itkinoyh-7-qhpz-glucuronide, U Not Detected ng/mL 27 6-monoacetylmorphine, Ur Not Detected ng/mL Cutoff: 25 28 Hydrocodone, Ur Not Detected ng/mL Cutoff: 25 29 Norhydrocodone, Ur Not Detected ng/mL Cutoff: 25 30 Dihydrocodeine, Ur Not Detected ng/mL Cutoff: 25 31 Hydromorphone, Ur Not Detected ng/mL Cutoff: 25 32 Duxhpdhzvxwdj9fplsnixgdxjsmvo Not Detected ng/mL 33 Oxycodone, Ur Not Detected ng/mL Cutoff: 25 34 Noroxycodone, Ur Not Detected ng/mL Cutoff: 25 35 Oxymorphone, Ur Not Detected ng/mL Cutoff: 25 36 Golsqsbpmxw-3-fgak-glucuronide Not Detected ng/mL 37 Noroxymorphone, Ur Not Detected ng/mL Cutoff: 25 38 Fentanyl, Ur Not Detected ng/mL Cutoff: 2 39 Norfentanyl, Ur Not Detected ng/mL Cutoff: 2 40 Meperidine, Ur Not Detected ng/mL Cutoff: 25 41 Normeperidine, Ur Not Detected ng/mL Cutoff: 25 42 Naloxone, Ur Not Detected ng/mL Cutoff: 25 43 Ovjnorck-0-crni-glucuronide, U Not Detected ng/mL 44 Methadone, Ur [...] Ur Not Detected ng/mL Cutoff: 50 52 Npgkpwcyir-pqbg-xqeoliihrsf, U Not Detected ng/mL 53 Buprenorphine, Ur Not Detected ng/mL Cutoff: 5 54 Norbuprenorphine, Ur Not Detected ng/mL Cutoff: 5 55 Norbuprenorphine glucuronide Not Detected ng/mL Cutoff: 20 56 Opioid Interpretation See Comment 57 CBC Auto Diff 05/25/2017 [facility] White Blood 4.9 10^3/uL N 3.5-10.[address] [place] [address] [phone] Red Blood Count 4.30 10^6/uL N 4.0-5.4 [...] Blood Cells % 0.1 Arthritis Panel 05/25/2017 [facility] Uric Acid 5.3 mg/dL N 2.3-6.[address] [place] [address] [phone] Erythrocyte Sed Rate 22 mm/Hr High 0-14 Rheumatoid Factor <15 IU/mL <15 58 Anti-Nuclear Antibody 0.2 U 59 Cyclic Citrullinated Peptide <15.6 U 60 Interpretation See Comment 61 1 Pill Coater: [id number] If is still suspected, please repeat test [...] mIU/mL 6 Critical Result LACT:2.3 Called to [id number] at: 19:54:15 by:[id number] Read back by:[id number] [facility] Severe Sepsis and Septic Shock Management [...] <50 ug/mL Toxic concentration: >120 ug/mL 9 [facility] Severe Sepsis and Septic Shock Management [...] [address]: Babak Molina MD Acct: [id number] Unit: [id number] AGE: 27 Location: ED Re12/19/17 SEX: F Status: DEP ER SPEC: [id number] VANCE: 12/19/[address]: Babak Molina MD REQ: [id number] RECD: 12/19/17 STATUS: LINETTE GAMINO DR: Mando Benítez MD _ SOURCE: URINE [facility]: ORDERED: Urine Culture Procedure Result Reported Site Urine Culture Final 12/21/17- 826 ML Organism 1 ESCHERICHIA COLI Marine Count 75-100,000 (Many) CFU/ML Organism 2 NORMAL MIL Marine Count 75-100,000 (Many) CFU/ML 1. ESCHERICHIA COLI [...] . END OF REPORT DEPARTMENT OF PATHOLOGY, [address] [place] [address] Dylan Laurent M.D. Director [facility] # [id number] 13 Because ethnic data is not always [...] be used for medical purposes only. 17 [id number] 18 REFERENCE VALUE Cutoff: 500 19 REFERENCE [...] 100 28 Metabolite of heroin 29 Lortab, [place], Vicodin; Also a very minor metabolite of [...] developed and its performance characteristics determined by [facility] in a manner consistent with CLIA requirements. This test has not been cleared or approved by the U.S. Food and Drug Administration. Test Performed by: [facility] - [facility] [address] [place] [address] 58 Test Performed by: [facility] - [address] [address] 59 REFERENCE VALUE <=1.0 (Negative) 60 REFERENCE VALUE <20.0 (Negative) 61 Tests for antibodies to dsDNA and MARY antigens are not performed automatically unless the BRIGITTE result is > or= 3.0 U. Studies performed at [facility] indicate that positive BRIGITTE results <3.0 U are rarely accompanied by positive second order tests. Test Performed by: [facility] - [address] [address] Procedures Date Code Description Status 04/20/2017 02571 EKG Tracing & Interpretation Completed 04/13/2017 95374 EEG Monitoring Computer Completed 03/21/2017 45019 ECHO Stress Test Incl Perf Contiuous ekg Monitoring W/Phys Completed Superv 03/16/2017 71194 EEG Recording Awake & Drowsy Completed 03/05/2017 34552 ECHO Transthorasic Realtime 2D W Doppler & Color Flow Hosp Completed 03/03/2017 87458 EKG Tracing & Interpretation Completed 11/06/2012 91865 Color Flow Doppler/Interp & Reprt Completed 11/06/2012 57223 Pulse Wave/Continuous-Interp.RPT Completed 11/06/2012 62010 ECHO Transthorasic Realtime 2D W Doppler & Color Flow Hosp Completed 10/30/2008 66189 Holter Monitor Interpretation Completed Encounters Type Date Location Provider Dx Diagnosis Office Visit 05/28/2018 [facility] Internal Mando Benítez, Z00.00 Encntr for general 4:20p Dakota Cardenas M.D. adult medical exam Rd w/o abnormal findings E66.9 Obesity, unspecified J45.909 Unspecified asthma, uncomplicated J30.9 Allergic rhinitis, unspecified H61.23 Impacted cerumen, bilateral Office Visit 05/16/2018 2:40p [facility] Internal Suma Rangel, R68.84 Jaw pain Medicine - [place] [facility] 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 osteoarthritis [place] resulting from hip dysplasia Office Visit 01/10/2018 [facility] Juancho Gilmore F31.9 Bipolar disorder, 4:00p Dakota Benítez M.D. unspecified [place] M25.559 Pain in unspecified hip E66.01 Morbid (severe) obesity due to excess calories Office Visit 11/28/2017 [facility] Juancho Gilmore M16.2 Bilateral 3:20p Dakota Beníetz M.D. osteoarthritis [address] resulting from hip [...] Oth specific joint derangements of left hip, [place] Office Visit 07/18/2017 10:15a Orthopedic Camryn Jolley, M24.851 Oth specific joint Services Of derangements of C.M.A. right hip, NEC M24.852 Oth specific joint derangements of left hip, [place] Office Visit 07/04/2017 10:30a Orthopedic Camryn Jolley, [...] with seizures or convulsions Office Visit 04/20/2017 [facility] R55 Syncope and 2:45p hannah Valentine M.D. R07.9 Chest pain, unspecified R42 Dizziness and giddiness Office Visit 04/06/2017 [facility] Lisa Fitzgerald MD R40.4 Transient 9:30a Clinic alteration of awareness Office Visit [facility] [place] R55 Syncope and 1:24p Assoc,pc Hospitalists [place], [place] collapse F41.9 Anxiety disorder, unspecified F31.9 Bipolar disorder, unspecified E28.2 Polycystic ovarian syndrome Office Visit 03/03/2017 9:40a [facility] [place] Heredia R07.9 Chest pain, Of Raf Newsome unspecified R42 Dizziness and giddiness R55 Syncope and collapse E28.2 Polycystic ovarian syndrome Plan of Treatment Future Appointment(s):07/09/2018 3:00 pm - Mando Benítez M.D. at [facility] Internal Medicine - [address]/20/2018 - Avery [...]
--- OUTSIDE RECORDS SUMMARY | 2018-06-22 14:39 | XMS REPORT | Continuity of Care Document ---
:1990 External Reference #:[id number] Author Name Bela Chapman Care Team Providers Name Role Phone Mando Benítez MD Primary Care Physician Unavailable Payers Type Date Identification Numbers Payment Provider Subscriber Effective: Policy Number: [id number] [employer] Kindra León 2017 Medicaid PayID: [id number] [place] [id number] Advance Directives Description No Information Available Problems [...] Member(s) Problem(s) Comments General Heart Disease Mother [place] bilogical mother Mother Epilepsy Social History Type Date Description Comments Sex Unknown Marital Status Single Lives With Family Lives With 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 ETOH Use Denies alcohol use ETOH Use Denies alcohol use Recreational Drug Use Sporadically uses Marijuana Tobacco Use Start: Unknown Heavy tobacco smoker (more than 10 cigarettes/day) Smoking Status Reviewed: 05/28/18 Heavy tobacco smoker (more than 10 cigarettes/day) Exercise Type/Frequency Exercises sporadically Exercise Type/Frequency Exercises sporadically Allergies, Adverse Reactions, Alerts Date Description Reaction Status Severity Comments 03/03/2017 Tramadol Nausea and Vomiting Active Moderate 10/10/2017 Penicillins Active 04/06/2017 Penicillin ichiness Active Medications Medication Date Status Form Strength Qnty SIG Indications Ordering Provider Fluticasone 05/28 Active Suspension 50mcg/Act 9.900 2 sprays J30.9 ml each Pachikara nostril , M.DLuna daily Tramadol HCL 05/16 Active Tablets 50mg 30tab 1 tablet M25.559 s three to Pachikara four times , M.D. daily as needed Lidoderm 05/15 Active Patches 5% 30uni 1 patch on ts for 12 hrs Pachikara and then , M.D. off 12 hrs Acetaminophen 02/14 Active Tablets 500mg 180ta 2 tab 3 M16.2 bs times daily Pachikara as needed , M.DLuna Walker 01/10 Active Misc 1unit walker with M25.559 s seat, use Pachikara for , M.D. ambulation. dx code M25.559 Qvar 12/12 Active Aerosol 80mcg/Act 8.700 2 puffs gm inhalation Pachikara twice a day , [place] Singulair Active Tablets 10mg 30tab 1 by mouth s every day [place] Benítez Folic Acid Active Tablets 400mcg take one tablet by mouth every day (supplement ) Metformin HCL Active Tablets 500mg 60tab 1 by mouth s twice a day Pachikara , M.D. Ondansetron HCL Active Tablets 4mg 14tab one by Mando / s mouth every Pachikara 6 hours as , M.D. needed for nausea Levalbuterol HCL Active Nebulizer 0.63mg/3M 72ml 1 amp 8h as [place] L needed Merced[place] Benítez Day Time/Nite Active Misc (Liquid) as needed Unknown Time Cold & /0000 Flu Relief Cyclobenzaprine Active Tablets 10mg 30tab take one [place] HCL / s tablet by Pachikara mouth every , M.D. 8 hours as needed [place] Active Tablets ER 450mg 2 tablet by Unknown Carbonate ER / mouth in the evening Clindamycin HCL 05/16 Hx Capsules 300mg 14cap one po bid R68.84 s x 7 days Varn, - N.P. 05/23 Oxycodone HCL 02/14 Hx Tablets 5mg 30tab 1 by mouth M16.2 s every 12 Pachikara - hours as , M.DLuna 05/15 needed Naproxen 02/14 Hx Tablets 375mg 30tab twice a day M16.2 s with food Pachika - , M.DLuna 02/14 Oxycodone HCL 11/28 Hx Tablets 5mg 30tab 1 by mouth M16.2 s every 12 Pachikara - hours as , M.D. 01/11 needed /2017 No Active 10/10 Hx Unknown Medications /2017 - 10/10 Ibuprofen 07/04 Hx Tablets 600mg 60tab take 1 by s mouth every Pachikara - 8 hours as , M.D. 01/10 needed for /2017 pain Percocet Hx Tablets 5-325mg 1-2 by Unknown /0000 mouth every - 4-6 hours 03/02 as needed /2016 pain Xopenex Hx Nebulizer 0.63mg/3M 8hourly as Unknown /0000 L needed - 04/05 Tizanidine HCL Hx Capsules 4mg 3 times a Unknown /0000 day as - needed 11/28 Lexapro Hx Tablets 5mg 1 by mouth Unknown /0000 every day - 03/03 Strattera 00 Hx Capsules 80mg 1 by mouth Unknown [...] Hx Aerosol 220mcg/Ac 12gm inhale two J45.909 [place] /0000 t puffs by Jeyson - mouth twice , M.DLuna 12/12 Lexapro Hx Tablets 10mg 1 by [...] /0.01 mg Control - (13/11) 11/28 Latuda 00 Hx Tablets 20mg 1 by mouth Unknown /0000 every day - 05/28 [place] Hx Capsules 600mg 1 by mouth Mando at bedtime Jeyson Orourke M.D. 05/28 Immunizations CPT Code Status Date Vaccine Lot # 63061 Given 05/16/2018 Influenza Virus Vaccine, Quadrivalent, Split, Preservative Free Vital Signs Date Vital Result Comment 05/28/2018 4:31pm Height 62 inches 5'2" Weight [...] Negative [address] , [place] [address] Urine [phone] CBC Auto Diff 12/22/2017 [facility] White Blood 13.2 10^3/uL High 3.5-10.[address] [place] [address] [phone] Red Blood Count 4.14 10^6/uL N 4.00-5.40 [...] ED & [address] [place] [address] [phone] Barbiturates Urine Screen None Detected None Detect Benzodiazepine Urine Screen None Detected None Detect Urine Cannabinoids Screen None Detected None Detect Urine Cocaine Screen None Detected None Detect Urine Opiates Screen None Detected None Detect Urine Phencyclidine Screen None Detected None Detect 2 Urinalysis Profile 12/22/2017 [facility] Urine Color Yellow [address] [place] [address] [phone] Urine Appearance Cloudy Urine Specific [place] 1.010 N 1.010-1.030 Urine pH 6.0 N 5-9 Urine Urobilinogen Negative Negative Urine Ketones Negative Negative Urine Protein Negative Negative Urine Leukocytes Negative Negative Urine Blood Negative Negative Urine Nitrite Negative Negative Urine Bilirubin Negative Negative Urine Glucose Negative Negative Comp Metabolic Panel 12/22/2017 [facility] Sodium 137 mmol/L N 135-145 [address] [place] [address] [phone] Potassium 4.0 mmol/L N 3.5-5.0 Chloride 102 [...] Acetaminophen < 15 g/mL [address] [place] [address] [phone] Alcohol < 10 mg/dL N <10 Salicylate < 2.50 mg/dL <30 TSH (Thyroid Stim Horm) 3.84 mcIU/mL N 0.34-5.60 [place] 0.51 mmol/L Low 0.6-1.2 HCG < 0.60 mIU/mL 5 Laboratory test 12/19/2017 [facility] Lactic Acid 2.3 mmol/L High 0.5-2.[address] [place] [address] [phone] CBC Auto Diff 12/19/2017 [facility] White Blood 10.9 High 3.5- 10.[address] Count 10^3/[place] [address] [phone] Red Blood Count 4.17 10^6/uL N 4.00-5.40 [...] Sodium 138 mmol/L N 135-145 [address] [place] [address] [phone] Potassium 3.8 mmol/L N 3.5-5.0 Chloride 102 [...] 7 Laboratory test 12/19/2017 [facility] [place] 0.18 mmol/L Low 0.6-1.2 [address] [place] [address] [phone] Acetaminophen < 15 g/mL 8 Alcohol < 10 mg/dL N <10 Salicylate < 2.50 mg/dL <30 TSH (Thyroid Stim Horm) 1.33 mcIU/mL N 0.34-5.60 Lactic Acid 5.2 mmol/L High 0.5-2.0 9 Urinalysis Profile 12/19/2017 [facility] Urine Color Yellow [address] [place] [address] [phone] Urine Appearance Cloudy Urine Specific [place] 1.020 N 1.010-1.030 Urine pH 5.0 N [...] & [address] [place] [address] [phone] Barbiturates Urine Screen None Detected None Detect Benzodiazepine Urine Screen None Detected None Detect Urine Cannabinoids Screen None Detected None Detect Urine Cocaine Screen None Detected None Detect Urine Opiates Screen None Detected None Detect Urine Phencyclidine Screen None Detected None Detect 11 Urine Culture And 12/19/2017 [facility] Urine Culture SEE RESULT [address] [place] [address] [phone] Comp Metabolic 12/18/2017 [facility] Sodium 136 mmol/L N 135- [address] [place] [address] [phone] Potassium 3.9 mmol/L N 3.5-5.0 Chloride 100 [...] mIU/ mL [address] [place] [address] [phone] Acetaminophen < 15 g/mL 15 Alcohol < 10 mg/dL N <10 Salicylate < 2.50 mg/dL <30 TSH (Thyroid Stim Horm) 4.07 mcIU/mL N 0.34-5.60 Urine Drug 12/18/2017 [facility] Amphetamine Ur None Detected None Detect SCR ED & [address] [place] [address] [phone] Barbiturates Urine Screen None Detected None Detect Benzodiazepine Urine Screen None Detected None Detect Urine Cannabinoids Screen None Detected None Detect Urine Cocaine Screen None Detected None Detect Urine Opiates Screen None Detected None Detect Urine Phencyclidine Screen None Detected None Detect 16 Urinalysis Profile 12/18/2017 [facility] Urine Color Yellow [address] [place] [address] [phone] Urine Appearance Clear Urine Specific [place] 1.013 N 1.010-1.030 Urine pH 7.0 N 5-9 Urine Urobilinogen Negative Negative Urine Ketones Negative Negative Urine Protein Negative Negative Urine Leukocytes Negative Negative Urine Blood Negative Negative Urine Nitrite Negative Negative Urine Bilirubin Negative Negative Urine Glucose Negative Negative CBC Auto 12/18/2017 [facility] White Blood 13.2 10^3/uL High 3.5-10.[address] [place] [address] [phone] Red Blood Count 4.22 10^6/uL N 4.00-5.40 [...] 17, 18 [address] [place] [address] [phone] Urine Barbiturates Negative ng/mL 19 Urine Benzodiazepines Negative ng/mL 20 Urine Cocaine Negative ng/mL 21 Urine Phencyclidine Negative ng/mL Cutoff: 25 Urine Tetrahydrocannabinol Negative ng/mL Cutoff: 50 22 Creatinine, Urine 32.5 mg/dL Specific [place] 1.005 pH 6.8 Oxidants Negative 23 Adulterants Comment Normal Codeine, Ur Not Detected ng/mL Cutoff: 25 24 Ewvvuls-9-iofc-glucuronide, Ur Not Detected ng/mL 25 Morphine, Ur Not Detected ng/mL Cutoff: 25 26 Jcftddre-0-fizc-glucuronide, U Not Detected ng/mL 27 6-monoacetylmorphine, Ur Not Detected ng/mL Cutoff: 25 28 Hydrocodone, Ur Not Detected ng/mL Cutoff: 25 29 Norhydrocodone, Ur Not Detected ng/mL Cutoff: 25 30 Dihydrocodeine, Ur Not Detected ng/mL Cutoff: 25 31 Hydromorphone, Ur Not Detected ng/mL Cutoff: 25 32 Nmoltghbirghd6genzbzgraxylwfd Not Detected ng/mL 33 Oxycodone, Ur Not Detected ng/mL Cutoff: 25 34 Noroxycodone, Ur Not Detected ng/mL Cutoff: 25 35 Oxymorphone, Ur Not Detected ng/mL Cutoff: 25 36 Yfmbdsyryys-5-zrnl-glucuronide Not Detected ng/mL 37 Noroxymorphone, Ur Not Detected ng/mL Cutoff: 25 38 Fentanyl, Ur Not Detected ng/mL Cutoff: 2 39 Norfentanyl, Ur Not Detected ng/mL Cutoff: 2 40 Meperidine, Ur Not Detected ng/mL Cutoff: 25 41 Normeperidine, Ur Not Detected ng/mL Cutoff: 25 42 Naloxone, Ur Not Detected ng/mL Cutoff: 25 43 Zrytwwdt-2-ggxz-glucuronide, U Not Detected ng/mL 44 Methadone, Ur [...] Ur Not Detected ng/mL Cutoff: 50 52 Uwrikgzxsv-tkeg-eiyevcwayat, U Not Detected ng/mL 53 Buprenorphine, Ur Not Detected ng/mL Cutoff: 5 54 Norbuprenorphine, Ur Not Detected ng/mL Cutoff: 5 55 Norbuprenorphine glucuronide Not Detected ng/mL Cutoff: 20 56 Opioid Interpretation See Comment 57 CBC Auto Diff 05/25/2017 [facility] White Blood 4.9 10^3/uL N 3.5-10.[address] [place] [address] [phone] Red Blood Count 4.30 10^6/uL N 4.0-5.4 [...] 5.3 mg/dL N 2.3-6.[address] [place] [address] [phone] Erythrocyte Sed Rate 22 mm/Hr High 0-14 Rheumatoid Factor <15 IU/mL <15 58 Anti-Nuclear Antibody 0.2 U 59 Cyclic Citrullinated Peptide <15.6 U 60 Interpretation See Comment 61 1 Skein Winder: [id number] If is still suspected, please repeat test [...] mIU/mL 6 Critical Result LACT:2.3 Called to [id number] at: 19:54:15 by:[id number] Read back by:[email or web address] [facility] Severe Sepsis and Septic Shock Management [...] <50 ug/mL Toxic concentration: >120 ug/mL 9 [facility] Severe Sepsis and Septic Shock Management [...] [address]: Babak Molina MD Acct: [id number] Unit: [id number] AGE: 27 Location: ED Re12/19/17 SEX: F Status: DEP ER SPEC: [id number] VNACE: 12/19/[address]: Babak Molina MD REQ: [id number] RECD: 12/19/17 STATUS: LINETTE GAMINO DR: Mando Benítez MD _ SOURCE: URINE SPDESC: ORDERED: Urine Culture Procedure Result Reported Site Urine Culture Final 12/21/17- 826 ML Organism 1 ESCHERICHIA COLI [place] Count 75-100,000 (Many) CFU/ML Organism 2 NORMAL MIL [place] Count 75-100,000 (Many) CFU/ML 1. ESCHERICHIA COLI [...] . END OF REPORT DEPARTMENT OF PATHOLOGY, [address] [place] [address] Dylan Laurent M.D. Director [facility] # [id number] 13 Because ethnic data is not always [...] be used for medical purposes only. 17 [id number] 18 REFERENCE VALUE Cutoff: 500 19 REFERENCE [...] 100 28 Metabolite of heroin 29 Lortab, [place], Vicodin; Also a very minor metabolite of [...] its performance characteristics determined by [facility] in a manner consistent with CLIA requirements. This test has not been cleared or approved by the U.S. Food and Drug Administration. Test Performed by: [facility] [address] [place] [address] 58 Test Performed by: [facility] - [address] [address] 59 REFERENCE VALUE <=1.0 (Negative) 60 REFERENCE VALUE <20.0 (Negative) 61 Tests for antibodies to dsDNA and MARY antigens are not performed automatically unless the BRIGITTE result is > or= 3.0 U. Studies performed at [facility] indicate that positive BRIGITTE results <3.0 U are rarely accompanied by positive second order tests. Test Performed by: [facility] - [address] [address] Procedures Date Code Description Status 04/20/2017 79653 EKG Tracing & Interpretation Completed 04/13/2017 37915 EEG Monitoring Computer Completed 03/21/2017 11438 ECHO Stress Test Incl Perf Contiuous ekg Monitoring W/Phys Completed Superv 03/16/2017 22892 EEG Recording Awake & Drowsy Completed 03/05/2017 36395 ECHO Transthorasic Realtime 2D W Doppler & Color Flow Hosp Completed 03/03/2017 62340 EKG Tracing & Interpretation Completed 11/06/2012 20537 Color Flow Doppler/Interp & Reprt Completed 11/06/2012 37827 Pulse Wave/Continuous-Interp.RPT Completed 11/06/2012 84042 ECHO Transthorasic Realtime 2D W Doppler & Color Flow Hosp Completed 10/30/2008 38733 Holter Monitor Interpretation Completed Encounters Type Date Location Provider Dx Diagnosis Office Visit 05/16/2018 [facility] Internal Avery Felix.Allie R68.84 Jaw pain 2:40p [facility] M25.559 Pain in unspecified hip Office Visit 05/03/2018 1:45p Orthopedic Camryn Jolley, 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 osteoarthritis [place] resulting from hip dysplasia Office Visit 01/10/2018 [facility] Internal Mando F31.9 Bipolar disorder, 4:00p Dakota Benítez M.D. unspecified [place] M25.559 Pain in unspecified hip E66.01 Morbid (severe) obesity due to excess calories Office Visit 11/28/2017 [facility] Internal Mando M16.2 Bilateral 3:20p Dakota Benítez M.D. osteoarthritis [...] NEC Office Visit 07/18/2017 10:15a Orthopedic Camryn Jolley M24.851 Oth specific joint Services Of derangements of C.M.A. right hip, NEC M24.852 Oth specific joint derangements of left hip, NEC Office Visit 07/04/2017 10:30a Orthopedic Camryn Jolley M24.851 Oth specific joint Services Of derangements [...] with seizures or convulsions Office Visit 04/20/2017 [facility] R55 Syncope and 2:45p [facility] hannah Heredia M.D. R07.9 Chest pain, unspecified R42 Dizziness and giddiness Office Visit 04/06/2017 [facility] Lisa Fitzgerald MD R40.4 Transient 9:30a Clinic alteration of awareness Office Visit 03/05/2017 [facility] Yana R55 Syncope and 1:24p Assoc, Hospitalists [place] CUTLER collapse F41.9 Anxiety disorder, unspecified F31.9 Bipolar disorder, unspecified E28.2 Polycystic ovarian syndrome Office Visit 03/03/2017 9:40a [facility] Shona Heredia R07.9 Chest pain, Of Raf Newsome unspecified R42 Dizziness and giddiness R55 Syncope and collapse E28.2 Polycystic ovarian syndrome Plan of Treatment Future Appointment(s):07/09/2018 3:00 pm - Mando Benítez M.D. at [facility] Internal Medicine - [address]05/28/2018 - Mando Benítez M.D.Z00.01 Encounter for general adult medical examination with abnormaComments:You should have yearly Flu shot and T dap every 10 years. Exercise 30mts/day 5 times a week,Use sun screen, to prevent skin cancer discussed.Self breast exam once a month to feel for lumps or bumpsFollow up:6 boockO64.9 Obesity, jblsuamzecjU05.909 Unspecified asthma, uncomplicatedNew Orders:PFT W/Bronchodilator,Spirometry, Volumes, Ordered: 05/28/18J30.9 Allergic rhinitis, unspecifiedNew Medication: Fluticasone Propionate 50 mcg/Act - 2 sprays each nostril ovvciM62.23 Impacted cerumen, bilateralComments:Put deborax ear drops in each ear, lie down for 5 mts on opposite side for 10 mts. Do it for 10 days. After 10 days call for nurse visit for flushing the ear.
[2018-06-22] MEDS ORDERED: Acetaminophen TAB* 325 MG PO ONE (16:59)
--- NOTE | 2018-06-22 17:09 | ED ---
Lower Extremity - HPI Summary HPI Summary: Patient is a 27-year-old female presenting to the ED with a complaint of shortness of breath this morning after smoking a cigarette, which is resolved just prior to arrival. She also endorses bilateral hip pain and is requesting tramadol until her pharmacy opens 5 days from now. She is not been taking ibuprofen due to her lithium. She took one Tylenol without relief. She has not been using heating pads to the area. She is well-[place] to [facility] [place] including hip pain. Denies fevers, sweats, chills. Denies any cough with production. Denies any chest pain. - History of Current Complaint Chief Complaint: EDFluSymptoms Stated Complaint: ABD PAIN,DIZZINESS, Time Seen by Provider: 06/22/18 15:34 Hx Obtained From: Patient Hx Last Menstrual Period: 02/05/18 Severity Initially: Moderate Severity Currently: Moderate Pain Intensity: 6 Pain Scale Used: 0-10 Numeric Timing: Constant Location: Is Discrete @ - bilateral hip pain Associated Signs And Symptoms: Negative: Swelling, Redness, Bruising, Dizziness Aggravating Factor(s): Standing, Ambulation Alleviating Factor(s): Rest Able to Bear Weight: Yes - Allergies/Home Medications Allergies/Adverse Reactions: Allergies Allergy/AdvReac Type Severity Reaction Status Date / Time Penicillins Allergy Itching Verified 06/17/18 18:57 PMH/Surg Hx/FS Hx/Imm Hx Previously Healthy: Yes Endocrine/Hematology History: Denies: Hx Anticoagulant Therapy, Hx Diabetes Cardiovascular History: Reports: Hx Angina, Hx Hypercholesterolemia - HLD, Hx Syncope, Hx Valvular Heart Disease - [place], Other Cardiovascular Problems/ Disorders - aortic regurgitation Denies: Hx Hypertension, Hx Myocardial Infarction, Hx Pacemaker/ICD Respiratory History: Reports: Hx Asthma, Hx Seasonal Allergies History: Denies: Hx Renal Disease Musculoskeletal History: Reports: Hx Back Problems - lower back pain, Other Musculoskeletal History - labrum tears b/l hips Sensory History: Reports: Hx Contacts or Glasses Opthamlomology History: Reports: Hx Contacts or Glasses Neurological History: Reports: Hx Migraine, Other Neuro Impairments/Disorders - Right hemisphere disorder Psychiatric History: Reports: Hx Anxiety, Hx Attention Deficit Hyperactivity Disorder, Hx Depression, Hx Inpatient Treatment - 10/2017, Hx Community Mental Health Tx, Hx Bipolar Disorder, Hx Suicide Attempt, Hx Substance Abuse - oxycodone Denies: Hx Eating Disorder, Hx Panic Disorder, Hx Post Traumatic Stress Disorder, Hx Schizophrenia, Hx of Violent Episodes Against Others - Surgical History Surgery Procedure, Year, and Place: NO PRIOR SURGERIES - Immunization History Date of Tetanus Vaccine: up to date Date of Influenza Vaccine: up to date. Hx Pertussis Vaccination: No Immunizations Up to Date: Yes Infectious Disease History: No Infectious Disease History: Reports: History Other Infectious Disease - varicella Denies: Traveled Outside the [place] in Last 30 Days - Family History Known Family History: Positive: Cardiac Disease - Mother: fatal [place] at age 52, Hypertension, Diabetes, Other - seizures (mother); no history of SI from family members - Social History Occupation: Unemployed Lives: Alone Alcohol Use: Rare Hx Substance Use: Yes Substance Use Type: Reports: Marijuana Substance Use Comment - Amount & Last Used: rarely Hx Tobacco Use: Yes - FORMER- QUIT TODAY 10/24/2016 Smoking Status (MU): Heavy Every Day Tobacco Smoker Type: Cigarettes Amount Used/How Often: 1 ppd Length of Time of Smoking/Using Tobacco: since age 18 Have You Smoked in the Last Year: Yes Review of Systems Negative: Fever, Chills, Fatigue, Skin Diaphoresis Negative: Palpitations, Chest Pain Negative: Shortness Of Breath, Cough Positive: Arthralgia - bilateral hip pain Negative: Rash, Bruising Neurological: Negative All Other Systems Reviewed And Are Negative: Yes Physical Exam Triage Information Reviewed: Yes Vital Signs On Initial Exam: Initial Vitals Temp Pulse Resp BP Pulse Ox 98.5 F 99 24 113/67 100 06/22/18 14:25 06/22/18 14:25 06/22/18 14:25 06/22/18 14:25 06/22/18 14:25 Vital Signs Reviewed: Yes Appearance: Positive: Well-Nourished Skin: Positive: Warm, Skin Color Reflects Adequate Perfusion Head/Face: Positive: Normal Head/Face Inspection Eyes: Positive: EOMI, DONTRELL, Conjunctiva Clear Neck: Positive: Supple, No Lymphadenopathy Respiratory/Lung Sounds: Positive: Clear to Auscultation, Breath Sounds Present Cardiovascular: Positive: RRR, Pulses are Symmetrical in both Upper and Lower Extremities Abdomen Description: Positive: Nontender, No Organomegaly Neurological: Positive: Sensory/Motor Intact, Alert, Oriented to Person Place, Time Psychiatric: Positive: Affect/Mood Appropriate AVPU Assessment: Alert Diagnostics - Vital Signs Vital Signs Temp Pulse Resp BP Pulse Ox 06/22/18 15:49 97.9 F 83 20 114/73 99 06/22/18 14:25 98.5 F 99 24 113/67 100 - Laboratory Lab Results: Lab Results 06/22/18 Range/Units 16:30 Influenza A (Rapid) Negative (Negative) Influenza B (Rapid) Negative (Negative) Lab Statement: Any lab studies that have been ordered have been reviewed, and results considered in the medical decision making process. Lower Extremity Course/Dx - Course Course Of Treatment: Patient is evaluated for bilateral hip pain as well as shortness of breath which occurred this morning after smoking a cigarette, but resolved. On physical examination, lungs CTA. RRR. Patient appears well, nontoxic. Vital signs are stable. For her bilateral hip pain, she's had multiple x-rays and CT scans. She is encouraged Tylenol which she is okay with. I have given her Tylenol 650 mg she states she'll tow picker her prescription which was previously written by another provider today. She denies any other concerns at this time. - Diagnoses Provider Diagnoses: Chronic hip pain Discharge - Sign-Out/Discharge Documenting (check all that apply): Patient Departure - Discharge Plan Condition: Stable Disposition: HOME Referrals: Mando Benítez MD [Primary Care Provider] - Additional Instructions: Tylenol 650mg three times daily for hip pain Moist heat to the hips DISCONTINUE SMOKING - Billing Disposition and Condition Condition: STABLE Disposition: Home
[2018-06-22 17:32] VITALS: BP 129/75
== END 2018-06-22 17:28 | disposition home or self-care (01) ==
LOC: ED 13:54
DX: M25.552 Pain in left hip (principal); M25.551 Pain in right hip; G89.29 Other chronic pain; F17.210 Nicotine dependence, cigarettes, uncomplicated
CPT/HCPCS: 99282; A9270-GY

== ENCOUNTER 2018-07-24 19:42 | Emergency (ER) | payer MEDICAID ==
--- OUTSIDE RECORDS SUMMARY | 2018-07-24 19:57 | XMS REPORT | Continuity of Care Document ---
:1990 External Reference #:[id number] Author Name Gigi Dinh DO, MPH Address [address] [place] [address] [address] [place] [address] Care Team Providers Name Role Phone Marii Rangel NP Care Team Information Hemodialysis Charge Nurse Unavailable Camryn Jolley M.D. Primary Care Physician Unavailable Payers Type Date Identification Numbers Payment Provider Subscriber Policy Number: [id number] [facility] Kindra Shaw PayID: [id number] [address] [address] [place] [address] Advance Directives Description No Information Available Problems Description No Information Family History Date Family Member(s) Problem(s) Comments Father Age is Unknown Mother due to [place] () Children None Siblings 1 Social History Type Date Description Comments Sex Unknown Marital Status Lives With Roommate Occupation Unemployed Work Status Not Currently Working ETOH Use Denies alcohol use Tobacco Use Start: Unknown Patient is a current smoker, smokes every day Recreational Drug Use Denies Drug Use Smoking Status Reviewed: 07/17/18 Patient is a current smoker, smokes every day Allergies, Adverse Reactions, Alerts Date Description Reaction Status Severity Comments 07/02/2018 Tramadol Active 07/02/2018 Penicillin Active Medications Medication Date Status Form Strength Qnty SIG Indications Ordering Provider Oxycodone HCL 07/02/ Active Tablets 5mg 60tabs si by Bharat Dinh mouth Gigi, every 8 to DO MPH 12 hours as directed chronic pain patient National Carbonate / Active Capsules 300mg si by Unknown 0000 mouth daily Olanzapine / Active Tablets 7.5mg Unknown 0000 Cyclobenzaprine / Active Tablets 10mg si by Unknown HCL 0000 mouth twice a day as directed Metformin HCL / Active Tablets 500mg 1 by mouth Unknown 0000 twice a day Montelukast / Active Tablets 10mg 1 by mouth Unknown Sodium 0000 daily Clonazepam / Active Tablets 1mg si/2 by Unknown 0000 mouth every 8 hours as directed Acetaminophen-Cod / Hx Tablets 300-60mg 1 tab by Unknown eine #4 0000 - mouth 2018 times a day as directed chronic pain patient Immunizations Description No Information Available Vital Signs Date Vital Result Comment 07/17/2018 3:03pm BP Systolic 128 mmHg BP Diastolic 78 mmHg Heart Rate 74 /min Respiratory Rate 20 /min Height 62 inches 5'2" Weight 215.00 lb Pain Level 9 Pain at this time. Pain Level With Medicine 8 on average with meds Pain Level Without Medicine 10 04/04 without meds BMI (Body Mass Index) 39.3 kg/m2 07/02/2018 1:56pm BP Systolic 130 mmHg BP Diastolic 78 mmHg Heart Rate 84 /min Respiratory Rate 20 /min Height 62 inches 5'2" Weight 216.00 lb Pain Level 9 Pain at this time. 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 Symptoms and complaints discussed and reviewed today. No significant changes in physical findings. Continue current medical pain management.M25.551 Pain in right hipComments:Chronic. Symptoms and complaints discussed and reviewed today. No significant changes in physical findings. Continue current medical pain management.M25.552 Pain in left hipComments: Chronic. Symptoms and complaints discussed and reviewed today. No significant changes in physical findings. Continue current medical pain management.M79.18 Myalgia, other siteComments:Chronic. Symptoms and complaints discussed and reviewed today.No changes in physical findings. Patient is stable and comfortable when current medical therapy is rendered.Z79.891 halfway (current ) use of opiate analgesicNew Labs:Urine Drug Screen, Ordered: 07/17/18Comments: Urine drug screen sample taken today to monitor opiate use and to monitor use of illicit substances.Will discuss results at next appointment.The following tests were ordered:6 AM, AMPH, SHYANN, GABBIE, BUP, CARIS, COCM, COT, ETG, FENT, MCSHSG, OPI, OXY, PCP, TAPEN, XTSY, ZOLP. ~I_A urine drug test (UDT) was ordered for this patient and collected on site today. Creatinine has been ordered as well for specimen validity, not for kidney function. Preliminary UDT results are not final and should not be used to determine patient care or plan of treatment. Initially a qualitative immunoassay screen will be done. Any inconsistent or positive findings will be further tested with a more comprehensive quantitative confirmation LCMS study. It is part of the treatment process of prescribing controlled substances and is considered standard of care. ~i_AllComments:All above symptoms and complaints discussed as well as diagnoses reviewed.Continue trial of opioid pain management - note changes below; injection therapy, osteopathic manipulation (OMT), PT / modalities, and consults as needed to manage chronic pain.Side effects discussed; anticipatory guidance given. Patient clearly understands and agrees with all medical treatments and suggestions. All medicines prescribed are adequate and appropriate for this patient's complaint of pain, medical history, physical, and personal goals.Goals of Treatment are to provide adequate and appropriate multidisciplinary medical pain management to increase/ maintain patient's quality of life and functionality while maintaining satisfactory side effect profile and minimizing assisted end-organ damage. Activity as toleratedContinue with PCP
--- OUTSIDE RECORDS SUMMARY | 2018-07-24 19:57 | XMS REPORT | Continuity of Care Document ---
:1990 External Reference #:[id number] Author Name Christiane Dudley Care Team Providers Name Role Phone Dolores Jasso MD Primary Care Physician Unavailable Payers Type Date Identification Numbers Payment Provider Subscriber Effective: Policy Number: [id number] Wilcox/[employer] Kindra León 2017 Medicaid PayID: [id number] [address] Advance Directives Description No Information Available Problems [...] Member(s) Problem(s) Comments General Heart Disease Mother DE bilogical mother Mother Epilepsy Social History Type Date Description Comments Sex Unknown Marital Status Single Lives With Family Lives With 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 ETOH Use Denies alcohol use ETOH Use Denies alcohol use Recreational Drug Use Sporadically uses Marijuana Tobacco Use Start: Unknown Heavy tobacco smoker (more than 10 cigarettes/day) Smoking Status Reviewed: 06/29/18 Heavy tobacco smoker (more than 10 cigarettes/day) Exercise Type/Frequency Exercises sporadically Exercise Type/Frequency Exercises sporadically Allergies, Adverse Reactions, Alerts Date Description Reaction Status Severity Comments 03/03/2017 Tramadol Nausea and Vomiting Active Moderate 10/10/2017 Penicillins Active 04/06/2017 Penicillin ichiness Active Medications Medication Date Status Form Strength Qnty SIG Indications Ordering Provider Acetaminophen-Co 06/29 Active Tablets 300-30mg 21tab 1 tablet by M25.559 Dolores dedhiraj #3 s mouth every MD Romero 8 hours as needed cough Acetaminophen 06/23 Active Tablets 500mg 120ta 2tabs po Alcon bs tid prn Joyce Simmons M.D.,FACP Wheelchair 05/29 Active Misc 1unit use as s directed Jeyson pantoja M.D. Fluticasone 05/28 Active Suspension 50mcg/Act 9.900 2 sprays J30.9 ml each Jeyson nosMercedez patrick daily Tramadol HCL 05/16 Active Tablets 50mg 30tab 1 tablet M25.559 s three to MD Romero four times daily as needed Lidoderm 05/15 Active Patches 5% 30uni 1 patch on ts for 12 hrs Pachika and then , MLunaDLuna off 12 hrs Walker 01/10 Active Misc 1unit walker with M25.559 s seat, use Pachika for , M.D. ambulation. dx code M25.559 Qvar 12/12 Active Aerosol 80mcg/Act 8.700 2 puffs gm inhalation Jeyson twice a day Mercedez Singulair Active Tablets 10mg 30tab 1 by mouth [place] /0000 s every day Mercedez Benítez Metformin HCL Active Tablets 500mg 60tab 1 by mouth Mando s twice a day Mercedez Benítez Ondansetron HCL Active Tablets 4mg 14tab one by s mouth every Pachikara 6 hours Mercedez reza needed for nausea Levalbuterol HCL Active Nebulizer 0.63mg/3M 72ml 1 amp 8h as [place] L needed Mercedez Benítez Day Time/Nite Active Misc (Liquid) as needed Unknown Time Cold & /0000 Flu Relief Forreston Active Tablets ER 450mg 2 tablet by Unknown Carbonate ER / mouth in the evening Cyclobenzaprine Active Tablets 10mg 30tab Take One Reba HCL s Tablet By Mojica, Mouth Every MD 8 Hours as Needed Tylenol With 06/20 Hx Tablets 300-30mg 21tab 1 tablet by M25.559 Suma Codeine #3 s mouth every Varn, - 8 hours as N.P. 06/29 cough Clindamycin HCL 05/16 Hx Capsules 300mg 14cap one po bid R68.84 s x 7 days Varn, - N.P. 05/23 Oxycodone HCL 02/14 Hx Tablets 5mg 30tab 1 by mouth M16.2 s every 12 Pachikara - hours Mercedez reza 05/15 Naproxen 02/14 Hx Tablets 375mg 30tab twice a day M16.2 s with food Pachika - Mercedez 02/14 Acetaminophen 02/14 Hx Tablets 500mg 180ta 2 tab 3 M16.2 bs times daily Joyce Simmons, - as needed Mercedez,FACP 06/20 Oxycodone HCL 11/28 Hx Tablets 5mg 30tab 1 by mouth M16.2 s every 12 Pachikara - hours Mercedez reza 01/11 No Active 10/10 Hx Unknown Medications /2017 - 10/10 Ibuprofen 07/04 Hx Tablets 600mg 60tab take 1 by s mouth every Pachikara - 8 hours as , M.D. 01/10 needed pain Percocet Hx Tablets 5-325mg 1-2 by Unknown /0000 mouth every - 4-6 hours 03/02 as /2016 pain Xopenex / Hx Nebulizer 0.63mg/3M 8hourly as [...] by - mouth at 11/28 bedtime /2017 Flovent HFA Hx Aerosol 220mcg/Ac 12gm inhale two J45.909 Mando / t puffs by Pachikara - mouth twice , M.D. 12/12 a /2017 Lexapro Hx Tablets 10mg 1 by mouth [...] nyl Estradiol- /0000 /0.01 mg Control - (21/5) 11/28 Latuda Hx Tablets 20mg 1 by mouth Unknown /0000 every day - 05/28 Forreston Hx Capsules 600mg 1 by mouth [place] Carbonate /0000 at bedtime Jeyson Orourke M.D. 05/28 Immunizations CPT Code Status Date Vaccine Lot # [id number] Given 05/16/2018 Influenza Virus Vaccine, Quadrivalent, Split, Preservative Free Vital Signs Date Vital Result Comment 06/29/2018 2:57pm Height 62 inches 5'2" Weight 210.00 lb Heart Rate 83 /min BP Systolic Sitting 112 mmHg BP Diastolic Sitting 74 mmHg O2 % BldC Oximetry 99 % BMI (Body Mass Index) 38.4 kg/m2 06/20/2018 2:16pm Height 62 inches 5'2" Weight [...] Date Facility Test Result H/L Range Note Rapid Influenza 06/22/2018 [facility] Influenza A NEGATIVE Negative 1 A & B Molecular [address] [place] [address] [phone] Influenza B Molecular NEGATIVE Negative Laboratory test 06/22/2018 [facility] Rapid SEE RESULT [address] [place] [address] Antigen [phone] Laboratory test 03/14/2018 [facility] Poc Negative Negative [address] , [place] [address] Urine [phone] CBC Auto Diff 12/22/2017 [facility] White Blood 13.2 10^3/uL High 3.5-10.[address] [place] [address] [phone] Red Blood Count 4.14 10^6/uL N 4.00-5.40 [...] Blood Cells % 0 Urine Drug 12/22/2017 [facility] Amphetamine Ur None Detected None Detect SCR ED & [address] [place] [address] [phone] Barbiturates Urine Screen None Detected None Detect Benzodiazepine Urine Screen None Detected None Detect Urine Cannabinoids Screen None Detected None Detect Urine Cocaine Screen None Detected None Detect Urine Opiates Screen None Detected None Detect Urine Phencyclidine Screen None Detected None Detect 4 Urinalysis Profile 12/22/2017 [facility] Urine Color Yellow [address] [place] [address] [phone] Urine Appearance Cloudy Urine Specific [place] 1.010 N 1.010-1.030 Urine pH 6.0 N 5-9 Urine Urobilinogen Negative Negative Urine Ketones Negative Negative Urine Protein Negative Negative Urine Leukocytes Negative Negative Urine Blood Negative Negative Urine Nitrite Negative Negative Urine Bilirubin Negative Negative Urine Glucose Negative Negative Comp Metabolic Panel 12/22/2017 [facility] Sodium 137 mmol/L N 135-[address] [place] [address] [phone] Potassium 4.0 mmol/L N 3.5-5.0 Chloride 102 [...] Egfr Non- 101.1 >60 Egfr 122.4 >60 5 Laboratory test 12/22/2017 [facility] Acetaminophen < 15 g/mL [address] [place] [address] [phone] Alcohol < 10 mg/dL N <10 Salicylate < 2.50 mg/dL <30 TSH (Thyroid Stim Horm) 3.84 mcIU/mL N 0.34-5.60 Forrest[place] 0.51 mmol/L Low 0.6-1.2 HCG < 0.60 mIU/mL 7 Laboratory test 12/19/2017 [facility] Lactic Acid 2.3 mmol/L High 0.5-2.0 [address] [place] [address] [phone] CBC Auto Diff 12/19/2017 [facility] White Blood 10.9 High 3.5- 10.[address] Count 10^3/[place] [address] [phone] Red Blood Count 4.17 10^6/uL N 4.00-5.40 [...] Cells % 0 Comp Metabolic Panel 12/19/2017 [facility] Sodium 138 mmol/L N 135-[address] [place] [address] [phone] Potassium 3.8 mmol/L N 3.5-5.0 Chloride 102 [...] Egfr Non- 97.9 >60 Egfr 118.5 >60 9 Laboratory test 12/19/2017 [facility] [place] 0.18 mmol/L Low 0.6-1.2 finding [address] [place] [address] [phone] Acetaminophen < 15 g/mL 10 Alcohol < 10 mg/dL N <10 Salicylate < 2.50 mg/dL <30 TSH (Thyroid Stim Horm) 1.33 mcIU/mL N 0.34-5.60 Lactic Acid 5.2 mmol/L High 0.5-2.0 11 Urinalysis Profile 12/19/2017 [facility] Urine Color Yellow [address] [place] [address] [phone] Urine Appearance Cloudy Urine Specific [place] 1.020 N 1.010-1.030 Urine pH 5.0 N 5-9 Urine Urobilinogen Negative Negative Urine Ketones Negative Negative Urine Protein Negative Negative Urine Leukocytes Trace Abnormal Negative Urine Blood Negative Negative * * Abnormal Negative 12 Urine Nitrite Negative Negative Urine Bilirubin Negative Negative Urine Glucose 2+(150 mg/dL) Abnormal Negative Urine White Blood Cell 1+(6-10/hpf) Abnormal Absent Urine Red Blood Cell 1+(3-5/hpf) Abnormal Absent Urine Bacteria 2+ Abnormal Absent Urine Squamous Epithelial Cell Present Abnormal Absent Urine Culture And 12/19/2017 [facility] Urine Culture SEE RESULT [address] [place] [address] [phone] Urine Drug SCR ED 12/19/2017 [facility] Amphetamine Ur None None & Pain [facility] [address] [place] [address] [phone] Barbiturates Urine Screen None Detected None Detect Benzodiazepine Urine Screen None Detected None Detect Urine Cannabinoids Screen None Detected None Detect Urine Cocaine Screen None Detected None Detect Urine Opiates Screen None Detected None Detect Urine Phencyclidine Screen None Detected None Detect 14 Laboratory test 12/18/2017 [facility] HCG < 0.60 mIU/ mL [address] [place] [address] [phone] Acetaminophen < 15 g/mL 16 Alcohol < 10 mg/dL N <10 Salicylate < 2.50 mg/dL <30 TSH (Thyroid Stim Horm) 4.07 mcIU/mL N 0.34-5.60 Comp Metabolic Panel 12/18/2017 [facility] Sodium 136 mmol/L N 135-[address] [place] [address] [phone] Potassium 3.9 mmol/L N 3.5-5.0 Chloride 100 [...] Egfr Non- 106.4 >60 Egfr 128.7 >60 17 Urine Drug 12/18/2017 [facility] Amphetamine Ur None Detected None Detect SCR ED & [address] [place] [address] [phone] Barbiturates Urine Screen None Detected None Detect Benzodiazepine Urine Screen None Detected None Detect Urine Cannabinoids Screen None Detected None Detect Urine Cocaine Screen None Detected None Detect Urine Opiates Screen None Detected None Detect Urine Phencyclidine Screen None Detected None Detect 18 Urinalysis Profile 12/18/2017 [facility] Urine Color Yellow [address] [place] [address] [phone] Urine Appearance Clear Urine Specific [place] 1.013 N 1.010-1.030 Urine pH 7.0 N 5-9 Urine Urobilinogen Negative Negative Urine Ketones Negative Negative Urine Protein Negative Negative Urine Leukocytes Negative Negative Urine Blood Negative Negative Urine Nitrite Negative Negative Urine Bilirubin Negative Negative Urine Glucose Negative Negative CBC Auto 12/18/2017 [facility] White Blood 13.2 10^3/uL High 3.5-10.[address] [place] [address] [phone] Red Blood Count 4.22 10^6/uL N 4.00-5.40 [...] Blood Cells % 0 Drug Abuse 11/28/2017 [facility] Urine Amphetamine Negative ng/ mL 19, 20 [address] [place] [address] [phone] Urine Barbiturates Negative ng/mL 21 Urine Benzodiazepines Negative ng/mL 22 Urine Cocaine Negative ng/mL 23 Urine Phencyclidine Negative ng/mL Cutoff: 25 Urine Tetrahydrocannabinol Negative ng/mL Cutoff: 50 24 Creatinine, Urine 32.5 mg/dL Specific [place] 1.005 pH 6.8 Oxidants Negative 25 Adulterants Comment Normal Codeine, Ur Not Detected ng/mL Cutoff: 25 26 Siwrxhn-5-mpzx-glucuronide, Ur Not Detected ng/mL 27 Morphine, Ur Not Detected ng/mL Cutoff: 25 28 Rkwxuybi-9-mrru-glucuronide, U Not Detected ng/mL 29 6-monoacetylmorphine, Ur Not Detected ng/mL Cutoff: 25 30 Hydrocodone, Ur Not Detected ng/mL Cutoff: 25 31 Norhydrocodone, Ur Not Detected ng/mL Cutoff: 25 32 Dihydrocodeine, Ur Not Detected ng/mL Cutoff: 25 33 Hydromorphone, Ur Not Detected ng/mL Cutoff: 25 34 Hxanmzasvuksb0ocwafrjinraeqdy Not Detected ng/mL 35 Oxycodone, Ur Not Detected ng/mL Cutoff: 25 36 Noroxycodone, Ur Not Detected ng/mL Cutoff: 25 37 Oxymorphone, Ur Not Detected ng/mL Cutoff: 25 38 Dhxoqfpwmqe-6-yaze-glucuronide Not Detected ng/mL 39 Noroxymorphone, Ur Not Detected ng/mL Cutoff: 25 40 Fentanyl, Ur Not Detected ng/mL Cutoff: 2 41 Norfentanyl, Ur Not Detected ng/mL Cutoff: 2 42 Meperidine, Ur Not Detected ng/mL Cutoff: 25 43 Normeperidine, Ur Not Detected ng/mL Cutoff: 25 44 Naloxone, Ur Not Detected ng/mL Cutoff: 25 45 Gkilhodw-9-wxxm-glucuronide, U Not Detected ng/mL 46 Methadone, Ur Not Detected ng/mL Cutoff: 25 47 Eddp, Ur Not Detected ng/mL Cutoff: 25 48 Propoxyphene, Ur Not Detected ng/mL Cutoff: 25 49 Norpropoxyphene, Ur Not Detected ng/mL Cutoff: 25 50 Tramadol, Ur Not Detected ng/mL Cutoff: 25 51 O-desmethyltramadol, Ur Not Detected ng/mL Cutoff: 25 52 Tapentadol, Ur Not Detected ng/mL Cutoff: 25 53 N-desmethyltapentadol, Ur Not Detected ng/mL Cutoff: 50 54 Jgbaebwzxm-uzty-xlgsdnixikz, U Not Detected ng/mL 55 Buprenorphine, Ur Not Detected ng/mL Cutoff: 5 56 Norbuprenorphine, Ur Not Detected ng/mL Cutoff: 5 57 Norbuprenorphine glucuronide Not Detected ng/mL Cutoff: 20 58 Opioid Interpretation See Comment 59 CBC Auto Diff 05/25/2017 [facility] White Blood 4.9 10^3/uL N 3.5-10.[address] [place] [address] [phone] Red Blood Count 4.30 10^6/uL N 4.0-5.4 [...] Blood Cells % 0.1 Arthritis Panel 05/25/2017 [facility] Uric Acid 5.3 mg/dL N 2.3-6.[address] [place] [address] [phone] Erythrocyte Sed Rate 22 mm/Hr High 0-14 Rheumatoid Factor <15 IU/mL <15 60 Anti-Nuclear Antibody 0.2 U 61 Cyclic Citrullinated Peptide <15.6 U 62 Interpretation See Comment 63 1 Industrial Robotics Mechanic: [id number] 2 SEE RESULT BELOW Name: KINDRA LEÓN : [address]: Jared Lopez MD Acct: [id number] Unit: [id number] AGE: 27 Location: ED Re06/22/18 SEX: F Status: REG ER SPEC: [id number] VANCE: 06/22/[address]: Darya HAWKINS REQ: [id number] RECD: 06/22/18 STATUS: LINETTE GAMINO DR: Jared Benítez MD _ SOURCE: NASAL SPDESC: ORDERED: Flu A B Request Procedure Result Reported Site Rapid Influenza A B Request Final 06/22/18- 1627 ML Specimen received for Influenza A/B Molecular testing * ML - Main Lab . END OF REPORT DEPARTMENT OF PATHOLOGY, [address] [place] [address] Dylan Laurent M.D. Director [facility] # [id number] 3 Industrial Robotics Mechanic: [id number] If is still suspected, please repeat test after 48 to 72 hours. 4 The urine specimen was tested at the listed cutoffs: Drug class test level (ng/mL) Amphetamines 500 Barbiturates 200 Benzodiazepine metabolites 200 Cocaine metabolites 150 Cannabinoids 50 Opiates 300 Pcp 25 Specimen was received without chain of custody. Results should be used for medical purposes only. 5 Because ethnic data is not always readily [...] 15-29 5 Kidney failure <15 (or dialysis) 6 Therapeutic concentration: <50 ug/mL Toxic concentration: >120 ug/mL 7 <5.0 Negative 5.0 - 25.0 Indeterminate (Repeat testing recommended after 72 hours) >25.0 Positive Perimenopausal women can display HCG levels of up to 20 mIU/mL 8 Critical Result LACT:2.3 Called to [id number] at: 19:54:15 by:[id number] Read back by:[id number] [facility] Severe Sepsis and Septic Shock Management Bundle Measure requires all lactic acids initially measuring >2.0 mmol/L be repeated. 9 Because ethnic data is not always [...] <50 ug/mL Toxic concentration: >120 ug/mL 11 [facility] Severe Sepsis and Septic Shock Management Bundle Measure requires all lactic acids initially measuring >2.0 mmol/L be repeated. 12 *Ascorbic acid is present which may interfere with detection of blood. 13 SEE RESULT BELOW Name: KINDRA LENÓ : [address]: Babak Molina MD Acct: [id number] Unit: [id number] AGE: 27 Location: ED Re12/19/17 SEX: F Status: DEP ER SPEC: [id number] VANCE: 12/19/[address]: Babak Molina MD REQ: [id number] RECD: 12/19/17 STATUS: LINETTE GAMINO DR: Mando Benítez MD _ SOURCE: URINE SPDESC: ORDERED: Urine Culture Procedure Result Reported Site Urine Culture Final 12/21/17- 826 ML Organism 1 ESCHERICHIA COLI [place] Count 75-100,000 (Many) CFU/ML Organism 2 NORMAL MIL [place] Count 75-100,000 (Many) CFU/ML 1. ESCHERICHIA COLI [...] . END OF REPORT DEPARTMENT OF PATHOLOGY, [address] [place] [address] Dylan Laurent M.D. Director [facility] # [id number] 14 The urine specimen was tested at the listed cutoffs: Drug class test level (ng/mL) Amphetamines 500 Barbiturates 200 Benzodiazepine metabolites 200 Cocaine metabolites 150 Cannabinoids 50 Opiates 300 Pcp 25 Specimen was received without chain of custody. Results should be used for medical purposes only. 15 <5.0 Negative 5.0 - 25.0 Indeterminate (Repeat testing recommended after 72 hours) >25.0 Positive Perimenopausal women can display HCG levels of up to 20 mIU/mL 16 Therapeutic concentration: <50 ug/mL Toxic concentration: >120 ug/mL 17 Because ethnic data is not always [...] 5 Kidney failure <15 (or dialysis) 18 The urine specimen was tested at the listed cutoffs: Drug class test level (ng/mL) Amphetamines 500 Barbiturates 200 Benzodiazepine metabolites 200 Cocaine metabolites 150 Cannabinoids 50 Opiates 300 Pcp 25 Specimen was received without chain of custody. Results should be used for medical purposes only. 19 [id number] 20 REFERENCE VALUE Cutoff: 500 21 REFERENCE VALUE Cutoff: 200 22 REFERENCE VALUE Cutoff: 100 23 REFERENCE VALUE Cutoff: 150 24 ADDITIONAL INFORMATION This report is intended for use in clinical monitoring or management of patients. It is not intended for use in employment-related testing. 25 REFERENCE VALUE Cutoff: 200 mg/L 26 Tylenol 3 27 Metabolite of codeine REFERENCE VALUE Cutoff: 100 28 Echo Levy, Contin; Also a minor metabolite (10%) of codeine and can be seen in low concentrations (<2,000 ng/mL) with poppy seed ingestion. 29 Metabolite of morphine REFERENCE VALUE Cutoff: 100 30 Metabolite of heroin 31 Lortab, Edson, Vicodin; Also a very minor metabolite of codeine and impurity (<1%) of oxycodone. 32 Metabolite of hydrocodone 33 Metabolite of hydrocodone 34 Dilaudid, Exalgo; Also a metabolite of hydrocodone and a minor (<5%) metabolite of morphine. 35 Metabolite of hydromorphone REFERENCE VALUE Cutoff: 100 36 Endocet, Percocet, Oxycontin 37 Metabolite of oxycodone 38 Numorphan, Opana; Also a metabolite of oxycodone. 39 Metabolite of oxymorphone REFERENCE VALUE Cutoff: 100 40 Metabolite of oxymorphone 41 Actiq, Duragesic, Fentora 42 Metabolite of fentanyl 43 Demerol 44 Metabolite of meperidine 45 Narcan 46 Metabolite of naloxone REFERENCE VALUE Cutoff: 100 47 Dolophine 48 Metabolite of methadone 49 Darvon, Darvocet 50 Metabolite of propoxyphene 51 Tradol, Ultram, Ultracet 52 Metabolite of tramadol 53 Nucynta 54 Metabolite of tapentadol 55 Metabolite of tapentadol REFERENCE VALUE Cutoff: 100 56 Buprenex, Suboxone 57 Metabolite of buprenorphine 58 Metabolite of buprenorphine 59 No opioids were detected. The absence of expected drug(s) and/or drug metabolite(s) may indicate non-compliance, altered pharmacokinetics, inappropriate timing of specimen collection relative to drug administration, diluted/adulterated urine, or limitations of testing. ADDITIONAL INFORMATION This test was developed and its performance characteristics determined by [facility] in a manner consistent with CLIA requirements. This test has not been cleared or approved by the U.S. Food and Drug Administration. Test Performed by: [facility] [address] [place] [address] 60 Test Performed by: [facility] [address] [place] [address] 61 REFERENCE VALUE <=1.0 (Negative) 62 REFERENCE VALUE <20.0 (Negative) 63 Tests for antibodies to dsDNA and MARY antigens are not performed automatically unless the BRIGITTE result is > or= 3.0 U. Studies performed at [facility] indicate that positive BRIGITTE results <3.0 U are rarely accompanied by positive second order tests. Test Performed by: [facility] [address] [place] [address] Procedures Date Code Description Status 04/20/2017 46344 EKG Tracing & Interpretation Completed 04/13/2017 69103 EEG Monitoring Computer Completed 03/21/2017 45312 ECHO Stress Test Incl Perf Contiuous ekg Monitoring W/Phys Completed Superv 03/16/2017 04299 EEG Recording Awake & Drowsy Completed 03/05/2017 19914 ECHO Transthorasic Realtime 2D W Doppler & Color Flow Hosp Completed 03/03/2017 36405 EKG Tracing & Interpretation Completed 11/06/2012 38018 Color Flow Doppler/Interp & Reprt Completed 11/06/2012 33505 Pulse Wave/Continuous-Interp.RPT Completed 11/06/2012 83036 ECHO Transthorasic Realtime 2D W Doppler & Color Flow Hosp Completed 10/30/2008 56119 Holter Monitor Interpretation Completed Encounters Type Date Location Provider Dx Diagnosis Office Visit 06/20/[address] [facility] Internal Suma Rangel, M25.559 Pain in unspecified 2:00p Medicine - N.P. hip [place] Office Visit 05/28/[address] [facility] Internal Mando Z00.00 Encntr for general 4:20p Dakota Benítez M.D. adult medical exam Rd w/o abnormal findings E66.9 Obesity, unspecified J45.909 Unspecified asthma, uncomplicated J30.9 Allergic rhinitis, unspecified H61.23 Impacted cerumen, bilateral Office Visit 05/16/2018 2:40p [facility] Internal Suma Rangel, R68.84 Jaw pain Medicine - [place] N.P. 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 Internal Mando M16.2 Bilateral 1:40p Dakota Benítez M.D. osteoarthritis [place] resulting from hip dysplasia Office Visit 01/10/[address] [facility] Internal Mando F31.9 Bipolar disorder, 4:00p Dakota Benítez M.D. unspecified [place] M25.559 Pain in unspecified hip E66.01 Morbid (severe) obesity due to excess calories Office Visit 11/28/[address] [facility] Internal Mando M16.2 Bilateral 3:20p Dakota Benítez [...] with seizures or convulsions Office Visit 04/20/2017 [facility] R55 Syncope and 2:45p hannah Valentine M.D. R07.9 Chest pain, unspecified R42 Dizziness and giddiness Office Visit 04/06/2017 [facility] Lisa Fitzgerald MD R40.4 Transient 9:30a Clinic alteration of awareness Office Visit 03/05/2017 [facility] Yana R55 Syncope and 1:24p Assoc,pc Hospitalists [place] CUTLER collapse F41.9 Anxiety disorder, unspecified F31.9 Bipolar disorder, unspecified E28.2 Polycystic ovarian syndrome Office Visit 03/03/2017 9:40a [facility] Shona Heredia R07.9 Chest pain, Of Raf Hong.DLuna unspecified R42 Dizziness and giddiness R55 Syncope and collapse E28.2 Polycystic ovarian syndrome Plan of Treatment 06/29/2018 - Dolores Jasso MDE28.2 Polycystic ovarian pmqzbcswZ34.4 Chronic pain syndromeFollow up:Your tyelenol with codeine was refilled Please do follow up with with pain clinic; You will not be getting any further refills
--- OUTSIDE RECORDS SUMMARY | 2018-07-24 19:57 | XMS REPORT | Continuity of Care Document ---
:1990 External Reference #:[id number] Author Name Gigi Dinh DO, MPH Address [address] [place] [address] [address] [place] [address] Care Team Providers Name Role Phone Marii Rangel NP Care Team Information Home Management Supervisor Unavailable Camryn Jolley M.D. Primary Care Physician Unavailable Payers Type Date Identification Numbers Payment Provider Subscriber Policy Number: [id number] [facility]/[employer] Kindra Shaw PayID: [id number] [address] [address] [place] [address] Advance Directives Description No Information Available Problems Description No Information Family History Date Family Member(s) Problem(s) Comments Father Age is Unknown Mother due to [place] () Children None Siblings 1 Social History Type Date Description Comments Sex Unknown Marital Status Lives With Roommate Occupation Unemployed Work Status Not Currently Working ETOH Use Denies alcohol use Tobacco Use Start: Unknown Patient is a current smoker, smokes every day Recreational Drug Use Denies Drug Use Smoking Status Reviewed: 07/02/18 Patient is a current smoker, smokes every day Allergies, Adverse Reactions, Alerts Date Description Reaction Status Severity Comments 07/02/2018 Tramadol Active 07/02/2018 Penicillin Active Medications Medication Date Status Form Strength Qnty SIG Indications Ordering Provider Oxycodone HCL 07/02/ Active Tablets 5mg 60tabs si by Fabrizio 2019 mouth Gigi, every 8 to , MPH 12 hours as directed chronic pain patient [place] Carbonate / Active Capsules 300mg si by Unknown 0000 mouth daily Olanzapine / Active Tablets 7.5mg Unknown 0000 Cyclobenzaprine / Active Tablets 10mg si by Unknown HCL 0000 mouth twice a day as directed Acetaminophen-Cod / Active Tablets 300-60mg 1 tab by Unknown eine #4 0000 mouth three times a day as directed chronic pain patient Metformin HCL / Active Tablets 500mg 1 by mouth Unknown 0000 twice a day Montelukast / Active Tablets 10mg 1 by mouth Unknown Sodium 0000 daily Clonazepam / Active Tablets 1mg si/2 by Unknown 0000 mouth every 8 hours as directed Immunizations Description No Information Available Vital Signs Date Vital Result Comment 07/02/2018 1:56pm BP Systolic 130 mmHg BP Diastolic 78 mmHg Heart Rate 84 /min Respiratory Rate 20 /min Height 62 inches 5'2" Weight 216.00 lb Pain Level 9 Pain at this time. Pain Level Without Medicine 10 04/04 without meds BMI (Body Mass Index) 39.5 kg/m2 Results Description No Information Available Procedures Description No Information Available Encounters Description No Information Available Plan of Treatment Future Appointment(s):07/17/2018 3:15 pm - Gigi Dinh DO, MPH at Main Office as Of 07/27/1400 - Gigi Dinh DO, MPHG89.29 Other chronic painComments:Chronic Intractable Pain. Symptoms and complaints discussed and reviewed today. Begin trial of adequate and appropriate Opioid Pain Management as well as non-opioid treatment options - New Medications listed below.M25.551 Pain in right hipComments:Symptoms and complaints discussed and reviewed today. No significant changes in physical findings. Begin adequate and appropriate medical pain Management - New Medications listed below.M25.552 Pain in left hipComments:Symptoms and complaints discussed and reviewed today. No significant changes in physical findings.Begin adequate and appropriate medical pain Management - New Medications listed below.M79.18 Myalgia, other siteComments:Symptoms and complaints discussed and reviewed today. No significant changes in physical findings.Begin adequate and appropriate medical pain Management - New Medications listed below.J45.998 Other asthmaComments: Followed by PCP. Will follow as pertains to her pain management. Special care to protect respiratory drive. Will follow as pertains to pain management.F31.81 Bipolar II disorderComments:Chronic. Symptoms and complaints discussed and reviewed today. No significant changes in physical findings. Continue current medical pain management. Followed by PCP and mental health. Will follow as pertains to pain management.E28.2 Polycystic ovarian syndromeComments:Begin Opioid Management - New Medications listed above. 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 Will follow in terms of pain management.G43.419 Hemiplegic migraine, intractable , without status migrainosusComments:Followed by PCP. Will follow in regards to pain management.G43.009 Migraine without aura, not intractable, without status migrainosusComments:Symptoms and complaints discussed and reviewed today. No significant changes in physical findings. Continue current medical pain management. Followed by PCP. 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) use of opiate analgesicNew Labs:Urine Drug Screen, Ordered: 07/02/18Comments:Urine drug screen sample taken today to monitor opiate use and to monitor use of illicit substances.Will discuss results at next appointment.The following tests were ordered:6 AM, AMPH , SHYANN, GABBIE, BUP, CARIS, COCM, COT, ETG, [...] controlled substances and is considered standard of care.~i_AllNew Medication: Oxycodone HCL 5 mg - si by mouth every 8 to 12 hours as directed chronic pain patientComments:Chronic intractable pain - Begin trial of adequate and appropriate Opioid Pain Management - New Medications listed below; injection therapy, osteopathic manipulation, PT / modalities, and consults as needed to manage chronic pain.Non - opioid pain management discussed and options provided.Side effectsdiscussed; anticipatory guidance given. Patient clearly understand and agree with all medical treatments and suggestions. All medicines prescribed are adequate and appropriate for this patient's complaint of pain, medical history, physical, and personal goals.Goals of Treatment are to provide adequateand appropriate multidisciplinary medical pain management to increase/ maintain patient's quality oflife and functionality while maintaining satisfactory side effect profile and minimizing terminal carman end-organ damage. Importance of regular nutrition throughout the day discussed.Activity as toleratedContinue with PCP
--- OUTSIDE RECORDS SUMMARY | 2018-07-24 19:57 | XMS REPORT | Continuity of Care Document ---
:1990 External Reference #:[id number] Author Name Gigi Dinh DO, MPH Address [address] [place] [address] [address] [place] [address] Care Team Providers Name Role Phone Marii Rangel NP Care Team Information Sports Psychologist Unavailable Camryn Jolley M.D. Primary Care Physician Unavailable Payers Type Date Identification Numbers Payment Provider Subscriber Policy Number: [id number] [facility] Kindra Shaw PayID: [id number] [address] [address] [place] [address] Advance Directives Description No Information Available Problems Description No Information Family History Date Family Member(s) Problem(s) Comments Father Age is Unknown Mother due to [place] () Children None Siblings 1 Social History [...] 12 hours as directed chronic pain patient [place] Carbonate / Active Capsules 300mg si by [...] No Information Available Plan of Treatment Future Appointment(s):07/16/2018 3:00 pm - Gigi Dinh DO, MPH at [...] Medications listed above. Followed by PCP and business development assistant. Will follow in terms of pain management.G43.419 Hemiplegic migraine, intractable , without status migrainosusComments:Followed by PCP. Will follow in regards to pain management.G43.009 Migraine without aura, not intractable, without status migrainosusComments:Symptoms and complaints discussed and reviewed today. No significant changes in physical findings. Continue current medical pain management. Followed by PCP. Will follow in regard to Pain managementand associated medications.AllNew Medication:Oxycodone HCL 5 mg - si by mouth [...] maintaining satisfactory side effect profile and minimizing prison end-organ damage. Importance of regular nutrition throughout the day discussed.Activity as toleratedContinue with PCP
[2018-07-24] MEDS ORDERED: oxyCODONE/Acetamin 5/325 MG* TAB PO ONE (21:00)
[2018-07-24] MEDS ORDERED: Ondansetron ODT TAB* 4 MG PO ONE (21:00)
--- NOTE | 2018-07-24 21:08 | ED ---
Lower Extremity - HPI Summary HPI Summary: This pt is a 27 y/o female presenting to [facility] c/o left hip pain s/p slip and fall today. 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 Denies head strike or LOC. She notes she has hx of osteoarthritis and hip dysplasia. Denies abd pain, chest pain, SOB. Pt notes she takes oxycodone 5 mg at home but notes she lost her pain medications in the sink. Hx of oxycodone substance abuse. - History of Current Complaint Chief Complaint: EDExtremityLower Stated Complaint: FALL, HIP PAIN Time Seen by Provider: 07/24/18 20:51 Hx Obtained From: Patient Hx Last Menstrual Period: 02/05/18 Mechanism Of Injury: Fall From A Standing Position - s/p sliping on ice Onset of Pain: Immediate Onset/Duration: Still Present Severity Currently: Severe Pain Intensity: 8 Pain Scale Used: 0-10 Numeric Timing: Constant Location: Is Discrete @ - left hip Associated Signs And Symptoms: Negative: Fever, Abdominal Pain, Other - NEG: chest pain, SOB Aggravating Factor(s): Nothing Alleviating Factor(s): Nothing - Allergies/Home Medications Allergies/Adverse Reactions: Allergies Allergy/AdvReac Type Severity Reaction Status Date / Time Penicillins Allergy Itching Verified 07/24/18 19:52 PMH/Surg Hx/FS Hx/Imm Hx Endocrine/Hematology History: Denies: Hx Anticoagulant Therapy, Hx Diabetes Cardiovascular History: Reports: Hx Angina, Hx Hypercholesterolemia - HLD, Hx Syncope, Hx Valvular Heart Disease - AR, Other Cardiovascular Problems/ Disorders - aortic regurgitation Denies: Hx Hypertension, Hx Myocardial Infarction, Hx Pacemaker/ICD Respiratory History: Reports: Hx Asthma, Hx Seasonal Allergies History: Denies: Hx Renal Disease Musculoskeletal History: Reports: Hx Back Problems - lower back pain, Other Musculoskeletal History - labrum tears b/l hips Sensory History: Reports: Hx Contacts or Glasses Opthamlomology History: Reports: Hx Contacts or Glasses Neurological History: Reports: Hx Migraine, Other Neuro Impairments/Disorders - Right hemisphere disorder Psychiatric History: Reports: Hx Anxiety, Hx Attention Deficit Hyperactivity Disorder, Hx Depression, Hx Inpatient Treatment - 10/2017, Hx Community Mental Health Tx, Hx Bipolar Disorder, Hx Suicide Attempt, Hx Substance Abuse - oxycodone Denies: Hx Eating Disorder, Hx Panic Disorder, Hx Post Traumatic Stress Disorder, Hx Schizophrenia, Hx of Violent Episodes Against Others - Surgical History Surgery Procedure, Year, and Place: NO PRIOR SURGERIES - Immunization History Date of Tetanus Vaccine: up to date Date of Influenza Vaccine: up to date. Infectious Disease History: No Infectious Disease History: Reports: History Other Infectious Disease - varicella Denies: Traveled Outside the [place] in Last 30 Days - Family History Known Family History: Positive: Cardiac Disease - Mother: fatal NH at age 52, Hypertension, Diabetes, Other - seizures (mother); no history of SI from family members - Social History Alcohol Use: Rare Hx Substance Use: Yes Substance Use Type: Reports: None Substance Use Comment - Amount & Last Used: rarely Hx Tobacco Use: Yes - FORMER- QUIT TODAY 10/24/2016 Smoking Status (MU): Heavy Every Day Tobacco Smoker Type: Cigarettes Amount Used/How Often: 1 ppd Length of Time of Smoking/Using Tobacco: since age 18 Have You Smoked in the Last Year: Yes Review of Systems Negative: Fever, Chills Negative: Chest Pain Negative: Shortness Of Breath Negative: Abdominal Pain Musculoskeletal: Other - POS: left hip pain All Other Systems Reviewed And Are Negative: Yes Physical Exam - Summary Physical Exam Summary: Appearance: Well appearing, no pain distress Skin: warm, dry, reflects adequate perfusion Head/face: normal Eyes: EOMI, DONTRELL ENT: normal Neck: supple, nontender Respiratory: CTA, breath sounds present Cardiovascular: RRR, pulses symmetrical Abdomen: nontender, soft Musculoskeletal: mild tenderness over left hip. ROM is intact. Pt is neurovascular intact. Neuro: normal, sensory motor intact, A&Ox3 Triage Information Reviewed: Yes Vital Signs On Initial Exam: Initial Vitals Temp Pulse Resp BP Pulse Ox 97.7 F 100 16 116/85 100 07/24/18 19:49 07/24/18 19:49 07/24/18 19:49 07/24/18 19:49 07/24/18 19:49 Vital Signs Reviewed: Yes Diagnostics - Vital Signs Vital Signs Temp Pulse Resp BP Pulse Ox 07/24/18 19:49 97.7 F 100 16 116/85 100 - Laboratory Lab Statement: Any lab studies that have been ordered have been reviewed, and results considered in the medical decision making process. - Radiology Left hip XR Radiology Interpretation Completed By: ED Physician Summary of Radiographic Findings: Negative XR. Pending official radiology report. Re-Evaluation - Re-Evaluation First Eval Re-Evaluation Time: 21:17 Comment: I reviewed XR results with the pt. Pt will be discharge home. Lower Extremity Course/Dx - Course Assessment/Plan: Pt is a 27 y/o female, with hx osteoarthritis, hip dysplasia, and substance abuse, who presents with left hip pain s/p slip and fall today. 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 Denies head strike or LOC. In the ED course the pt was given percocet, zofran. Left hip XR is negative. Pending official radiology report. Pt will be discharged home with follow up from her PCP. She was instructed to return to the ED for any worsening or new symptoms. - Diagnoses Provider Diagnoses: Hip pain, left Discharge - Sign-Out/Discharge Documenting (check all that apply): Patient Departure - Discharge home - Discharge Plan Condition: Stable Disposition: HOME Prescriptions: Oxycodone HCl/Acetaminophen [Percocet] 1 tab PO TID #6 tab MDD 3 Patient Education Materials: Hip Pain (ED) Referrals: Mando Benítez MD [Primary Care Provider] - Additional Instructions: Please follow up with your primary care provider in 3 days. RETURN TO THE ED FOR ANY WORSENING OR NEW SYMPTOMS. - Attestation Statements Document Initiated by Scribe: Yes Documenting Scribe: Katarina Walters Provider For Whom Babs is Documenting (Include Credential): Peter Abreu MD Scribe Attestation: Katarina Carrion, scribed for Peter Abreu MD on 07/24/18 at 5156. Status of Scribe Document: Ready
[2018-07-24 21:28] VITALS: BP 119/72
== END 2018-07-24 21:29 | disposition home or self-care (01) ==
LOC: ED 19:42
DX: M25.552 Pain in left hip (principal); Z88.0 Allergy status to penicillin; Z87.891 Personal history of nicotine dependence
CPT/HCPCS: 99282; A9270-GY

== ENCOUNTER 2018-11-13 17:47 | Emergency (ER) | payer MEDICARE, OTHER ==
[2018-11-13] MEDS ORDERED: Ketorolac TAB * 10 MG TAB PO ONE (18:22)
--- OUTSIDE RECORDS SUMMARY | 2018-11-13 18:35 | XMS REPORT | Continuity of Care Document ---
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 Onset: 08/31/2018 Family History Date Family Member(s) Observation Comments Father Alive And Well Mother Alive And Well Children None Siblings None Social History Type Date Description Comments Sex Unknown Marital Status Legal Status: Work Status Unemployed ETOH Use Denies alcohol use Recreational Drug Use Denies Drug Use Tobacco Use Start: Unknown End: Unknown Patient is a former smoker Smoking Status Reviewed: 10/17/18 Patient is a former smoker Allergies, Adverse Reactions, Alerts Description No Known Drug Allergies Medications Active Medications SIG Qnty Indications Ordering Date Provider Ondansetron 1 tablet under 10tabs Michelet Carrera 09/25/2018 4mg Tablets the tongue Mercedez Cano Dispers every 6 hours as needed for nausea Naproxen 1 by mouth 60tabs Michelet Carrera 09/25/2018 500mg Tablets twice a day Mercedez Cano w/food Cyclobenzaprine HCL 1 tab p.r.n. Unknown 10mg Tablets Olanzapine 1 tab p.o. Unknown 10mg Tablets daily Benzoyl Peroxide apply 1 daily Unknown 5% Gel [place] Carbonate ER 1 tab p.o. Unknown 450mg daily Tablets ER Sumatriptan Succinate p.r.n. Unknown 50mg Tablets Pain & Fever Extra p.r.n. Unknown Strength 500mg Tablets Metformin HCL 1 tab p.o. Unknown 500mg Tablets daily Oxycodone-Acetaminophen prn Unknown 5-325mg Tablets Chantix 1 Tab PO bid Unknown 1mg Tablets History Medications Zolpidem Tartrate one orally at 5tabs Michelet Carrera 09/25/2018 - 10mg bedtime as needed Mercedez Cano 10/17/2018 Tablets insomnia Reference #: [id number] Clindamycin HCL 1 by mouth four 12caps Michelet Carrera 09/25/2018 - 150mg times a day Mercedez Cano 10/17/2018 Capsules Ondansetron HCL 1 tab p.o. daily Unknown - 4mg 10/17/2018 Tablets Clonazepam 1 tab p.r.n. Unknown - 1mg Tablets 10/17/2018 Hydromorphone HCL 1 tab p.o. daily Unknown - 2mg 10/17/2018 Tablets Immunizations Description No Information Available Vital Signs Date Vital Result Comment 10/17/2018 2:21pm Height 62 inches 5'2" Weight 220.00 lb BMI (Body Mass Index) 40.2 kg/m2 Heart Rate 83 /min Body Temperature 97.0 F Pain Level 4 LT Hip O2 % BldC Oximetry 99 % 08/31/2018 2:51pm Height 62 inches 5'2" Weight 216.00 lb BMI (Body Mass Index) 39.5 kg/m2 Heart Rate 95 /min Respiratory Rate 16 /min Body Temperature 99.3 F Pain Level 9 toya hips O2 % BldC Oximetry 99 % Results Description No Information Available Procedures Date Code Description Status 10/02/2018 40691 Arthroscopy,Hip,Labral Repair Completed 10/02/2018 50016 Arthroscopy,Hip,W/Femoroplasty,Treatment Of Cam Lesion Completed 08/31/2018 88466 Radiologic Exam Hips Bilateral With Pelvis 3-4 Views Completed Encounters Type Date Location Provider Dx Diagnosis Office Visit 08/31/2018 [place] [facility] Michelet Carrera M24.151 Other articular 3:00p Mercedez Cano cartilage disorders, right hip M24.152 Other articular cartilage disorders, left hip S76.011A Strain of muscle, fascia and tendon of right hip, init Z71.3 Dietary counseling and surveillance M25.551 Pain in right hip M25.552 Pain in left hip Plan of Treatment No Information Available
--- NOTE | 2018-11-13 18:55 | ED ---
Upper Extremity Pain - HPI Summary HPI Summary: Patient complains of acute on chronic right shoulder pain 3 or 4 days. States history of injury 1 year ago. Took Tylenol this morning with no relief. States she has appointment with ortho 6 days. Denies trauma, fever, cough, sore throat, CP, SOB, N/V/D, abdominal pain, change in urine, change in BM. Denies any other pain injury or symptoms. - History of Current Complaint Chief Complaint: EDShoulderClavicGracy Stated Complaint: RT SHOULDER PAIN PER PT Time Seen by Provider: 11/13/18 17:55 Hx Obtained From: Patient Hx Last Menstrual Period: 02/05/18 Mechanism Of Injury: Unknown Onset/Duration: Started Days Ago Timing: Constant Severity Initially: Moderate Severity Currently: Moderate Pain Location: Shoulder Character: Aching Aggravating Factor(s): Movement, Abduction Alleviating Factor(s): Nothing Associated Signs & Symptoms: Positive: Negative - Allergies/Home Medications Allergies/Adverse Reactions: Allergies Allergy/AdvReac Type Severity Reaction Status Date / Time Penicillins Allergy Itching Verified 11/13/18 18:04 PMH/Surg Hx/FS Hx/Imm Hx Endocrine/Hematology History: Denies: Hx Anticoagulant Therapy, Hx Diabetes Cardiovascular History: Reports: Hx Angina, Hx Hypercholesterolemia - HLD, Hx Syncope, Hx Valvular Heart Disease - AR, Other Cardiovascular Problems/ Disorders - aortic regurgitation Denies: Hx Hypertension, Hx Myocardial Infarction, Hx Pacemaker/ICD Respiratory History: Reports: Hx Asthma, Hx Seasonal Allergies History: Denies: Hx Renal Disease Musculoskeletal History: Reports: Hx Back Problems - lower back pain, Other Musculoskeletal History - labrum tears b/l hips Sensory History: Reports: Hx Contacts or Glasses Opthamlomology History: Reports: Hx Contacts or Glasses Neurological History: Reports: Hx Migraine, Other Neuro Impairments/Disorders - Right hemisphere disorder Psychiatric History: Reports: Hx Anxiety, Hx Attention Deficit Hyperactivity Disorder, Hx Depression, Hx Inpatient Treatment - 10/2017, Hx Community Mental Health Tx, Hx Bipolar Disorder, Hx Suicide Attempt, Hx Substance Abuse - oxycodone Denies: Hx Eating Disorder, Hx Panic Disorder, Hx Post Traumatic Stress Disorder, Hx Schizophrenia, Hx of Violent Episodes Against Others - Surgical History Surgery Procedure, Year, and Place: NO PRIOR SURGERIES - Immunization History Date of Tetanus Vaccine: up to date Date of Influenza Vaccine: up to date. Infectious Disease History: No Infectious Disease History: Reports: History Other Infectious Disease - varicella Denies: Traveled Outside the [place] in Last 30 Days - Family History Known Family History: Positive: Cardiac Disease - Mother: fatal IA at age 52, Hypertension, Diabetes, Other - seizures (mother); no history of SI from family members - Social History Alcohol Use: Rare Hx Substance Use: Yes Substance Use Type: Reports: None Substance Use Comment - Amount & Last Used: rarely Hx Tobacco Use: Yes - FORMER- QUIT TODAY 10/24/2016 Smoking Status (MU): Former Smoker Type: Cigarettes Amount Used/How Often: 1 ppd Length of Time of Smoking/Using Tobacco: since age 18 Have You Smoked in the Last Year: Yes Review of Systems Constitutional: Negative Eyes: Negative ENT: Negative Cardiovascular: Negative Respiratory: Negative Gastrointestinal: Negative Genitourinary: Negative Musculoskeletal: Other Skin: Negative Neurological: Negative Psychological: Normal All Other Systems Reviewed And Are Negative: Yes Physical Exam - Summary Physical Exam Summary: Patient able to abduct up to shoulder level but no further. No ecchymosis, erythema, deformity, swelling, extra warmth noted to right shoulder joint. Patient flexes and extends her right elbow and right wrist with no indication of pain. Mild tenderness to palpation right shoulder. Triage Information Reviewed: Yes Vital Signs On Initial Exam: Initial Vitals Temp Pulse Resp BP Pulse Ox 97.8 F 103 18 135/78 98 11/13/18 17:48 11/13/18 17:48 11/13/18 17:48 11/13/18 17:48 11/13/18 17:48 Vital Signs Reviewed: Yes Appearance: Positive: Well-Appearing Skin: Positive: Warm Head/Face: Positive: Normal Head/Face Inspection Eyes: Positive: Normal Neck: Positive: Supple Respiratory/Lung Sounds: Positive: Clear to Auscultation Cardiovascular: Positive: Normal Abdomen Description: Positive: Nontender Musculoskeletal: Positive: Normal Neurological: Positive: Normal Psychiatric: Positive: Normal AVPU Assessment: Alert - Yale Coma Scale Best Eye Response: 4 - Spontaneous Best Motor Response: 6 - Obeys Commands Best Verbal Response: 5 - Oriented Coma Scale Total: 15 Diagnostics - Vital Signs Vital Signs Temp Pulse Resp BP Pulse Ox 11/13/18 17:48 97.8 F 103 18 135/78 98 - Laboratory Lab Statement: Any lab studies that have been ordered have been reviewed, and results considered in the medical decision making process. Course/Dx - Course Course Of Treatment: Patient complains of acute on chronic right shoulder pain 3 or 4 days. States history of injury 1 year ago. Took Tylenol this morning with no relief. States she has appointment with ortho 6 days. Denies trauma, fever, cough, sore throat, CP, SOB, N/V/D, abdominal pain, change in urine, change in BM. Denies any other pain injury or symptoms. Physical exam:Patient able to abduct up to shoulder level but no further. No ecchymosis, erythema, deformity, swelling, extra warmth noted to right shoulder joint. Patient flexes and extends her right elbow and right wrist with no indication of pain. Mild tenderness to palpation right shoulder. Vital signs within normal limits. X-ray right shoulder negative.. [facility] regular when somebody [phone] patient receiving prescription opiates from multiple providers. Rx for oxycodone 2 tablets. Recommended alternating Tylenol and ibuprofen for pain. Follow-up with existing appointment with ortho - Diagnoses Provider Diagnoses: Shoulder pain, right Discharge - Sign-Out/Discharge Documenting (check all that apply): Patient Departure Patient Received Moderate/Deep Sedation with Procedure: No - Discharge Plan Condition: Stable Disposition: HOME Prescriptions: Oxycodone HCl 5 mg PO BID 1 Days #2 tablet MDD 2 tabs Patient Education Materials: Shoulder Pain (ED) Referrals: No Primary Care Phys,NOPCP [Primary Care Provider] - Additional Instructions: Alternate ibuprofen 600 mg with Tylenol 650 mg every 3 hours for right shoulder pain. Follow-up with your already scheduled orthopedics appointment in 6 days. Return to the ED for any new or worsening symptoms. - Billing Disposition and Condition Condition: STABLE Disposition: Home
[2018-11-13] MEDS ORDERED: oxyCODONE TAB* 5 MG TAB PO ONE (19:03)
[2018-11-13 19:14] VITALS: BP 122/72
== END 2018-11-13 19:13 | disposition home or self-care (01) ==
LOC: ED 17:47
DX: M25.511 Pain in right shoulder (principal); E78.00 Pure hypercholesterolemia, unspecified; E78.5 Hyperlipidemia, unspecified; R55 Syncope and collapse; J45.909 Unspecified asthma, uncomplicated; F41.9 Anxiety disorder, unspecified; F90.9 Attention-deficit hyperactivity disorder, unspecified type; F31.9 Bipolar disorder, unspecified; Z88.0 Allergy status to penicillin; Z91.5 Personal history of self-harm; Z87.891 Personal history of nicotine dependence
CPT/HCPCS: 99282; A9270-GY

== ENCOUNTER 2018-11-28 10:33 | Emergency (ER) | payer MEDICARE, OTHER ==
--- OUTSIDE RECORDS SUMMARY | 2018-11-28 11:27 | XMS REPORT | Continuity of Care Document ---
:1990 External Reference #:[id number] Author Name Michelet Cano M.D. Address [address] [place] [address] Care Team Providers Name Role Phone Camryn Jolley MD Care Team Information Sterile Processing Technologist Unavailable Unknown Primary Care Physician Unavailable Payers Date Identification Numbers Payment Provider Subscriber Policy Number: [id number] Medicare Part B [employer]ra [employer] Group Name: [facility] [address] PayID: [id number] [place] [address] Effective: 2018 Policy Number: [id number] [employer] Kindra Shaw PayID: [id number] [address] [place] [phone] Problems Active Problems Provider Date Articular cartilage disorder of the Mcihelet Cano M.D. Onset: 2018 pelvic region and [...] is a former smoker Smoking Status Reviewed: 11/23/18 Patient is a former smoker Allergies, Adverse Reactions, Alerts Active Allergies Reaction Severity Comments Date Penicillin Itch, Hives 11/23/2018 Inactive Allergies NKDA 08/31/2018 Medications Active Medications SIG Qnty Indications Ordering Date Provider Ondansetron 1 tablet under 10tabs Michelet Carrera 09/25/2018 4mg Tablets the tongue Mercedez Cano Dispers every 6 hours as needed for nausea Clonazepam 1/2 Tab PO tid Unknown 1mg Tablets Chantix 1 Tab PO bid Unknown 1mg Tablets Metformin HCL 1 tab p.o. Unknown 500mg Tablets daily Pain & Fever Extra p.r.n. Unknown Strength 500mg Tablets Sumatriptan Succinate p.r.n. Unknown 50mg Tablets [place] Carbonate ER 1 tab p.o. bid Unknown 450mg Tablets ER Benzoyl Peroxide apply 1 daily Unknown 5% Gel Cyclobenzaprine HCL 1 tab p.r.n. Unknown 10mg Tablets History Medications Zolpidem Tartrate one orally at 5tabs Michelet Luna 09/25/2018 - 10mg bedtime as needed Mercedez Cano 10/17/2018 Tablets insomnia Reference #: [id number] Naproxen 1 by mouth twice a 60tabs Michelet Luna 09/25/2018 - 500mg Tablets day w/food Mercedez Cano 11/23/2018 Clindamycin HCL 1 by mouth four 12caps Michelet Carrera 09/25/2018 - 150mg times a day Mercedez Cano 10/17/2018 Capsules Ondansetron HCL 1 tab p.o. daily Unknown - 4mg 10/17/2018 Tablets Clonazepam 1 tab p.r.n. Unknown - 1mg Tablets 10/17/2018 Olanzapine 1 tab p.o. daily Unknown - 10mg Tablets 11/23/2018 Hydromorphone HCL 1 tab p.o. daily Unknown - 2mg 10/17/2018 Tablets Oxycodone-Acetaminophe prn Unknown - n 11/23/2018 5-325mg Tablets Vital Signs Date Vital Result Comment 11/23/2018 1:41pm Height 62 inches 5'2" Weight 220.00 lb BMI (Body Mass Index) 40.2 kg/m2 Heart Rate 74 /min Respiratory Rate 18 /min Body Temperature 97.1 F Pain Level 0 LT Hip O2 % BldC Oximetry 99 % 10/17/2018 2:21pm Height 62 inches 5'2" Weight 220.00 lb BMI (Body Mass Index) 40.2 kg/m2 Heart Rate 83 /min Respiratory Rate 17 /min Body Temperature 97.0 F Pain Level 4 LT Hip O2 % BldC Oximetry 99 % 08/31/2018 2:51pm Height 62 inches 5'2" Weight 216.00 lb BMI (Body Mass Index) 39.5 kg/m2 Heart Rate 95 /min Respiratory Rate 16 /min Body Temperature 99.3 F Pain Level 9 toya hips O2 % BldC Oximetry 99 % Procedures Date Code Description Status 10/17/2018 21157 Radiologic Exam Hip Unilateral With Pelvis 2-3 Views Completed 10/02/2018 93717 Arthroscopy,Hip,Labral Repair Completed 10/02/2018 08580 Arthroscopy,Hip,W/Femoroplasty,Treatment Of Cam Lesion Completed 08/31/2018 55149 Radiologic Exam Hips Bilateral With Pelvis 3-4 Views Completed Encounters Type Date Location Provider Dx Diagnosis Office Visit 08/31/2018 [facility] Michelet Carrera M24.151 Other articular 3:00p Mercedez Cano cartilage disorders, right hip M24.152 Other articular cartilage disorders, left hip S76.011A Strain of muscle, fascia and tendon of right hip, init Z71.3 Dietary counseling and surveillance M25.551 Pain in right hip M25.552 Pain in left hip Plan of Treatment Future Appointment(s):01/17/2019 1:15 pm - Randy HAWKINS at [facility]
--- OUTSIDE RECORDS SUMMARY | 2018-11-28 11:27 | XMS REPORT | Continuity of Care Document ---
:1990 External Reference #:[id number] Author Name Tonny Nunez N.P. Address [address] [place] [address] [address] [place] [address] Care Team Providers Name Role Phone John Law M.D. 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 Payers Date Identification Numbers Payment Provider Subscriber Policy Number: [id number] Medicare Kindra Shaw PayID: [id number] [address] [place] [address] Effective: 2018 Policy Number: [id number] [facility] Kindra Shaw PayID: [id number] [address] [place] [address] Policy Number: [id number] Medicaid/[employer] Kindra Shaw PayID: [id number] [address] [place] [address] Family History Date Family Member(s) Observation Comments General Not Known - Adopted Father Not Known - Adopted Mother Not Known - Adopted Children None Social History Type Date Description Comments Sex Unknown Lives With Roommate Work Status Disabled ETOH Use Denies alcohol use Tobacco Use Start: Unknown End: Patient is a former smoker Recreational Drug Use Denies Drug Use Allergies, Adverse Reactions, Alerts Active Allergies Reaction Severity Comments Date Penicillins 11/16/2018 Medications Active Medications SIG Qnty Indications Ordering Date Provider Diclofenac Sodium 1 tab by mouth 60tabs M15.9 John Law 11/16/2018 75mg twice a day M. MLunaDLuna Tablets DR With Food Tylenol Extra Strength 2 tabs by mouth 180tabs M15.9 John Law 2018 three times a M., MLunaDLuna 500mg Tablets day as directed. max daily dose of tylenol from all sources to not exceed 4000mg Levalbuterol HCL One Vial Via 100units J45.909 John Law 11/16/2018 0.31mg/3ML Neb Inh PO Q 4H M., MLakeisha. Nebulizer prn SOB Sumatriptan Succinate Unknown 50mg Tablets Qvar Redihaler Unknown 80mcg/Act Aerosol Ondansetron HCL Unknown 4mg Tablets Montelukast Sodium 1 Tab PO Daily 30tabs John Law 10mg M., MLunaD. Tablets Olanzapine Unknown 10mg Tablets Fluticasone Propionate Unknown 50mcg/Act Suspension Acne Medication 5 Unknown 5% Gel Olanzapine Unknown 7.5mg Tablets Metformin HCL Unknown 500mg Tablets [place] Carbonate ER Unknown 450mg Tablets ER Naproxen Unknown 500mg Tablets Cyclobenzaprine HCL Unknown 10mg Tablets Trazodone HCL Unknown 100mg Tablets Chantix Unknown 1mg Tablets Vital Signs Date Vital Result Comment 11/16/2018 9:10am BP Systolic 124 mmHg BP Diastolic 64 mmHg Height 62 inches 5'2" Weight 222.00 lb BMI (Body Mass Index) 40.6 kg/m2 Heart Rate 95 /min Respiratory Rate 16 /min Results Test Date Facility Test Result H/L Range Note Urine Drug 11/16/2018 [id number] <pending> [place] Ethyl Glucuronide <pending> Procedures Date Code Description Status 11/16/2018 09333 Visual Screening Test Completed 11/16/2018 69468 Audiometry, Bekesy, Screening Completed Encounters Type Date Location Provider Dx Diagnosis Office Visit 11/16/2018 [place] [facility] Tonny Nunez, L20.9 Atopic dermatitis, 9:00a N.P. unspecified J30.9 Allergic rhinitis, unspecified M67.852 Other specified disorders of synovium, left hip E28.2 Polycystic ovarian syndrome J45.909 Unspecified asthma, uncomplicated J44.9 Chronic obstructive pulmonary disease, unspecified E66.01 Morbid (severe) obesity due to excess calories F90.0 Attn-defct hyperactivity disorder, predom inattentive type M15.9 Polyosteoarthritis, unspecified F31.9 Bipolar disorder, unspecified R11.0 Nausea M25.511 Pain in right shoulder Z00.01 Encounter for general adult medical exam w abnormal findings Plan of Treatment Future Appointment(s):11/30/2018 8:30 am - Tonny Nunez NNikole at [facility]/16/2018 - Tonny Nunez NLunaP.L20.9 Atopic dermatitis, unspecifiedComments:SKIN CARE INSTRUCTIONS LOTION OR BABY OIL 2-3 APPLICATION PER DAYUSE MOISTURIZING SOAPAVOID PROLONGED WATER EXPOSUREAVOID USING HOT WATER IN ZLGCPNV99.9 Allergic rhinitis, unspecifiedComments:INCREASE PO FLUID USE ANTIHISTAMINE PRN SECOND HAND SMOKING FWGQCOATXL54.852 Other specified disorders of synovium, left hipComments:F/U JMOLLV67.2 Polycystic ovarian syndromeComments:F/U WITH OB/GYNJ45.909 Unspecified asthma, uncomplicatedNew Medication:Levalbuterol HCL 0.31 mg/3ML - One Vial Via Neb Inh PO Q 4H prn SOBComments:MDI / NEBULIZER TX PRN AVOID EXPOSURE TO SMOKING OR HVLWPT52.9 Chronic obstructive pulmonary disease, unspecifiedComments:INCREASE PO NFIFBKQQFA20.01 Morbid (severe) obesity due to excess caloriesComments:WT LOSS COUNCELLINGEXERCISEDIET EJXLADGZDTCM09.0 Attention-deficit hyperactivity disorder, predominantly inattentive typeM15.9 Polyosteoarthritis, unspecifiedNew Medication:Diclofenac Sodium 75 mg - 1 tab by mouth twice a day With FoodTylenol Extra Strength 500 mg - 2 tabs by mouth three times a day as directed. max daily dose of tylenol from all sources to not exceed 4000mgComments:EXERCISE/HEAT/MESSAGETYLENOL OR MOTRIN PRNAVOID HEAVY LIFTINGWT LOSSFollow up:2 weeks. FOR FBWF31.9 Bipolar disorder, unspecifiedComments: COUNSELING AND REASSURANCE CONTINUE PRESCRIBED MEDICATIONS RELAXATION TECHNIQUES DISCUSSED COUNSELEDRE: STRESSORS IN LIFER11.0 NauseaComments: INCREASE PO FLUID SMALL SIPS OF FLUIDS AT A TIME SMALL FREQUENT MEALS F/U DIRECTED CALL IF YOU HAVE VOMITING OR WITH S/S OF BDLJADGZAJPM58.511 Pain in right shoulderComments:EXERCISE/HEAT /MESSAGE AVOID HEAVY LIFTINGTYLENOL OR MOTRIN PRNZ00.01 Encounter for general adult medical examination with abnormal findingsComments:GOOD NUTRITION /EXERCISEDENTAL/ FLOSSING/ SELF CAREDROWNING/ SUN SAFETYSEAT BELT/ DRIVING SAFETYSPORT BIKE/ HELMET USESPORTS/ INJURY PREVENTIONVIOLENCE PREVENTION/ GUN SAFETYPARENTING ADVICE"SAFE AT HOME"SEX EDUCATION/ COUNSELINGBREAST/ TESTICULAR SELF EXAMEDUCATION GOALS/ ACTIVITIESLIMIT TV/ INTERNETUSETOBACCO/ ALCOHOL/ DRUGS/ INHALANTSPEER REFUSAL SKILLSSOCIAL INTERACTIONFAMILY FUNCTIONINGSELF CONTROLDEPRESSION/ ANXIETYNEXT APPOINTMENTYEARLY PHYSICAL WELLNESS EVALUATION
--- OUTSIDE RECORDS SUMMARY | 2018-11-28 11:27 | XMS REPORT | Continuity of Care Document ---
:1990 External Reference #:[id number] Author Name Tonny Nunez N.P. Address [address] [place] [address] [address] [place] [address] Care Team Providers Name Role Phone John Law M.D. Care Team Information Chiropractor Sole Practitioner Unavailable Payers Date Identification Numbers Payment Provider Subscriber Policy Number: [id number] Medicare Kindra Shaw PayID: [id number] [address] [place] [address] Effective: 2018 Policy Number: [id number] [facility] Kindra Shaw PayID: [id number] [address] [place] [address] Policy Number: [id number] Medicaid/[employer] Kindra Shaw PayID: [id number] [address] [place] [address] Family History Date Family Member(s) Observation Comments [...] 0.31mg/3ML Neb Inh PO Q 4H M., Jasvir. Nebulizer prn SOB Sumatriptan Succinate Unknown 50mg Tablets Qvar Redihaler Unknown 80mcg/Act Aerosol Ondansetron HCL Unknown 4mg Tablets Montelukast Sodium 1 Tab PO Daily 30tabs John Law 10mg M., MLunaD. Tablets Olanzapine Unknown 10mg Tablets Fluticasone Propionate Unknown 50mcg/Act Suspension Acne Medication 5 Unknown 5% Gel Olanzapine Unknown 7.5mg Tablets Metformin HCL Unknown 500mg Tablets [place] Carbonate ER Unknown 450mg Tablets ER Naproxen Unknown 500mg Tablets Cyclobenzaprine HCL Unknown 10mg Tablets Trazodone HCL Unknown 100mg Tablets Chantix Unknown 1mg Tablets Vital Signs Date Vital Result Comment 11/16/2018 9:10am BP Systolic 124 mmHg BP Diastolic 64 mmHg Height 62 inches 5'2" Weight 222.00 lb BMI (Body Mass Index) 40.6 kg/m2 Heart Rate 95 /min Respiratory Rate 16 /min Procedures Date Code Description Status 11/16/2018 86473 Visual Screening Test Completed 11/16/2018 86616 Audiometry, [place], Screening Completed Encounters Type Date Location Provider Dx Diagnosis Office Visit 11/16/2018 [facility] Tonny Nunez, L20.9 Atopic dermatitis, 9:00a N.P. [...] Future Appointment(s):11/30/2018 8:30 am - Tonny Nunez N.P. at [facility]11/16/2018 - Tonny Nunez N.P.L20.9 Atopic dermatitis, unspecifiedComments:SKIN CARE INSTRUCTIONS LOTION OR BABY OIL 2-3 APPLICATION PER DAYUSE MOISTURIZING SOAPAVOID PROLONGED WATER EXPOSUREAVOID USING HOT WATER IN DSCUMQY35.9 Allergic rhinitis, unspecifiedComments:INCREASE PO FLUID USE ANTIHISTAMINE PRN SECOND HAND SMOKING OTTZUSRCQG24.852 Other specified disorders of synovium, left hipComments:F/U BRJJEK85.2 Polycystic ovarian syndromeComments:F/U WITH OB/GYNJ45.909 Unspecified asthma, uncomplicatedNew Medication:Levalbuterol HCL 0.31 mg/3ML - One Vial Via Neb Inh PO Q 4H prn SOBComments:MDI / NEBULIZER TX PRN AVOID EXPOSURE TO SMOKING OR NOUSMM80.9 Chronic obstructive pulmonary disease, unspecifiedComments:INCREASE PO USXIOBSTKF22.01 Morbid (severe) obesity due to excess caloriesComments:WT LOSS COUNCELLINGEXERCISEDIET MRSCSRVVKXWY29.0 Attention-deficit hyperactivity disorder, predominantly inattentive typeM15.9 Polyosteoarthritis, [...] YOU HAVE VOMITING OR WITH S/S OF OOLGFLTYPSES78.511 Pain in right shoulderComments:EXERCISE/HEAT /MESSAGE AVOID HEAVY [...]
--- OUTSIDE RECORDS SUMMARY | 2018-11-28 11:27 | XMS REPORT | Continuity of Care Document ---
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 Dispers every 6 hours as needed for nausea Clonazepam 1/2 Tab PO tid Unknown 1mg Tablets Chantix 1 Tab PO bid Unknown 1mg Tablets Metformin HCL 1 tab p.o. Unknown 500mg Tablets daily Pain & Fever Extra p.r.n. Unknown Strength 500mg Tablets Sumatriptan Succinate p.r.n. Unknown 50mg Tablets [place] Carbonate ER 1 tab p.o. bid Unknown 450mg Tablets ER Benzoyl Peroxide apply 1 daily Unknown 5% Gel Cyclobenzaprine HCL 1 tab p.r.n. Unknown 10mg Tablets History Medications Zolpidem Tartrate one orally at 5tabs Michelet Luna 09/25/2018 - 10mg bedtime as needed Mercedez Cano 10/17/2018 Tablets insomnia Reference #: [id number] Naproxen 1 by mouth twice a 60tabs Michelet Carrera 09/25/2018 - 500mg Tablets day w/food Mercedez [...] % Procedures Date Code Description Status 10/17/2018 72225 Radiologic Exam Hip Unilateral With Pelvis 2-3 Views Completed 10/02/2018 07000 Arthroscopy,Hip,Labral Repair Completed 10/02/2018 18436 Arthroscopy,Hip,W/Femoroplasty,Treatment Of Cam Lesion Completed 08/31/2018 17053 Radiologic Exam Hips Bilateral With Pelvis 3-4 Views Completed Encounters Type Date Location Provider Dx Diagnosis Office Visit 08/31/2018 [place] [facility] Michelet Carrera M24.151 Other articular 3:00p Merceedz Cano cartilage disorders, right hip M24.152 Other articular cartilage disorders, left hip S76.011A Strain of muscle, fascia and tendon of right hip, init Z71.3 Dietary counseling and surveillance M25.551 Pain in right hip M25.552 Pain in left hip
[2018-11-28] MEDS: Acetaminophen TAB* 325 MG PO ONE (11:40)
[2018-11-28] MEDS: Ondansetron ODT TAB* 4 MG SL ONE (11:40)
--- NOTE | 2018-11-28 11:42 | ED ---
Upper Extremity Pain - HPI Summary HPI Summary: Patient is a 28-year-old female presenting to the ED with right shoulder injury. She states she slipped on some water and fell directly over to the right shoulder. She's been unable to move the shoulder since that time. She is requesting pain control on arrival. She is also requesting a sandwich. She denies any numbness or tingling. Denies any neck pain head pain, head trauma or LOC. She states this is a "chronic issue." She states she has injured the right shoulder in the past, however has never had surgery or dislocations to this area. She has not taken anything prior to arrival. She is requesting oxycodone on arrival and states she is unable to take ibuprofen. She has not been using heat or ice for relief. - History of Current Complaint Chief Complaint: EDExtremityUpper Stated Complaint: RIGHT SHOULDER PAIN/NAUSEA PER PT Time Seen by Provider: 11/28/18 10:45 Hx Obtained From: Patient Hx Last Menstrual Period: 02/05/18 Mechanism Of Injury: Direct Blow Onset/Duration: Started Hours Ago Timing: Constant Severity Initially: Moderate Severity Currently: Moderate Pain Location: Shoulder Character: Aching Aggravating Factor(s): Movement, Lifting, Flexion, Extension Associated Signs & Symptoms: Negative: Swelling, Redness, Bruising, Numbness/ Tingling, Chest Pain Related History: Dominant Hand Right - Risk Factors Non-Orthopedic Risk Factor: Negative DVT Risk Factors: Negative Septic Arthritis Risk Factor: Negative Compartment Syndrome Risk Factors: Pain - Allergies/Home Medications Allergies/Adverse Reactions: Allergies Allergy/AdvReac Type Severity Reaction Status Date / Time Penicillins Allergy Itching Verified 11/13/18 18:04 Home Medications: Home Medications Acetaminophen [Acetaminophen Extra Strength] 500 mg PO Q4HR PRN 11/28/18 [ History Confirmed 11/28/18] Diclofenac Sodium EC TAB* [Voltaren EC TAB*] 75 mg PO BID PRN 11/28/18 [History Confirmed 11/28/18] Eszopiclone [Lunesta] 1 mg PO BEDTIME 11/28/18 [History Confirmed 11/28/18] [place] Carbonate TAB* 300 mg PO DAILY 11/28/18 [History Confirmed 11/28/18] Varenicline (NF) [Chantix 1 MG TAB (NF)] 1 mg PO BID 11/28/18 [History Confirmed 11/28/18] clonazePAM TAB(*) [KlonoPIN TAB(*)] 1.5 mg PO DAILY PRN 11/28/18 [History Confirmed 11/28/18] PMH/Surg Hx/FS Hx/Imm Hx Previously Healthy: Yes Endocrine/Hematology History: Denies: Hx Anticoagulant Therapy, Hx Diabetes Cardiovascular History: Reports: Hx Angina, Hx Hypercholesterolemia - HLD, Hx Syncope, Hx Valvular Heart Disease - [place], Other Cardiovascular Problems/ Disorders - aortic regurgitation Denies: Hx Hypertension, Hx Myocardial Infarction, Hx Pacemaker/ICD Respiratory History: Reports: Hx Asthma, Hx Seasonal Allergies History: Denies: Hx Renal Disease Musculoskeletal History: Reports: Hx Back Problems - lower back pain, Other Musculoskeletal History - labrum tears b/l hips Sensory History: Reports: Hx Contacts or Glasses Opthamlomology History: Reports: Hx Contacts or Glasses Neurological History: Reports: Hx Migraine, Other Neuro Impairments/Disorders - Right hemisphere disorder Psychiatric History: Reports: Hx Anxiety, Hx Attention Deficit Hyperactivity Disorder, Hx Depression, Hx Inpatient Treatment - 10/2017, Hx Community Mental Health Tx, Hx Bipolar Disorder, Hx Suicide Attempt, Hx Substance Abuse - oxycodone Denies: Hx Eating Disorder, Hx Panic Disorder, Hx Post Traumatic Stress Disorder, Hx Schizophrenia, Hx of Violent Episodes Against Others - Surgical History Surgery Procedure, Year, and Place: NO PRIOR SURGERIES - Immunization History Date of Tetanus Vaccine: up to date Date of Influenza Vaccine: up to date. Hx Pertussis Vaccination: No Immunizations Up to Date: Yes Infectious Disease History: No Infectious Disease History: Reports: History Other Infectious Disease - varicella Denies: Traveled Outside the [place] in Last 30 Days - Family History Known Family History: Positive: Cardiac Disease - Mother: fatal [place] at age 52, Hypertension, Diabetes, Other - seizures (mother); no history of SI from family members - Social History Occupation: Unemployed Lives: With Family Alcohol Use: Rare Hx Substance Use: Yes Substance Use Type: Reports: None Substance Use Comment - Amount & Last Used: rarely Hx Tobacco Use: Yes - FORMER- QUIT TODAY 10/24/2016 Smoking Status (MU): Former Smoker Type: Cigarettes Amount Used/How Often: 1 ppd Length of Time of Smoking/Using Tobacco: since age 18 Have You Smoked in the Last Year: Yes Review of Systems Constitutional: Negative Negative: Fever, Chills, Fatigue, Skin Diaphoresis Negative: Palpitations, Chest Pain Negative: Shortness Of Breath, Cough Genitourinary: Negative Positive: no symptoms reported, see HPI Positive: Arthralgia - right shoulder pain Skin: Negative Neurological: Negative All Other Systems Reviewed And Are Negative: Yes Physical Exam Triage Information Reviewed: Yes Vital Signs On Initial Exam: Initial Vitals Temp Pulse Resp BP Pulse Ox 97.1 F 82 18 153/117 99 11/28/18 10:37 11/28/18 10:37 11/28/18 10:37 11/28/18 10:37 11/28/18 10:37 Vital Signs Reviewed: Yes Appearance: Positive: Well-Appearing, Well-Nourished Skin: Positive: Warm, Skin Color Reflects Adequate Perfusion Head/Face: Positive: Normal Head/Face Inspection Eyes: Positive: EOMI Neck: Positive: Supple, No Lymphadenopathy Respiratory/Lung Sounds: Positive: Clear to Auscultation, Breath Sounds Present Cardiovascular: Positive: Pulses are Symmetrical in both Upper and Lower Extremities Musculoskeletal: Positive: Pain @ - right shoulder pain Diagnostics - Vital Signs Vital Signs Temp Pulse Resp BP Pulse Ox 11/28/18 10:37 97.1 F 82 18 153/117 99 - Laboratory Lab Statement: Any lab studies that have been ordered have been reviewed, and results considered in the medical decision making process. Course/Dx - Course Course Of Treatment: Patient is evaluated for right shoulder pain. Patient is able to flex and extend, abduct and adduct, however she states this is with discomfort. There are no signs of trauma to the right shoulder. She is requesting oxycodone arrival and an immobilization sling. X-ray obtained which shows calcific tendinitis without acute injury. Patient and have encouraged Tylenol and heat. Again, patient states she would like pain control at this time. She is given tylenol and heat. She will be d/c'd with shoulder pain and calcific tendinitis. - Diagnoses Differential Diagnosis/HQI/PQRI: Positive: Fracture (Open), Fracture (Closed), Strain, Sprain Provider Diagnoses: Shoulder pain Discharge - Sign-Out/Discharge Documenting (check all that apply): Patient Departure Patient Received Moderate/Deep Sedation with Procedure: No - Discharge Plan Condition: Stable Disposition: HOME Prescriptions: Acetaminophen TAB* [Tylenol TAB*] 650 mg PO Q6H PRN #20 tab MDD 4 PRN Reason: Pain Referrals: No Primary Care Phys,NOPCP [Primary Care Provider] - Additional Instructions: Heat to the area Early mobilization and gentle stretches Tylenol 650mg three times daily for discomfort - Billing Disposition and Condition Condition: STABLE Disposition: Home - Attestation Statements Provider Attestation: I was available for consult. This patient was seen by the LAMBERTO. The patient was not presented to, seen by, or examined by me. -Laura
[2018-11-28 11:52] VITALS: BP 124/84
== END 2018-11-28 11:50 | disposition home or self-care (01) ==
LOC: ED 10:33
DX: M25.511 Pain in right shoulder (principal); F41.9 Anxiety disorder, unspecified; F90.9 Attention-deficit hyperactivity disorder, unspecified type; Z79.899 Other long term (current) drug therapy; Z87.891 Personal history of nicotine dependence
CPT/HCPCS: 99282; A9270-GY

== ENCOUNTER 2019-02-04 14:37 | Emergency (ER) | payer MEDICARE, MEDICAID ==
--- NOTE | 2019-02-04 16:07 | ED ---
Lower Extremity - HPI Summary HPI Summary: Complains of right ankle pain status post twisting it 02/03. States increased pain today. Patient ambulatory since event. Also wants blood test. 2 positive home test yesterday. Denies any other symptoms pain or injury. - History of Current Complaint Chief Complaint: EDExtremityLower Stated Complaint: RT ANKLE PAIN PER PT Time Seen by Provider: 02/04/19 15:28 Hx Obtained From: Patient Hx Last Menstrual Period: 02/05/18 Mechanism Of Injury: Twisted Onset of Pain: Immediate, Hours Onset/Duration: Hours Severity Initially: Moderate Severity Currently: Moderate Pain Intensity: 6 Pain Scale Used: 0-10 Numeric Timing: Constant Location: Is Discrete @ Character Of Pain: Aching, Throbbing Associated Signs And Symptoms: Positive: Negative Aggravating Factor(s): Ambulation Alleviating Factor(s): Rest Able to Bear Weight: Yes - Allergies/Home Medications Allergies/Adverse Reactions: Allergies Allergy/AdvReac Type Severity Reaction Status Date / Time Penicillins Allergy Itching Verified 11/13/18 18:04 PMH/Surg Hx/FS Hx/Imm Hx Endocrine/Hematology History: Denies: Hx Anticoagulant Therapy, Hx Diabetes Cardiovascular History: Reports: Hx Angina, Hx Hypercholesterolemia - HLD, Hx Syncope, Hx Valvular Heart Disease - [place], Other Cardiovascular Problems/ Disorders - aortic regurgitation Denies: Hx Hypertension, Hx Myocardial Infarction, Hx Pacemaker/ICD Respiratory History: Reports: Hx Asthma, Hx Seasonal Allergies History: Denies: Hx Renal Disease Musculoskeletal History: Reports: Hx Back Problems - lower back pain, Other Musculoskeletal History - labrum tears b/l hips Sensory History: Reports: Hx Contacts or Glasses Opthamlomology History: Reports: Hx Contacts or Glasses Neurological History: Reports: Hx Migraine, Other Neuro Impairments/Disorders - Right hemisphere disorder Psychiatric History: Reports: Hx Anxiety, Hx Attention Deficit Hyperactivity Disorder, Hx Depression, Hx Inpatient Treatment - 10/2017, Hx Community Mental Health Tx, Hx Bipolar Disorder, Hx Suicide Attempt, Hx Substance Abuse - oxycodone Denies: Hx Eating Disorder, Hx Panic Disorder, Hx Post Traumatic Stress Disorder, Hx Schizophrenia, Hx of Violent Episodes Against Others - Surgical History Surgery Procedure, Year, and Place: NO PRIOR SURGERIES - Immunization History Date of Tetanus Vaccine: up to date Date of Influenza Vaccine: up to date. Infectious Disease History: No Infectious Disease History: Reports: History Other Infectious Disease - varicella Denies: Traveled Outside the [place] in Last 30 Days - Family History Known Family History: Positive: Cardiac Disease - Mother: fatal [place] at age 52, Hypertension, Diabetes, Other - seizures (mother); no history of SI from family members - Social History Alcohol Use: Rare Hx Substance Use: Yes Substance Use Type: Reports: None Substance Use Comment - Amount & Last Used: rarely Hx Tobacco Use: Yes - FORMER- QUIT TODAY 10/24/2016 Smoking Status (MU): Former Smoker Type: Cigarettes Amount Used/How Often: 1 ppd Length of Time of Smoking/Using Tobacco: since age 18 Have You Smoked in the Last Year: Yes Review of Systems Constitutional: Negative Eyes: Negative ENT: Negative Cardiovascular: Negative Respiratory: Negative Gastrointestinal: Negative Genitourinary: Negative Musculoskeletal: Other Skin: Negative Neurological: Negative Psychological: Normal All Other Systems Reviewed And Are Negative: Yes Physical Exam - Summary Physical Exam Summary: No erythema, ecchymosis, deformity, swelling noted to right ankle. PMS intact distally. Calf soft nontender. Triage Information Reviewed: Yes Vital Signs On Initial Exam: Initial Vitals Temp Pulse Resp BP Pulse Ox 97.4 F 106 18 125/88 98 02/04/19 14:42 02/04/19 14:42 02/04/19 14:42 02/04/19 14:42 02/04/19 14:42 Vital Signs Reviewed: Yes Appearance: Positive: Well-Appearing Skin: Positive: Warm Head/Face: Positive: Normal Head/Face Inspection Eyes: Positive: Normal Neck: Positive: Supple Respiratory/Lung Sounds: Positive: Clear to Auscultation Cardiovascular: Positive: Normal Abdomen Description: Positive: Nontender Musculoskeletal: Positive: Normal Neurological: Positive: Normal Psychiatric: Positive: Normal AVPU Assessment: Alert - Sanchez Coma Scale Best Eye Response: 4 - Spontaneous Best Motor Response: 6 - Obeys Commands Best Verbal Response: 5 - Oriented Coma Scale Total: 15 Diagnostics - Vital Signs Vital Signs Temp Pulse Resp BP Pulse Ox 02/04/19 14:42 97.4 F 106 18 125/88 98 - Laboratory Lab Statement: Any lab studies that have been ordered have been reviewed, and results considered in the medical decision making process. Lower Extremity Course/Dx - Course Course Of Treatment: Complains of right ankle pain status post twisting it . States increased pain today. Patient ambulatory since event. Also wants blood test. 2 positive home test yesterday. Denies any other symptoms pain or injury. Vital signs within normal limits. test negative. X-ray right ankle negative for fracture. Gel ankle splint applied by nurse. - Diagnoses Provider Diagnoses: test negative, Right ankle strain Discharge - Sign-Out/Discharge Documenting (check all that apply): Patient Departure Patient Received Moderate/Deep Sedation with Procedure: No - Discharge Plan Condition: Stable Disposition: HOME Patient Education Materials: Ankle Strain (ED) Referrals: No Primary Care Phys,NOPCP [Primary Care Provider] - Camryn Jolley MD [Medical Doctor] - Additional Instructions: Weight-bearing as tolerated. Ice, rest and Tylenol for pain. If right ankle pain does not improve in 1 week follow-up with orthopedics Dr. yes seen for further evaluation. - Billing Disposition and Condition Condition: STABLE Disposition: Home - Attestation Statements Provider Attestation: I was available for consultation for this patient. I did not evaluate the patient or participate in any medical decision making or disposition decisions unless I am specifically named in the chart as having consulted on the patient. If I have consulted on the patient, please see my own ED note on the patient encounter. Dennis Shay MD
[2019-02-04] MEDS ORDERED: Acetaminophen TAB* 325 MG PO ONE (17:04)
[2019-02-04 17:39] VITALS: BP 124/72
== END 2019-02-04 17:50 | disposition home or self-care (01) ==
LOC: ED 14:37
DX: M25.571 Pain in right ankle and joints of right foot (principal); Z88.0 Allergy status to penicillin; Z86.79 Personal history of other diseases of the circulatory system; Z87.891 Personal history of nicotine dependence; S96.911A Strain of unspecified muscle and tendon at ankle and foot level, right foot, initial encounter; X50.9XXA Other and unspecified overexertion or strenuous movements or postures, initial encounter; Y92.9 Unspecified place or not applicable; Z32.02 Encounter for pregnancy test, result negative; E78.00 Pure hypercholesterolemia, unspecified; I35.1 Nonrheumatic aortic (valve) insufficiency; F41.9 Anxiety disorder, unspecified; Z79.899 Other long term (current) drug therapy
CPT/HCPCS: 36415; 84702; 99281; A9270-GY

== ENCOUNTER 2019-03-05 16:53 | Emergency (ER) | payer MEDICARE, MEDICAID ==
[2019-03-05] MEDS ORDERED: predniSONE TAB* 20 MG PO ONE (17:46)
[2019-03-05] MEDS ORDERED: Sulfamethox/Trimethoprim DS 800/160* TAB PO ONE (17:52)
[2019-03-05 18:22] LABS: Urine Appearance Clear; Urine Bilirubin Negative (Negative); Urine Blood Negative (Negative); Urine Color Yellow; Urine Glucose Negative (Negative); Urine Ketones Negative (Negative); Urine Nitrite Negative (Negative); Urine Protein Negative (Negative); Urine Specific Gravity 1.008 (1.010-1.030); Urine Urobilinogen Negative (Negative)
--- NOTE | 2019-03-05 18:46 | ED ---
Skin Complaint - HPI Summary HPI Summary: Patient complains of rash on bilateral arms times a few days. Placed on Benadryl by PCP. Patient states she has been doing Benadryl every 6 hours for 2 days with no improvement. Rashes pruritic. Denies history of same. Denies fever, cough, sore throat, CP, SOB, N/V/D, abdominal pain, change in urine, change in BM. Medical history PCOS, asthma. - History of Current Complaint Chief Complaint: EDAllergicReaction Time Seen by Provider: 03/05/19 17:36 Stated Complaint: NAUSEA/HIVES PER PT Hx Obtained From: Patient Hx Last Menstrual Period: 02/05/18 Onset/Duration: Started Days Ago Skin Exposure Onset/Duration: Days Ago Timing: Constant Onset Severity: Mild Current Severity: Mild Pain Intensity: 2 Pain Scale Used: 0-10 Numeric Skin Location: Arm Character: Pruritus Aggravating Symptom(s): Nothing Alleviating Symptom(s): Nothing Associated Signs & Symptoms: Negative - Additional Pertinent History Primary Care Physician: [id number] - Allergy/Home Medications Allergies/Adverse Reactions: Allergies Allergy/AdvReac Type Severity Reaction Status Date / Time Penicillins Allergy Itching Verified 11/13/18 18:04 PMH/Surg Hx/FS Hx/Imm Hx Endocrine/Hematology History: Denies: Hx Anticoagulant Therapy, Hx Diabetes Cardiovascular History: Reports: Hx Angina, Hx Hypercholesterolemia - HLD, Hx Syncope, Hx Valvular Heart Disease - [place], Other Cardiovascular Problems/ Disorders - aortic regurgitation Denies: Hx Hypertension, Hx Myocardial Infarction, Hx Pacemaker/ICD Respiratory History: Reports: Hx Asthma, Hx Seasonal Allergies History: Denies: Hx Renal Disease Musculoskeletal History: Reports: Hx Back Problems - lower back pain, Other Musculoskeletal History - labrum tears b/l hips Sensory History: Reports: Hx Contacts or Glasses Opthamlomology History: Reports: Hx Contacts or Glasses Neurological History: Reports: Hx Migraine, Other Neuro Impairments/Disorders - Right hemisphere disorder Psychiatric History: Reports: Hx Anxiety, Hx Attention Deficit Hyperactivity Disorder, Hx Depression, Hx Inpatient Treatment - 10/2017, Hx Community Mental Health Tx, Hx Bipolar Disorder, Hx Suicide Attempt, Hx Substance Abuse - oxycodone Denies: Hx Eating Disorder, Hx Panic Disorder, Hx Post Traumatic Stress Disorder, Hx Schizophrenia, Hx of Violent Episodes Against Others - Surgical History Surgery Procedure, Year, and Place: NO PRIOR SURGERIES - Immunization History Date of Tetanus Vaccine: up to date Date of Influenza Vaccine: up to date. Infectious Disease History: No Infectious Disease History: Reports: History Other Infectious Disease - varicella Denies: Traveled Outside the [place] in Last 30 Days - Family History Known Family History: Positive: Cardiac Disease - Mother: fatal [place] at age 52, Hypertension, Diabetes, Other - seizures (mother); no history of SI from family members - Social History Alcohol Use: Rare Hx Substance Use: Yes Substance Use Type: Reports: Marijuana Substance Use Comment - Amount & Last Used: rarely Hx Tobacco Use: Yes - FORMER- QUIT TODAY 10/24/2016 Smoking Status (MU): Heavy Every Day Tobacco Smoker Type: Cigarettes Amount Used/How Often: 1 ppd Length of Time of Smoking/Using Tobacco: since age 18 Have You Smoked in the Last Year: Yes Review of Systems Constitutional: Negative Eyes: Negative ENT: Negative Cardiovascular: Negative Respiratory: Negative Gastrointestinal: Negative Genitourinary: Negative Musculoskeletal: Negative Positive: Rash Neurological: Negative Psychological: Normal All Other Systems Reviewed And Are Negative: Yes Physical Exam - Summary Physical Exam Summary: Rash on bilateral arms, raised small erythematous lesions similar to bug bites without central puncture chelly or scab. Blanchable. Triage Information Reviewed: Yes Vital Signs On Initial Exam: Initial Vitals Temp Pulse Resp BP Pulse Ox 98.4 F 86 16 123/90 100 03/05/19 16:54 03/05/19 16:54 03/05/19 16:54 03/05/19 16:54 03/05/19 16:54 Vital Signs Reviewed: Yes Appearance: Positive: Well-Appearing Skin: Positive: Warm Head/Face: Positive: Normal Head/Face Inspection Eyes: Positive: Normal ENT: Positive: Normal ENT inspection Neck: Positive: Supple Respiratory/Lung Sounds: Positive: Clear to Auscultation Cardiovascular: Positive: Normal Abdomen Description: Positive: Nontender Musculoskeletal: Positive: Normal Neurological: Positive: Normal Psychiatric: Positive: Normal AVPU Assessment: Alert - Sanchez Coma Scale Best Eye Response: 4 - Spontaneous Best Motor Response: 6 - Obeys Commands Best Verbal Response: 5 - Oriented Coma Scale Total: 15 Diagnostics - Vital Signs Vital Signs Temp Pulse Resp BP Pulse Ox 03/05/19 16:54 98.4 F 86 16 123/90 100 - Laboratory Lab Results: Lab Results 03/05/19 Range/Units 18:05 Urine Color Yellow Urine Appearance Clear Urine pH 7.0 (5-9) Ur Specific [employer] 1.008 L (1.010-1.030) Urine Protein Negative (Negative) Urine Ketones Negative (Negative) Urine Blood Negative (Negative) Urine Nitrate Negative (Negative) Urine Bilirubin Negative (Negative) Urine Urobilinogen Negative (Negative) Ur Leukocyte Esterase Negative (Negative) Urine Glucose Negative (Negative) Lab Statement: Any lab studies that have been ordered have been reviewed, and results considered in the medical decision making process. Course/Dx - Course Course Of Treatment: Patient complains of rash on bilateral arms times a few days. Placed on Benadryl by PCP. Patient states she has been doing Benadryl every 6 hours for 2 days with no improvement. Rashes pruritic. Denies history of same. Denies fever, cough, sore throat, CP, SOB, N/V/D, abdominal pain, change in urine, change in BM. Medical history PCOS, asthma. Also complains of possible UTI. Vital signs within normal limits. Rx for prednisone. - Diagnoses Provider Diagnoses: Rash Discharge ED - Sign-Out/Discharge Documenting (check all that apply): Patient Departure Patient Received Moderate/Deep Sedation with Procedure: No - Discharge Plan Condition: Stable Disposition: HOME Prescriptions: predniSONE TAB* [Deltasone 20 MG TAB*] 40 mg PO DAILY 5 Days #10 tab Patient Education Materials: Urticaria (ED) Referrals: Judy Tijerina MD [Medical Doctor] - No Primary Care Phys,NOPCP [Primary Care Provider] - Additional Instructions: Take prednisone as directed. If rash continues more than 1 week follow-up with dermatology Dr. Tijerina for further evaluation. - Billing Disposition and Condition Condition: STABLE Disposition: Home - Attestation Statements Provider Attestation: I was available for consult. This patient was seen by the LAMBERTO. The patient was not presented to, seen by, or examined by me. Jag Borja MD
[2019-03-05 19:02] VITALS: BP 129/59
== END 2019-03-05 19:01 | disposition home or self-care (01) ==
LOC: ED 16:53
DX: R21 Rash and other nonspecific skin eruption (principal); F17.219 Nicotine dependence, cigarettes, with unspecified nicotine-induced disorders; E78.5 Hyperlipidemia, unspecified; J45.909 Unspecified asthma, uncomplicated; F90.9 Attention-deficit hyperactivity disorder, unspecified type; F32.9 Major depressive disorder, single episode, unspecified; Z88.0 Allergy status to penicillin
CPT/HCPCS: 81003; 99283; J7512

== ENCOUNTER 2019-03-16 17:50 | Emergency (ER) | payer MEDICARE, MEDICAID ==
[2019-03-16 20:24] LABS: ABS Basophils 0.1 10^3/ul (0-0.2); ABS Eosinophils 0.1 10^3/ul (0-0.6); ABS Lymphocytes 2.2 10^3/ul (1.0-4.8); ABS Monocytes 0.6 10^3/ul (0-0.8); Hematocrit 40 % (35-47); Hemoglobin 13.1 g/dL (12.0-16.0); Lymphocyte % 18.5 %; Mean Corpuscular HGB Conc 33 g/dL (31-36); Mean Corpuscular Hemoglobin 29 pg (27-31); Mean Corpuscular Volume 90 fL (80-97); Mean Platelet Volume 8.5 fL (7.4-10.4); Nucleated Red Blood Cells % 0.1; Platelet Count 393 10^3/uL (150-450); Red Blood Count 4.47 10^6 /uL (3.70-4.87); Red Cell Distribution Width 13 % (10-15); White Blood Count 12.1 10^3/uL (3.5-10.8)
[2019-03-16] MEDS ORDERED: NS 0.9% 1000 ML** 1,000 ML IV ONE (20:30)
[2019-03-16 20:44] LABS: ALT 31 U/L (7-52); AST 19 U/L (13-39); Albumin 4.7 g/dL (3.2-5.2); Albumin/Globulin Ratio 1.5 (1-3); Alkaline Phosphatase 61 U/L (34-104); Anion Gap 7 mmol/L (2-11); Blood Urea Nitrogen 6 mg/dL (6-24); CO2 Carbon Dioxide 24 mmol/L (22-32); Calcium 9.9 mg/dL (8.6-10.3); Chloride 105 mmol/L (101-111); EGFR African American 112.2 (>60); EGFR Non-African American 92.7 (>60); Globulin 3.1 g/dL (2-4); Glucose 109 mg/dL (70-100); Potassium 3.6 mmol/L (3.5-5.0); Sodium 136 mmol/L (135-145); Total Protein 7.8 g/dL (6.4-8.9)
[2019-03-16 20:49] LABS: HCG Pregnancy < 0.60 mIU/mL
[2019-03-16] MEDS ORDERED: Metoclopramide IV* 5 MG/ML 2 ML VIAL IV SLOW PU ONE (20:49)
[2019-03-16] MEDS ORDERED: Meclizine TAB* 12.5 MG PO ONE (21:04)
[2019-03-16] MEDS ORDERED: Ketorolac INJ* 30 MG/ML 1 ML VIAL IV PUSH ONE (21:04)
--- NOTE | 2019-03-16 21:06 | ED ---
GI/ HPI - HPI Summary HPI Summary: 28-year-old female presents with nausea for the past couple days. She's been having intermittent diarrhea. She denies any recent antibiotic use. No blood in her stool. She states she has not had diarrhea since this morning. She says she feels like she'll vomit. She also states feels like she feels very weak and is lightheaded. She states she feels very dizzy. She admits to migraine headache. No fevers. No bowel pain. No cough. No chest pain or shortness breath. Has history of bradycardia. No one else is sick. She states she is concerned that she is . She states is feels like she is going to passed out. She has not passed out. This has never happened before - History of Current Complaint Chief Complaint: EDNauseaVomitDiarrh Time Seen by Provider: 03/16/19 20:30 Stated Complaint: FEEL LIKE I WILL PASS OUT PER PT Hx Last Menstrual Period: 02/05/18 Pain Intensity: 4 - Additional Pertinent History Primary Care Physician: [id number] - Allergy/Home Medications Allergies/Adverse Reactions: Allergies Allergy/AdvReac Type Severity Reaction Status Date / Time Penicillins Allergy Itching Verified 03/16/19 18:16 PMH/Surg Hx/FS Hx/Imm Hx Endocrine/Hematology History: Denies: Hx Anticoagulant Therapy, Hx Diabetes Cardiovascular History: Reports: Hx Angina, Hx Hypercholesterolemia - HLD, Hx Syncope, Hx Valvular Heart Disease - AR, Other Cardiovascular Problems/ Disorders - aortic regurgitation Denies: Hx Hypertension, Hx Myocardial Infarction, Hx Pacemaker/ICD Respiratory History: Reports: Hx Asthma, Hx Seasonal Allergies History: Denies: Hx Renal Disease Musculoskeletal History: Reports: Hx Back Problems - lower back pain, Other Musculoskeletal History - labrum tears b/l hips Sensory History: Reports: Hx Contacts or Glasses Opthamlomology History: Reports: Hx Contacts or Glasses Neurological History: Reports: Hx Migraine, Other Neuro Impairments/Disorders - Right hemisphere disorder Psychiatric History: Reports: Hx Anxiety, Hx Attention Deficit Hyperactivity Disorder, Hx Depression, Hx Inpatient Treatment - 10/2017, Hx Community Mental Health Tx, Hx Bipolar Disorder, Hx Suicide Attempt, Hx Substance Abuse - oxycodone Denies: Hx Eating Disorder, Hx Panic Disorder, Hx Post Traumatic Stress Disorder, Hx Schizophrenia, Hx of Violent Episodes Against Others - Surgical History Surgery Procedure, Year, and Place: NO PRIOR SURGERIES - Immunization History Date of Tetanus Vaccine: up to date Date of Influenza Vaccine: up to date. Infectious Disease History: No Infectious Disease History: Reports: History Other Infectious Disease - varicella Denies: Traveled Outside the [place] in Last 30 Days - Family History Known Family History: Positive: Cardiac Disease - Mother: fatal [place] at age 52, Hypertension, Diabetes, Other - seizures (mother); no history of SI from family members - Social History Alcohol Use: Rare Hx Substance Use: Yes Substance Use Type: Reports: Marijuana Substance Use Comment - Amount & Last Used: rarely Hx Tobacco Use: Yes - FORMER- QUIT TODAY 10/24/2016 Smoking Status (MU): Heavy Every Day Tobacco Smoker Type: Cigarettes Amount Used/How Often: 1 ppd Length of Time of Smoking/Using Tobacco: since age 18 Have You Smoked in the Last Year: Yes Review of Systems Negative: Fever Negative: Chest Pain Negative: Shortness Of Breath Positive: Vomiting, Diarrhea, Nausea Neurological: Other - lightheadness All Other Systems Reviewed And Are Negative: Yes Physical Exam Triage Information Reviewed: Yes Vital Signs On Initial Exam: Initial Vitals Temp Pulse Resp BP Pulse Ox 98.7 F 52 16 104/61 97 03/16/19 18:11 03/16/19 18:11 03/16/19 18:11 03/16/19 18:11 03/16/19 18:11 Vital Signs Reviewed: Yes Appearance: Positive: Well-Appearing Skin: Positive: Warm, Dry Head/Face: Positive: Normal Head/Face Inspection Eyes: Positive: Normal, EOMI, DONTRELL, Conjunctiva Clear ENT: Positive: Normal ENT inspection, Pharynx normal, TMs normal Respiratory/Lung Sounds: Positive: Clear to Auscultation, Breath Sounds Present Cardiovascular: Positive: Normal, RRR Abdomen Description: Positive: Nontender, Soft Bowel Sounds: Positive: Present Musculoskeletal: Positive: Normal Neurological: Positive: Sensory/Motor Intact, Alert, Oriented to Person Place, Time, CN Intact II-III, Finger to Nose Psychiatric: Positive: Normal Diagnostics - Vital Signs Vital Signs Temp Pulse Resp BP Pulse Ox 03/16/19 18:11 98.7 F 52 16 104/61 97 - Laboratory Lab Results: Lab Results 03/16/19 03/16/19 Range/Units 20:11 20:11 WBC 12.1 H (3.5-10.8) 10^3/uL RBC 4.47 (3.70-4.87) 10^6 /uL Hgb 13.1 (12.0-16.0) g/dL Hct 40 (35-47) % MCV 90 (80-97) fL MCH 29 (27-31) pg MCHC 33 (31-36) g/dL RDW 13 (10-15) % Plt Count 393 (150-450) 10^3/uL MPV 8.5 (7.4-10.4) fL Neut % (Auto) 74.8 % Lymph % (Auto) 18.5 % Mcdonald % (Auto) 5.2 % Eos % (Auto) 1.0 % Baso % (Auto) 0.5 % Absolute Neuts (auto) 9.0 H (1.5-7.7) 10^3/ul Absolute Lymphs (auto) 2.2 (1.0-4.8) 10^3/ul Absolute Monos (auto) 0.6 (0-0.8) 10^3/ul Absolute Eos (auto) 0.1 (0-0.6) 10^3/ul Absolute Basos (auto) 0.1 (0-0.2) 10^3/ul Absolute Nucleated RBC 0.0 10^3/ul Nucleated RBC % 0.1 Sodium 136 (135-145) mmol/L Potassium 3.6 (3.5-5.0) mmol/L Chloride 105 (101-111) mmol/L Carbon Dioxide 24 (22-32) mmol/L Anion Gap 7 (2-11) mmol/L BUN 6 (6-24) mg/dL Creatinine 0.75 (0.51-0.95) mg/dL Est GFR ( Amer) 112.2 (>60) Est GFR (Non-Af Amer) 92.7 (>60) BUN/Creatinine Ratio 8.0 (8-20) Glucose 109 H (70-100) mg/dL Calcium 9.9 (8.6-10.3) mg/dL Total Bilirubin 0.40 (0.2-1.0) mg/dL AST 19 (13-39) U/L ALT 31 (7-52) U/L Alkaline Phosphatase 61 (34-104) U/L Total Protein 7.8 (6.4-8.9) g/dL Albumin 4.7 (3.2-5.2) g/dL Globulin 3.1 (2-4) g/dL Albumin/Globulin Ratio 1.5 (1-3) Beta HCG, Quant < 0.60 mIU/mL Result Diagrams: 03/16/19 20:11 03/16/19 20:11 Lab Statement: Any lab studies that have been ordered have been reviewed, and results considered in the medical decision making process. - EKG No standard instances Cardiac Rate: Bradycardia EKG Rhythm: Sinus Bradycardia Summary of EKG Findings: sinus bradycardia Re-Evaluation - Re-Evaluation First Eval Re-Evaluation Time: 21:56 Change: Improved GIGU Course/Dx - Course Course Of Treatment: 28-year-old female presents with nausea for the past couple days. She's been having intermittent diarrhea. She denies any recent antibiotic use. No blood in her stool. She states she has not had diarrhea since this morning. She says she feels like she'll vomit. She also states feels like she feels very weak and is lightheaded. She states she feels very dizzy. She admits to migraine headache. No fevers. No bowel pain. No cough. No chest pain or shortness breath. Has history of bradycardia. No one else is sick. She states she is concerned that she is . On exam nontender abdomen. Normal neuro exam. wbc slightly elevated. HCG 0. Gave fluids Toradol and Reglan feeling better. EKG shows sinus bradycardia. will discharge with Reglan for nausea. Told to follow up with Primary. Patient understands agrees plan. - Diagnoses Differential Diagnoses - Female: Urinary Tract Infection, Other - Provider Diagnoses: Pre-syncope, Nausea Discharge ED - Sign-Out/Discharge Documenting (check all that apply): Patient Departure Patient Received Moderate/Deep Sedation with Procedure: No - Discharge Plan Condition: Good Disposition: HOME Prescriptions: Metoclopramide TAB* [Reglan TAB*] 10 mg PO Q6H #12 tab Patient Education Materials: Acute Nausea and Vomiting (ED) Referrals: No Primary Care Phys,NOPCP [Primary Care Provider] - Additional Instructions: Can take reglan every 6 hours as needed for nausea Drink small amounts of fluid as tolerated When able to eat follow BRAT diet: Bananas, rice, applesauce, toast Take ibuprofen or Tylenol for pain as needed every 6 hours Follow up with primary within 5 days Return to ED if develop any new or worsening symptoms - Billing Disposition and Condition Condition: GOOD Disposition: Home
[2019-03-16] MEDS ORDERED: Metoclopramide TAB* 10 MG PO ONE (21:57)
[2019-03-16 22:27] VITALS: BP 111/63
== END 2019-03-16 22:26 | disposition home or self-care (01) ==
LOC: ED 17:50
DX: R55 Syncope and collapse (principal); R11.0 Nausea; E78.00 Pure hypercholesterolemia, unspecified; J45.909 Unspecified asthma, uncomplicated; F41.9 Anxiety disorder, unspecified; F90.9 Attention-deficit hyperactivity disorder, unspecified type; F17.210 Nicotine dependence, cigarettes, uncomplicated; Z88.0 Allergy status to penicillin; Z79.899 Other long term (current) drug therapy
CPT/HCPCS: 36415; 80053; 84702; 85025; 93005; 96361; 96374; 96375; 99283; A9270-GY; J1885; J2765

== ENCOUNTER 2019-03-22 21:07 | Emergency (ER) | payer MEDICARE, MEDICAID ==
--- NOTE | 2019-03-22 21:25 | ED ---
Asthma - HPI Summary HPI Summary: This patient is a 28 year old female brought in by EMS presenting to [facility] with a chief complaint of asthma exacerbation SOB since 3 days ago. She states she went to her PCP when it first started and she gave her prednisode. Her PCP told her to come in if it did not get better or if it became worse. She states the prednisone helped slightly but overall she has not felt she has been feeling better. She reports cough. She states her albuterol at home and she has not been taking it. EMS gave her albuterol PIPING BLOCKER. - History of Current Complaint Chief Complaint: EDAsthma Stated Complaint: SOB PER EMS Time Seen by Provider: 03/22/19 21:20 Hx Obtained From: Patient Hx Last Menstrual Period: 02/05/18 Pain Intensity: 7 Pain Scale Used: 0-10 Numeric Location/Character: Wheezing Alleviating Symptoms: Inhalers/Nebulizers - Allergy/Home Medications Allergies/Adverse Reactions: Allergies Allergy/AdvReac Type Severity Reaction Status Date / Time Penicillins Allergy Itching Verified 03/22/19 21:19 Home Medications: Home Medications Loratadine 10 mg PO DAILY 03/22/19 [History Confirmed 03/22/19] cloNIDine HCl [Catapres 0.1 MG TAB] 0.1 mg PO TID 03/22/19 [History Confirmed ] PMH/Surg Hx/FS Hx/Imm Hx Endocrine/Hematology History: Denies: Hx Anticoagulant Therapy, Hx Diabetes Cardiovascular History: Reports: Hx Angina, Hx Hypercholesterolemia - HLD, Hx Syncope, Hx Valvular Heart Disease - AR, Other Cardiovascular Problems/ Disorders - aortic regurgitation Denies: Hx Hypertension, Hx Myocardial Infarction, Hx Pacemaker/ICD Respiratory History: Reports: Hx Asthma, Hx Seasonal Allergies History: Denies: Hx Renal Disease Musculoskeletal History: Reports: Hx Back Problems - lower back pain, Other Musculoskeletal History - labrum tears b/l hips Sensory History: Reports: Hx Contacts or Glasses Opthamlomology History: Reports: Hx Contacts or Glasses Neurological History: Reports: Hx Migraine, Other Neuro Impairments/Disorders - Right hemisphere disorder Psychiatric History: Reports: Hx Anxiety, Hx Attention Deficit Hyperactivity Disorder, Hx Depression, Hx Inpatient Treatment - 10/2017, Hx Community Mental Health Tx, Hx Bipolar Disorder, Hx Suicide Attempt, Hx Substance Abuse - oxycodone Denies: Hx Eating Disorder, Hx Panic Disorder, Hx Post Traumatic Stress Disorder, Hx Schizophrenia, Hx of Violent Episodes Against Others - Surgical History Surgery Procedure, Year, and Place: NO PRIOR SURGERIES - Immunization History Date of Tetanus Vaccine: up to date Date of Influenza Vaccine: up to date. Infectious Disease History: No Infectious Disease History: Reports: History Other Infectious Disease - varicella Denies: Traveled Outside the [place] in Last 30 Days - Family History Known Family History: Positive: Cardiac Disease - Mother: fatal [place] at age 52, Hypertension, Diabetes, Other - seizures (mother); no history of SI from family members - Social History Alcohol Use: Rare Hx Substance Use: Yes Substance Use Type: Reports: Marijuana Substance Use Comment - Amount & Last Used: rarely Hx Tobacco Use: Yes - FORMER- QUIT TODAY 10/24/2016 Smoking Status (MU): Heavy Every Day Tobacco Smoker Type: Cigarettes Amount Used/How Often: 1 ppd Length of Time of Smoking/Using Tobacco: since age 18 Have You Smoked in the Last Year: Yes Review of Systems Negative: Fever Positive: Shortness Of Breath, Cough All Other Systems Reviewed And Are Negative: Yes Physical Exam - Summary Physical Exam Summary: Appearance: Well-appearing, Well-nourished, lying in bed comfortably Skin: Warm, dry, no obvious rash Eyes: sclera anicteric, no conjunctival pallor ENT: mucous membranes moist, pharynx appears normal Neck: Supple, nontender Respiratory: Clear to auscultation, no signs of respiratory distress Cardiovascular: Normal S1, S2. No murmurs. Normal distal pulses in tibial and radial bilaterally. Abdomen: Soft, nontender, normal active bowel sounds present Musculoskeletal: Normal, Strength/ROM Intact Neurological: A&Ox3, awake and alert, mentation is normal, speech is fluent and appropriate Psychiatric: affect is normal, does not appear anxious or depressed Triage Information Reviewed: Yes Vital Signs On Initial Exam: Initial Vitals Temp Pulse Resp BP Pulse Ox 98.3 F 73 22 129/64 98 03/22/19 21:15 03/22/19 21:15 03/22/19 21:15 03/22/19 21:15 03/22/19 21:15 Vital Signs Reviewed: Yes Procedures - Sedation Patient Received Moderate/Deep Sedation with Procedure: No Diagnostics - Vital Signs Vital Signs Temp Pulse Resp BP Pulse Ox 03/22/19 21:15 98.3 F 73 22 129/64 98 - Laboratory Lab Statement: Any lab studies that have been ordered have been reviewed, and results considered in the medical decision making process. - Radiology CXR Radiology Interpretation Completed By: ED Physician Summary of Radiographic Findings: No acute process. Pending official radiologist report. Asthma Course/Dx - Course Course Of Treatment: This patient is a 28 year old female brought in by EMS presenting to [facility] with a chief complaint of asthma exacerbation SOB since 3 days ago. Physical exam and CXR were unremarkable. The patient will get a new prescription for albuterol. A plan for discharge was discussed with the patient and she was agreeable with this plan. - Diagnoses Provider Diagnoses: Asthma exacerbation Discharge ED - Sign-Out/Discharge Documenting (check all that apply): Patient Departure - Discharge Patient Received Moderate/Deep Sedation with Procedure: No - Discharge Plan Condition: Good Disposition: HOME Prescriptions: Albuterol 2.5MG/3ML (0.083%)* [Ventolin 2.5 MG/3 ML NEB.MEAGAN*] 2.5 mg INH Q4H PRN #20 [email or web address] PRN Reason: Wheezing predniSONE TAB* [Deltasone 20 MG TAB*] 40 mg PO DAILY 5 Days #10 tab Patient Education Materials: Asthma (ED) Additional Instructions: Contact your PCP on Monday for followup. - Billing Disposition and Condition Condition: GOOD Disposition: Home - Attestation Statements Document Initiated by Babs: Yes Documenting Patriziaibe: Alexx Martin Provider For Whom Babs is Documenting (Include Credential): MD Patrizia Aguilaribrea Attestation: Alexx Carrion scribed for Jared Palomino MD on 03/28/19 at 1851. Scribe Documentation Reviewed: Yes Provider Attestation: The documentation as recorded by the Alexx duong accurately reflects the service I personally performed and the decisions made by me, Jared Palomino MD Status of Scribe Document: Viewed
[2019-03-22 22:59] VITALS: BP 105/66
== END 2019-03-22 22:59 | disposition home or self-care (01) ==
LOC: ED 21:07
DX: J45.901 Unspecified asthma with (acute) exacerbation (principal); E78.00 Pure hypercholesterolemia, unspecified; I35.1 Nonrheumatic aortic (valve) insufficiency; F41.9 Anxiety disorder, unspecified; F90.9 Attention-deficit hyperactivity disorder, unspecified type; F32.9 Major depressive disorder, single episode, unspecified; Z87.891 Personal history of nicotine dependence; Z79.899 Other long term (current) drug therapy; Z88.0 Allergy status to penicillin
CPT/HCPCS: 71046; 99283

== ENCOUNTER 2019-04-25 13:53 | Emergency (ER) | payer MEDICARE, MEDICAID ==
--- OUTSIDE RECORDS SUMMARY | 2019-04-25 14:29 | XMS REPORT | Continuity of Care Document ---
:1990 External Reference #:[id number] Author Name ZENAIDA Bishop Address [address] [place] [address] Problems Inactive Problems Provider Date Seasonal allergy Onset: 01/09/2019 Inactive: 01/09/2019 Acne Onset: 01/09/2019 Inactive: 01/09/2019 Patient new to provider Onset: 12/17/2018 Inactive: 12/17/2018 Pain of right shoulder joint Onset: 12/17/2018 Inactive: 12/17/2018 Social History Type Date Description Comments Sex Unknown Allergies, Adverse Reactions, Alerts Active Allergies Reaction Severity Comments Date PCN Itching, sensation of throat closing 03/01/2019 Medications Active Medications SIG Qnty Indications Ordering Date Provider Eli muñoz for daily 1units ZENAIDA Bishop 04/03/2019 Misc use dx bilateral hip pain Albuterol Sulfate HFA 2 puffs 17gm J45.901 ZENAIDA Bishop 03/19/2019 inhalation Q4-6 108(90Base) mcg/Act hours as needed Aerosol for wheezing or shortness of breath disp 1 Benzonatate 1 cap tid 30caps J45.901 ZENAIDA Bishop 03/19/2019 100mg Capsules Loratadine Take One Tablet 30tabs Catrachito Sheriff MD 03/12/2019 10mg Tablets By Mouth Once Daily Barrera Carbonate ER Unknown 300mg Tablets ER Mapap Unknown 325mg Tablets Sumatriptan Succinate Unknown 50mg Tablets Chantix Unknown 1mg Tablets Clonazepam Unknown 1mg Tablets Eszopiclone Unknown 1mg Tablets Diclofenac Sodium Unknown 75mg Tablets DR Oxycodone HCL Unknown 5mg Tablets Acne Medication 5 Unknown 5% Gel Olanzapine Unknown 10mg Tablets Oxycodone HCL Unknown 10mg Tablets Qvar Redihaler Unknown 80mcg/Act Aerosol Trazodone HCL Unknown 50mg Tablets Chantix Starting Month Unknown Emre 0.5mg X 11 & 1 mg X 42 Tablets Benzoyl Peroxide Unknown 5% Gel Olanzapine Unknown 5mg Tablets Afluria Quadrivalent Unknown 2018-19 Suspension Barrera Carbonate ER Unknown 450mg Tablets ER Barrera Carbonate ER Unknown 450mg Tablets ER Metformin HCL Unknown 500mg Tablets Clonazepam Unknown 1mg Tablets Cyclobenzaprine HCL Unknown 10mg Tablets Ondansetron HCL Unknown 4mg Tablets Nitrofurantoin Unknown Monohydrate/Macrocrysta ls 100mg Capsules Nitrofurantoin Unknown Monohydrate/Macrocrysta ls 100mg Capsules Ibuprofen Unknown 600mg Tablets Ibuprofen Unknown 600mg Tablets Diphenhydramine HCL Unknown 25mg Capsules Narcan Unknown 4mg/0.1ML Liquid Narcan Unknown 4mg/0.1ML Liquid Eszopiclone Unknown 1mg Tablets Eszopiclone Unknown 1mg Tablets Fluticasone Propionate Unknown 50mcg/Act Suspension Montelukast Sodium Unknown 10mg Tablets Montelukast Sodium Unknown 10mg Tablets History Medications Prednisone take 5 tabs for 25tabs J45.901 ZENAIDA Bishop 03/19/2019 - 10mg 5 days 04/03/2019 Tablets Benadryl Allergy 1 twice daily 10tabs Unknown 01/09/2019 - 25mg Oral 01/14/2019 Tablets Loratadine 1 daily Oral 30tabs Unknown 01/09/2019 - 10mg 02/08/2019 Tablets Benadryl Allergy 1 twice daily 10tabs Unknown 01/09/2019 - 25mg Oral 02/05/2019 Tablets Benadryl Allergy 1 twice daily 10tabs Unknown 01/09/2019 - 25mg Oral 02/05/2019 Tablets Immunizations Description No Information Available Vital Signs Date Vital Result Comment 04/03/2019 1:19pm BP Systolic 122 mmHg BP Diastolic 78 mmHg Weight 198.00 lb Heart Rate 68 /min Body Temperature 99.0 F O2 % BldC Oximetry 99 % 03/19/2019 2:20pm BP Systolic 110 mmHg BP Diastolic 60 mmHg Height 62.75 inches 5'2.75" Weight 197.00 lb Heart Rate 104 /min Body Temperature 101.0 F O2 % BldC Oximetry 99 % BMI (Body Mass Index) 35.2 kg/m2 Results Description No Information Available Procedures Date Code Description Status 12/17/2018 80335 Brief Emotional/Behav Assessment W/ Scoring Doc Per Completed Standard Inst Medical Devices Description No Information Available Encounters Type Date Location Provider Dx Diagnosis Office Visit 04/03/2019 [facility] ZENAIDA Nunez M25.559 Pain in unspecified hip 1:15p Office Visit 03/19/2019 [facility] ZENAIDA Nunez J45.901 Unspecified asthma with 2:30p (acute) exacerbation Z68.35 Body mass index (BMI) 35.0-35.9, adult Office Visit 03/04/2019 4:00p [facility] Pacheco Jordan MD L50.8 Other urticaria Assessments Date Code Description Provider 04/03/2019 M25.559 Pain in unspecified hip ZENAIDA Bishop 03/19/2019 J45.901 Unspecified asthma with (acute) exacerbation Elle Lyons [facility] 03/19/2019 Z68.35 Body mass index (BMI) 35.0-35.9, adult LUMA BishopP 03/04/2019 L50.8 Other urticaria Kristin Jordan MD Plan of Treatment 04/03/2019 - [facility] Bishop25.559 Pain in unspecified hipComments:discussed bilateral hip pain followup with Dr Jolley for further evaluation and treatment for hip paincontinue acetaminophen for pain as neededwill rx for new walkercontinue PT for strengthening legs hips return as neededAllNew Medication: Roller Walker - walker for daily use dx bilateral hip pain Functional Status Description No Information Available Mental Status Description No Information Available Referrals Description No Information Available
--- NOTE | 2019-04-25 15:23 | ED ---
Complex/Multi-Sys Presentation - HPI Summary HPI Summary: Patient is a 28 y/o F presenting to the ED for a chief complaint of seizure with confusion. Patient reports that she had 2 seizures on the night of and had 2 seizures on 04/25/19. Patient also complains of bilateral hand cramping and stiffness. Patient denies urinary incontinence or tongue pain. 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 Patient does not currently take any medications for seizures. Patient has been told by a neurologist that she needs to be taking seizure medications. Patient has a PMHx of atrial valve regurgitation and seizure disorder. Patient has a PSHx of left hip surgery in September 2018. Patient admits tobacco and marijuana use, but denies alcohol use. Patient uses a walker for chronic bilateral hip and back pain. Allergies noted. Medications reviewed. - History Of Current Complaint Chief Complaint: EDSeizure Time Seen by Provider: 04/25/19 14:10 Hx Obtained From: Patient Onset/Duration: Sudden Onset, Resolved Timing: Minutes Severity Currently: Moderate Severity Initially: Moderate Associated Signs And Symptoms: Positive: Confusion, Syncope, Other - Negative urinary incontinence or tongue pain - Allergies/Home Medications Allergies/Adverse Reactions: Allergies Allergy/AdvReac Type Severity Reaction Status Date / Time Penicillins Allergy Itching Verified 03/22/19 21:19 PMH/Surg Hx/FS Hx/Imm Hx Previously Healthy: Yes Endocrine/Hematology History: Denies: Hx Anticoagulant Therapy, Hx Diabetes Cardiovascular History: Reports: Hx Angina, Hx Hypercholesterolemia - HLD, Hx Syncope, Hx Valvular Heart Disease - [place], Other Cardiovascular Problems/ Disorders - aortic regurgitation Denies: Hx Hypertension, Hx Myocardial Infarction, Hx Pacemaker/ICD Respiratory History: Reports: Hx Asthma, Hx Seasonal Allergies History: Denies: Hx Renal Disease Musculoskeletal History: Reports: Hx Back Problems - lower back pain, Other Musculoskeletal History - labrum tears b/l hips Sensory History: Reports: Hx Contacts or Glasses Opthamlomology History: Reports: Hx Contacts or Glasses Neurological History: Reports: Hx Migraine, Other Neuro Impairments/Disorders - Right hemisphere disorder Psychiatric History: Reports: Hx Anxiety, Hx Attention Deficit Hyperactivity Disorder, Hx Depression, Hx Inpatient Treatment - 10/2017, Hx [facility] Tx, Hx Bipolar Disorder, Hx Suicide Attempt, Hx Substance Abuse - oxycodone Denies: Hx Eating Disorder, Hx Panic Disorder, Hx Post Traumatic Stress Disorder, Hx Schizophrenia, Hx of Violent Episodes Against Others - Surgical History Surgical History: Yes Surgery Procedure, Year, and Place: Left hip surgery - Immunization History Date of Tetanus Vaccine: up to date Date of Influenza Vaccine: up to date. Infectious Disease History: No Infectious Disease History: Reports: History Other Infectious Disease - varicella Denies: Traveled Outside the [place] in Last 30 Days - Family History Known Family History: Positive: Cardiac Disease - Mother: fatal [place] at age 52, Hypertension, Diabetes, Other - seizures (mother); no history of SI from family members - Social History Occupation: Unemployed Lives: Alone Alcohol Use: Rare Hx Substance Use: Yes Substance Use Type: Reports: Marijuana Substance Use Comment - Amount & Last Used: rarely Hx Tobacco Use: Yes - FORMER- QUIT TODAY 10/24/2016 Smoking Status (MU): Heavy Every Day Tobacco Smoker Type: Cigarettes Amount Used/How Often: 1 ppd Length of Time of Smoking/Using Tobacco: since age 18 Have You Smoked in the Last Year: Yes Review of Systems Positive: Other - Negative tongue pain Negative: incontinence - Urinary Positive: Arthralgia - Hip at baseline, Myalgia - Back at baseline, Other - Postive bilateral hand cramping and stiffness Neurological: Other - Positive seizure All Other Systems Reviewed And Are Negative: Yes Physical Exam - Summary Physical Exam Summary: Constitutional: Well-developed, Well-nourished, Alert. (-) Distressed Skin: Warm, Dry HENT: Normocephalic; Atraumatic Eyes: Conjunctiva normal Neck: Musculoskeletal ROM normal neck. (-) JVD, (-) Stridor, (-) Tracheal deviation Cardio: Rhythm regular, rate normal, Heart sounds normal; Intact distal pulses. Radial pulses are 2+ and symmetric. (-) Murmur Pulmonary/Chest wall: Effort normal. (-) Respiratory distress, (-) Wheezes, (-) Rales Abd: Soft. (-) Tenderness, (-) Distension, (-) Guarding, (-) Rebound Musculoskeletal: (-) Edema Lymph: (-) Cervical adenopathy Neuro: Alert, Oriented x3, Strength normal, Cranial nerves II-XII are grossly intact. (-) Dysmetria, (-) Nystagmus, (-) Ataxia by finger to nose testing, (-) Sensory deficit. Psych: Mood and affect Normal Triage Information Reviewed: Yes Vital Signs On Initial Exam: Initial Vitals Temp Pulse Resp BP Pulse Ox 98.6 F 102 16 105/90 100 04/25/19 14:03 04/25/19 14:03 04/25/19 14:03 04/25/19 14:03 04/25/19 14:03 Vital Signs Reviewed: Yes Procedures - Sedation Patient Received Moderate/Deep Sedation with Procedure: No Diagnostics - Vital Signs Vital Signs Temp Pulse Resp BP Pulse Ox 04/25/19 14:08 106 100 04/25/19 14:03 98.6 F 102 16 105/90 100 - Laboratory Lab Statement: Any lab studies that have been ordered have been reviewed, and results considered in the medical decision making process. Re-Evaluation - Re-Evaluation First Re-Evaluation Time: 15:15 Change: Unchanged Comment: At 15:15, patient states she wants to leave. Complex Multi-Symp Course/Dx Course Of Treatment: Patient is here with 2 episodes of possible seizure. Patient is brought in with her girlfriend who also had seizures at the same time. Patient's had potential seizures in the past but is not currently on medication. Patient does have underlying bipolar disorder. Patient wanted to leave prior to blood work and she left without any testing performed. - Diagnoses Provider Diagnoses: Seizure Discharge ED - Sign-Out/Discharge Documenting (check all that apply): Patient Departure - Discharge - Discharge Plan Condition: Stable Disposition: HOME Patient Education Materials: Recurrent Seizures in Adults (ED) Referrals: [facility] [Outside] Lev De Santiago MD [Medical Doctor] - Additional Instructions: Do not drink alcohol or do drugs. Follow up with a neurologist in 1-3 days. Return to the Emergency Department for any new or worsening symptoms. - Billing Disposition and Condition Condition: STABLE Disposition: Home - Attestation Statements Document Initiated by Scribe: Yes Documenting Scribe: Mague Rosenberg Provider For Whom Babs is Documenting (Include Credential): Jag Borja MD Scribe Attestation: Mague Carrion, scribed for Jag Borja MD on 04/25/19 at 2052. Scribe Documentation Reviewed: Yes Provider Attestation: The documentation as recorded by the Mague duong accurately reflects the service I personally performed and the decisions made by me, Jag Borja MD Status of Scribe Document: Viewed
[2019-04-25 15:38] LABS: Urine Benzodiazepine Screen None Detected (None Detect); Urine Opiates Screen None Detected (None Detect)
[2019-04-25 15:42] VITALS: BP 104/74
== END 2019-04-25 15:37 | disposition home or self-care (01) ==
LOC: ED 13:53
DX: R56.9 Unspecified convulsions (principal); E78.00 Pure hypercholesterolemia, unspecified; E78.5 Hyperlipidemia, unspecified; F41.9 Anxiety disorder, unspecified; F90.9 Attention-deficit hyperactivity disorder, unspecified type; Z87.891 Personal history of nicotine dependence; Z88.0 Allergy status to penicillin
CPT/HCPCS: 80307; 99282

== ENCOUNTER 2019-04-29 19:17 | Emergency (ER) | payer MEDICARE, MEDICAID ==
[2019-04-29] MEDS ORDERED: Ketorolac INJ* 30 MG/ML 1 ML VIAL IM ONE (20:14)
[2019-04-29 21:27] LABS: ABS Basophils 0.1 10^3/ul (0-0.2); ABS Lymphocytes 3.5 10^3/ul (1.0-4.8); ABS Monocytes 0.6 10^3/ul (0-0.8); ABS Neutrophils 6.2 10^3/ul (1.5-7.7); Eosinophil % 0.5 %; Hematocrit 39 % (35-47); Hemoglobin 12.8 g/dL (12.0-16.0); Lymphocyte % 33.5 %; Mean Corpuscular HGB Conc 33 g/dL (31-36); Mean Corpuscular Hemoglobin 29 pg (27-31); Mean Corpuscular Volume 88 fL (80-97); Mean Platelet Volume 8.3 fL (7.4-10.4); Nucleated Red Blood Cells % 0.1; Platelet Count 354 10^3/uL (150-450); Red Blood Count 4.39 10^6 /uL (3.70-4.87); Red Cell Distribution Width 13 % (10-15); White Blood Count 10.4 10^3/uL (3.5-10.8)
[2019-04-29 21:46] LABS: ALT 22 U/L (7-52); AST 18 U/L (13-39); Albumin/Globulin Ratio 1.4 (1-3); Alkaline Phosphatase 50 U/L (34-104); Anion Gap 7 mmol/L (2-11); BUN/Creatinine Ratio 11.5 (8-20); Blood Urea Nitrogen 7 mg/dL (6-24); C Reactive Protein 2.73 mg/L (<8.01); CO2 Carbon Dioxide 25 mmol/L (22-32); Calcium 9.2 mg/dL (8.6-10.3); Chloride 107 mmol/L (101-111); EGFR African American 142.4 (>60); EGFR Non-African American 117.7 (>60); Globulin 2.8 g/dL (2-4); Glucose 101 mg/dL (70-100); Potassium 3.2 mmol/L (3.5-5.0); Sodium 139 mmol/L (135-145); Total Protein 6.8 g/dL (6.4-8.9)
[2019-04-29 21:52] LABS: HCG Pregnancy < 0.60 mIU/mL
[2019-04-29 21:57] LABS: Lithium < 0.10 mmol/L (0.6-1.2)
[2019-04-29] MEDS ORDERED: Potassium Chlor TAB* 20 MEQ TAB.ER PO ONE (22:02)
--- NOTE | 2019-04-29 22:05 | ED ---
Seizure - HPI Summary HPI Summary: Patient complains of 3 seizures last week, one seizure today prior to arrival. States history of epilepsy, not currently taking medication 3 years. Patient states she often has seizures with stress, or increased pain. States increasing chronic pain to hips and back. Denies trauma, fever, cough, sore throat, CP, SOB, N/C/D, abdominal pain, change in urine, change in BM. Patient states she has appointment December 16 with unknown neurologist for further evaluation of seizures. States she has seizures couple times a month. Patient also noncompliant with lithium. Medical history is otherwise, bipolar disorder. - History Of Current Complaint Chief Complaint: EDSeizure Time Seen by Provider: 04/29/19 20:04 Hx Obtained From: Patient Onset/Duration: Gradual Onset Severity Of Seizure: Self-Limited Aggravating Factor(s): Other Alleviating Factor(s): Spontaneous Resolution Associated Signs And Symptoms: Negative - Allergies/Home Medications Allergies/Adverse Reactions: Allergies Allergy/AdvReac Type Severity Reaction Status Date / Time Penicillins Allergy Itching Verified 03/22/19 21:19 Home Medications: Home Medications Albuterol HFA INHALER* [Ventolin HFA Inhaler*] 1 puff INH Q4H PRN 04/29/19 [ History Confirmed 04/29/19] Benzoyl Peroxide [Neutrogena On-The-Spot AC] 2.5 % TOPICAL BID 04/29/19 [ History Confirmed 04/29/19] [place] Carbonate ER (NF) 300 mg PO DAILY 04/29/19 [History Confirmed 04/29/19] [place] Carbonate ER TAB* 450 mg PO BID 04/29/19 [History Confirmed 04/29/19] LoraTADine TAB(NF) [Claritin 10 MG TAB(NF)] 10 mg PO DAILY 04/29/19 [History Confirmed 04/29/19] Ondansetron TAB* [Zofran 4 MG Tab*] 4 mg PO Q6H PRN 04/29/19 [History Confirmed 04/29/19] SUMAtriptan TAB* [Imitrex TAB*] 50 mg PO DAILY PRN 04/29/19 [History Confirmed 04/29/19] cloNIDine TAB* [Catapres 0.1 MG TAB*] 0.1 mg PO TID 04/29/19 [History Confirmed 04/29/19] PMH/Surg Hx/FS Hx/Imm Hx Endocrine/Hematology History: Denies: Hx Anticoagulant Therapy, Hx Diabetes Cardiovascular History: Reports: Hx Angina, Hx Hypercholesterolemia - HLD, Hx Syncope, Hx Valvular Heart Disease - [place], Other Cardiovascular Problems/ Disorders - aortic regurgitation Denies: Hx Hypertension, Hx Myocardial Infarction, Hx Pacemaker/ICD Respiratory History: Reports: Hx Asthma, Hx Seasonal Allergies History: Denies: Hx Renal Disease Musculoskeletal History: Reports: Hx Back Problems - lower back pain, Other Musculoskeletal History - labrum tears b/l hips Sensory History: Reports: Hx Contacts or Glasses Opthamlomology History: Reports: Hx Contacts or Glasses EENT History: Denies: Hx Deafness Neurological History: Reports: Hx Migraine, Other Neuro Impairments/Disorders - Right hemisphere disorder Psychiatric History: Reports: Hx Anxiety, Hx Attention Deficit Hyperactivity Disorder, Hx Depression, Hx Inpatient Treatment - 10/2017, Hx [facility] Tx, Hx Bipolar Disorder, Hx Suicide Attempt, Hx Substance Abuse - oxycodone Denies: Hx Eating Disorder, Hx Panic Disorder, Hx Post Traumatic Stress Disorder, Hx Schizophrenia, Hx of Violent Episodes Against Others - Surgical History Surgery Procedure, Year, and Place: Left hip surgery - Immunization History Date of Tetanus Vaccine: up to date Date of Influenza Vaccine: up to date. Infectious Disease History: No Infectious Disease History: Reports: History Other Infectious Disease - varicella Denies: Traveled Outside the [place] in Last 30 Days - Family History Known Family History: Positive: Cardiac Disease - Mother: fatal [place] at age 52, Hypertension, Diabetes, Other - seizures (mother); no history of SI from family members - Social History Alcohol Use: Rare Hx Substance Use: Yes Substance Use Type: Reports: Marijuana Substance Use Comment - Amount & Last Used: rarely Hx Tobacco Use: Yes - FORMER- QUIT TODAY 10/24/2016 Smoking Status (MU): Heavy Every Day Tobacco Smoker Type: Cigarettes Amount Used/How Often: 1 ppd Length of Time of Smoking/Using Tobacco: since age 18 Have You Smoked in the Last Year: Yes Review of Systems Constitutional: Negative Eyes: Negative ENT: Negative Cardiovascular: Negative Respiratory: Negative Gastrointestinal: Negative Musculoskeletal: Negative Skin: Negative Neurological: Negative Psychological: Normal All Other Systems Reviewed And Are Negative: Yes Physical Exam Triage Information Reviewed: Yes Vital Signs On Initial Exam: Initial Vitals Temp Pulse Resp BP Pulse Ox 99.2 F 65 18 121/66 100 04/29/19 19:30 11/04/19 19:30 04/29/19 19:30 04/29/19 19:30 04/29/19 19:30 Vital Signs Reviewed: Yes Appearance: Positive: Well-Appearing Skin: Positive: Warm Head/Face: Positive: Normal Head/Face Inspection Eyes: Positive: Normal Neck: Positive: Supple Respiratory/Lung Sounds: Positive: Clear to Auscultation Cardiovascular: Positive: Normal Abdomen Description: Positive: Nontender Musculoskeletal: Positive: Normal Neurological: Positive: Normal Psychiatric: Positive: Normal AVPU Assessment: Alert - [place] Coma Scale Best Eye Response: 4 - Spontaneous Best Motor Response: 6 - Obeys Commands Best Verbal Response: 5 - Oriented Coma Scale Total: 15 Procedures - Sedation Patient Received Moderate/Deep Sedation with Procedure: No Diagnostics - Vital Signs Vital Signs Temp Pulse Resp BP Pulse Ox 04/29/19 21:32 69 111/74 99 04/29/19 21:02 54 108/72 98 04/29/19 21:00 73 100 04/29/19 20:31 59 120/71 99 04/29/19 20:02 71 116/83 100 04/29/19 20:00 77 99 04/29/19 19:32 70 121/66 100 04/29/19 19:30 99.2 F 65 18 121/66 100 - Laboratory Lab Results: Lab Results 04/29/19 04/29/19 Range/Units 21:20 21:20 WBC 10.4 (3.5-10.8) 10^3/uL RBC 4.39 (3.70-4.87) 10^6 /uL Hgb 12.8 (12.0-16.0) g/dL Hct 39 (35-47) % MCV 88 (80-97) fL MCH 29 (27-31) pg MCHC 33 (31-36) g/dL RDW 13 (10-15) % Plt Count 354 (150-450) 10^3/uL MPV 8.3 (7.4-10.4) fL Neut % (Auto) 59.5 % Lymph % (Auto) 33.5 % [place] % (Auto) 5.7 % Eos % (Auto) 0.5 % Baso % (Auto) 0.8 % Absolute Neuts (auto) 6.2 (1.5-7.7) 10^3/ul Absolute Lymphs (auto) 3.5 (1.0-4.8) 10^3/ul Absolute Monos (auto) 0.6 (0-0.8) 10^3/ul Absolute Eos (auto) 0.0 (0-0.6) 10^3/ul Absolute Basos (auto) 0.1 (0-0.2) 10^3/ul Absolute Nucleated RBC 0.0 10^3/ul Nucleated RBC % 0.1 Sodium 139 (135-145) mmol/L Potassium 3.2 L (3.5-5.0) mmol/L Chloride 107 (101-111) mmol/L Carbon Dioxide 25 (22-32) mmol/L Anion Gap 7 (2-11) mmol/L BUN 7 (6-24) mg/dL Creatinine 0.61 (0.51-0.95) mg/dL Est GFR ( Amer) 142.4 (>60) Est GFR (Non-Af Amer) 117.7 (>60) BUN/Creatinine Ratio 11.5 (8-20) Glucose 101 H (70-100) mg/dL Calcium 9.2 (8.6-10.3) mg/dL Total Bilirubin 0.20 (0.2-1.0) mg/dL AST 18 (13-39) U/L ALT 22 (7-52) U/L Alkaline Phosphatase 50 (34-104) U/L C-Reactive Protein 2.73 (<8.01) mg/L Total Protein 6.8 (6.4-8.9) g/dL Albumin 4.0 (3.2-5.2) g/dL Globulin 2.8 (2-4) g/dL Albumin/Globulin Ratio 1.4 (1-3) TSH Pending Beta HCG, Quant < 0.60 mIU/mL [place] < 0.10 L (0.6-1.2) mmol/L Result Diagrams: 04/29/19 21:20 04/29/19 21:20 Lab Statement: Any lab studies that have been ordered have been reviewed, and results considered in the medical decision making process. Course/Dx - Course Course Of Treatment: Patient complains of 3 seizures last week, one seizure today prior to arrival. States history of epilepsy, not currently taking medication 3 years. Patient states she often has seizures with stress, or increased pain. States increasing chronic pain to hips and back. Denies trauma , fever, cough, sore throat, CP, SOB, N/C/D, abdominal pain, change in urine, change in BM. Patient states she has appointment December 16 with unknown neurologist for further evaluation of seizures. States she has seizures couple times a month. Patient also noncompliant with lithium. Medical history is otherwise, bipolar disorder. Vital signs within normal limits. Potassium 3.2. Labs unremarkable. No seizure here in the ED. Potassium 40 MEQ by mouth here in the ED. Follow-up with neurology. - Diagnoses Provider Diagnoses: Seizure Discharge ED - Sign-Out/Discharge Documenting (check all that apply): Patient Departure - Discharge Plan Condition: Stable Disposition: HOME Patient Education Materials: Epilepsy (ED) Referrals: No Primary Care Phys,NOPCP [Primary Care Provider] - Dallin Shaffer MD [Medical Doctor] - Additional Instructions: Follow-up with neurology Dr. Shaffer for further evaluation. Return to the ED for any worsening symptoms. - Billing Disposition and Condition Condition: STABLE Disposition: Home
[2019-04-29 22:11] LABS: TSH (Thyroid Stimulating Horm) 1.78 mcIU/mL (0.34-5.60)
[2019-04-29 22:32] LABS: Urine Appearance Cloudy; Urine Bacteria 1+ (Absent); Urine Bilirubin Negative (Negative); Urine Blood 1+ (Negative); Urine Color Yellow; Urine Glucose Negative (Negative); Urine Ketones 1+ (Negative); Urine Nitrite Negative (Negative); Urine Protein Negative (Negative); Urine Red Blood Cell Trace(0-2/hpf) (Absent); Urine Specific Gravity 1.006 (1.010-1.030); Urine Squamous Epithelial Cell Present (Absent); Urine Urobilinogen Negative (Negative); Urine White Blood Cell Trace(0-5/hpf) (Absent)
[2019-04-29 22:33] VITALS: BP 111/65
== END 2019-04-29 22:24 | disposition home or self-care (01) ==
LOC: ED 19:17
DX: G40.909 Epilepsy, unspecified, not intractable, without status epilepticus (principal); F17.210 Nicotine dependence, cigarettes, uncomplicated; E78.00 Pure hypercholesterolemia, unspecified; F41.9 Anxiety disorder, unspecified; F32.9 Major depressive disorder, single episode, unspecified; Z79.899 Other long term (current) drug therapy
CPT/HCPCS: 36415; 80053; 80178; 81003; 81015; 84443; 84702; 85025; 86140; 87086; 99282; A9270-GY; J1885

== ENCOUNTER 2019-05-02 01:42 | Emergency (ER) | payer MEDICARE, MEDICAID ==
--- NOTE | 2019-05-02 01:52 | ED ---
Neurological HPI - HPI Summary HPI Summary: 28 year old F brought in by EMS to [facility] complains of having several seizures this evening. Per EMS, patient is unsure how many seizures she has had this evening. Symptoms aggravated by nothing. Symptoms alleviated by nothing. Patient states she has hx seizures per EMS. - History of Current Complaint Chief Complaint: EDSeizure Stated Complaint: SEIZURE PER EMS Time Seen by Provider: 05/02/19 01:45 Hx Obtained From: Patient Onset/Duration: Started hours ago, Resolved Timing: Constant Aggravating: Nothing Alleviating: Nothing - Additional Pertinent History Primary Care Physician: [id number] - Allergy/Home Medications Allergies/Adverse Reactions: Allergies Allergy/AdvReac Type Severity Reaction Status Date / Time Penicillins Allergy Itching Verified 05/02/19 01:44 PMH/Surg Hx/FS Hx/Imm Hx Endocrine/Hematology History: Denies: Hx Anticoagulant Therapy, Hx Diabetes Cardiovascular History: Reports: Hx Angina, Hx Hypercholesterolemia - HLD, Hx Syncope, Hx Valvular Heart Disease - [place], Other Cardiovascular Problems/ Disorders - aortic regurgitation Denies: Hx Hypertension, Hx Myocardial Infarction, Hx Pacemaker/ICD Respiratory History: Reports: Hx Asthma, Hx Seasonal Allergies History: Denies: Hx Renal Disease Musculoskeletal History: Reports: Hx Back Problems - lower back pain, Other Musculoskeletal History - labrum tears b/l hips Sensory History: Reports: Hx Contacts or Glasses Denies: Hx Deafness Opthamlomology History: Reports: Hx Contacts or Glasses Neurological History: Reports: Hx Migraine, Other Neuro Impairments/Disorders - Right hemisphere disorder Psychiatric History: Reports: Hx Anxiety, Hx Attention Deficit Hyperactivity Disorder, Hx Depression, Hx Inpatient Treatment - 10/2017, Hx [facility] Tx, Hx Bipolar Disorder, Hx Suicide Attempt, Hx Substance Abuse - oxycodone Denies: Hx Eating Disorder, Hx Panic Disorder, Hx Post Traumatic Stress Disorder, Hx Schizophrenia, Hx of Violent Episodes Against Others - Surgical History Surgery Procedure, Year, and Place: Left hip surgery - Immunization History Date of Tetanus Vaccine: up to date Date of Influenza Vaccine: up to date. Infectious Disease History: Reports: History Other Infectious Disease - varicella - Family History Known Family History: Positive: Cardiac Disease - Mother: fatal [place] at age 52, Hypertension, Diabetes, Other - seizures (mother); no history of SI from family members - Social History Alcohol Use: Rare Hx Substance Use: Yes Substance Use Type: Reports: Marijuana Substance Use Comment - Amount & Last Used: rarely Hx Tobacco Use: Yes - FORMER- QUIT TODAY 10/24/2016 Smoking Status (MU): Heavy Every Day Tobacco Smoker Type: Cigarettes Amount Used/How Often: 1 ppd Length of Time of Smoking/Using Tobacco: since age 18 Have You Smoked in the Last Year: Yes Review of Systems Negative: Fever Neurological: Other - seizure All Other Systems Reviewed And Are Negative: Yes Physical Exam - Summary Physical Exam Summary: Appearance: Well-appearing, Well-nourished, lying in bed comfortably Skin: Warm, dry, no obvious rash Eyes: sclera anicteric, no conjunctival pallor ENT: mucous membranes moist, pharynx appears normal Neck: Supple, nontender Respiratory: Clear to auscultation, no signs of respiratory distress Cardiovascular: Normal S1, S2. No murmurs. Normal distal pulses in tibial and radial bilaterally. Abdomen: Soft, nontender, normal active bowel sounds present Musculoskeletal: Normal, Strength/ROM Intact Neurological: A&Ox3, awake and alert, mentation is normal, speech is fluent and appropriate Psychiatric: affect is normal, does not appear anxious or depressed Triage Information Reviewed: Yes Vital Signs Reviewed: Yes Procedures - Sedation Patient Received Moderate/Deep Sedation with Procedure: No Course/Dx - Course Course Of Treatment: 28 year old F brought in by EMS to [facility] complains of having several seizures this evening. Physical exam findings: unremarkable. In the ED course, the patient was given ibuprofen 400 mg for her back pain. Patient will be discharged home with follow up from neurology. Patient was instructed to return to Emergency Department for new or worsening symptoms. Patient understands and is agreeable to this plan. - Diagnoses Provider Diagnoses: Convulsion, non-epileptic, Back pain Discharge ED - Sign-Out/Discharge Documenting (check all that apply): Patient Departure - Discharge - Discharge Plan Condition: Good Disposition: HOME Patient Education Materials: Back Pain (ED) Referrals: [facility] [Outside] Additional Instructions: I am not convinced you are suffering from epileptic seizures. More likely this falls under the category of non-epileptic convulsions. I would recommend making an appt with one of the neurologists in [facility] for a more comprehensive evaluation than we can do here. - Billing Disposition and Condition Condition: GOOD Disposition: Home - Attestation Statements Document Initiated by Scribe: Yes Documenting Scribe: Sanjuanita Smith Provider For Whom Scribe is Documenting (Include Credential): Jared Palomino MD Scribe Attestation: I, Sanjuanita Smith, scribed for Jared Palomino MD on 05/02/19 at 0515. Scribe Documentation Reviewed: Yes Provider Attestation: The documentation as recorded by the scribe, Sanjuanita Smith accurately reflects the service I personally performed and the decisions made by me, Jared Palomino MD Status of Scribe Document: Viewed
[2019-05-02] MEDS ORDERED: Ibuprofen TAB* 400 MG PO ONE (03:15)
[2019-05-02 03:32] VITALS: BP 106/76
== END 2019-05-02 03:28 | disposition home or self-care (01) ==
LOC: ED 01:42
DX: R56.9 Unspecified convulsions (principal); M54.9 Dorsalgia, unspecified; E78.00 Pure hypercholesterolemia, unspecified; E78.5 Hyperlipidemia, unspecified; I35.1 Nonrheumatic aortic (valve) insufficiency; J45.909 Unspecified asthma, uncomplicated; F41.9 Anxiety disorder, unspecified; F90.9 Attention-deficit hyperactivity disorder, unspecified type; F32.9 Major depressive disorder, single episode, unspecified; Z87.891 Personal history of nicotine dependence; Z88.0 Allergy status to penicillin
CPT/HCPCS: 99283; A9270-GY

== ENCOUNTER 2019-08-21 14:37 | Emergency (ER) | payer MEDICARE, MEDICAID ==
--- OUTSIDE RECORDS SUMMARY | 2019-08-21 14:51 | XMS REPORT | Continuity of Care Document ---
:1990 External Reference #:[id number] Author Name Chas Garcia MD (transmitted by agent of provider Katherine [facility]) Address [address] [place] [address] Care Team Providers Name Role Phone Luh Bee MD - Internal Care Team Information [facility] - Pain Care Team Information [facility] [phone] Dolores Jasso MD - Internal Medicine Care Team Information [facility] Problems Active Problems Provider Date Syncope and collapse Shona Heredia M.D. Onset: 03/03/2017 Transient altered mental status Lisa Fitzgerald MD Onset: 04/06/2017 Dissociative convulsions Lisa Fitzgerald MD Onset: 04/26/2017 Localized, secondary osteoarthritis of the Lolylisa Ashlye M.D. Onset: 2016 pelvic region and thigh Other specific joint derangements of right Camryn Jolley MD Onset: 07/04/2017 hip, not elsewhere classified Other specific joint derangements of left Camryn Jolley MD Onset: 07/04/2017 hip, not elsewhere classified Polycystic ovaries Mando Benítez M.D. Onset: 11/28/2017 Bipolar disorder Mando Benítez M.D. Onset: 11/28/2017 Asthma without status asthmaticus Mando Benítez M.D. Onset: 11/28/2017 Allergic rhinitis Mando Benítez M.D. Onset: 11/28/2017 Arthralgia of the pelvic region and thigh Mando Benítez M.D. Onset: 01/10 Obesity Mando Benítez M.D. Onset: 05/28/2018 Social History Type Date Description Comments Sex Unknown ETOH Use Denies alcohol use ETOH Use Denies alcohol use Recreational Drug Use Sporadically uses Marijuana Tobacco Use Start: Unknown Heavy tobacco smoker (more than 10 cigarettes/day) Smoking Status Reviewed: 07/26/19 Heavy tobacco smoker (more than 10 cigarettes/day) Exercise Type/Frequency Exercises sporadically Exercise Type/Frequency Exercises sporadically Allergies, Adverse Reactions, Alerts Active Allergies Reaction Severity Comments Date Tramadol Nausea and Vomiting Moderate 03/03/2017 Penicillins 10/10/2017 Penicillin ichiness 04/06/2017 Medications Active Medications SIG Qnty Indications Ordering Date Provider Montelukast Sodium 1 by mouth every 30tabs Dolores Jasso MD 11/14/2018 10mg day Tablets Benzoyl Peroxide Apply to affected 60gm [place] 10/08/2018 5% Gel areas once daily. N.P. Clindamycin Phosphate apply thin layer 30gm L70.0 Dolores Jasso MD 2018 1% to face twice a Gel day as needed Sumatriptan Succinate Take One Tablet 9tabs Dolores Jasso MD 08/09/2018 By Mouth AT The 50mg Tablets Start Of The Headache; May Repeat In 2 Hours If Needed *Maximum Daily Dose Of Four Tablets* Pain & Fever Extra Take Two Tablets 60tabs Dolores Jasso MD 06/23/2018 Strength By Mouth Three 500mg Tablets Times Daily as Needed Wheelchair use as directed 1units [place] 05/29/2018 [facility] m54.16 [place] Fluticasone Propionate 2 sprays each 9.900ml J30.9 [place] 05/28/2018 nostril daily [place] 50mcg/Act Suspension Lidoderm 1 patch on for 12 30units [place] 05/15/2018 5% Patches hrs and then off [place] 12 hrs Walker walker with seat, 1units M25.559 [place] 01/10/2018 [facility] use for [place] ambulation. dx code M25.559 Qvar 2 puffs 8.700gm Dolores Jasso MD 12/12/2017 80mcg/Act Aerosol inhalation twice a day Metformin HCL Take One Tablet 60tabs Dolores Jasso MD 500mg By Mouth Two Tablets Times Daily Ondansetron HCL one by mouth 14tabs [place] 4mg every 6 hours as [place] Tablets needed for nausea Levalbuterol HCL 1 amp 8h as 72ml [place] needed [place] 0.63mg/3ML Nebulizer Day Time/Nite Time as needed Unknown Cold & Flu Relief (Liquid) Misc [place] Carbonate ER 2 tablet by mouth Unknown in the evening 450mg Tablets ER Cyclobenzaprine HCL Take One Tablet 30tabs Dolores Jasso MD 10mg By Mouth Every 8 Tablets Hours as Needed Immunizations CPT Code Status Date Vaccine Lot # [id number] Given 05/16/2018 Influenza Virus Vaccine, Quadrivalent, Split, Preservative Free Vital Signs Date Vital Result Comment 07/26/2019 3:15pm Height 62 inches 5'2" Weight 179.00 lb Heart Rate 93 /min BP Systolic 115 mmHg BP Diastolic 71 mmHg O2 % BldC Oximetry 98 % BMI (Body Mass Index) 32.7 kg/m2 Last Menstrual Period [id number] 05/02/2019 2:50pm Height 62 inches 5'2" Weight 183.00 lb Heart Rate 96 /min Respiratory Rate 14 /min Body Temperature 98.4 F Pain Level 9 BMI (Body Mass Index) 33.5 kg/m2 Results Test Acquired Date Facility Test Result H/L Range Note Laboratory test 07/26/2019 [facility] Urine negative Negative finding Procedures Description No Information Available Medical Devices Description No Information Available Encounters Type Date Location Provider Dx Diagnosis Office Visit 05/02/2019 [facility] Camryn Jolley MD M25.552 Pain in left hip 3:30p at [place] M24.852 Ot specific joint derangements of left hip, NEC Assessments Date Code Description Provider 05/02/2019 M25.552 Pain in left hip Camryn Jolley MD 05/02/2019 M24.852 Other specific joint derangements of left hip, Camryn Jolley MD not elsewhere classified Plan of Treatment Future Appointment(s):07/29/2019 2:40 pm - Dolores Jasso MD at [facility] Internal Medicine - [facility] Functional Status Description No Information Available Mental Status Description No Information Available Referrals Refer to Reason for Referral Status Appt Date Yuniel Robert MD H/O left hip labral repair, cont pain, MRI Closed [facility] [address] [facility] [address]R[facility] Vazquez [place], [place] [id number] [phone]
--- OUTSIDE RECORDS SUMMARY | 2019-08-21 14:51 | XMS REPORT | Continuity of Care Document ---
:1990 External Reference #:[id number] Author Name Anup Sheriff MD Address [address] [place] [address] Problems Active Problems Provider Date Acne Anup Sheriff MD Onset: 06/26/2019 Female hirsutism Anup Sheriff MD Onset: 06/26/2019 Inactive Problems Acne Onset: 01/09/2019 Inactive: 01/09/2019 Seasonal allergy Onset: 01/09/2019 Inactive: 01/09/2019 Social History Type Date Description Comments Sex Unknown Tobacco Use Start: Unknown Heavy tobacco smoker (more than 10 cigarettes/day) Smoking Status Reviewed: 06/24/19 Heavy tobacco smoker (more than 10 cigarettes/day) Allergies, Adverse Reactions, Alerts Active Allergies Reaction Severity Comments Date PCN Itching, sensation of throat closing 03/01/2019 Medications Active Medications SIG Qnty Indications Ordering Date Provider Cyclobenzaprine HCL Take 1 Tablet By 14tabs ZENAIDA Bishop 05/03/2019 10mg Mouth In The Tablets Evening Metformin HCL 1 tab by mouth 60tabs ZENAIDA Bishop 05/01/2019 500mg Tablets twice a day Rol[place] Walker rolling walker 1units ZENAIDA Bishop 04/03/2019 Misc with feet and brakes for daily use dx bilateral hip pain Albuterol Sulfate HFA 2 puffs 17gm J45.901 ZENAIDA Bishop 03/19/2019 inhalation Q4-6 108(90Base) mcg/Act hours as needed Aerosol for wheezing or shortness of breath disp 1 Benzonatate 1 cap tid 30caps J45.901 ZENAIDA Bishop 03/19/2019 100mg Capsules Loratadine take one tablet 30tabs ZENAIDA Bishop 03/12/2019 10mg Tablets by mouth once daily Benzoyl Peroxide Unknown 5% Gel Trazodone HCL Unknown 50mg Tablets Sumatriptan Succinate Unknown 50mg Tablets [place] Unknown 325mg Tablets [place] Carbonate ER Unknown 300mg Tablets ER Fluticasone Propionate Unknown 50mcg/Act Suspension Narcan Unknown 4mg/0.1ML Liquid Diphenhydramine HCL Unknown 25mg Capsules Ondansetron HCL Unknown 4mg Tablets [place] Carbonate ER Unknown 450mg Tablets ER History Medications Prednisone take 5 tabs for [...] 01/09/2019 - 25mg Oral 02/05/2019 Tablets Immunizations CPT Code Status Date Vaccine Lot # [id number] Given 05/03/2019 Tdap - Boostrix/Adacel [id number] Given 04/03/2019 Flu < 65 years [id number] Vital Signs Date Vital Result Comment 06/24/2019 2:53pm BP Systolic 138 mmHg BP Diastolic 70 mmHg Heart Rate 79 /min Body Temperature 98.4 F O2 % BldC Oximetry 99 % 04/03/2019 1:19pm BP Systolic 122 mmHg BP Diastolic 78 mmHg Weight 198.00 lb Heart Rate 68 /min Body Temperature 99.0 F O2 % BldC Oximetry 99 % Results Description No Information Available Procedures Date Code Description Status 06/24/2019 91500 Remove Impact Cerumen Irrigati Completed Medical Devices Description No Information Available Encounters Type Date Location Provider Dx Diagnosis Office Visit 06/24/2019 2:45p CFGely Sheriff MD R05 Cough J06.9 Acute upper respiratory infection, unspecified Office Visit 04/03/2019 1:15p ZENAIDA Lama M25.559 Pain in unspecified hip Z23 Encounter for immunization Office Visit 03/19/2019 2:30p [facility] Pacheco Lyons [facility] J45.901 Unspecified asthma with (acute) exacerbation Z68.35 Body mass index (BMI) 35.0-35.9, adult Office Visit 03/04/2019 4:00p [facility] P[place] Jordan MD L50.8 Other urticaria Assessments Date Code Description Provider 06/24/2019 R05 Cough Anup Sheriff MD 06/24/2019 J06.9 Acute upper respiratory infection, unspecified Anup Sheriff MD 05/03/2019 Z23 Encounter for immunization Nurse 04/03/2019 M25.559 Pain in unspecified hip Elle Lyons [facility] 04/03/2019 Z23 Encounter for immunization Elle Lyons [facility] 03/19/2019 J45.901 Unspecified asthma with (acute) exacerbation Elle Lyons [facility] 03/19/2019 Z68.35 Body mass index (BMI) 35.0-35.9, adult Elle Lyons [facility] 03/04/2019 L50.8 Other urticaria Karen Jordan MD Plan of Treatment No Information Available Functional Status Description No Information Available Mental Status Description No Information Available Referrals Description No Information Available
--- OUTSIDE RECORDS SUMMARY | 2019-08-21 14:51 | XMS REPORT | Continuity of Care Document ---
:1990 External Reference #:[id number] Author Name Dolores Jasso MD (transmitted by agent of provider Tashia Kirkpatrick) Address [address], [place] [address] Care Team Providers Name Role Phone Luh Bee MD - Internal Care Team Information [facility] - Pain Care Team Information Hand Hose Cutter [phone] Dolores Jasso MD - Internal Medicine Care Team Information Hand Hose Cutter [phone] Problems Active Problems Provider Date Syncope and collapse Shona Heredia M.D. Onset: 03/03/2017 Transient altered mental status Lisa Fitzgerald MD Onset: 04/06/2017 Dissociative convulsions Lisa Fitzgerald MD Onset: 04/26/2017 Localized, secondary osteoarthritis of the Lolylisa Ashley M.D. Onset: 2016 pelvic region and thigh Other specific joint derangements of right Camryn Jolley MD Onset: 07/04/2017 hip, not elsewhere classified Other specific joint derangements of left Camryn Jolley MD Onset: 07/04/2017 hip, not elsewhere classified Polycystic ovary syndrome Mando Benítez M.D. Onset: 11/28/2017 Bipolar disorder Mando Benítez M.D. Onset: 11/28/2017 Asthma without status asthmaticus Mando Benítez M.D. Onset: 11/28/2017 Allergic rhinitis Mando Benítez M.D. Onset: 11/28/2017 Arthralgia of the pelvic region and thigh Mando Benítez M.D. Onset: 01/10 Obesity Mando Benítez M.D. Onset: 05/28/2018 Polycystic ovary syndrome Dolores Jasso MD Onset: 08/06/2019 Social History Type Date Description Comments Sex Unknown ETOH Use Denies alcohol use ETOH Use Denies alcohol use Recreational Drug Use Sporadically uses Marijuana Tobacco Use Start: Unknown Heavy tobacco smoker (more than 10 cigarettes/day) Smoking Status Reviewed: 08/06/19 Heavy tobacco smoker (more than 10 cigarettes/day) Exercise Type/Frequency Exercises sporadically Exercise Type/Frequency Exercises sporadically Allergies, Adverse Reactions, Alerts Active Allergies Reaction Severity Comments Date Tramadol Nausea and Vomiting Moderate 03/03/2017 Penicillins 10/10/2017 Penicillin ichiness 04/06/2017 Medications Active Medications SIG Qnty Indications Ordering Date Provider Gabapentin take 2 capsule by 60caps G89.29 Dolores Jasso MD 08/06/2019 300mg Capsules mouth twice daily Benzoyl Peroxide Apply to affected 60gm Suma [place], 10/08/2018 5% Gel areas once daily. N.P. Clindamycin Phosphate apply thin layer 30gm L70.0 Dolores Jasso MD 2018 1% to face twice a Gel day as needed Sumatriptan Succinate take one tablet 9tabs Dolores Jasso MD 08/09/2018 by mouth at the 50mg Tablets start of the headache; may repeat in 2 hours if needed *maximum daily dose of four tablets* Pain & Fever Extra Take Two Tablets 60tabs Dolores Jasso MD 06/23/2018 Strength By Mouth Three 500mg Tablets Times Daily as Needed Wheelchair use as directed 1units [place] 05/29/2018 [facility] m54.16 [place] Fluticasone Propionate 2 sprays each 9.900ml J30.9 [place] 05/28/2018 nostril daily [place] Benítez 50mcg/Act Suspension Walker walker with seat, 1units M25.559 [place] 01/10/2018 [facility] use for [place] Ben[place]tez ambulation. dx code M25.559 Qvar 2 puffs 8.700gm Dolores Jasso MD 12/12/2017 80mcg/Act Aerosol inhalation twice a day Metformin HCL Take One Tablet 60tabs Dolores Jasso MD 500mg By Mouth Two Tablets Times Daily Ondansetron HCL one by mouth 14tabs [place] 4mg every 6 hours as [place] Ben[place]te[place] Tablets needed for nausea Day Time/Nite Time as needed Unknown Cold & Flu Relief (Liquid) Misc Cyclobenzaprine HCL Take One Tablet 30tabs Dolores Jasso MD 10mg By Mouth Every 8 Tablets Hours as Needed Immunizations CPT Code Status Date Vaccine Lot # [id number] Given 05/16/2018 Influenza Virus Vaccine, Quadrivalent, Split, Preservative Free Vital Signs Date Vital Result Comment 08/06/2019 2:51pm Height 62 inches 5'2" Weight 185.00 lb Heart Rate 82 /min BP Systolic Sitting 122 mmHg BP Diastolic Sitting 78 mmHg Body Temperature 98.0 F O2 % BldC Oximetry 98 % BMI (Body Mass Index) 33.8 kg/m2 07/26/2019 3:15pm Height 62 inches 5'2" Weight 179.00 lb Heart Rate 93 /min BP Systolic 115 mmHg BP Diastolic 71 mmHg O2 % BldC Oximetry 98 % BMI (Body Mass Index) 32.7 kg/m2 Last Menstrual Period [id number] Results Test Acquired Date Facility Test Result H/L Range Note Laboratory test 08/05/2019 [facility] Urine negative Negative finding Surgical 07/26/2019 [facility] Surgical SEE RESULT 1, [address] [place] [address] [phone] PDFReport SEE IMAGE Laboratory test 07/26/2019 [facility] Surgical <pending> finding [address] [place] [address] [phone] [id number] 2 SEE RESULT BELOW Name: KINDRA LEÓN : [address]: Chas Garcia MD Acct: [id number] Unit: [id number] AGE: 28 Location: [facility] Re07/26/19 SEX: F Status: REG REF SPEC: [id number] VANCE: 07/26/19-[address] [facility] [address]: Chas Garcia MD REQ: [id number] RECD: 07/26/19 STATUS: SOUT _ ORDERED: LEVEL 4/2, IMMUNO-FIRST COMMENTS: [id number] FINAL DIAGNOSIS 1. Uterus, endocervix, curettage: -- Benign endocervical mucosa with no significant pathologic abnormalities. 2. Uterus, cervix, 9:00, biopsy: -- Benign cervical tissue with no evidence of HPV-related viral cytopathic effect or squamous dysplasia; see comment. COMMENT: A p16 immunohistochemical stain, with appropriately reacting controls, was performed on sections cut from specimen 2 and is negative, supporting the diagnosis. PRE-OPERATIVE DIAGNOSIS low-grade squamous intraepithelial lesion pap GROSS DESCRIPTION 1. The specimen is received in formalin labeled, ECC, and consists of a 1.1 x 0.7 x 0.4 cm aggregate of translucent white mucus which is submitted entirely in one cassette. 2. The specimen is received in formalin labeled, 9:00, and consists of a 0.3 x 0.3 x 0.2 cm diaz-white irregular soft tissue fragment admixed with scant mucus. The specimen is inked and submitted entirely in one cassette. CONTINUED ON NEXT PAGE DEPARTMENT OF PATHOLOGY, [address] [place] [address] Dylan Laurent M.D. Director [facility] # [id number] Signed by and Reported on: Marilu Browne MD 07/31/19 1650 END OF REPORT DEPARTMENT OF PATHOLOGY, [address] [place] [address] Dylan Laurent M.D. Director [facility] # [id number] Procedures Date Code Description Status 07/26/2019 32563 Colposcopy W/Biopsy Cervix/Endocervical Curettage Completed Medical Devices Description No Information Available Encounters Type Date Location Provider Dx Diagnosis Office Visit 05/02/2019 [facility] Camryn Jolley MD M25.552 Pain in left hip 3:30p at [place] M24.852 Ot specific joint derangements of left hip, NEC Assessments Date Code Description Provider 08/06/2019 H92.01 Otalgia, right ear Dolores Jasso MD 08/06/2019 G89.29 Other chronic pain Dolores Jasso MD 08/06/2019 E28.2 Polycystic ovarian syndrome Dolores Jasso MD 08/06/2019 R51 Headache Dolores Jasso MD 08/05/2019 Z32.02 Encounter for test, result negative Chas Garcia MD 07/26/2019 R87.612 Low grade squamous intraepithelial lesion on Chas Garcia MD cytologic smear of cervix (LGSIL) 07/26/2019 Z32.02 Encounter for test, result negative Chas Garcia MD 05/02/2019 M25.552 Pain in left hip Camryn Jolley MD 05/02/2019 M24.852 Other specific joint derangements of left hip, Camryn Jolley MD not elsewhere classified Plan of Treatment Future Appointment(s):09/03/2019 2:00 pm - Dolores Jasso MD at [facility] Internal Medicine - [facility]08/06/2019 - Dolores Jasso MDH92.01 Otalgia, right earComments: Clindamycin should take care of itG89.29 Other chronic painNew Medication: Gabapentin 300 mg - take 2 capsule by mouth twice dailyFollow up:F/U 4 wwtucS65.2 Polycystic ovarian myppnazlA54 Headache Functional Status Description No Information Available Mental Status Description No Information Available Referrals Refer to Reason for Referral Status Appt Date Yuniel Robert MD H/O left hip labral repair, cont pain, MRI Closed pending [address] [facility] [place] [address] [phone]
--- NOTE | 2019-08-21 14:54 | ED ---
Complex/Multi-Sys Presentation - HPI Summary HPI Summary: This patient is a 29 y/o female presenting to [facility] via EMS c/o feeling a seizure coming on. Patient reports she began to have a headache this morning and notes that this sometimes means she is about to have a seizure. She denies fever, chills, chest pain, SOB, nausea, vomiting. Patient does not take any anticonvulsants. Per EMS, patient went to [facility] today stating the same chief complaint and was discharged home. EMS notes patient then took a cab and came to [facility] ED. Patient reports she takes Gabapentin for her chronic hip pain. She states she takes iron and vitamins, however states she is not . Allergies to Penicillin. - History Of Current Complaint Hx Obtained From: Patient, EMS Onset/Duration: Lasting Hours Timing: Hours Severity Currently: Moderate Location: Pain At: - head Aggravating Factor(s): nothing Alleviating Factor(s): nothing Associated Signs And Symptoms: Positive: Headache. Negative: SOB, Chest Pain, Nausea, Vomiting, Fever - Allergies/Home Medications Allergies/Adverse Reactions: Allergies Allergy/AdvReac Type Severity Reaction Status Date / Time Penicillins Allergy Itching Verified 08/21/19 14:48 Home Medications: Home Medications Cyclobenzaprine TAB* [Flexeril 10 MG TAB*] 10 mg PO TID PRN 11/07/17 [History Confirmed 05/02/19] metFORMIN* [Glucophage 500 MG TAB *] 500 mg PO BID 11/07/17 [History Confirmed 05/02/19] Acetaminophen [Acetaminophen Extra Strength] 500 mg PO Q4HR PRN 11/28/18 [ History Confirmed 05/02/19] Albuterol HFA INHALER* [Ventolin HFA Inhaler*] 1 puff INH Q4H PRN 04/29/19 [ History Confirmed 05/02/19] Benzoyl Peroxide [Neutrogena On-The-Spot AC] 2.5 % TOPICAL BID 04/29/19 [ History Confirmed 05/02/19] [place] Carbonate ER (NF) 300 mg PO DAILY 04/29/19 [History Confirmed 05/02/19] [place] Carbonate ER TAB* 450 mg PO BID 04/29/19 [History Confirmed 05/02/19] LoraTADine TAB(NF) [Claritin 10 MG TAB(NF)] 10 mg PO DAILY 04/29/19 [History Confirmed 05/02/19] Ondansetron TAB* [Zofran 4 MG Tab*] 4 mg PO Q6H PRN 04/29/19 [History Confirmed 05/02/19] SUMAtriptan TAB* [Imitrex TAB*] 50 mg PO DAILY PRN 04/29/19 [History Confirmed 05/02/19] cloNIDine TAB* [Catapres 0.1 MG TAB*] 0.1 mg PO TID 04/29/19 [History Confirmed 05/02/19] PMH/Surg Hx/FS Hx/Imm Hx Endocrine/Hematology History: Denies: Hx Anticoagulant Therapy, Hx Diabetes Cardiovascular History: Reports: Hx Angina, Hx Hypercholesterolemia - HLD, Hx Syncope, Hx Valvular Heart Disease - AR, Other Cardiovascular Problems/ Disorders - aortic regurgitation Denies: Hx Hypertension, Hx Myocardial Infarction, Hx Pacemaker/ICD Respiratory History: Reports: Hx Asthma, Hx Seasonal Allergies History: Denies: Hx Renal Disease Musculoskeletal History: Reports: Hx Back Problems - lower back pain, Other Musculoskeletal History - labrum tears b/l hips Sensory History: Reports: Hx Contacts or Glasses Denies: Hx Deafness, Hx Hearing Aid Opthamlomology History: Reports: Hx Contacts or Glasses Neurological History: Reports: Hx Migraine, Other Neuro Impairments/Disorders - Right hemisphere disorder Psychiatric History: Reports: Hx Anxiety, Hx Attention Deficit Hyperactivity Disorder, Hx Depression, Hx Panic Disorder, Hx Inpatient Treatment - 10/2017, Hx Community Mental Health Tx, Hx Bipolar Disorder, Hx Suicide Attempt, Hx Substance Abuse - oxycodone Denies: Hx Eating Disorder, Hx Post Traumatic Stress Disorder, Hx Schizophrenia, Hx of Violent Episodes Against Others - Surgical History Surgical History: Yes Surgery Procedure, Year, and Place: Left hip surgery - Immunization History Date of Tetanus Vaccine: up to date Date of Influenza Vaccine: up to date. Infectious Disease History: No Infectious Disease History: Reports: History Other Infectious Disease - varicella Denies: Traveled Outside the [place] in Last 30 Days - Family History Known Family History: Positive: Cardiac Disease - Mother: fatal VT at age 52, Hypertension, Diabetes, Other - seizures (mother); no history of SI from family members - Social History Alcohol Use: Rare Hx Substance Use: Yes Substance Use Type: Reports: Marijuana Substance Use Comment - Amount & Last Used: rarely Hx Tobacco Use: Yes - FORMER- QUIT TODAY 10/24/2016 Smoking Status (MU): Heavy Every Day Tobacco Smoker Type: Cigarettes Amount Used/How Often: 1 ppd Length of Time of Smoking/Using Tobacco: since age 18 Have You Smoked in the Last Year: Yes Review of Systems Negative: Fever, Chills Negative: Chest Pain Negative: Shortness Of Breath Negative: Vomiting, Nausea Positive: Headache All Other Systems Reviewed And Are Negative: Yes Physical Exam - Summary Physical Exam Summary: VITAL SIGNS: Reviewed. GENERAL: Patient is a well-developed and nourished female who is lying comfortable in the stretcher. Patient is not in any acute respiratory distress. HEAD AND FACE: No signs of trauma. No ecchymosis, hematomas or skull depressions. No sinus tenderness. EYES: PERRLA, EOMI x 2, No injected conjunctiva, no nystagmus. EARS: Hearing grossly intact. Ear canals and tympanic membranes are within normal limits. MOUTH: Oropharynx within normal limits. NECK: Supple, trachea is midline, no adenopathy, no JVD, no carotid bruit, no c- spine tenderness, neck with full ROM. CHEST: Symmetric, no tenderness at palpation LUNGS: Clear to auscultation bilaterally. No wheezing or crackles. CVS: Regular rate and rhythm, S1 and S2 present, no murmurs or gallops appreciated. ABDOMEN: Soft, non-tender. No signs of distention. No rebound no guarding, and no masses palpated. Bowel sounds are normal. EXTREMITIES: FROM in all major joints, no edema, no cyanosis or clubbing. NEURO: Alert and oriented x 3. No acute neurological deficits. Speech is normal and follows commands. SKIN: Dry and warm Triage Information Reviewed: Yes Vital Signs On Initial Exam: Initial Vitals Temp Pulse Resp BP Pulse Ox 98.3 F 71 16 123/74 100 08/21/19 14:42 08/21/19 14:42 08/21/19 14:42 08/21/19 14:42 08/21/19 14:42 Vital Signs Reviewed: Yes Procedures - Sedation Patient Received Moderate/Deep Sedation with Procedure: No Diagnostics - Vital Signs Vital Signs Temp Pulse Resp BP Pulse Ox 08/21/19 14:42 98.3 F 71 16 123/74 100 - Laboratory Result Diagrams: 08/21/19 16:18 08/21/19 16:18 Lab Statement: Any lab studies that have been ordered have been reviewed, and results considered in the medical decision making process. Re-Evaluation - Re-Evaluation First Eval Re-Evaluation Time: 18:16 Comment: Discussed results with patient. She will be discharged home with follow up from her PCP. Complex Multi-Symp Course/Dx Assessment/Plan: This patient is a 29 y/o female presenting to [facility] via EMS c/ o feeling a seizure coming on. Patient reports she began to have a headache this morning and notes that this sometimes means she is about to have a seizure. She denies fever, chills, chest pain, SOB, nausea, vomiting. Patient reports she takes Gabapentin for her chronic hip pain. Per EMS, patient went to [facility] today stating the same chief complaint and was discharged home. EMS notes patient then took a cab and came to [facility] ED. She states she takes iron and vitamins, however states she is not . Allergies to Penicillin. Blood test results without any significant abnormality. At this point, I discussed all the findings and test results with the patient. Patient was instructed to return to the emergency room immediately if any of the symptoms return or worsen.Plan of care was discussed with the patient and the patient understands and agrees. All questions were answered at patient satisfaction. Patient understands and agrees. Neurological exam before discharge: Patient is alert and oriented x 3. No acute neurological deficits. Patient's vital signs are stable. Patient is to follow up with her PCP in the next 2 3 days. They understand and agree. The plan of care was discussed with the patient and the patient understands and agrees with the plan of care. All questions were answered at patient satisfaction. There were no further complaints or concerns. - Diagnoses Provider Diagnoses: Headache Discharge ED - Sign-Out/Discharge Documenting (check all that apply): Patient Departure - Discharge home - Discharge Plan Condition: Stable Disposition: HOME Patient Education Materials: General Headache (ED) Referrals: Dolores Jasso MD [Primary Care Provider] - Additional Instructions: FOLLOW UP WITH YOUR PRIMARY CARE PROVIDER IN 2-3 DAYS. RETURN TO THE EMERGENCY DEPARTMENT FOR ANY WORSENING OR NEW SYMPTOMS. - Billing Disposition and Condition Condition: STABLE Disposition: Home - Attestation Statements Document Initiated by Scribe: Yes Documenting Scribe: Katarina Walters Provider For Whom Scribe is Documenting (Include Credential): Alex Vaughan MD Scribe Attestation: I, Katarina Walters, scribed for Alex Vaughan MD on 08/23/19 at 0758. Scribe Documentation Reviewed: Yes Provider Attestation: The documentation as recorded by the scribeKatarina accurately reflects the service I personally performed and the decisions made by me, Alex Vaughan MD Status of Scribe Document: Viewed
[2019-08-21 16:27] LABS: ABS Eosinophils 0.1 10^3/ul (0-0.6); ABS Lymphocytes 2.9 10^3/ul (1.0-4.8); ABS Monocytes 0.6 10^3/ul (0-0.8); ABS Neutrophils 5.4 10^3/ul (1.5-7.7); Eosinophil % 1.5 %; Hematocrit 39 % (35-47); Hemoglobin 13.3 g/dL (12.0-16.0); Lymphocyte % 31.9 %; Mean Corpuscular HGB Conc 34 g/dL (31-36); Mean Corpuscular Hemoglobin 30 pg (27-31); Mean Corpuscular Volume 89 fL (80-97); Mean Platelet Volume 7.6 fL (7.4-10.4); Platelet Count 442 10^3/uL (150-450); Red Cell Distribution Width 13 % (10-15); White Blood Count 9.1 10^3/uL (3.5-10.8)
[2019-08-21 16:48] LABS: Albumin 4.6 g/dL (3.2-5.2); Albumin/Globulin Ratio 1.5 (1-3); BUN/Creatinine Ratio 15.4 (8-20); C Reactive Protein 3.12 mg/L (<8.01); Calcium 9.6 mg/dL (8.6-10.3); EGFR African American 131.3 (>60); EGFR Non-African American 108.5 (>60); Globulin 3.1 g/dL (2-4); Total Bilirubin 0.2 mg/dL (0.2-1.0); Total Protein 7.7 g/dL (6.4-8.9)
[2019-08-21 16:49] LABS: Urine Appearance Cloudy; Urine Bilirubin Negative (Negative); Urine Blood Negative (Negative); Urine Color Yellow; Urine Glucose Negative (Negative); Urine Ketones Negative (Negative); Urine Nitrite Negative (Negative); Urine Protein Negative (Negative); Urine Specific Gravity 1.009 (1.010-1.030); Urine Urobilinogen Negative (Negative)
[2019-08-21 17:17] LABS: Urine Benzodiazepine Screen None Detected (None Detect); Urine Opiates Screen None Detected (None Detect)
[2019-08-21 17:25] LABS: Urine Bacteria 1+ (Absent); Urine Red Blood Cell Absent (Absent); Urine Squamous Epithelial Cell Present (Absent); Urine White Blood Cell Trace(0-5/hpf) (Absent)
[2019-08-21 18:48] VITALS: BP 117/67
== END 2019-08-21 18:47 | disposition home or self-care (01) ==
LOC: ED 14:37
DX: R51 Headache (principal); J45.909 Unspecified asthma, uncomplicated; G89.29 Other chronic pain; M25.552 Pain in left hip; M25.551 Pain in right hip; Z79.899 Other long term (current) drug therapy; Z79.51 Long term (current) use of inhaled steroids; Z88.0 Allergy status to penicillin; Z87.891 Personal history of nicotine dependence
CPT/HCPCS: 36415; 80053; 80307; 81003; 81015; 85025; 86140; 87086; 99282; G0480

== ENCOUNTER 2019-08-26 18:37 | Emergency (ER) | payer MEDICARE, MEDICAID ==
[2019-08-26] MEDS ORDERED: Ciproflox/Dexameth OTIC.SUSP* 7.5 ML BTL RIGHT EAR ONE (20:01)
--- NOTE | 2019-08-26 20:01 | ED ---
Throat Pain/Nasal Congestion - HPI Summary HPI Summary: 29-year-old female presents with pain intermittently for the past month. States she was diagnosed with ear infection and placed on a course of clindamycin. Pain improved with antibiotic but returned when antibiotic was done. He states that she has history of problems with this ear. No headache. States she has had a little bit of decreased hearing. No sore throat. Has history of seizures. Has been taking gabapentin for pain which has not been helping. - History of Current Complaint Chief Complaint: EDEarPain Time Seen by Provider: 08/26/19 19:22 - Allergies/Home Medications Allergies/Adverse Reactions: Allergies Allergy/AdvReac Type Severity Reaction Status Date / Time Penicillins AdvReac Itching Verified 08/26/19 18:40 Home Medications: Home Medications Cyclobenzaprine TAB* [Flexeril 10 MG TAB*] 10 mg PO TID PRN 11/07/17 [History Confirmed 05/02/19] metFORMIN* [Glucophage 500 MG TAB *] 500 mg PO BID 11/07/17 [History Confirmed 05/02/19] Acetaminophen [Acetaminophen Extra Strength] 500 mg PO Q4HR PRN 11/28/18 [ History Confirmed 05/02/19] Albuterol HFA INHALER* [Ventolin HFA Inhaler*] 1 puff INH Q4H PRN 04/29/19 [ History Confirmed 05/02/19] Benzoyl Peroxide [Neutrogena On-The-Spot AC] 2.5 % TOPICAL BID 04/29/19 [ History Confirmed 05/02/19] [place] Carbonate ER (NF) 300 mg PO DAILY 04/29/19 [History Confirmed 05/02/19] [place] Carbonate ER TAB* 450 mg PO BID 04/29/19 [History Confirmed 05/02/19] LoraTADine TAB(NF) [Claritin 10 MG TAB(NF)] 10 mg PO DAILY 04/29/19 [History Confirmed 05/02/19] Ondansetron TAB* [Zofran 4 MG Tab*] 4 mg PO Q6H PRN 04/29/19 [History Confirmed 05/02/19] SUMAtriptan TAB* [Imitrex TAB*] 50 mg PO DAILY PRN 04/29/19 [History Confirmed 05/02/19] cloNIDine TAB* [Catapres 0.1 MG TAB*] 0.1 mg PO TID 04/29/19 [History Confirmed 05/02/19] Acetaminophen TAB* [Tylenol TAB*] 650 mg PO Q6H PRN #20 tab 08/26/19 [Rx] PMH/Surg Hx/FS Hx/Imm Hx Endocrine/Hematology History: Denies: Hx Anticoagulant Therapy, Hx Diabetes Cardiovascular History: Reports: Hx Angina, Hx Hypercholesterolemia - HLD, Hx Syncope, Hx Valvular Heart Disease - AR, Other Cardiovascular Problems/ Disorders - aortic regurgitation Denies: Hx Hypertension, Hx Myocardial Infarction, Hx Pacemaker/ICD Respiratory History: Reports: Hx Asthma, Hx Seasonal Allergies History: Denies: Hx Renal Disease Musculoskeletal History: Reports: Hx Back Problems - lower back pain, Other Musculoskeletal History - labrum tears b/l hips Sensory History: Reports: Hx Contacts or Glasses Denies: Hx Deafness, Hx Hearing Aid Opthamlomology History: Reports: Hx Contacts or Glasses Neurological History: Reports: Hx Migraine, Other Neuro Impairments/Disorders - Right hemisphere disorder Psychiatric History: Reports: Hx Anxiety, Hx Attention Deficit Hyperactivity Disorder, Hx Depression, Hx Panic Disorder, Hx Inpatient Treatment - 10/2017, Hx Community Mental Health Tx, Hx Bipolar Disorder, Hx Suicide Attempt, Hx Substance Abuse - oxycodone Denies: Hx Eating Disorder, Hx Post Traumatic Stress Disorder, Hx Schizophrenia, Hx of Violent Episodes Against Others - Surgical History Surgery Procedure, Year, and Place: Left hip surgery - Immunization History Date of Tetanus Vaccine: up to date Date of Influenza Vaccine: up to date. Infectious Disease History: No Infectious Disease History: Reports: History Other Infectious Disease - varicella Denies: Traveled Outside the [place] in Last 30 Days - Family History Known Family History: Positive: Cardiac Disease - Mother: fatal ID at age 52, Hypertension, Diabetes, Other - seizures (mother); no history of SI from family members - Social History Alcohol Use: Rare Hx Substance Use: Yes Substance Use Type: Reports: Marijuana Substance Use Comment - Amount & Last Used: rarely Hx Tobacco Use: Yes - FORMER- QUIT TODAY 10/24/2016 Smoking Status (MU): Heavy Every Day Tobacco Smoker Type: Cigarettes Amount Used/How Often: 1 ppd Length of Time of Smoking/Using Tobacco: since age 18 Have You Smoked in the Last Year: Yes Review of Systems Negative: Fever Positive: Ear Ache Negative: Chest Pain Negative: Shortness Of Breath All Other Systems Reviewed And Are Negative: Yes Physical Exam Triage Information Reviewed: Yes Vital Signs On Initial Exam: Initial Vitals Temp Pulse Resp BP Pulse Ox 99.2 F 93 16 125/87 100 08/26/19 18:40 08/26/19 18:40 08/26/19 18:40 08/26/19 18:40 08/26/19 18:40 Vital Signs Reviewed: Yes Appearance: Positive: Well-Appearing Skin: Positive: Warm, Dry Head/Face: Positive: Normal Head/Face Inspection Eyes: Positive: Normal, EOMI, DONTRELL, Conjunctiva Clear ENT: Positive: Pharynx normal, TMs normal, Other - tenderness manipulation of tragus right ear, ear canal mild edema and erythema. Negative: TM bulging, TM red Respiratory/Lung Sounds: Positive: Clear to Auscultation, Breath Sounds Present Cardiovascular: Positive: Normal, RRR Musculoskeletal: Positive: Normal Psychiatric: Positive: Normal Procedures - Sedation Patient Received Moderate/Deep Sedation with Procedure: No Diagnostics - Vital Signs Vital Signs Temp Pulse Resp BP Pulse Ox 08/26/19 18:40 99.2 F 93 16 125/87 100 - Laboratory Lab Statement: Any lab studies that have been ordered have been reviewed, and results considered in the medical decision making process. EENT Course/Dx - Course Course Of Treatment: 29-year-old female presents with pain intermittently for the past month. States she was diagnosed with ear infection and placed on a course of clindamycin. Pain improved with antibiotic but returned when antibiotic was done. He states that she has history of problems with this ear. No headache. States she has had a little bit of decreased hearing. No sore throat. Has history of seizures. Has been taking gabapentin for pain which has not been helping. On exam pain tenderness with palpation of the tragus. Ear canal mildly edematous and erythematous. TMs normal. We'll treat as a course of Ciprodex. Patient understands and agrees plan. - Differential Diagnoses Differential Diagnoses: Otitis Externa, Otitis Media, URI/Bronchitis - Diagnoses Provider Diagnoses: Otitis externa Discharge ED - Sign-Out/Discharge Documenting (check all that apply): Patient Departure - Discharge Plan Condition: Good Disposition: HOME Prescriptions: Acetaminophen TAB* [Tylenol TAB*] 650 mg PO Q6H PRN #20 tab PRN Reason: Pain - Moderate Patient Education Materials: Otitis Externa (ED) Referrals: Dolores Jasso MD [Primary Care Provider] - Additional Instructions: Use 4 drops twice a day for 7 days Take Tylenol or ibuprofen for pain every 6 hours as needed Follow up with primary in a week to make sure resolving Return to ED if develop any new or worsening symptoms - Billing Disposition and Condition Condition: GOOD Disposition: Home
[2019-08-26] MEDS ORDERED: Ketorolac INJ* 30 MG/ML 1 ML VIAL IM ONE (20:02)
[2019-08-26] MEDS ORDERED: Ondansetron ODT TAB* 4 MG PO ONE (20:02)
[2019-08-26 20:20] VITALS: BP 128/79
== END 2019-08-26 20:18 | disposition home or self-care (01) ==
LOC: ED 18:37
DX: H60.91 Unspecified otitis externa, right ear (principal); J45.909 Unspecified asthma, uncomplicated; F90.9 Attention-deficit hyperactivity disorder, unspecified type; F41.9 Anxiety disorder, unspecified; F32.9 Major depressive disorder, single episode, unspecified; Z88.0 Allergy status to penicillin; F17.210 Nicotine dependence, cigarettes, uncomplicated
CPT/HCPCS: 96372; 99282; A9270-GY; J1885

== ENCOUNTER 2019-09-05 21:49 | Emergency (ER) | payer MEDICARE, MEDICAID ==
[2019-09-05 21:56] VITALS: BP 128/89
--- OUTSIDE RECORDS SUMMARY | 2019-09-05 22:01 | XMS REPORT | Continuity of Care Document ---
:1990 External Reference #:[id number] Author Name Karen Jordan MD (transmitted by agent of provider Mary Martinez) Address [address] [place] [id number] Problems Active Problems Provider Date Acne Anup Sheriff MD Onset: 06/26/2019 Female hirsutism Anup Sheriff MD Onset: 06/26/2019 Asthma Karen Jordan MD Onset: 08/30/2019 Social History Type Date Description Comments Sex Unknown Tobacco Use Start: Unknown Light tobacco smoker (10 or fewer 6/day cigarettes/day) Smoking Status Reviewed: 08/30/19 Light tobacco smoker (10 or fewer 6/day cigarettes/day) Allergies, Adverse Reactions, Alerts Active Allergies Reaction Severity Comments Date PCN Itching, sensation of throat closing 03/01/2019 Medications Active Medications SIG Qnty Indications Ordering Date Provider Ibuprofen 200 take 3 tablets 63tabs Karen Jordan, 08/30/2019 200mg Tablets every 8 hours as MD needed for a week Cyclobenzaprine HCL Take 1 Tablet By 14tabs [...] Unknown 50mg Tablets Mapap Unknown 325mg Tablets [place] Carbonate ER Unknown 300mg Tablets ER Fluticasone Propionate Unknown 50mcg/Act Suspension Narcan Unknown 4mg/0.1ML Liquid Diphenhydramine HCL Unknown 25mg Capsules Ondansetron HCL Unknown 4mg Tablets [place] Carbonate ER Unknown 450mg Tablets ER History Medications Prednisone take 5 tabs 25tabs J45.901 ZENAIDA Bishop 03/19/2019 - 10mg Tablets for 5 days 04/03/2019 Immunizations CPT Code Status Date Vaccine Lot # [id number] Given 05/03/2019 Tdap - Boostrix/Adacel [id number] Given 04/03/2019 Flu < 65 years [id number] Vital Signs Date Vital Result Comment 08/30/2019 11:09am BP Systolic 112 mmHg BP Diastolic 74 mmHg Height 62.75 inches 5'2.75" Weight 190.00 lb Heart Rate 75 /min Body Temperature 98.0 F O2 % BldC Oximetry 98 % BMI (Body Mass Index) 33.9 kg/m2 06/24/2019 2:53pm BP Systolic 138 mmHg BP Diastolic 70 mmHg Heart Rate 79 /min Body Temperature 98.4 F O2 % BldC Oximetry 99 % Results Description No Information Available Procedures Date Code Description Status 06/24/2019 06782 Remove Impacted Cerumen Completed Medical Devices Description No Information Available Encounters Type Date Location Provider Dx Diagnosis Office Visit 06/24/2019 2:45p ETHEL Sheriff MD R05 Cough J06.9 Acute upper respiratory infection, unspecified H61.21 Impacted cerumen, right ear Office Visit 04/03/2019 1:15p ZENAIDA Lama M25.559 Pain in unspecified hip Z23 Encounter for immunization Office Visit 03/19/2019 2:30p ZENAIDA Lama J45.901 Unspecified asthma with (acute) exacerbation Z68.35 Body mass index (BMI) 35.0-35.9, adult Office Visit 03/04/2019 4:00p [facility] Karen Jordan MD L50.8 Other urticaria Assessments Date Code Description Provider 06/24/2019 R05 Cough Anup Sheriff MD 06/24/2019 J06.9 Acute upper respiratory infection, unspecified Anup Sheriff MD 06/24/2019 H61.21 Impacted cerumen, right ear Anup Sheriff MD 05/03/2019 Z23 Encounter for immunization Nurse 04/03/2019 M25.559 Pain in unspecified hip Elle Lyons [facility] 04/03/2019 Z23 Encounter for immunization Elle Lyons [facility] 03/19/2019 J45.901 Unspecified asthma with (acute) exacerbation Elle Lyons [facility] 03/19/2019 Z68.35 Body mass index (BMI) 35.0-35.9, adult Elle Lyons [facility] 03/04/2019 L50.8 Other urticaria Karen Jordan MD Plan of Treatment 08/30/2019 - Liset Wilson Medication:Ibuprofen 200 200 mg - take 3 tablets every 8 hours as needed for a week Functional Status Description No Information Available Mental Status Description No Information Available Referrals Description No Information Available
== END 2019-09-05 23:59 | disposition left against medical advice (07) ==
LOC: ED 21:49
DX: G43.909 Migraine, unspecified, not intractable, without status migrainosus (principal); Z53.21 Procedure and treatment not carried out due to patient leaving prior to being seen by health care provider
CPT/HCPCS: 99281

== ENCOUNTER 2024-06-13 06:57 | Inpatient (IN) ==
[2024-06-13] MEDS: Lactated Ringers 1000 ml BAG 1,000 ML IV ONE (07:00)
[2024-06-13] MEDS ORDERED: Nalbuphine 10 MG/ML 1 ML VIAL IV PRN (07:04)
[2024-06-13] MEDS ORDERED: Prochlorperazine 5 mg/ml 2 ml VIAL (10 mg) IV PRN (07:04)
[2024-06-13] MEDS ORDERED: Lidocaine 1% VIAL 10 MG/ML 30 ML VIAL INJ PRN (07:04)
[2024-06-13] MEDS: Buffered Lidocaine 1% SYRIN 1 ml INTRADERM ONE (07:33)
[2024-06-13] MEDS: ceFAZolin 2 GM PREMIX 2 GM/50 ML BAG IV ONE (07:33)
[2024-06-13] MEDS ORDERED: Calcium Gluconate 1 GM/10 ML VIAL (in Pyxis) IV PUSH PRN (07:35)
[2024-06-13] MEDS: Betamethasone 6 mg/ml 5 ml VIAL IM SCH (07:42)
[2024-06-13 07:54] LABS: ABS Lymphocytes 0.9 10^3/uL (1.0-4.8); ABS Neutrophils 14.5 10^3/uL (1.5-7.6); Hematocrit 28.6 % (35-45); Hemoglobin 9.9 g/dL (11.5-14.3); Lymphocyte % 5.4 %; Mean Corpuscular Hemoglobin 28.9 pg (27-33); Mean Corpuscular Hgb Conc 34.5 g/dL (31-36); Mean Corpuscular Volume 83.7 fL (80-97); Mean Platelet Volume 8.7 fL (7.5-11.2); Platelet Count 306 10^3/uL (150-450); Red Blood Count 3.42 10^6/uL (3.63-4.92); Red Cell Distribution Width 13.2 % (12-17); White Blood Count 16.4 10^3/uL (3.8-11.8)
[2024-06-13] MEDS: Magnesium Sulfate OB PREMIX 4 GM/100 ML BAG IV ONE (08:00)
[2024-06-13] MEDS ORDERED: Lactated Ringers 1000 ml BAG 1,000 ML IV SCH (08:00)
[2024-06-13] MEDS: Magnesium Sulfate OB PREMIX 40 GM/1,000 ML BAG IVPB SCH (08:20)
[2024-06-13 11:33] LABS: HIV 4th Generation Nonreactive (Nonreactive)
[2024-06-13 12:34] LABS: Hepatitis B Surface Antigen Nonreactive (Nonreactive)
[2024-06-13 14:15] LABS: Hepatitis C Antibody Reactive (Negative)
[2024-06-13] MEDS ORDERED: ceFAZolin VIAL 1 GM in NS 0.9% 50 ML 50 ML IVPB SCH (15:30)
== END 2024-06-13 09:25 | disposition short-term general hospital (02) | DRG 832 ==
LOC: MCHOBOUT 06:57 → MCHOB 07:37
PROVIDERS: ADMIT Obstetrics & Gynecology; ATTEND Obstetrics & Gynecology

== ENCOUNTER 2024-06-23 17:05 | Observation (INO) ==
[2024-06-23 18:57] LABS: ABS Basophils 0.1 10^3/uL (0.0-0.1); ABS Eosinophils 0.1 10^3/uL (0.0-0.5); ABS Lymphocytes 2.4 10^3/uL (1.0-4.8); ABS Monocytes 0.7 10^3/uL (0.0-0.9); ABS Nucleated RBC 0.01 10^3/ul; Eosinophil % 0.5 %; Hemoglobin 8.7 g/dL (11.5-14.3); Lymphocyte % 16.8 %; Mean Corpuscular Hemoglobin 27.4 pg (27-33); Mean Corpuscular Hgb Conc 32.2 g/dL (31-36); Mean Corpuscular Volume 85.2 fL (80-97); Mean Platelet Volume 7.5 fL (7.5-11.2); Platelet Count 783 10^3/uL (150-450); Red Blood Count 3.17 10^6/uL (3.63-4.92); White Blood Count 14.2 10^3/uL (3.8-11.8)
[2024-06-23 19:37] LABS: ALT 31 U/L (7-52); AST 16 U/L (13-39); Albumin 3.1 g/dL (3.5-5.7); Albumin/Globulin Ratio 0.8 (1-3); Alkaline Phosphatase 129 U/L (35-149); Anion Gap 8 mmol/L (2-16); Blood Urea Nitrogen 11 mg/dL (6-24); CO2 Carbon Dioxide 27 mmol/L (22-32); Calcium 9.3 mg/dL (8.6-10.3); Chloride 105 mmol/L (101-111); Creatinine, Serum 0.68 mg/dL (0.51-0.95); Globulin 4.1 g/dL (2-4); Glucose 98 mg/dL (70-100); Potassium 4.7 mmol/L (3.5-5.0); Sodium 140 mmol/L (135-145); Total Bilirubin 0.3 mg/dL (0.2-1.0); Total Protein 7.2 g/dL (6.4-8.9); eGFR CKD-EPI 118.6 (>60)
[2024-06-23] MEDS: fentaNYL 100 mcg/2 ml 50 MCG/ML VIAL IV SLOW PU ONE ×2 (20:39→22:25)
[2024-06-23] MEDS: Iohexol 350 (CONTRAST) 500 ML MDV IV ONE (21:42)
[2024-06-23 22:09] LABS: C Reactive Protein 112.83 mg/L (<8.01); Creatine Kinase 16 U/L (10-223)
[2024-06-23] MEDS: Cefepime 2 GM in Dextrose 2 GM/50 ML BAG IV ONE (23:27)
[2024-06-23 23:34] LABS: Urine Appearance Clear; Urine Bilirubin Negative (Negative); Urine Blood 3+ (Negative); Urine Color Light-Yellow; Urine Glucose Negative (Negative); Urine Ketones Negative (Negative); Urine Nitrite Negative (Negative); Urine Protein Negative (Negative); Urine Specific Gravity 1.039 (1.002-1.030); Urine Urobilinogen Negative (Negative); Urine pH 6.5 (5.0-8.0)
[2024-06-23 23:39] LABS: Urine Bacteria Absent /HPF (Absent); Urine Red Blood Cell 3+(>10/hpf) /HPF (0-Trace); Urine Squamous Epithelial Cell Present /HPF (Absent); Urine White Blood Cell 2+(11-20/hpf) /HPF (0-Trace)
[2024-06-23] MEDS: Morphine 4 MG/ML VIAL (1 ml) IV ONE (23:42)
[2024-06-23 23:46] LABS: Urine Benzodiazepine Screen None Detected (None Detect); Urine Buprenorphine Screen None Detected (None Detect); Urine Cannabinoids Screen None Detected (None Detect); Urine Fentanyl Screen Presumptive Positive (None Detect); Urine Hydrocodone Screen None Detected (None Detect); Urine Opiates Screen None Detected (None Detect)
[2024-06-23 23:47] LABS: Urine Benzodiazepine Screen None Detected (None Detect); Urine Cannabinoids Screen None Detected (None Detect); Urine Opiates Screen None Detected (None Detect)
[2024-06-23] MEDS: metroNIDAZOLE IV 500 MG/100ML 500 MG/100 ML BAG IVPB ONE (23:48)
[2024-06-24] MEDS ORDERED: Ondansetron 4 mg VIAL 2 MG/ML 2 ml VIAL IV PRN (00:10)
[2024-06-24 00:43] LABS: % Iron Saturation 6 % (15-55); .Transferrin 254 mg/dL (203-362); Iron < 20 ug/dL (50-212); Total Iron Binding Capacity 356 mcg/dL (250-450); Unsaturated Iron Binding 336 ug/dL
[2024-06-24] MEDS: Vancomycin 1,250 MG in NS 0.9% 250 ml 250 ML IVPB ONE (00:55)
[2024-06-24] MEDS: Lactated Ringers 1000 ml BAG 1,000 ML IV ONE (00:56)
[2024-06-24 01:00] LABS: TSH Ultra Thyroid Stim Horm 2.34 mcIU/mL (0.34-5.60)
[2024-06-24] MEDS ORDERED: Vancomycin per Pharmacy 1 EA NOTE FOLLOW UP SCH (01:00)
[2024-06-24 01:11] LABS: Folate 12.56 ng/mL (5.90-24.80); Vitamin B12 194 pg/mL (180-914)
[2024-06-24] MEDS: HYDROmorphone 0.5 MG/0.5 ML SYRINGE IV SLOW PU PRN (01:27)
[2024-06-24] MEDS: Lactated Ringers 1000 ml BAG 1,000 ML IV SCH (02:44)
[2024-06-24] MEDS: cefTRIAXone 1 gm/50 mL D5W 1 GM/50 ML BAG IV SCH (06:14)
[2024-06-24] MEDS: metroNIDAZOLE IV 500 MG/100ML 500 MG/100 ML BAG IVPB SCH ×2 (08:14→15:42)
[2024-06-24] MEDS: Vancomycin 1,250 MG in NS 0.9% 250 ml 250 ML IVPB SCH (10:27)
[2024-06-24] MEDS ORDERED: LORazepam 2 mg VIAL 1 ml IV PUSH PRN (10:52)
[2024-06-24] MEDS: Enoxaparin 40 MG/0.4 ML SYR SUBCUT SCH (13:48)
[2024-06-24] MEDS: Morphine 2 MG/ML SYRINGE IV PRN (15:42)
[2024-06-24] MEDS ORDERED: Sulfur Hexaflouride MICROSPHR 25 MG VIAL IV PRN (16:52)
[2024-06-24] MEDS: HYDROmorphone 1 MG/1 ML SYRINGE IV SLOW PU PRN (20:04)
[2024-06-25] MEDS: cefTRIAXone 1 gm/50 mL D5W 1 GM/50 ML BAG IV SCH (05:53)
[2024-06-25 06:37] LABS: ABS Basophils 0.1 10^3/uL (0.0-0.1); ABS Eosinophils 0.1 10^3/uL (0.0-0.5); ABS Lymphocytes 2.3 10^3/uL (1.0-4.8); ABS Monocytes 0.5 10^3/uL (0.0-0.9); ABS Neutrophils 9.3 10^3/uL (1.5-7.6); Eosinophil % 0.7 %; Hematocrit 26.3 % (35-45); Hemoglobin 8.8 g/dL (11.5-14.3); Lymphocyte % 18.8 %; Mean Corpuscular Hemoglobin 28.5 pg (27-33); Mean Corpuscular Hgb Conc 33.6 g/dL (31-36); Mean Corpuscular Volume 84.7 fL (80-97); Mean Platelet Volume 7.3 fL (7.5-11.2); Platelet Count 818 10^3/uL (150-450); Red Blood Count 3.11 10^6/uL (3.63-4.92); Red Cell Distribution Width 14.3 % (12-17); White Blood Count 12.3 10^3/uL (3.8-11.8)
[2024-06-25 07:10] LABS: Calcium 8.6 mg/dL (8.6-10.3); Creatinine, Serum 0.65 mg/dL (0.51-0.95); Magnesium 1.7 mg/dL (1.9-2.7); Potassium 4.7 mmol/L (3.5-5.0); eGFR CKD-EPI 119.9 (>60)
[2024-06-25] MEDS ORDERED: Vancomycin Trough Check NOTE FOLLOW UP ONE (08:30)
[2024-06-25] MEDS: Magnesium Sulfate 2 gm BAG 2 GM/50 ML BAG IVPB ONE (10:04)
[2024-06-26 06:51] LABS: ABS Eosinophils 0.1 10^3/uL (0.0-0.5); ABS Lymphocytes 2.7 10^3/uL (1.0-4.8); ABS Monocytes 0.6 10^3/uL (0.0-0.9); ABS Neutrophils 9.4 10^3/uL (1.5-7.6); ABS Nucleated RBC 0.01 10^3/ul; Eosinophil % 0.7 %; Hematocrit 29.1 % (35-45); Hemoglobin 9.2 g/dL (11.5-14.3); Lymphocyte % 20.9 %; Mean Corpuscular Hemoglobin 26.6 pg (27-33); Mean Corpuscular Hgb Conc 31.5 g/dL (31-36); Mean Corpuscular Volume 84.4 fL (80-97); Mean Platelet Volume 7.3 fL (7.5-11.2); Nucleated Red Blood Cells % 0.1 %/100WBC (0.0-0.8); Platelet Count 906 10^3/uL (150-450); Red Blood Count 3.45 10^6/uL (3.63-4.92); Red Cell Distribution Width 14.4 % (12-17); White Blood Count 12.9 10^3/uL (3.8-11.8)
[2024-06-26 07:14] LABS: Calcium 8.6 mg/dL (8.6-10.3); Creatinine, Serum 0.89 mg/dL (0.51-0.95); Magnesium 1.9 mg/dL (1.9-2.7); Potassium 5.2 mmol/L (3.5-5.0); eGFR CKD-EPI 88.3 (>60)
[2024-06-26] MEDS: ceFAZolin 2 GM PREMIX 2 GM/50 ML BAG IV SCH (11:33)
[2024-06-27 01:33] VITALS: BP 120/70
== END 2024-06-27 08:58 | disposition left against medical advice (07) ==
LOC: ED 17:05 → EDHOLD 17:05 → SUATTDRO 06-24 00:03 → MED 06-24 12:32
PROVIDERS: ADMIT Internal Medicine; ATTEND Student in an Organized Health Care Education/Training Program

== ENCOUNTER 2024-06-27 15:00 | Observation (INO) ==
[2024-06-27] MEDS ORDERED: Lorazepam PYXIS KEY PRN (15:59)
[2024-06-27] MEDS ORDERED: Albuterol HFA INHALER 8 gm MDI INH PRN (16:04)
[2024-06-27] MEDS: LORazepam 2 mg VIAL 1 ml IV PUSH ONE (17:30)
[2024-06-27] MEDS: HYDROmorphone 1 MG/1 ML SYRINGE IV SLOW PU ONE (17:30)
[2024-06-27] MEDS: ceFAZolin 2 GM PREMIX 2 GM/50 ML BAG IV SCH ×2 (19:23→19:25)
[2024-06-27] MEDS: Enoxaparin 40 MG/0.4 ML SYR SUBCUT SCH (19:23)
[2024-06-27] MEDS: metroNIDAZOLE IV 500 MG/100ML 500 MG/100 ML BAG IVPB SCH ×2 (19:25→22:05)
[2024-06-27 19:37] LABS: ABS Basophils 0.2 10^3/uL (0.0-0.1); ABS Eosinophils 0.1 10^3/uL (0.0-0.5); ABS Lymphocytes 1.9 10^3/uL (1.0-4.8); ABS Monocytes 0.8 10^3/uL (0.0-0.9); ABS Neutrophils 5.9 10^3/uL (1.5-7.6); Eosinophil % 1.6 %; Hematocrit 31.1 % (35-45); Hemoglobin 10.5 g/dL (11.5-14.3); Lymphocyte % 20.8 %; Mean Corpuscular Hemoglobin 28.3 pg (27-33); Mean Corpuscular Hgb Conc 33.7 g/dL (31-36); Mean Corpuscular Volume 83.9 fL (80-97); Platelet Count 841 10^3/uL (150-450); Red Blood Count 3.71 10^6/uL (3.63-4.92); White Blood Count 8.9 10^3/uL (3.8-11.8)
[2024-06-27 20:28] LABS: Albumin 3.4 g/dL (3.5-5.7); Albumin/Globulin Ratio 0.7 (1-3); C Reactive Protein 93.96 mg/L (<8.01); Calcium 9.7 mg/dL (8.6-10.3); Creatinine, Serum 0.67 mg/dL (0.51-0.95); Globulin 4.7 g/dL (2-4); Potassium 4.6 mmol/L (3.5-5.0); Total Bilirubin 0.3 mg/dL (0.2-1.0); Total Protein 8.1 g/dL (6.4-8.9)
[2024-06-28] MEDS: HYDROmorphone 1 MG/1 ML SYRINGE IV SLOW PU PRN (03:58)
[2024-06-28] MEDS: Morphine 2 MG/ML SYRINGE IV PRN (09:58)
[2024-06-28] MEDS: COWS Protocol Daily Order Reminder FOLLOW UP SCH (17:31)
[2024-06-28] MEDS ORDERED: Midazolam 5 mg/5 ml VIAL 1 mg/ml 5 ml VIAL (5 mg) ONE (20:48)
[2024-06-28] MEDS ORDERED: fentaNYL 250 mcg/5 ml 50 MCG/ML 5 ml VIAL (250 MCG) ONE (20:49)
[2024-06-28] MEDS ORDERED: Propofol 10 MG/ML 20 ML BTL ONE (20:49)
[2024-06-28] MEDS ORDERED: Lidocaine 2% PF 5 ML VIAL ONE (20:49)
[2024-06-29 05:40] VITALS: BP 112/88
[2024-06-29 06:15] LABS: ABS Basophils 0.1 10^3/uL (0.0-0.1); ABS Eosinophils 0.1 10^3/uL (0.0-0.5); ABS Monocytes 0.6 10^3/uL (0.0-0.9); ABS Neutrophils 3.9 10^3/uL (1.5-7.6); ABS Nucleated RBC 0.01 10^3/ul; Eosinophil % 1.6 %; Hematocrit 27.9 % (35-45); Hemoglobin 9.1 g/dL (11.5-14.3); Lymphocyte % 29.5 %; Mean Corpuscular Hemoglobin 27.7 pg (27-33); Mean Corpuscular Hgb Conc 32.8 g/dL (31-36); Mean Corpuscular Volume 84.4 fL (80-97); Mean Platelet Volume 7.1 fL (7.5-11.2); Nucleated Red Blood Cells % 0.1 %/100WBC (0.0-0.8); Platelet Count 673 10^3/uL (150-450); Red Cell Distribution Width 14.6 % (12-17); White Blood Count 6.6 10^3/uL (3.8-11.8)
[2024-06-29 06:36] LABS: Calcium 8.5 mg/dL (8.6-10.3); Creatinine, Serum 0.68 mg/dL (0.51-0.95); Magnesium 1.7 mg/dL (1.9-2.7); Potassium 4.9 mmol/L (3.5-5.0); eGFR CKD-EPI 118.6 (>60)
[2024-06-29] MEDS: ceFAZolin 2 GM PREMIX 2 GM/50 ML BAG IV SCH (08:43)
== END 2024-06-29 09:15 | disposition left against medical advice (07) ==
LOC: EDHOLD 15:00 → ED 15:00 → MEDTELE 16:18
PROVIDERS: ADMIT Student in an Organized Health Care Education/Training Program; ATTEND Student in an Organized Health Care Education/Training Program
PROC: O.ANMRI (2024-06-28 21:00)

== ENCOUNTER 2024-07-07 18:49 | Inpatient (IN) ==
[2024-07-07] MEDS: Lactated Ringers 1000 ml BAG 1,000 ML IV ONE (21:10)
[2024-07-07] MEDS: Acetaminophen IV 1 GM/100ML 1,000 MG/100 ML BAG IV ONE (21:10)
[2024-07-07] MEDS: Morphine 4 MG/ML VIAL (1 ml) IV ONE (21:11)
[2024-07-07 21:31] LABS: ABS Basophils 0.1 10^3/uL (0.0-0.1); ABS Eosinophils 0.1 10^3/uL (0.0-0.5); ABS Lymphocytes 3.1 10^3/uL (1.0-4.8); ABS Monocytes 0.3 10^3/uL (0.0-0.9); ABS Neutrophils 3.1 10^3/uL (1.5-7.6); Hematocrit 32.6 % (35-45); Hemoglobin 10.7 g/dL (11.5-14.3); Lymphocyte % 46.1 %; Mean Corpuscular Hemoglobin 27.4 pg (27-33); Mean Corpuscular Hgb Conc 32.8 g/dL (31-36); Mean Corpuscular Volume 83.5 fL (80-97); Mean Platelet Volume 7.2 fL (7.5-11.2); Nucleated Red Blood Cells % 0.1 %/100WBC (0.0-0.8); Platelet Count 915 10^3/uL (150-450); White Blood Count 6.7 10^3/uL (3.8-11.8)
[2024-07-07 21:39] LABS: Activated Partial Thrombo Time 50.5 seconds (26.0-38.0); INR 1.16 (0.85-1.14)
[2024-07-07] MEDS: ceFAZolin 2 GM PREMIX 2 GM/50 ML BAG IV ONE (21:43)
[2024-07-07 22:31] LABS: Albumin 3.9 g/dL (3.5-5.7); Albumin/Globulin Ratio 0.9 (1-3); C Reactive Protein 7.18 mg/L (<8.01); Calcium 9.7 mg/dL (8.6-10.3); Creatinine, Serum 0.81 mg/dL (0.51-0.95); Globulin 4.5 g/dL (2-4); Potassium 4.1 mmol/L (3.5-5.0); Total Bilirubin 0.3 mg/dL (0.2-1.0); Total Protein 8.4 g/dL (6.4-8.9); eGFR CKD-EPI 98.9 (>60)
[2024-07-07 23:13] LABS: High Sensitivity Troponin 1 Hr 3 pg/mL (<15)
[2024-07-07 23:15] LABS: HCG Pregnancy 1.15 mIU/mL
[2024-07-07] MEDS: Iodixanol 320 (CONTRAST) 100 ML SDV IV ONE (23:52)
[2024-07-08] MEDS ORDERED: Naloxone 0.4 mg VIAL 0.4 mg/ml 1 ml VIAL IV PUSH PRN (07:06)
[2024-07-08] MEDS: ceFAZolin 2 GM PREMIX 2 GM/50 ML BAG IV SCH ×3 (10:17→18:42)
[2024-07-08 10:21] LABS: ABS Basophils 0.1 10^3/uL (0.0-0.1); ABS Eosinophils 0.1 10^3/uL (0.0-0.5); ABS Lymphocytes 2.2 10^3/uL (1.0-4.8); ABS Monocytes 0.3 10^3/uL (0.0-0.9); ABS Neutrophils 3.8 10^3/uL (1.5-7.6); Eosinophil % 2.2 %; Hematocrit 30.7 % (35-45); Hemoglobin 10.1 g/dL (11.5-14.3); Lymphocyte % 34.2 %; Mean Corpuscular Hemoglobin 27.6 pg (27-33); Mean Corpuscular Hgb Conc 33.1 g/dL (31-36); Mean Corpuscular Volume 83.5 fL (80-97); Nucleated Red Blood Cells % 0.1 %/100WBC (0.0-0.8); Platelet Count 777 10^3/uL (150-450); Red Blood Count 3.67 10^6/uL (3.63-4.92); Red Cell Distribution Width 15.1 % (12-17); White Blood Count 6.5 10^3/uL (3.8-11.8)
[2024-07-08] MEDS: Enoxaparin 40 MG/0.4 ML SYR SUBCUT SCH (10:24)
[2024-07-08 10:38] LABS: Calcium 8.8 mg/dL (8.6-10.3); Creatinine, Serum 0.7 mg/dL (0.51-0.95); Magnesium 1.7 mg/dL (1.9-2.7); Potassium 4.8 mmol/L (3.5-5.0); eGFR CKD-EPI 117.8 (>60)
[2024-07-08] MEDS: NS 0.9% 1000 ml BAG 1,000 ML IV SCH (12:04)
[2024-07-08 12:20] LABS: Urine Appearance Clear; Urine Bilirubin Negative (Negative); Urine Blood 2+ (Negative); Urine Color Light-Yellow; Urine Glucose Negative (Negative); Urine Ketones Negative (Negative); Urine Nitrite Negative (Negative); Urine Protein Negative (Negative); Urine Specific Gravity 1.023 (1.002-1.030); Urine Urobilinogen Negative (Negative); Urine pH 6.5 (5.0-8.0)
[2024-07-08 12:23] LABS: Urine Bacteria 1+ /HPF (Absent); Urine Red Blood Cell 3+(>10/hpf) /HPF (0-Trace); Urine Squamous Epithelial Cell Present /HPF (Absent); Urine White Blood Cell 3+(>20/hpf) /HPF (0-Trace)
[2024-07-08] MEDS: HYDROmorphone 1 MG/1 ML SYRINGE IV SLOW PU PRN (20:33)
[2024-07-08] MEDS: Acetaminophen IV 1 GM/100ML 1,000 MG/100 ML BAG IV PRN (22:05)
[2024-07-09] MEDS: Magnesium Sulfate 2 gm BAG 2 GM/50 ML BAG IVPB ONE (09:29)
[2024-07-09] MEDS: HYDROmorphone 0.5 MG/0.5 ML SYRINGE IV PRN (17:38)
[2024-07-10] MEDS: Morphine 2 MG/ML SYRINGE IV PRN (17:41)
[2024-07-13] MEDS: Senna TAB 8.6 mg TAB PO PRN (10:31)
[2024-07-13] MEDS ORDERED: Polyethylene Glycol 3350 17 GM PACKET PO PRN (11:57)
[2024-07-14] MEDS ORDERED: Nicotine GUM 4MG FRUIT FLAVOR PO PRN (09:36)
[2024-07-15 06:26] LABS: Hematocrit 31.6 % (35-45); Hemoglobin 10.5 g/dL (11.5-14.3); Mean Corpuscular Hemoglobin 27.5 pg (27-33); Mean Corpuscular Hgb Conc 33.1 g/dL (31-36); Mean Corpuscular Volume 83.1 fL (80-97); Mean Platelet Volume 7.6 fL (7.5-11.2); Platelet Count 486 10^3/uL (150-450); Red Cell Distribution Width 14.9 % (12-17)
[2024-07-15 06:43] LABS: Calcium 9.2 mg/dL (8.6-10.3); Creatinine, Serum 0.6 mg/dL (0.51-0.95); Magnesium 1.6 mg/dL (1.9-2.7); Potassium 4.8 mmol/L (3.5-5.0); eGFR CKD-EPI 122.2 (>60)
[2024-07-15] MEDS: Magnesium Sulf 4 GM/100 ML IV 4,000 MG/100 ML BAG IVPB ONE (09:31)
[2024-07-16 16:38] LABS: Hematocrit 32.1 % (35-45); Hemoglobin 10.7 g/dL (11.5-14.3); Mean Corpuscular Hemoglobin 27.6 pg (27-33); Mean Corpuscular Hgb Conc 33.4 g/dL (31-36); Mean Corpuscular Volume 82.7 fL (80-97); Mean Platelet Volume 7.4 fL (7.5-11.2); Platelet Count 419 10^3/uL (150-450); Red Blood Count 3.88 10^6/uL (3.63-4.92); Red Cell Distribution Width 14.9 % (12-17); White Blood Count 6.3 10^3/uL (3.8-11.8)
[2024-07-16 17:04] LABS: Calcium 9.1 mg/dL (8.6-10.3); Creatinine, Serum 0.46 mg/dL (0.51-0.95); Magnesium 1.5 mg/dL (1.9-2.7); Potassium 4.4 mmol/L (3.5-5.0); eGFR CKD-EPI 130.3 (>60)
[2024-07-16] MEDS: Magnesium Sulf 4 GM/100 ML IV 4,000 MG/100 ML BAG IVPB ONE (20:01)
[2024-07-16] MEDS: Nystatin TOP POWDER 15 GM BTL TOPICAL SCH (20:20)
[2024-07-17 14:26] VITALS: BP 110/60
== END 2024-07-17 14:40 | disposition home or self-care (01) | DRG 558 ==
LOC: ED 18:49 → EDHOLD 18:49 → SUATTDRO 07-08 06:47 → MED 07-08 16:23 → SUATTDRO 07-09 12:05
PROVIDERS: ADMIT Student in an Organized Health Care Education/Training Program; ATTEND Internal Medicine